=== PATIENT | female | born 1950 | race Caucasian/White ===

== ENCOUNTER 2023-07-28 09:45 | Outpatient (RCR) | payer OTHER, SELFPAY ==
[2023-07-07] VITALS (8 sets, daily range): BP systolic 126–161; BP diastolic 46–64
[2023-07-07] MEDS: TYLENOL 650 MG PO (10:23)
[2023-07-07] MEDS: RITUXAN 407 MG IV (10:24)
[2023-07-07] MEDS: BENADRYL 25 MG PO (10:24)
[2023-07-07] MEDS: LASIX 20 MG PO (13:36)
[2023-07-14] VITALS (8 sets, daily range): BP systolic 97–160; BP diastolic 45–82
[2023-07-14] MEDS: TYLENOL 650 MG PO (10:40)
[2023-07-14] MEDS: BENADRYL 25 MG PO (10:40)
[2023-07-14] MEDS: RITUXAN 407 MG IV (10:42)
[2023-07-14] MEDS: LASIX 20 MG PO (13:51)
[2023-07-21] VITALS (8 sets, daily range): BP systolic 101–173; BP diastolic 51–88
[2023-07-21] MEDS: BENADRYL 25 MG PO (10:33)
[2023-07-21] MEDS: TYLENOL 650 MG PO (10:33)
[2023-07-21] MEDS: RITUXAN 407 MG IV (10:49)
[2023-07-21] MEDS: LASIX 20 MG PO (13:58)
[2023-07-28] VITALS (8 sets, daily range): BP systolic 104–165; BP diastolic 49–79
[2023-07-28] MEDS: TYLENOL 650 MG PO (10:26)
[2023-07-28] MEDS: BENADRYL 25 MG PO (10:27)
[2023-07-28] MEDS: RITUXAN 407 MG IV (10:39)
[2023-07-28] MEDS: LASIX 20 MG PO (13:51)
== END 2023-08-01 23:59 | disposition home or self-care (01) ==
LOC: OID 09:45
PROVIDERS: ATTENDING PHYSICIAN Internal Medicine Rheumatology; FAMILY PHYSICIAN Family Medicine
DX: I77.6 Arteritis, unspecified (principal); M35.9 Systemic involvement of connective tissue, unspecified (principal); J84.89 Other specified interstitial pulmonary diseases; J84.10 Pulmonary fibrosis, unspecified
CPT/HCPCS: 96413; 96415; J9312

== ENCOUNTER → 2023-08-20 12:47 | Outpatient (REF) | payer OTHER, SELFPAY | LOC: HWRAD 12:47 | PROVIDERS: ATTENDING PHYSICIAN Internal Medicine Rheumatology; FAMILY PHYSICIAN Nurse Practitioner; REFERRING PHYSICIAN Internal Medicine Critical Care Medicine | DX: I77.6 Arteritis, unspecified (principal); J84.89 Other specified interstitial pulmonary diseases; M35.9 Systemic involvement of connective tissue, unspecified | CPT/HCPCS: 71250 ==

== ENCOUNTER 2023-08-23 14:53 | Emergency (ER) | payer OTHER, SELFPAY ==
[2023-08-23 14:55] VITALS: BP 93/68
[2023-08-23 15:12] LABS: % Basophils 0.9 % (0-2); % Eosinophils 3.7 % (0-6); % Immature Granulocytes 1.1 % (0-0.5); % Lymphocytes 23.1 % (20.5-51.1); % Neutrophils 61.2 % (42.2-75.2); Absolute Basophils 0.1 10^3/uL (0-0.2); Absolute Eosinophils 0.3 10^3/uL (0-0.7); Absolute Immature Granulocytes 0.1 10^3/uL (0-0.05); Absolute Lymphocytes 2.1 10^3/uL (1.2-3.4); Absolute Monocytes 0.9 10^3/uL (0.1-0.6); Absolute Neutrophils 5.6 10^3/uL (1.4-6.5); Hematocrit 34.3 % (37.0-47.0); Hemoglobin 11.5 g/dL (12.0-16.0); Mean Corp Hgb Conc. 33.5 g/dL (33.0-37.0); Mean Corpuscular Hgb 29.7 pg (27.0-31.0); Mean Corpuscular Volume 88.6 fL (81.0-99.0); Mean Platelet Volume 10.9 fL (7.4-10.4); Nucleated Red Blood Cells % 0 %; Platelet Count 270 10^3/uL (130-400); Red Blood Cell Count 3.87 10^6/uL (4.20-5.40); Red Cell Dist. Width 13.8 % (11.5-14.5); White Blood Cell Count 9.1 10^3/uL (4.8-10.8)
[2023-08-23 15:37] LABS: NT-proBNP 174 pg/ml; Troponin I < 0.012 ng/ml
[2023-08-23 15:38] LABS: ALT (SGPT) 18 U/L (0-35); AST (SGOT) 25 U/L (14-36); Albumin 4.1 g/dl (3.5-5.0); Alkaline Phosphatase 103 U/L (38-126); Blood Urea Nitrogen 16 mg/dl (7-17); Calcium 9.5 mg/dl (8.4-10.2); Carbon Dioxide 26 mmol/L (22-30); Chloride 103 mmol/L (98-107); Glucose 116 mg/dl (70-99); Potassium 4.2 mmol/L (3.5-5.1); Sodium 135 mmol/L (135-145); Total Bilirubin 0.3 mg/dl (0.2-1.3); Total Protein 6.4 g/dl (6.3-8.2); eGFR > 60.00
[2023-08-23 17:57] VITALS: BP 108/93
--- NOTE | 2023-08-23 17:59 | ED.GENMED ---
History of Present Illness
General
Chief Complaint: Breathing Problem
Time Seen by Provider: 08/23/23 17:59
Travel History
Have you had any contact with someone who has COVID-19?: No
Do you have any symptoms of coronavirus? Fever > 100 degrees, chills, cough, shortness of breath, sore throat, loss of taste or smell, muscle aches, or headache?: No
History of Present Illness
History of Present Illness:
HPI: The patient presents with increasing sensation of need for more oxygen at home. She has a history of interstitial lung disease. She has been taking Rituxan. She did have more of a cough recently which improved after she was taking a shower.
She states she had a CAT scan that was just recently performed which showed no significant change compared to prior.
EXAM:
GENERAL: The patient appears somewhat chronically ill
HEENT: Moist oral mucosa
CARDIOVASCULAR: No murmurs, normal heart rate, regular rhythm, No chest wall tenderness
PULMONARY: No significant respiratory distress however she is on 6 L/min nasal cannula she is at rest, crackles are heard diffusely consistent with interstitial lung disease
ABDOMEN: Soft with no peritoneal signs, no tenderness
NEUROLOGIC: Very good strength all extremities, no coordination deficits
PSYCHIATRIC: Appropriate mental status, normal insight and judgement
EXTREMITIES: Nontender, no edema, moves all extremities equally
SKIN: No rash, no lesions
TIME OF INITIAL ENCOUNTER: 6:10 PM
NUMBER AND COMPLEXITY OF PROBLEMS ADDRESSED AT THE ENCOUNTER
� Chronic conditions affecting care: CHF on oxygen at home by nasal cannula, diverticular disease, breast cancer,
� Acute Exacerbation and/or Progression of Chronic Illness: This is an acute exacerbation of chronic problem
� Differential Diagnosis includes: Exacerbation of interstitial lung disease, heart failure, ACS, pneumonia
AMOUNT AND/OR COMPLEXITY OF DATA TO BE REVIEWED AND ANALYZED
� I performed an independent evaluation of and my interpretation is:
EKG: Sinus 74, axis deviation, nonspecific ST abnormality, borderline LVH
CT:
X-rays:
Laboratory Studies: Hemoglobin 11.5, white count normal, BNP 174, troponin unremarkable
Other:
� Review of other/old records: I reviewed old records�hemoglobin today is similar to prior, troponin is unremarkable and BNP is 174. Echo from 2021 showed an EF of 55 to 60% with normal diastolic function and mild aortic
stenosis. CAT scan of the chest showed chronic interstitial fibrosis with a similar appearance compared to 12/24/2022
� Clinical information was obtained by an independent historian:
� Prescriptions/Medications Considered but not given:
� Further testing considered but not performed:
RISK OF COMPLICATIONS AND/OR MORBIDITY OR MORTALITY OF PATIENT MANAGEMENT
� Social determinants of health affecting care:
� Discussion with other providers: I discussed with Dr. Painting start short course of steroid.
� Escalation of care including admission/observation vs risk of discharge considered: I suspect most likely diagnosis is related to progression of interstitial lung disease however CT imaging from 08/20/2023 is relatively
unchanged compared to last year. Will try 1 DuoNeb as well at sister's request. No significant improvement with DuoNeb. The patient states that her baseline oxygen requirement is around 5 to 7 L/min of oxygen. She is currently on 6 L/min of
oxygen satting at 98% in no distress. I suspect a likely exacerbation/worsening of interstitial lung disease. She otherwise feels 'fine' and does not feel like she has pneumonia.
Past History
Past History
ED Past Medical History: Cancer, HTN, Hypercholesterolemia, Hypothyroidism and Other (Interstitial lung disease)
ED Past Surgical History: Cholecystectomy and Other (The patient has a history of a lumpectomy on the left breast, and a cardiac catheterization which was normal, Hernia)
Social History
Tobacco: Former smoker
Alcohol: None
Drug: None
Personal: Single
Living: with family
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
Family History
Family History: Hypertension and CAD
Phy Exam
Physical Exam
Physical Exam:
See HPI
Scores
Heart Failure Risk
Heart Failure Risk Score: Not Applicable
Course
Orders/Labs/Results
Orders:
Orders
08/23/23 15:01
Electrocardiogram (*1) Urgent
Reason for Study: Shortness of Breath
EKG- Treatment ONCE
08/23/23 15:05
BNP [NT-proBNP] Urgent
Complete Blood Count/With Diff Urgent
Comprehensive Metabolic Panel Urgent
Iron Urgent
Troponin I Urgent
08/23/23 18:41
Ipratropium/Albuterol Sulfate [Duoneb] 3 ml .ROUTE .STK-MED ONE
08/23/23 18:42
Ipratropium/Albuterol Sulfate [Duoneb] 3 ml INH R NOW ONE
08/23/23 18:58
Add On- LAB Urgent
Tests Added?: iron panel, ferritin
08/23/23 19:18
Ferritin Urgent
Comment: ADDON
08/23/23 20:19
Prednisone [Deltasone] 50 mg PO NOW STA
Abnormal Lab Results
08/23/23 08/23/23
15:05 19:18
RBC 3.87 L 10^6/uL
(4.20-5.40)
Hgb 11.5 L g/dL
(12.0-16.0)
Hct 34.3 L %
(37.0-47.0)
MPV 10.9 H fL
(7.4-10.4)
Abs Immat Gran (auto) 0.1 H 10^3/uL
(0-0.05)
Absolute Monos (auto) 0.9 H 10^3/uL
(0.1-0.6)
Immature Gran % 1.1 H %
(0-0.5)
Monocytes % 10.0 H %
(1.7-9.3)
Glucose 116 H mg/dl
(70-99)
Ferritin 288.0 H ng/ml
(11.1-264.0)
08/23/23 15:05
08/23/23 15:05
Vital Signs
Initial and Last Documented VS:
Initial Vital Signs
Temp Pulse Resp BP Pulse Ox
98.2 F 78 18 93/68 94
08/23/23 14:55 08/23/23 14:55 08/23/23 14:55 08/23/23 14:55 08/23/23 14:55
Last Documented Vital Signs
Temp Pulse Resp BP Pulse Ox
98.2 F 74 20 116/53 96
08/23/23 14:55 08/23/23 20:06 08/23/23 20:06 08/23/23 20:07 08/23/23 20:06
*Critical Care Note
Total Time (30-74mins, 75-104mins- exclusive of procedures): Not Applicable
ED Attending Note
-
Portions of this chart may have been created with voice recognition software.� Occasional wrong word or��sound alike� substitutions may have occurred due to the inherent limitations of voice recognition software.
Discharge Plan
Departure
Patient Disposition: Home (Routine Discharge)
Date of Disposition: 08/23/23
Time of Disposition: 20:19
Patient with high blood pressure during this ER visit?: Yes
Discharge Problem:
Interstitial lung disease
Prescriptions:
New
prednisone 50 mg tablet
50 mg PO DAILY Qty: 4 0RF
No Action
atorvastatin 40 MG tablet
40 mg PO QPM Qty: 30 0RF
buspirone 10 MG tablet
10 mg PO BID
pantoprazole 40 MG tablet,delayed release (DR/EC)
40 mg PO DAILY Qty: 30 0RF
lisinopril 10 MG tablet
10 mg PO DAILY Qty: 30 0RF
sertraline 100 MG tablet
150 mg PO DAILY
azathioprine [Imuran] 50 MG tablet
100 mg PO BID
acetaminophen [Tylenol Extra Strength] 500 MG tablet
500 mg PO Q4HPRN PRN (Reason: pain)
fexofenadine-pseudoephedrine [Fay-D 24 Hour] 1 EACH tablet extended release 24 hr
1 tab PO HS
levothyroxine 175 MCG tablet
150 mcg PO DAILY
amlodipine 2.5 MG tablet
2.5 mg PO DAILY
aspirin 81 MG tablet,delayed release (DR/EC)
81 mg PO MOWEFR
cyanocobalamin (vitamin B-12) 1,000 MCG/ML solution
1,000 mcg IJ MONTHLY
docusate sodium 100 MG capsule
100 mg PO BIDPRN PRN (Reason: CONSTIPATION)
calcium carbonate-vitamin D3 [Oyster Shell Calcium-Vit D3] 500 MG tablet
1 tab PO DAILY
cholecalciferol (vitamin D3) 1,000 UNITS tablet
1,000 units PO HS
furosemide 20 MG tablet
20 mg PO DAILY
sulfamethoxazole-trimethoprim 1 TABLET tablet
1 tab PO MOWEFR 30 Days Qty: 30 0RF
melatonin 5 MG tablet
5 mg PO HS PRN (Reason: insomnia)
PreserVision AREDS 4,296 mcg-226 mg-90 mg Capsule
1 cap PO BID
Referrals:
Sarmad Rausch MD [Active] - Follow up in 2-3 days
Leanna Menjivar CRNP [Family Provider] -
Activity Restrictions/Additional Instructions:
Follow-up with your forge operator. I sent a prescription for prednisone to your pharmacy. Return here if worse.
Interventions
Interventions:
*Risk Screen - Suicide Last Done: 08/23/23 14:55
*General Assessment Last Done: 08/23/23 14:55
*Neglect/Abuse Screening Last Done: 08/23/23 14:55
*ED COVID-19 Vaccine History Last Done: 08/23/23 14:55
ED- Cardiac Assessment Last Done: 08/23/23 18:22
ED- Pulmonary Assessment Last Done: 08/23/23 18:22
Discharge Date and Time
Discharge Date/Time: 08/23/23 20:24
Print Language: [place] CITIZEN
[2023-08-23 18:00] VITALS: BP 128/45
[2023-08-23] MEDS: DUONEB 3 ML INH (18:43)
[2023-08-23 19:00] VITALS: BP 122/63
[2023-08-23 19:46] LABS: Iron 91 ug/dl (37-170)
[2023-08-23 20:07] VITALS: BP 116/53
[2023-08-23] MEDS: DELTASONE 50 MG PO (20:55)
== END 2023-08-23 20:24 | disposition home or self-care (01) ==
LOC: EMR 14:53
PROVIDERS: Student in an Organized Health Care Education/Training Program; EMERGENCY PHYSICIAN Emergency Medicine; FAMILY PHYSICIAN Nurse Practitioner
DX: J84.9 Interstitial pulmonary disease, unspecified (principal); I11.0 Hypertensive heart disease with heart failure; I50.9 Heart failure, unspecified; I35.0 Nonrheumatic aortic (valve) stenosis; E78.00 Pure hypercholesterolemia, unspecified; E03.9 Hypothyroidism, unspecified; Z99.81 Dependence on supplemental oxygen; Z79.82 Long term (current) use of aspirin; Z87.891 Personal history of nicotine dependence; Z90.49 Acquired absence of other specified parts of digestive tract; Z88.8 Allergy status to other drugs, medicaments and biological substances
CPT/HCPCS: 99283; 94640; 80053; 82728; 83540; 83880; 84484; 85025; 93005

== ENCOUNTER 2023-12-01 09:46 | Outpatient (RCR) | payer OTHER, SELFPAY ==
[2023-11-24] VITALS (10 sets, daily range): BP systolic 113–167; BP diastolic 43–84
[2023-11-24] MEDS: BENADRYL 25 MG PO (10:31)
[2023-11-24] MEDS: TYLENOL 650 MG PO (10:31)
[2023-11-24] MEDS: RITUXAN 407 MG IV (10:33)
[2023-11-24] MEDS: LASIX 20 MG PO (13:46)
[2023-12-01] VITALS (8 sets, daily range): BP systolic 119–147; BP diastolic 38–85
[2023-12-01] MEDS: BENADRYL 25 MG PO (10:21)
[2023-12-01] MEDS: TYLENOL 650 MG PO (10:21)
[2023-12-01] MEDS: RITUXAN 407 MG IV (10:29)
[2023-12-01] MEDS: LASIX 20 MG PO (13:37)
== END 2023-12-01 23:59 | disposition home or self-care (01) ==
LOC: OID 09:46
PROVIDERS: ATTENDING PHYSICIAN Internal Medicine Rheumatology; FAMILY PHYSICIAN Family Medicine
DX: I77.6 Arteritis, unspecified (principal); M35.9 Systemic involvement of connective tissue, unspecified; J84.89 Other specified interstitial pulmonary diseases; J84.10 Pulmonary fibrosis, unspecified
CPT/HCPCS: 96366; 96413; 96415; J9312

== ENCOUNTER 2023-12-15 10:00 | Outpatient (RCR) | payer OTHER, SELFPAY ==
[2023-12-08] VITALS (8 sets, daily range): BP systolic 126–165; BP diastolic 44–67
[2023-12-08] MEDS: BENADRYL 25 MG PO (10:26)
[2023-12-08] MEDS: TYLENOL 650 MG PO (10:26)
[2023-12-08] MEDS: RITUXAN 407 MG IV (10:28)
[2023-12-08] MEDS: LASIX 20 MG PO (13:31)
[2023-12-15] VITALS (9 sets, daily range): BP systolic 129–165; BP diastolic 45–77
[2023-12-15] MEDS: TYLENOL 650 MG PO (10:49)
[2023-12-15] MEDS: BENADRYL 25 MG PO (10:49)
[2023-12-15] MEDS: RITUXAN 407 MG IV (10:50)
[2023-12-15] MEDS: LASIX 20 MG PO (14:20)
== END 2023-12-16 09:26 | disposition home or self-care (01) ==
LOC: OID 10:00
PROVIDERS: ATTENDING PHYSICIAN Internal Medicine Rheumatology; FAMILY PHYSICIAN Family Medicine
DX: I77.6 Arteritis, unspecified (principal); M35.9 Systemic involvement of connective tissue, unspecified; J84.89 Other specified interstitial pulmonary diseases; J84.10 Pulmonary fibrosis, unspecified
CPT/HCPCS: 96413; 96415; J9312

== ENCOUNTER 2023-12-31 13:37 | Emergency (ER) | payer OTHER, SELFPAY ==
[2023-12-31 13:56] LABS: % Eosinophils 3.7 % (0-6); % Immature Granulocytes 3.5 % (0-0.5); % Lymphocytes 19.1 % (20.5-51.1); % Monocytes 6.9 % (1.7-9.3); % Neutrophils 65.8 % (42.2-75.2); Absolute Basophils 0.1 10^3/uL (0-0.2); Absolute Eosinophils 0.3 10^3/uL (0-0.7); Absolute Immature Granulocytes 0.3 10^3/uL (0-0.05); Absolute Lymphocytes 1.8 10^3/uL (1.2-3.4); Absolute Monocytes 0.6 10^3/uL (0.1-0.6); Absolute Neutrophils 6.1 10^3/uL (1.4-6.5); Hematocrit 33.1 % (37.0-47.0); Mean Corp Hgb Conc. 33.2 g/dL (33.0-37.0); Mean Corpuscular Hgb 29.5 pg (27.0-31.0); Mean Corpuscular Volume 88.7 fL (81.0-99.0); Mean Platelet Volume 11.4 fL (7.4-10.4); Nucleated Red Blood Cells % 0 %; Platelet Count 227 10^3/uL (130-400); Red Blood Cell Count 3.73 10^6/uL (4.20-5.40); Red Cell Dist. Width 13.8 % (11.5-14.5); White Blood Cell Count 9.3 10^3/uL (4.8-10.8)
[2023-12-31 14:16] LABS: ALT (SGPT) 21 U/L (0-35); AST (SGOT) 31 U/L (14-36); Albumin 4.2 g/dl (3.5-5.0); Alkaline Phosphatase 141 U/L (38-126); Blood Urea Nitrogen 15 mg/dl (7-17); Calcium 9.2 mg/dl (8.4-10.2); Carbon Dioxide 29 mmol/L (22-30); Chloride 102 mmol/L (98-107); Glucose 81 mg/dl (70-99); Potassium 4.1 mmol/L (3.5-5.1); Sodium 141 mmol/L (135-145); Total Bilirubin 0.3 mg/dl (0.2-1.3); Total Protein 6.3 g/dl (6.3-8.2); eGFR > 60.00
[2023-12-31 15:22] VITALS: BP 153/75
--- NOTE | 2023-12-31 15:39 | EDRN ---
Pt addictions counselor assistant light soon after arrival to room. When this RN entered room, visitor had hooked pt up to oxygen on the wall mount in room at 8lpm. Pt was 100% on 8lpm.
--- NOTE | 2023-12-31 15:52 | EDRN ---
Dr. Hernandez in room w/ pt at this time.
--- NOTE | 2023-12-31 15:57 | ED.GENMED ---
History of Present Illness
General
Chief Complaint: Breathing Problem
Source: patient and family
Time Seen by Provider: 12/31/23 15:46
History of Present Illness
History of Present Illness:
This patient is a 73-year-old female presents emergency department with a recent diagnosis of COVID yesterday. [place], and her sister tested positive and then she started to not really feel that good describes feeling a
little 'flulike'. She tested herself and was noted to be COVID-positive. She called her doctor and was started on Paxlovid and has been tolerating this medication without difficulty. Patient states she feels 'fine'. However, today, while walking
in her home, she noticed that her pulse ox looked like it drops which made her very anxious. She called the doctor and was referred here to get 'checked out. Before coming, patient was able to take a shower, shave her legs, etc. without difficulty
or dyspnea. She does not feel any more dyspneic than usual. Patient usually wears between 4 to 8 L of oxygen [id number]. She has not increased her requirement. She describes a Tmax of 99.6 and denies vomiting, nausea, chest pain or
pressure, leg swelling, or other complaints.
Past History
Past History
ED Past Medical History: Cancer, HTN, Hypercholesterolemia, Hypothyroidism and Other (Interstitial lung disease)
ED Past Surgical History: Cholecystectomy and Other (The patient has a history of a lumpectomy on the left breast, and a cardiac catheterization which was normal, Hernia)
Social History
Tobacco: Former smoker
Alcohol: None
Drug: None
Personal: Single
Living: with family
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
Family History
Family History: Hypertension and CAD
Phy Exam
Physical Exam
Physical Exam:
GENERAL: Alert , in no apparent distress, extremely pleasant, overweight
EYE: pupils equal and reactive
NECK: Supple, no significant adenopathy.
ENT: o/p clr, mmm.
CARDIAC: Regular rate and rhythm .
LUNGS: Equal breath sounds bilaterally, no acute respiratory distress, no wheezes or rhonchi, no obvious cough, faint Rales noted throughout
ABDOMEN: Soft, without focal tenderness, no r/g, no cvat
NEUROLOGICAL: Alert and oriented, no focal neuro deficits
SKIN: Warm and dry, skin intact.
MUSCULOSKELETAL: No edema, well perfused.
PSYCH: Normal and appropriate interaction.
Scores
Heart Failure Risk
Heart Failure Risk Score: Not Applicable
Course
Orders/Labs/Results
Orders:
Orders
12/31/23 13:43
Chest [CR Chest - 2 Views ] Urgent
Comment:
Reason For Exam: sob
12/31/23 13:46
Complete Blood Count/With Diff Urgent
Comprehensive Metabolic Panel Urgent
Abnormal Lab Results
12/31/23
13:46
RBC 3.73 L 10^6/uL
(4.20-5.40)
Hgb 11.0 L g/dL
(12.0-16.0)
Hct 33.1 L %
(37.0-47.0)
MPV 11.4 H fL
(7.4-10.4)
Abs Immat Gran (auto) 0.3 H 10^3/uL
(0-0.05)
Immature Gran % 3.5 H %
(0-0.5)
Lymphocytes % 19.1 L %
(20.5-51.1)
Alkaline Phosphatase 141 H U/L
(38-126)
12/31/23 13:46
12/31/23 13:46
Vital Signs
Initial and Last Documented VS:
Initial Vital Signs
Temp Pulse Resp Pulse Ox
99.1 F 90 22 99
12/31/23 13:40 12/31/23 13:40 12/31/23 13:40 12/31/23 13:40
Last Documented Vital Signs
Temp Pulse Resp BP Pulse Ox
99.1 F 86 22 107/71 100
12/31/23 13:40 12/31/23 16:15 12/31/23 16:15 12/31/23 16:02 12/31/23 16:15
*Critical Care Note
Total Time (30-74mins, 75-104mins- exclusive of procedures): Not Applicable
Update Note
Update Note:
Patient presents to the Emergency Department with ____suspected hypoxia noted on pulse ox
Number and Complexity of Problems Addressed at the Encounter
� Chronic conditions affecting care:
� Acute Exacerbation and/or Progression of Chronic Illness:
� Differential Diagnosis includes: But not limited to hypoxia on exertion related to COVID, faulty measurement, etc.
Amount and/or Complexity of Data to be Reviewed and Analyzed
� I performed an independent evaluation of and my interpretation is:
EKG:
CT:
Xrays: Read by radiologyOverall stable appearance of the chest since 08/20/2023 when considering differences in modality. Findings consistent with interstitial lung disease without superimposed acute infectious/inflammatory
process.
Laboratory Studies: All unremarkable example baseline anemia
Other:
� Review of other/old records reveals:
� Clinical information was obtained by an independent historian: Sister who is bedside
� Prescriptions/Medications Considered but not given:
� Further testing considered but not performed:
Risk of Complications and/or Morbidity or Mortality of Patient Management
� Social determinants of health affecting care:
� Discussion with other providers (PCP, Hospitalists, Consultants, etc):
� Escalation of care including admission/observation vs risk of discharge considered: Patient is extremely well-appearing, on 4 L here with a 99% sat. We will asked patient to ambulate as she would at home to see if there is
actual desaturation that is happening. Patient does not have any respiratory distress, does not appear septic, etc.
Nurse walked patient on oxygen as she typically would at home, no desats, no dyspnea, no symptoms. Patient very eager to go home. Discussed with her and sister importance of follow-up and reasons return to the ER.
ED Attending Note
-
Portions of this chart may have been created with voice recognition software.� Occasional wrong word or��sound alike� substitutions may have occurred due to the inherent limitations of voice recognition software.
Discharge Plan
Departure
Patient Disposition: Home (Routine Discharge)
Date of Disposition: 12/31/23
Time of Disposition: 16:11
Patient with high blood pressure during this ER visit?: Yes
Condition: Good
Discharge Problem:
COVID
Instructions: COVID-19 ED, BLOOD PRESSURE
Prescriptions:
No Action
atorvastatin 40 MG tablet
40 mg PO QPM Qty: 30 0RF
buspirone 10 MG tablet
10 mg PO BID
pantoprazole 40 MG tablet,delayed release (DR/EC)
40 mg PO DAILY Qty: 30 0RF
lisinopril 10 MG tablet
10 mg PO DAILY Qty: 30 0RF
sertraline 100 MG tablet
150 mg PO DAILY
acetaminophen [Tylenol Extra Strength] 500 MG tablet
500 mg PO Q4HPRN PRN (Reason: pain)
fexofenadine-pseudoephedrine [Fay-D 24 Hour] 1 EACH tablet extended release 24 hr
1 tab PO HS
levothyroxine 175 MCG tablet
150 mcg PO DAILY
amlodipine 2.5 MG tablet
2.5 mg PO DAILY
aspirin 81 MG tablet,delayed release (DR/EC)
81 mg PO MOWEFR
cyanocobalamin (vitamin B-12) 1,000 MCG/ML solution
1,000 mcg IJ MONTHLY
docusate sodium 100 MG capsule
100 mg PO BIDPRN PRN (Reason: CONSTIPATION)
calcium carbonate-vitamin D3 [Oyster Shell Calcium-Vit D3] 500 MG tablet
1 tab PO DAILY
cholecalciferol (vitamin D3) 1,000 UNITS tablet
1,000 units PO HS
furosemide 20 MG tablet
20 mg PO DAILY
sulfamethoxazole-trimethoprim 1 TABLET tablet
1 tab PO MOWEFR 30 Days Qty: 30 0RF
melatonin 5 MG tablet
5 mg PO HS PRN (Reason: insomnia)
PreserVision AREDS 4,296 mcg-226 mg-90 mg Capsule
1 cap PO BID
mycophenolate mofetil [CellCept] 250 mg Capsule
1,000 mg PO HS
Rituxan 10 mg/mL Concentrate
814 mg IV .WEEKLY
Wegovy 0.25 mg/0.5 mL Pen Injector
0.25 mg SC QWEEK
Patient Comments:
*Fridays*
Activity Restrictions/Additional Instructions:
PLEASE CONTINUE YOUR MEDICATIONS DIRECTED. IF YOU DEVELOP INCREASING OXYGEN REQUIREMENT, INCREASING SHORTNESS OF BREATH, ANY CHEST PAIN, WEAKNESS, VOMITING, OR OTHER WORRISOME SIGNS, PLEASE RETURN TO THE ER IMMEDIATELY.
Interventions
Interventions:
*Risk Screen - Suicide Last Done: 12/31/23 13:40
*General Assessment Last Done: 12/31/23 13:40
*Neglect/Abuse Screening Last Done: 12/31/23 13:40
ED- Fall Risk Assessment Last Done: 12/31/23 15:51
*ED COVID-19 Vaccine History Last Done: 12/31/23 13:40
*Nursing Disposition Last Done: 12/31/23 16:34
ED- Cardiac Assessment Last Done: 12/31/23 16:00
ED- Pulmonary Assessment Last Done: 12/31/23 16:00
Discharge Date and Time
Discharge Date/Time: 12/31/23 16:34
Print Language: ARMENIAN
[2023-12-31 16:02] VITALS: BP 107/71
--- NOTE | 2023-12-31 16:10 | EDRN ---
Pt ambulated around bed and to BR entrance on 5 lpm of O2 w/ POX monitoring which was 97-99% during entire ambulatory time. Dr. Hernandez informed.
== END 2023-12-31 16:34 | disposition home or self-care (01) ==
LOC: EMR 13:37
PROVIDERS: Physician Assistant; EMERGENCY PHYSICIAN Emergency Medicine; FAMILY PHYSICIAN Nurse Practitioner
DX: U07.1 COVID-19 (principal); I10 Essential (primary) hypertension; Z87.891 Personal history of nicotine dependence; Z99.81 Dependence on supplemental oxygen
CPT/HCPCS: 99284; 71046; 80053; 85025

== ENCOUNTER 2024-01-28 14:29 | Emergency (ER) | payer OTHER, SELFPAY ==
[2024-01-28 14:35] VITALS: BP 127/61
--- NOTE | 2024-01-28 15:06 | ED.GENMED ---
History of Present Illness
<SAMRA De La Cruz - Last Filed: 01/28/24 16:54>
General
Chief Complaint: Breathing Problem
Source: patient
Exam Limitations: none
Time Seen by Provider: 01/28/24 14:48
Nursing documentation reviewed up to this point in time: agreed with
History of Present Illness
History of Present Illness:
Patient is a 73-year-old female with past medical history of interstitial lung disease rheumatological disorder polyangiitis, is on chronic oxygen between 6 and 8 L, presents personal to the ER for evaluation. Patient had COVID December 29 however
ever since has had issues with some shortness of breath. She completed 1 steroid taper with her by pulmonology. She is followed by pulmonary here as well as rheumatology. She is on irrigation tax assessor collector yesterday who ordered a second steroid taper
starting with 60 mg and took the first dose today. Last night was in the 80s. When she saw her irrigation tax assessor collector yesterday they ordered a ct chest without contrast and additional blood work.
Patient denies any associated fever or chills. She is short of breath more so than normal which is what prompted her to come to the ER today along with a low pulse ox in the 80s. She does report that normally on her 6-8 Liters, her pulse ox is
normally in the high 90s(around 98%). She denies any chest pain.
No prior history of DVT PE. Denies any lower extremity swelling.
Past History
<SAMRA De La Cruz - Last Filed: 01/28/24 16:54>
Past History
ED Past Medical History: Cancer, HTN, Hypercholesterolemia, Hypothyroidism and Other (Interstitial lung disease)
ED Past Surgical History: Cholecystectomy and Other (The patient has a history of a lumpectomy on the left breast, and a cardiac catheterization which was normal, Hernia)
Social History
Tobacco: Former smoker
Alcohol: None
Drug: None
Personal: Single
Living: with family
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
Family History
Family History: Hypertension and CAD
Review of Systems
<SAMRA De La Cruz - Last Filed: 01/28/24 16:54>
Review of Systems
Allergies reviewed?: Yes
All Other Systems: ROS reviewed and negative except as documented in HPI and ROS
Constitutional: Reports no symptoms; Denies fever, fatigue or chills
Respiratory: Reports trouble breathing
Cardiac: Reports no symptoms
ABD/GI: Reports no symptoms
: Reports no symptoms
Musculoskeletal: Reports no symptoms
Skin: Reports no symptoms
Neurological: Reports no symptoms
Psychiatric: Reports no symptoms
Phy Exam
<SAMRA De La Cruz - Last Filed: 01/28/24 16:54>
General Physical Exam
General Presentation: no apparent distress
General age: appears stated age
General Skin: warm and dry
General Habitus: other (elevated BMI)
General Mental: alert
General Hydration: appears well hydrated
Pulmonary Exam
Pulmonary Exam: no respiratory distress and other ( rhonchi exp wheezing )
Neurological Exam
Neurological Exam: alert and oriented x3
Musculoskeletal Exam
Musculoskeletal Exam: full ROM
Skin Exam
Skin Exam: normal color and warm/dry
Psychiatric Exam
Psychiatric Exam: normal mood/affect
Scores
<Diego Mckeon PA-C - Last Filed: 01/28/24 18:34>
Heart Failure Risk
Heart Failure Risk Score: Not Applicable
Course
<SAMRA De La Cruz - Last Filed: 01/28/24 16:54>
Orders/Labs/Results
Orders:
Orders
01/28/24 15:06
CBC/With Diff [Complete Blood Count/With Diff] Urgent
CMP [Comprehensive Metabolic Panel] Urgent
CRP [C-Reactive Protein] Urgent
Ferritin Urgent
Iron Urgent
Sed Rate [Erythrocyte Sed Rate] Urgent
01/28/24 15:17
Albuterol Nebs [Ventolin Nebules] 2.5 mg INH R NOW STA
01/28/24 16:13
CT Chest W/o Iv Contrast Urgent
Comment:
Reason For Exam: sob
01/28/24 16:39
Dexamethasone Sod Phosphate [Decadron] 10 mg IV NOW STA
01/28/24 16:41
Ipratropium/Albuterol Sulfate [Duoneb] 3 ml INH R NOW ONE
01/28/24 17:26
COVID-19 Antigen Urgent
Source: Nasal Swab
Abnormal Lab Results
01/28/24
15:06
WBC 17.9 H 10^3/uL
(4.8-10.8)
RBC 3.49 L 10^6/uL
(4.20-5.40)
Hgb 9.9 L g/dL
(12.0-16.0)
Hct 30.2 L %
(37.0-47.0)
MCHC 32.8 L g/dL
(33.0-37.0)
MPV 11.2 H fL
(7.4-10.4)
ESR 70 H mm/hour
(0-20)
Chloride 97 L mmol/L
(98-107)
BUN 20 H mg/dl
(7-17)
Glucose 141 H mg/dl
(70-99)
Iron 36 L ug/dl
(37-170)
Ferritin 363.0 H ng/ml
(11.1-264.0)
ALT 36 H U/L
(0-35)
C-Reactive Protein 163.00 H mg/L
(0.0-10.00)
Total Protein 6.2 L g/dl
(6.3-8.2)
01/28/24 15:06
01/28/24 15:06
Vital Signs
Initial and Last Documented VS:
Initial Vital Signs
Temp Pulse Resp BP Pulse Ox
99.3 F 94 18 127/61 88
01/28/24 14:35 01/28/24 14:35 01/28/24 14:35 01/28/24 14:35 01/28/24 14:35
Last Documented Vital Signs
Temp Pulse Resp BP Pulse Ox
99.3 F 82 24 146/53 93
01/28/24 14:35 01/28/24 18:00 01/28/24 18:00 01/28/24 18:00 01/28/24 18:00
<Diego Mckeon PA-C - Last Filed: 01/28/24 18:34>
Orders/Labs/Results
Orders:
Orders
01/28/24 15:06
CBC/With Diff [Complete Blood Count/With Diff] Urgent
CMP [Comprehensive Metabolic Panel] Urgent
CRP [C-Reactive Protein] Urgent
Ferritin Urgent
Iron Urgent
Sed Rate [Erythrocyte Sed Rate] Urgent
01/28/24 15:17
Albuterol Nebs [Ventolin Nebules] 2.5 mg INH R NOW STA
01/28/24 16:13
CT Chest W/o Iv Contrast Urgent
Comment:
Reason For Exam: sob
01/28/24 16:39
Dexamethasone Sod Phosphate [Decadron] 10 mg IV NOW STA
01/28/24 16:41
Ipratropium/Albuterol Sulfate [Duoneb] 3 ml INH R NOW ONE
01/28/24 17:26
COVID-19 Antigen Urgent
Source: Nasal Swab
Abnormal Lab Results
01/28/24
15:06
WBC 17.9 H 10^3/uL
(4.8-10.8)
RBC 3.49 L 10^6/uL
(4.20-5.40)
Hgb 9.9 L g/dL
(12.0-16.0)
Hct 30.2 L %
(37.0-47.0)
MCHC 32.8 L g/dL
(33.0-37.0)
MPV 11.2 H fL
(7.4-10.4)
ESR 70 H mm/hour
(0-20)
Chloride 97 L mmol/L
(98-107)
BUN 20 H mg/dl
(7-17)
Glucose 141 H mg/dl
(70-99)
Iron 36 L ug/dl
(37-170)
Ferritin 363.0 H ng/ml
(11.1-264.0)
ALT 36 H U/L
(0-35)
C-Reactive Protein 163.00 H mg/L
(0.0-10.00)
Total Protein 6.2 L g/dl
(6.3-8.2)
01/28/24 15:06
01/28/24 15:06
Vital Signs
Initial and Last Documented VS:
Initial Vital Signs
Temp Pulse Resp BP Pulse Ox
99.3 F 94 18 127/61 88
01/28/24 14:35 01/28/24 14:35 01/28/24 14:35 01/28/24 14:35 01/28/24 14:35
Last Documented Vital Signs
Temp Pulse Resp BP Pulse Ox
99.3 F 82 24 146/53 93
01/28/24 14:35 01/28/24 18:00 01/28/24 18:00 01/28/24 18:00 01/28/24 18:00
<SAMRA De La Cruz - Last Filed: 01/28/24 16:54>
MDM/Problems Addressed
MDM/Problems Addressed:
Patient is a 73-year-old female with known interstitial lung disease on chronic 6-8 L of home O2 also with rheumatology issues presents to the ER with shortness of breath and low pulse ox. Ever since patient had COVID at the end of December she has
had some issues with low pulse ox and shortness of breath. She is followed by pulmonary here at [facility] and steroid taper however recently seen by irrigation tax assessor collector yesterday and started on a higher dose steroid taper. She did take 60 mg of
prednisone today looks within the 80s at home on her 6-8 L. She reports she was recommended to come to the ER today for evaluation and additional IV steroid.
Her irrigation tax assessor collector ordered CAT scan chest without contrast along with other labs she has never had any PE DVT . She is nontachycardic. Scattered rhonchi wheezing on exam. She was given a neb here in the ER when she first arrived feeling better.
Case reviewed with ED physician will give 1 dose of Decadron here despite the fact that she had 1 dose of oral steroids at home. will Order CT without contrast.
1653: probably just back to their office butCare of pt at this time transferred to [facility] .
Pt currently in CT scan . sister at bedside will give additional neb
<Diego Mckeon PA-C - Last Filed: 01/28/24 18:34>
*Radiology
Radiology exam reviewed: radiology read reviewed
*Critical Care Note
Total Time (30-74mins, 75-104mins- exclusive of procedures): Not Applicable
<Diego Mckeon PA-C - Last Filed: 01/28/24 18:34>
Patient Management
Social determinants of health affecting care: Living situation and Strong social support
Escalation/DeEscalation of care consider admission/obs:
The patient received in signout pending CT chest results and reevaluation. Patient CT of the chest consistent with possible infectious etiology such as COVID-19. Patient had recent COVID infection and I suspect the CT scan finding is likely
related to patient's recent known COVID-19 infection. Patient did note that she had significant improvement with nebulizer while here. She is requesting nebulizer to go home with which is reasonable given patient's chronic lung history. She was
provided with printout of labs and CT scan report. She will follow-up with her fishing vessel operator and irrigation tax assessor collector as scheduled. Aware of return precautions to the ER. We did ambulate the patient in the ER while on her baseline 8 L via nasal cannula
and oxygen remained at 92%.
ED Attending Note
<SMARA De La Cruz - Last Filed: 01/28/24 16:54>
-
Portions of this chart may have been created with voice recognition software.� Occasional wrong word or��sound alike� substitutions may have occurred due to the inherent limitations of voice recognition software.
Discharge Plan
Departure
Patient Disposition: Home (Routine Discharge)
Date of Disposition: 01/28/24
Time of Disposition: 18:00
Patient with high blood pressure during this ER visit?: No
Discharge Problem:
Shortness of breath, Interstitial lung disease
Instructions: Shortness of Breath (Dyspnea) (DC)
Prescriptions:
New
ipratropium-albuterol 0.5 mg-3 mg(2.5 mg base)/3 mL solution for nebulization
3 ml inhalation Q6H PRN (Reason: shortness of breath or wheezing) Qty: 180 0RF
No Action
atorvastatin 40 MG tablet
40 mg PO QPM Qty: 30 0RF
buspirone 10 MG tablet
10 mg PO BID
pantoprazole 40 MG tablet,delayed release (DR/EC)
40 mg PO DAILY Qty: 30 0RF
lisinopril 10 MG tablet
10 mg PO DAILY Qty: 30 0RF
sertraline 100 MG tablet
150 mg PO DAILY
acetaminophen [Tylenol Extra Strength] 500 MG tablet
500 mg PO Q4HPRN PRN (Reason: pain)
fexofenadine-pseudoephedrine [Fay-D 24 Hour] 1 EACH tablet extended release 24 hr
1 tab PO HS
levothyroxine 175 MCG tablet
150 mcg PO DAILY
amlodipine 2.5 MG tablet
2.5 mg PO DAILY
aspirin 81 MG tablet,delayed release (DR/EC)
81 mg PO MOWEFR
cyanocobalamin (vitamin B-12) 1,000 MCG/ML solution
1,000 mcg IJ MONTHLY
docusate sodium 100 MG capsule
100 mg PO BIDPRN PRN (Reason: CONSTIPATION)
calcium carbonate-vitamin D3 [Oyster Shell Calcium-Vit D3] 500 MG tablet
1 tab PO DAILY
cholecalciferol (vitamin D3) 1,000 UNITS tablet
1,000 units PO HS
furosemide 20 MG tablet
20 mg PO DAILY
sulfamethoxazole-trimethoprim 1 TABLET tablet
1 tab PO MOWEFR 30 Days Qty: 30 0RF
melatonin 5 MG tablet
5 mg PO HS PRN (Reason: insomnia)
PreserVision AREDS 4,296 mcg-226 mg-90 mg Capsule
1 cap PO BID
mycophenolate mofetil [CellCept] 250 mg Capsule
1,000 mg PO HS
Rituxan 10 mg/mL Concentrate
814 mg IV .WEEKLY
Wegovy 0.25 mg/0.5 mL Pen Injector
0.25 mg SC QWEEK
Patient Comments:
*Fridays*
Referrals:
PRIVATE,PHYSICIAN [Active] -
Interventions
Interventions:
*Risk Screen - Suicide Last Done: 01/28/24 14:35
*General Assessment Last Done: 01/28/24 14:35
*Neglect/Abuse Screening Last Done: 01/28/24 14:35
Discharge Date and Time
Print Language: MOHAWK
[2024-01-28 15:07] VITALS: BP 135/77
[2024-01-28] MEDS: VENTOLIN NEBULES 2.5 MG INH (15:23)
[2024-01-28 15:31] LABS: ALT (SGPT) 36 U/L (0-35); AST (SGOT) 36 U/L (14-36); Alkaline Phosphatase 93 U/L (38-126); Blood Urea Nitrogen 20 mg/dl (7-17); Calcium 9.3 mg/dl (8.4-10.2); Carbon Dioxide 25 mmol/L (22-30); Chloride 97 mmol/L (98-107); Glucose 141 mg/dl (70-99); Iron 36 ug/dl (37-170); Potassium 4.3 mmol/L (3.5-5.1); Sodium 135 mmol/L (135-145); Total Bilirubin 0.6 mg/dl (0.2-1.3); Total Protein 6.2 g/dl (6.3-8.2); eGFR > 60.00
[2024-01-28 16:11] LABS: Erythrocyte Sed Rate 70 mm/hour (0-20)
[2024-01-28] MEDS: DUONEB 3 ML INH (17:01)
[2024-01-28] MEDS: DECADRON 10 MG IV (17:01)
[2024-01-28 17:08] VITALS: BP 126/71
[2024-01-28 17:44] LABS: Hematocrit 30.2 % (37.0-47.0); Hemoglobin 9.9 g/dL (12.0-16.0); Mean Corp Hgb Conc. 32.8 g/dL (33.0-37.0); Mean Corpuscular Hgb 28.4 pg (27.0-31.0); Mean Corpuscular Volume 86.5 fL (81.0-99.0); Mean Platelet Volume 11.2 fL (7.4-10.4); Platelet Count 289 10^3/uL (130-400); Red Blood Cell Count 3.49 10^6/uL (4.20-5.40); Red Cell Dist. Width 14.1 % (11.5-14.5); White Blood Cell Count 17.9 10^3/uL (4.8-10.8)
[2024-01-28 18:00] VITALS: BP 146/53
[2024-01-28 19:29] LABS: % Basophils 0.4 % (0-2); % Eosinophils 1.7 % (0-6); % Immature Granulocytes 5.2 % (0-0.5); % Lymphocytes 6.8 % (20.5-51.1); % Monocytes 6.6 % (1.7-9.3); % Neutrophils 79.3 % (42.2-75.2); Absolute Basophils 0.1 10^3/uL (0-0.2); Absolute Eosinophils 0.3 10^3/uL (0-0.7); Absolute Immature Granulocytes 0.9 10^3/uL (0-0.05); Absolute Lymphocytes 1.2 10^3/uL (1.2-3.4); Absolute Monocytes 1.2 10^3/uL (0.1-0.6); Absolute Neutrophils 14.2 10^3/uL (1.4-6.5); Nucleated Red Blood Cells % 0 %
== END 2024-01-28 18:38 | disposition home or self-care (01) ==
LOC: EMR 14:29
PROVIDERS: Nurse Practitioner; EMERGENCY PHYSICIAN Emergency Medicine; FAMILY PHYSICIAN Nurse Practitioner
DX: J84.9 Interstitial pulmonary disease, unspecified (principal); R06.02 Shortness of breath; E03.9 Hypothyroidism, unspecified; E78.00 Pure hypercholesterolemia, unspecified; I11.0 Hypertensive heart disease with heart failure; I50.9 Heart failure, unspecified; K57.90 Diverticulosis of intestine, part unspecified, without perforation or abscess without bleeding; H40.9 Unspecified glaucoma; D50.9 Iron deficiency anemia, unspecified; M30.0 Polyarteritis nodosa; Z79.82 Long term (current) use of aspirin; Z99.81 Dependence on supplemental oxygen; Z85.3 Personal history of malignant neoplasm of breast; Z92.3 Personal history of irradiation; Z86.16 Personal history of COVID-19; Z87.891 Personal history of nicotine dependence; Z90.49 Acquired absence of other specified parts of digestive tract; Z88.8 Allergy status to other drugs, medicaments and biological substances
CPT/HCPCS: 99285; 96374; 94640 ×2; 71250; 80053; 82728; 83540; 85025; 85652; 86140

== ENCOUNTER 2024-01-30 14:51 | Inpatient (IN) | payer OTHER, SELFPAY ==
[2024-01-30] VITALS (17 sets, daily range): BP systolic 100–136; BP diastolic 32–66; PULSE 2; BMI 50.8
[2024-01-30] MEDS: DUONEB 3 ML INH (13:03)
--- NOTE | 2024-01-30 13:04 | ED.GENMED ---
History of Present Illness
General
Chief Complaint: Breathing Problem
Source: patient
Exam Limitations: none
Time Seen by Provider: 01/30/24 12:40
History of Present Illness
History of Present Illness:
Patient returns with increased shortness of breath. No cough. Increased oxygen demands at home. Hypoxic on 8 L at home.
Past History
Past History
ED Past Medical History: Cancer, HTN, Hypercholesterolemia, Hypothyroidism and Other (Interstitial lung disease)
ED Past Surgical History: Cholecystectomy and Other (The patient has a history of a lumpectomy on the left breast, and a cardiac catheterization which was normal, Hernia)
Social History
Tobacco: Former smoker
Alcohol: None
Drug: None
Personal: Single
Living: with family
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
Family History
Family History: Hypertension and CAD
Review of Systems
Review of Systems
All Other Systems: Not applicable
Constitutional: Denies fever
Respiratory: Denies cough
Cardiac: Denies chest pain
Phy Exam
Physical Exam
Physical Exam:
GENERAL: Alert and oriented. [address]. Mild tachypnea
EYE: Orbits normal.
NECK: Supple, no significant adenopathy.
ENT: Pharynx without erythema
CARDIAC: Regular rate and rhythm without any obvious murmurs.
LUNGS: Mild tachypnea with expiratory wheezing
ABDOMEN: Soft, without focal tenderness or distention. Significantly elevated BMI
NEUROLOGICAL: Alert and oriented , grossly non-focal
SKIN: Warm and dry, no rash or lesion, no discoloration, skin intact.
MUSCULOSKELETAL: No edema,no deformity.Good color
PSYCH: Normal and appropriate interaction.
Scores
Heart Failure Risk
Heart Failure Risk Score: Not Applicable
Sepsis
Sepsis Screening
Sepsis Assessment: Sepsis
Sepsis Screening: Lactate >2mmol/L and Worsening O2 Saturation
Sepsis Screen
Sepsis Screen: Sepsis
Date: 01/30/24
Time: 13:48
Course
Orders/Labs/Results
Orders:
Orders
01/30/24 12:35
EKG [Electrocardiogram (*1)] Urgent
Reason for Study: Shortness of Breath
EKG- Treatment ONCE
01/30/24 12:46
Electrocardiogram (*1) Stat
Reason for Study: Other
Other Reason for Exam: pneumonia
Cardiac Monitoring- Treatment ONCE
EKG- Treatment ONCE
IV Insert/Care/Rem.- Treatment PRN
Dexamethasone Sod Phosphate [Decadron] 8 mg IV NOW STA
Ipratropium/Albuterol Sulfate [Duoneb] 3 ml INH R NOW STA
CR Chest Portable - 1 View Urgent
Comment:
Reason For Exam: fever sob
Reason Study Needs to be Portable: Other
O2 Therapy [RESP] Stat
Titrate/Wean O2 to maintain O2 sat greater than (%): 95
Pulse Ox/cont/shift [RESP] Stat
Quantity: 1
01/30/24 12:55
COVID-19 Antigen Urgent
Source: Nasal Swab
Complete Blood Count/With Diff Urgent
Comprehensive Metabolic Panel Urgent
Lactic Acid Urgent
Influenza A+B Rapid Molecular Urgent
TOREY Source: Nasal Swab
Specimen Description:
01/30/24 13:08
Blood Culture Urgent
TOREY Source: Blood/Venous
Specimen Description:
01/30/24 13:16
Blood Culture Routine
TOREY Source: Blood/Venous
Specimen Description:
01/30/24 13:45
Cefepime HCl [Maxipime] 2,000 mg IV NOW STA
Abnormal Lab Results
01/30/24
12:55
WBC 20.4 H 10^3/uL
(4.8-10.8)
RBC 3.54 L 10^6/uL
(4.20-5.40)
Hgb 10.1 L g/dL
(12.0-16.0)
Hct 30.8 L %
(37.0-47.0)
MCHC 32.8 L g/dL
(33.0-37.0)
MPV 10.9 H fL
(7.4-10.4)
Abs Immat Gran (auto) 1.0 H 10^3/uL
(0-0.05)
Absolute Neuts (auto) 16.5 H 10^3/uL
(1.4-6.5)
Absolute Lymphs (auto) 1.1 L 10^3/uL
(1.2-3.4)
Absolute Monos (auto) 1.4 H 10^3/uL
(0.1-0.6)
Immature Gran % 5.0 H %
(0-0.5)
Neutrophils % 81.0 H %
(42.2-75.2)
Lymphocytes % 5.6 L %
(20.5-51.1)
BUN 23 H mg/dl
(7-17)
Glucose 116 H mg/dl
(70-99)
Lactic Acid 2.3 H mmol/L
(0.7-2.0)
AST 39 H U/L
(14-36)
ALT 38 H U/L
(0-35)
01/30/24 12:55
01/30/24 12:55
Vital Signs
Initial and Last Documented VS:
Initial Vital Signs
Temp Pulse Resp BP Pulse Ox
102.0 F H 103 28 136/51 95
01/30/24 12:37 01/30/24 12:37 01/30/24 12:37 01/30/24 12:37 01/30/24 12:37
Last Documented Vital Signs
Temp Pulse Resp BP Pulse Ox
100.0 F 110 18 132/47 93
01/30/24 13:42 01/30/24 13:45 01/30/24 13:45 01/30/24 13:41 01/30/24 13:45
MDM/Problems Addressed
Differential Diagnosis Includes:
Patient presents with ongoing and progressive symptoms. Increased hypoxia. Pneumonitis by CT the other day. Now has 102 fever. Workup in progress. Will require medical admission
*Pulse Oximetry
Patient hypoxic: yes
*Critical Care Note
Total Time (30-74mins, 75-104mins- exclusive of procedures): Not Applicable
Data Reviewed
Review of Other/Old Records Reveals: Labs, Records, Radiology Studies and Testing
Update Note
Update Note:
Patient with progressive oxygen demands fever progressive pneumonitis by x-ray. Will cover with antibiotics. Admit to hospitalist. Last echocardiogram reasonable. Add fluids.
ED Attending Note
-
Portions of this chart may have been created with voice recognition software.� Occasional wrong word or��sound alike� substitutions may have occurred due to the inherent limitations of voice recognition software.
Discharge Plan
Departure
Patient Disposition: Admit
Date of Disposition: 01/30/24
Time of Disposition: 13:45
Presentation/result/management discussed w/ accepting MD/DO: Hospitalist
Discharge Problem:
Progressive pneumonitis, History of interstitial lung disease, Fever/hypoxia
Prescriptions:
No Action
atorvastatin 40 MG tablet
40 mg PO QPM Qty: 30 0RF
buspirone 10 MG tablet
10 mg PO BID
pantoprazole 40 MG tablet,delayed release (DR/EC)
40 mg PO DAILY Qty: 30 0RF
lisinopril 10 MG tablet
10 mg PO DAILY Qty: 30 0RF
sertraline 100 MG tablet
150 mg PO DAILY
acetaminophen [Tylenol Extra Strength] 500 MG tablet
500 mg PO Q4HPRN PRN (Reason: pain)
fexofenadine-pseudoephedrine [Fay-D 24 Hour] 1 EACH tablet extended release 24 hr
1 tab PO HS
levothyroxine 175 MCG tablet
150 mcg PO DAILY
amlodipine 2.5 MG tablet
2.5 mg PO DAILY
aspirin 81 MG tablet,delayed release (DR/EC)
81 mg PO MOWEFR
cyanocobalamin (vitamin B-12) 1,000 MCG/ML solution
1,000 mcg IJ MONTHLY
docusate sodium 100 MG capsule
100 mg PO BIDPRN PRN (Reason: CONSTIPATION)
calcium carbonate-vitamin D3 [Oyster Shell Calcium-Vit D3] 500 MG tablet
1 tab PO DAILY
cholecalciferol (vitamin D3) 1,000 UNITS tablet
1,000 units PO HS
furosemide 20 MG tablet
20 mg PO DAILY
sulfamethoxazole-trimethoprim 1 TABLET tablet
1 tab PO MOWEFR 30 Days Qty: 30 0RF
melatonin 5 MG tablet
5 mg PO HS PRN (Reason: insomnia)
PreserVision AREDS 4,296 mcg-226 mg-90 mg Capsule
1 cap PO BID
mycophenolate mofetil [CellCept] 250 mg Capsule
1,000 mg PO HS
Rituxan 10 mg/mL Concentrate
814 mg IV .WEEKLY
Wegovy 0.25 mg/0.5 mL Pen Injector
0.25 mg SC QWEEK
Patient Comments:
*Fridays*
ipratropium-albuterol 0.5 mg-3 mg(2.5 mg base)/3 mL solution for nebulization
3 ml inhalation Q6H PRN (Reason: shortness of breath or wheezing) Qty: 180 0RF
Referrals:
Leanna Menjivar CRNP [Family Provider] -
Interventions
Interventions:
*Risk Screen - Suicide Last Done: 01/30/24 12:51
*General Assessment Last Done: 01/30/24 12:51
*Neglect/Abuse Screening Last Done: 01/30/24 12:51
*ED COVID-19 Vaccine History Last Done: 01/30/24 12:51
Discharge Date and Time
Print Language: [id number]
[2024-01-30 13:10] LABS: % Basophils 0.4 % (0-2); % Lymphocytes 5.6 % (20.5-51.1); Absolute Basophils 0.1 10^3/uL (0-0.2); Absolute Eosinophils 0.2 10^3/uL (0-0.7); Absolute Lymphocytes 1.1 10^3/uL (1.2-3.4); Absolute Monocytes 1.4 10^3/uL (0.1-0.6); Absolute Neutrophils 16.5 10^3/uL (1.4-6.5); Hematocrit 30.8 % (37.0-47.0); Hemoglobin 10.1 g/dL (12.0-16.0); Mean Corp Hgb Conc. 32.8 g/dL (33.0-37.0); Mean Corpuscular Hgb 28.5 pg (27.0-31.0); Mean Platelet Volume 10.9 fL (7.4-10.4); Nucleated Red Blood Cells % 0 %; Platelet Count 302 10^3/uL (130-400); Red Blood Cell Count 3.54 10^6/uL (4.20-5.40); White Blood Cell Count 20.4 10^3/uL (4.8-10.8)
[2024-01-30 13:25] LABS: Lactic Acid 2.3 mmol/L (0.7-2.0)
[2024-01-30 13:27] LABS: ALT (SGPT) 38 U/L (0-35); AST (SGOT) 39 U/L (14-36); Albumin 4.1 g/dl (3.5-5.0); Alkaline Phosphatase 91 U/L (38-126); Blood Urea Nitrogen 23 mg/dl (7-17); Calcium 9.2 mg/dl (8.4-10.2); Carbon Dioxide 24 mmol/L (22-30); Chloride 99 mmol/L (98-107); Estimated Creatinine Clearance 86 ml/min; Glucose 116 mg/dl (70-99); Potassium 4.4 mmol/L (3.5-5.1); Sodium 136 mmol/L (135-145); Total Bilirubin 0.5 mg/dl (0.2-1.3); Total Protein 6.3 g/dl (6.3-8.2); eGFR > 60.00
[2024-01-30 13:28] LABS: COVID-19 Antigen Negative (Negative)
[2024-01-30] MEDS: DECADRON 8 MG IV (13:43)
--- NOTE | 2024-01-30 13:45 | HPS.HSE ---
Addendum entered and electronically signed by Max Gomez DO 01/30/24 14:53:
Patient seen and examined independently. Agree with findings and plan as set forth by SAMRA Keating.
Patient is a 73y F with PMH significant for pulm fibrosis / ILD on chronic Rituxan and Imuran and on home O2 at 6-8 lpm who presents to ED complaining of increased SOB x 1 week. Patient was seen in the ED here on 01/27 with similar complaints.
She improved with nebulizer therapy and was discharged to home. Since that time, patient notes that dyspnea has progressed and she has developed fevers / chills. Patient has been taking PO steroids at home without significant improvement in her
symptoms.
CT scan done 01/17 and CXR done today show significant increase in interstitial markings bilaterally - R > L.
Ass:
Acute on Chronic Hypoxemic Respiratory Failure
Atypical / Interstitial Pneumonia
Sepsis secondary to the above
Interstitial Lung Disease / Pulmonary Fibrosis
ANCA Positive Vasculitis
Benign Hypertension
Chronic HFpEF
Hypothyroidism
Anemia of Chronic Disease
Morbid Obesity
Plan:
Admit for further evaluation and treatment.
IV abx for possible atypical / infectious pneumonia.
Change to IV steroids for possible flare of ILD / pulm fibrosis.
Continue supportive care including O2 support, etc.
Pulmonary evaluation for additional recommendations.
Continue other usual outpatient medications.
Original Note:
Family Physician
-
Family Physician: SAMRA Joy
Chief Complaint
-
sob
History of Present Illness
73-year-old female with past medical history of interstitial lung disease, GERD, HTN, CAD, pulmonary HTN, depression, anxiety, breast cancer, hypothyroidism, pulmonary fibrosis, EMERSON, CHF, HLD presented to us sob for more than a week. denied cough.
runny nose, congestion. denied fever at home. stated chills today. patient uses 8l at home.her she was noted hypoxic on 80's on 8l. denied ARRIAGA, dizzy or syncopal episode. denied chest pain, sob. denied abdominal pain,n,v,d. denied dysuria or
hematuria. patient was evaluated by pulmonology and rheumatology.patient was started on steroids with no much relief in her symptoms.
patient received steroids, abx and fluids in ER. admitting for further managment.
Medical History
Past Medical History
Past Medical History: Reports Other
Additional Past Medical History:
ILD
GERD
HTN
CAD
depression
anxiety
breat cancer
hypothyroidism
pulmonary fibrosis
hyperthyroidism
Emerson
diastolic CHF
HLD
Past Surgical History: Reports Other
Additional Past Surgical History:
cholecystectomy
hernia repair
left breast lumpection
Social History
Tobacco: Non-smoker
Alcohol: None
Drug: None
Family History
Family History: Not pertinent
Allergies / Home Medications
Allergies reflects when Allergies were last updated in [employer].
Home Medications with original date entered in [employer]
Allergy/Medication List:
Allergies
Allergy/AdvReac Type Severity Reaction Status Date / Time
diltiazem [From [employer] XT] Allergy Swelling Verified 01/30/24 12:37
Home Medications
buspirone 10 mg tablet 10 mg PO BID mental health 03/10/17
pantoprazole 40 mg tablet,delayed release 40 mg PO DAILY #30 tabs 06/20/17
sertraline 100 mg tablet 100 mg PO DAILY Depression 10/25/18
acetaminophen 500 mg tablet (Tylenol Extra Strength) 500 mg PO Q4HPRN PRN mild pain 05/12/19
fexofenadine-pseudoephedrine ER 180 mg-240 mg tablet,ext.release 24 hr (Fay-D 24 Hour) 1 tab PO HS Congestion 01/07/20
amlodipine 2.5 mg tablet 2.5 mg PO DAILY Blood pressure 10/11/20
aspirin 81 mg tablet,delayed release 81 mg PO MOWEFR Blood clot prevention/tx 10/11/20
calcium 500 mg (as carbonate)-vitamin D3 5 mcg (200 unit) tablet (Oyster Shell Calcium-Vitamin D3) 1 tab PO DAILY Supplement 10/11/20
cholecalciferol (vitamin D3) 25 mcg (1,000 unit) tablet 1,000 units PO HS Supplement 10/11/20
cyanocobalamin (vitamin B-12) 1,000 mcg/mL injection solution 1,000 mcg IM QMONTH Supplement 10/11/20
docusate sodium 100 mg capsule 100 mg PO BIDPRN PRN CONSTIPATION 10/11/20
furosemide 20 mg tablet 20 mg PO DAILY Fluid retention/Swelling 10/11/20
melatonin 5 mg tablet 5 mg PO HSPRN PRN insomnia 10/28/20
vitamins A,C,V-ldgc-kkxiva 4,296 mcg-226 mg-90 mg capsule (PreserVision AREDS) 1 cap PO BID 07/14/23
rituximab 10 mg/mL concentrate,intravenous (Rituxan) mg IV R0ARTOH 12/15/23
atorvastatin 40 mg tablet 40 mg PO HS 01/30/24
azathioprine 50 mg tablet 100 mg PO BID 01/30/24
benzonatate 100 mg capsule 100 mg PO TIDPRN PRN cough 01/30/24
ipratropium 0.5 mg-albuterol 3 mg (2.5 mg base)/3 mL nebulization soln 3 ml inhalation R BID 01/30/24
levothyroxine 150 mcg tablet 150 mcg PO DAILY 01/30/24
lisinopril 20 mg tablet 10 mg PO DAILY 01/30/24
prednisone 10 mg tablet 60 mg PO .TAPER 01/30/24
semaglutide (weight loss) 0.5 mg/0.5 mL subcutaneous pen injector (Wegovy) 0.5 mg SC WE 01/30/24
sertraline 50 mg tablet 50 mg PO DAILY 01/30/24
sulfamethoxazole 800 mg-trimethoprim 160 mg tablet (Bactrim DS) 1 tab PO MOWEFR 01/30/24
Review of Systems
-
Constitutional: Reports Chills
EENT: Reports No Symptoms
Respiratory: Reports Trouble Breathing
Cardiac: Reports No Symptoms
Abdomen/GI: Reports No Symptoms
: Reports No Symptoms
Musculoskeletal: Reports No Symptoms
Skin: Reports No Symptoms
Neurological: Reports No Symptoms
Endocrine: Reports No Symptoms
Hematologic/Lymphatic: Reports No Symptoms
Psych: Reports No Symptoms
Physical Exam
Vital Signs
Vital Signs
Temp Pulse Resp BP Pulse Ox
100.0 F 103 28 136/51 95
01/30/24 13:42 01/30/24 12:37 01/30/24 12:37 01/30/24 12:37 01/30/24 12:37
Physical Exam
General: Well Developed, Well Nourished and No Apparent Distress
HEENT: NormoCephalic, Moist mucous membranes and Atraumatic
Respiratory: Wheezes
Cardiac: S1/S2 and Regular Rhythm; No Murmur or Rub
GI: Soft, Non Tender, Non Distended and Normal Bowel Sounds; No Organomegaly
Rectal: Deferred by Provider
Musculoskeletal: No Clubbing, No Cyanosis and No Edema
Skin: No Rash
Neuro: AO x 3 and Nonfocal/grossly intact
Psych: Calm
Laboratory Results
-
01/30/24 12:55
01/30/24 12:55
Laboratory Results
Lactic Acid 2.3 mmol/L (0.7-2.0) H 01/30/24 12:55
Total Bilirubin 0.5 mg/dl (0.2-1.3) 01/30/24 12:55
AST 39 U/L (14-36) H 01/30/24 12:55
ALT 38 U/L (0-35) H 01/30/24 12:55
Alkaline Phosphatase 91 U/L (38-126) 01/30/24 12:55
Data Reviewed
-
CT Scan: Report Reviewed by me
Lab Data: Labs Reviewed by me
Impression/Plan
-
#acute on chornic hypoxic respiratory failure likely from pneumonia
#severe sepsis as evident by wbc 20.4, lactic 2.3, tachy, fever
-baseline uses 86, at present requiring 10L
-COVID negative
-blood culture sent from ER
-CT chest (01/27) with New moderate bilateral patchy groundglass opacities, greatest in right upper lobe, concerning for pneumonia. This pattern can be seen with Covid 19 type pneumonia.Moderate pulmonary fibrosis. Stable
-chest x ray pending
-iv cefepime and doxy
-Decadron 6mg iv q6 hours
-nebs prn for sob/wheezing
-Tylenol prn for fever
-continue supplemental oxygen to keep sat >92, wean as tolerated
-ctm
#anemia fo chronic disease
-hgb stable at 10.1
-no active bleeding
-ctm
#transaminitis likely from acute infection
-ast 39,alt 38
-no complain of abdominal pain
-ctm
#Sleep apnea-continue CPAP at at bedtime
#vasculitis/RA--We will continue with Imuran
#Essential hypertension
-Continue with Norvasc, lisinopril, with hold parameter
#History of congestive heart failure-chronic diastolic
-recent with EF of 55-60%
-hold Lasix
#Hyperlipidemia
-Continue with Lipitor
#Hypothyroidism
-Continue with Synthroid
#History of left breast cancer with lumpectomy and radiation in 2001
#Anxiety and depression
-Continue with Zoloft and BuSpar
#Obesity per BMI criteria-encourage weight loss
#GERD
-PPI continued
#Lovenox for DVT PPX
#Full code
[2024-01-30] MEDS: NSS 1000 IV (13:53)
[2024-01-30] MEDS: MAXIPIME 2000 MG IV (14:14)
[2024-01-30] MEDS: VIBRAMYCIN 100 MG PO ×2 (14:53→21:02)
--- NOTE | 2024-01-30 17:42 | CON.PUL ---
Consultation
Consultation Request
Date/Time Consultation Requested: 01/30/2024
Date/Time Consultation Performed: 01/30/2024 - 164
Requesting Provider: SAMRA Keating
Performing Provider: Christopher Blake MD
Reason for Consultation: Acute hypoxia/ILD
Medical History
-
Chief Complaint: Worsening SOB
History of Present Illness:
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 Patient wears 8 L/min nasal cannula at
baseline. She says she has COVID about 1 month ago and ever since then has been having worsening shortness of breath and it progressed over the last several weeks until today's ER visit. She is actually in the early part of a steroid taper started
by her production assistant, Dr. Daley. She was in the ER on 01/28/2024 due to shortness of breath. CT chest obtained at that time showed new moderate bilateral patchy groundglass opacities greatest in the right upper lobe. Her pulmonary fibrosis was
of moderate severity and was stable when compared to prior CT chest in August 2023. In the ER she was febrile to 102 �F, tachycardic to 103, breathing at 28 breaths/min, BP 136/51 and saturating 95% on nonrebreather @ 10L/min. Labs showed
leukocytosis 20.4, anemia to 10.1, serum bicarbonate 24, lactate 2.3, AST 39, ALT 38 and COVID antigen negative. Flu A/B also negative, and blood cultures x 2 were collected. CXR showed increasing opacification in both lungs. In the ER she was
given cefepime, Decadron 8 mg, DuoNebs and NS 0.9% X1 liter. She was admitted to the IMU for further care and pulmonary now consulted for additional management/recommendations.
When I saw the patient she was in bed with patient's sister, Marina, at bedside. Patient has no cough although she has a fever and chills. No recent sick contacts and no recent travel. She is currently on NRB at 10 L/min, saturating 95%, with heart
rate 83 and BP 115/54. She currently denies chest pain, ARRIAGA, abdominal pain, nausea, or diarrhea.
Of note, patient follows with us in the [facility] office with last visit on 01/17/2024 with SAMRA [place]. She usually follows with Dr. Rausch. She had come down with COVID-19 on 12/30/2023 and was treated with Paxlovid. She developed rebound
symptoms after finishing which was treated with Zithromax. She continues to have SOB with exertion since she was diagnosed with COVID-19. She uses between 4-8 L/min with ambulation. 6 MWT performed at that office visit showed that she needs 6
L/min with activity. She was treated with a 12-day prednisone taper. Also told to use Flonase. She normally follows with rheumatology at [facility] and used to be on CellCept but stopped due to skin irritation. She is continued on auto-CPAP therapy at
home for EMERSON. Her last full PFT was performed in June 2021 showing a moderate restrictive lung defect with T%, and moderate diffusion capacity defect with DLco 43%, although DLco/VA was 69%.
PMHx: Interstitial lung disease, ANCA-positive vasculitis/microscopic polyangiitis, chronic hypoxic respiratory failure on home O2 at 8 L/min, EMERSON on CPAP, degenerative disc disease, incisional hernia s/p repair with mesh, hypercholesterolemia,
thyroid disease, history of breast cancer s/p lumpectomy + XRT (2001), steroid-induced diabetes, hypertension, history of diverticulosis, hearing loss, restrictive lung disease, iron deficiency anemia, history of COVID-19 (December 30, 2023) s/p
Paxlovid, GERD, history of mild pulmonary hypertension, steroid-induced osteoporosis
PSHx: Cholecystectomy, hernia repair, left breast lumpectomy with radiation
Past Medical History
Past Medical History: Other (Above as per HPI)
Past Surgical History: Other (Above as per HPI)
Social History
Tobacco: Former Smoker (Quit in January 2003 with history of 2 PPD x 30 years)
Alcohol: None
Drug: None
Family History
Family History: CAD (Father, mother + brother) and Other (Brother: History of interstitial lung disease (suspected BOOP))
Allergies / Home Medications
Allergies
Allergy/AdvReac Type Severity Reaction Status Date / Time
diltiazem [From [employer] XT] Allergy Swelling Verified 01/30/24 12:37
Home Medications
�Medication �Instructions �Recorded �Confirmed �Last Taken �Type
buspirone 10 mg tablet 10 mg PO BID mental health 03/10/17 01/30/24 12/15/23 History
pantoprazole 40 mg tablet,delayed 40 mg PO DAILY #30 tabs 06/20/17 01/30/24 12/15/23 Rx
release
sertraline 100 mg tablet 100 mg PO DAILY Depression 10/25/18 01/30/24 12/15/23 History
acetaminophen 500 mg tablet 500 mg PO Q4HPRN PRN mild pain 05/12/19 01/30/24 12/15/23 History
(Tylenol Extra Strength)
fexofenadine-pseudoephedrine ER 1 tab PO HS Congestion 01/07/20 01/30/24 12/15/23 History
180 mg-240 mg tablet,ext.release
24 hr (Fay-D 24 Hour)
amlodipine 2.5 mg tablet 2.5 mg PO DAILY Blood pressure 10/11/20 01/30/24 12/15/23 History
aspirin 81 mg tablet,delayed 81 mg PO MOWEFR Blood clot 10/11/20 01/30/24 12/15/23 History
release prevention/tx
calcium 500 mg (as 1 tab PO DAILY Supplement 10/11/20 01/30/24 12/15/23 History
carbonate)-vitamin D3 5 mcg (200
unit) tablet (Oyster Shell
Calcium-Vitamin D3)
cholecalciferol (vitamin D3) 25 1,000 units PO HS Supplement 10/11/20 01/30/24 12/14/23 History
mcg (1,000 unit) tablet
cyanocobalamin (vitamin B-12) 1,000 mcg IM QMONTH Supplement 10/11/20 01/30/24 12/06/23 History
1,000 mcg/mL injection solution
docusate sodium 100 mg capsule 100 mg PO BIDPRN PRN CONSTIPATION 10/11/20 01/30/24 12/15/23 History
furosemide 20 mg tablet 20 mg PO DAILY Fluid 10/11/20 01/30/24 12/14/23 History
retention/Swelling
melatonin 5 mg tablet 5 mg PO HSPRN PRN insomnia 10/28/20 01/30/24 10/07/21 History
vitamins A,C,V-txzc-fdgqsb 4,296 1 cap PO BID 07/14/23 01/30/24 12/15/23 History
mcg-226 mg-90 mg capsule
(PreserVision AREDS)
rituximab 10 mg/mL mg IV [id number] 12/15/23 12/15/23 12/15/23 History
concentrate,intravenous (Rituxan)
atorvastatin 40 mg tablet 40 mg PO HS 01/30/24 01/30/24 Unknown History
azathioprine 50 mg tablet 100 mg PO BID 01/30/24 01/30/24 Unknown History
benzonatate 100 mg capsule 100 mg PO TIDPRN PRN cough 01/30/24 01/30/24 Unknown History
ipratropium 0.5 mg-albuterol 3 mg 3 ml inhalation R BID 01/30/24 01/30/24 Unknown History
(2.5 mg base)/3 mL nebulization
soln
levothyroxine 150 mcg tablet 150 mcg PO DAILY 01/30/24 01/30/24 Unknown History
lisinopril 20 mg tablet 10 mg PO DAILY 01/30/24 01/30/24 Unknown History
prednisone 10 mg tablet 60 mg PO .TAPER 01/30/24 01/30/24 Unknown History
semaglutide (weight loss) 0.5 0.5 mg SC WE 01/30/24 01/30/24 Unknown History
mg/0.5 mL subcutaneous pen
injector (Wegovy)
sertraline 50 mg tablet 50 mg PO DAILY 01/30/24 01/30/24 Unknown History
sulfamethoxazole 800 1 tab PO MOWEFR 01/30/24 01/30/24 Unknown History
mg-trimethoprim 160 mg tablet
(Bactrim DS)
Review of Systems
-
History Source: Patient
All other systems: Negative unless noted
Vitals / Labs / Diagnostic Testing
Vital Signs
Temp Pulse Resp BP Pulse Ox
99.0 F 81 28 135/53 96
01/30/24 19:48 01/30/24 20:00 01/30/24 20:00 01/30/24 20:00 01/30/24 20:00
Lab Data
01/30/24 12:55
01/30/24 12:55
Microbiology
01/30/24 12:55 Nasal Swab Influenza Types A & B (MÓNICA) - Final
Negative for Influenza A & B, NAAT
Negative results must be combined with clinical observations
and patient history.
Nucleic Acid Amplification test (NAAT)performed on the
[employer] platform.
Diagnostic Testing:
Physical Exam
-
HEENT: Normocephalic and Anicteric
Cardiovascular: S1/S2 and Peripheral Edema (negative)
Respiratory: Wheeze (negative), Rales (Bilateral), Rhonchi (negative) and Accessory Resp Muscle Use (with exertion)
GI: Soft, Distended (Abdominal obesity), Non Tender and Normal Bowel Sounds
Neurology: AO x 3 and Tremors (negative)
Skin: Warm and Dry
General: Respiratory Distress (negative at rest), Fever (negative), Chills (negative) and Other (Morbidly obese female/pleasant mood)
Assessment
-
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 Patient wears 8 L/min nasal
cannula at baseline. She says she has COVID about 1 month ago and ever since then has been having worsening shortness of breath and it progressed over the last several weeks until today's ER visit. She is actually in the early part of a steroid
taper started by her production assistant, Dr. Daley. In the ER she was febrile to 102 �F, tachycardic to 103, breathing at 28 breaths/min, BP 136/51 and saturating 95% on nonrebreather @ 10L/min. Labs showed leukocytosis 20.4, anemia to 10.1, serum
bicarbonate 24, lactate 2.3, AST 39, ALT 38 and COVID antigen negative. Flu A/B also negative, and blood cultures x 2 were collected. CXR showed increasing opacification in both lungs. In the ER she was given cefepime, Decadron 8 mg, DuoNebs and
NS 0.9% X1 liter. She was admitted to the IMU for further care and pulmonary now consulted for additional management/recommendations.
Chronic conditions [employer]ING [employer]PER[employer]: Interstitial lung disease, ANCA-positive vasculitis/microscopic polyangiitis, chronic hypoxic respiratory failure on home O2 at 8 L/min, EMERSON on CPAP, degenerative disc disease, incisional hernia s/p repair with mesh,
hypercholesterolemia, thyroid disease, history of breast cancer s/p lumpectomy + XRT (2001), steroid-induced diabetes, hypertension, history of diverticulosis, hearing loss, restrictive lung disease, iron deficiency anemia, history of COVID-19
(December 30, 2023) s/p Paxlovid, GERD, history of mild pulmonary hypertension, steroid-induced osteoporosis
Impression:
#Acute on chronic respiratory failure with hypoxia likely due to ILD exacerbation +/- pneumonia - suspect that she is still having an acute inflammatory pneumonitis from recent COVID-19 on 12/30/2023
#Febrile illness
#Leukocytosis
#Anemia
#Lactic acidosis
#Transaminitis (mild)
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
#Moderate restrictive lung disease (T%, VC: 85% with moderate gas exchange capacity defect via PFT from June 2021)
#EMERSON on autoCPAP 5-20 cmH2O (average pressure: 7.8cmH2O with residual AHI: 1.6 for 30-day period of 12/13 - 01/12/2024)
#Morbid obesity
#Recent history of COVID-19 (12/30/2023)
#Former tobacco use (quit in 01/2003 with 60-PY Hx)
Plan:
- Continue with systemic steroids and taper as tolerated
- Currently ordered for Decadron but I will change to Solu-Medrol 60 mg IV q6hr
- Maintain euglycemia with goal BG >100 and <180 while on high dose steroids
- Given her fever, continue with empiric antibiotics (cefepime/Doxy) but if blood cultures remain negative by 48 hours then consider narrowing ABx vs stopping altogether
- Check procal and if <0.5 then stop ABx
- Change nonrebreather to high flow nasal cannula starting at 50% FiO2, 40 L/min and wean as tolerated
- Maintain SpO2 >90-94%
- She currently does not have a cough so no need for mucolytics at this time
- Antitussants prn
- DuoNebs TID + pulmicort BID
- No current signs of volume overload so hold off on diuresis; if patient's O2 requirements do not improve despite high-dose steroids then consider CTA chest + echo
- She uses auto-CPAP at home however given her respiratory distress I will start nocturnal BiPAP 15/12, and titrate O2 flow rate to keep sats >90%
- Trend LFTs
- Incentive spirometer encouraged 10x per hour for at least 4 hrs a day, as tolerated
- Replete electrolytes with K>4, Mg>2
- prn nebulized bronchodilators
- PT/OT once O2 requirements improve
- DVT ppx: LMWH
Pulmonary service will continue to follow along. She will continue to follow along with us in the office. She has a appointment tomorrow with SAMRA [place] which will need to be rescheduled. Continue follow-up with Dr. Rausch.
Data:
CXRX 01/30/2024:
Correlating with prior exams, background of interstitial fibrosis.
Increasing parenchymal opacity within the lower two thirds of the right lung and within the left lower lung, and these findings likely represent pneumonia superimposed on background changes of interstitial fibrosis.
Total time spent today was 75 minutes for this encounter. Time includes reviewing laboratory test/imaging results, reviewing pertinent medical records, obtaining and reviewing medical history, performing an appropriate exam, ordering medications,
tests and procedures. Time also includes documentation of this encounter, coordinating patient care and communicating with other healthcare professionals. Total time does not include separately billed tests performed on this date of service.
[2024-01-30 18:51] LABS: Lactic Acid 1.8 mmol/L (0.7-2.0)
--- NOTE | 2024-01-30 21:00 | PTCARENOTE ---
Pt from ED on high flow. Pt AAOX3. Pt appearing anxious. Per Pt she is 'scared' because she was told with her lungs if she 'gets an infection she will most likely not live'. Emotional support given along with education, Pt appearing more at ease. Pt
tolerating High flow. Bipap at HS and tolerating well. Spo2 94% or above. Assessment care and vitals as charted.
[2024-01-30] MEDS: LOVENOX 40 MG SC (21:01)
[2024-01-30] MEDS: BUSPAR 10 MG PO (21:02)
[2024-01-30] MEDS: LIPITOR 40 MG PO (21:02)
[2024-01-30] MEDS: IMURAN 100 MG PO (21:03)
[2024-01-31] VITALS (16 sets, daily range): BP systolic 111–165; BP diastolic 47–108; PULSE 2–69; O2SAT 95; BMI 50.9
[2024-01-31] MEDS: SOLU-MEDROL PF 60 MG IV ×4 (00:25→17:57)
[2024-01-31] MEDS: PULMICORT INH (02:42)
[2024-01-31] MEDS: SYNTHROID 150 MCG PO (05:36)
[2024-01-31 05:47] LABS: Hematocrit 27.1 % (37.0-47.0); Hemoglobin 8.7 g/dL (12.0-16.0); Mean Corp Hgb Conc. 32.1 g/dL (33.0-37.0); Mean Corpuscular Hgb 28.2 pg (27.0-31.0); Mean Corpuscular Volume 87.7 fL (81.0-99.0); Mean Platelet Volume 10.7 fL (7.4-10.4); Platelet Count 290 10^3/uL (130-400); Red Blood Cell Count 3.09 10^6/uL (4.20-5.40); Red Cell Dist. Width 14.1 % (11.5-14.5); White Blood Cell Count 16.3 10^3/uL (4.8-10.8)
[2024-01-31 06:12] LABS: ALT (SGPT) 36 U/L (0-35); AST (SGOT) 33 U/L (14-36); Albumin 3.6 g/dl (3.5-5.0); Alkaline Phosphatase 73 U/L (38-126); Blood Urea Nitrogen 22 mg/dl (7-17); Calcium 8.9 mg/dl (8.4-10.2); Carbon Dioxide 23 mmol/L (22-30); Chloride 102 mmol/L (98-107); Estimated Creatinine Clearance 112 ml/min; Glucose 132 mg/dl (70-99); Magnesium 2.1 mg/dl (1.6-2.3); Phosphorus 4.2 mg/dl (2.5-4.5); Potassium 4.9 mmol/L (3.5-5.1); Sodium 138 mmol/L (135-145); Total Bilirubin 0.6 mg/dl (0.2-1.3); eGFR > 60.00
[2024-01-31 06:20] LABS: Procalcitonin < 0.05 ng/ml (0.0-0.25)
--- NOTE | 2024-01-31 07:27 | W.PN.HOSP.TC ---
Today's Communication/Plan
-
see A/P
Assessment / Plan
Assessment / Plan
HPI: 73 yo F with PMH significant for pulm fibrosis / ILD on chronic Rituxan and Imuran and on home O2 at 6-8 lpm, who presented to ED complaining of increased SOB x 1 week. Patient was seen in the ED here on 01/27 with similar complaints. She
improved with nebulizer therapy and was discharged home. Since that time, patient noted that dyspnea has progressed and she has developed fevers / chills. Patient has been taking PO steroids at home without significant improvement in her symptoms.
CT scan done 01/17 and CXR done on this admission show significant increase in interstitial markings bilaterally- R > L.
A/P:
# Acute on Chronic Hypoxemic Respiratory Failure
# Interstitial Lung Disease / Pulmonary Fibrosis
Changed to IV steroid, now on methylprednisone, for possible flare of ILD / pulm fibrosis.
Continue O2 support, currently at 60% high flow NC
Continue supportive care with Duonebs ATC and PRN
Pulmonary on board
# Possible Atypical / Interstitial Pneumonia
# sepsis POA
Pt was started with IV abx Cefepime/doxycycline for possible atypical / infectious pneumonia, although procalcitonin noted to be negative
COVID/Flu negative
Follow blood cultures
# Mild transaminitis likely reactive
monitor
# ANCA Positive Vasculitis
continue KEG WASHER Azathioprine
# Benign Hypertension
Continue Norvasc, lisinopril with hold parameter
# Chronic HFpEF
recent with EF of 55-60%
hold Lasix
# Hypothyroidism
Continue with Synthroid
# Anemia of Chronic Disease
# Hyperlipidemia
Continue with Lipitor
# Morbid Obesity
# Sleep apnea
BMI 50
continue CPAP at at bedtime
# History of left breast cancer with lumpectomy and radiation in 2001
# Anxiety and depression
Continue with Zoloft and BuSpar
# GERD
PPI continued
DVT ppx: Lovenox SQ
FC
Anticipated Discharge: > 48 hours
Subjective/Interval History
-
Date of Service: January 31, 2024
Objective Data
-
Labs:
Laboratory Results
01/31/24
05:39
WBC 16.3 H
Hgb 8.7 L
Hct 27.1 L
Plt Count 290
Sodium 138
Potassium 4.9
Chloride 102
Carbon Dioxide 23
BUN 22 H
Creatinine 0.6
Glucose 132 H
Calcium 8.9
Total Bilirubin 0.6
AST 33
ALT 36 H
Alkaline Phosphatase 73
Vital Signs:
Vital Signs
Temp Pulse Resp BP Pulse Ox
36.7 C 69 16 135/56 97
01/31/24 03:35 01/31/24 06:00 01/31/24 06:00 01/31/24 06:00 01/31/24 06:00
I&O
01/30/24 01/31/24 02/01/24
06:59 06:59 06:59
Intake Total 480 / 480
Output Total 500 / 500
Balance -20 / -20
Review of Systems
-
Respiratory: Reports Trouble Breathing
Physical Exam
-
General: Well Developed, Well Nourished, Comfortable, Respiratory Distress, Conversant and Morbidly Obese
HEENT: Normocephalic, Atraumatic, Nose Appears Normal, Ears Appear Normal and Oxygen (high flow NC)
Respiratory: Clear to Auscultation and Non Labored Respirations; Negative Accessory Resp Muscle Use
Cardiac: Regular Rhythm and S1/S2
GI: Soft, Nontender, Nondistended and Normal Bowel Sounds
Skin: Warm and Dry
Neuro: Awake, Alert, Oriented and AO x 3
Psych: Calm and Intact Judgement/Insight
Data Reviewed
-
CT Scan: Report Reviewed by me
Labs: Labs Reviewed by me
[2024-01-31] MEDS: PULMICORT 0.5 MG INH ×2 (07:29→20:20)
[2024-01-31] MEDS: DUONEB 3 ML INH ×3 (07:29→20:20)
[2024-01-31] MEDS: OCUVITE SOFTGEL 1 CAP PO ×2 (09:01→22:16)
[2024-01-31] MEDS: IMURAN 100 MG PO ×2 (09:01→22:16)
[2024-01-31] MEDS: PROTONIX 40 MG PO (09:01)
[2024-01-31] MEDS: ZOLOFT 100 MG PO (09:01)
[2024-01-31] MEDS: NORVASC 2.5 MG PO (09:02)
[2024-01-31] MEDS: VIBRAMYCIN 100 MG PO ×2 (09:02→22:16)
[2024-01-31] MEDS: ZESTRIL 10 MG PO (09:02)
[2024-01-31] MEDS: BUSPAR 10 MG PO ×2 (09:03→22:16)
[2024-01-31] MEDS: ZOLOFT 50 MG PO (09:03)
[2024-01-31] MEDS: ASPIR LOW (ENTERIC COATED) 81 MG PO (09:06)
--- NOTE | 2024-01-31 09:54 | W.PN.PUL3 ---
Today's Communication / Plan
-
Continue antibiotics for today
Monitor fever curve
Continue IV corticosteroid At the current dose without change.
Continue oxygen supplementation-high flow oxygen. Her baseline is 8 L nasal cannula.
Continue Imuran
Obtain lower extremity Doppler
Will obtain D-dimer, if negative then would be helpful.
Monitor blood sugars
Assessment
-
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 Patient wears 8 L/min nasal
cannula at baseline. She says she has COVID about 1 month ago and ever since then has been having worsening shortness of breath and it progressed over the last several weeks until today's ER visit. She is actually in the early part of a steroid
taper started by her manager portable, Dr. Daley. In the ER she was febrile to 102 �F, tachycardic to 103, breathing at 28 breaths/min, BP 136/51 and saturating 95% on nonrebreather @ 10L/min. Labs showed leukocytosis 20.4, anemia to 10.1, serum
bicarbonate 24, lactate 2.3, AST 39, ALT 38 and COVID antigen negative. Flu A/B also negative, and blood cultures x 2 were collected. CXR showed increasing opacification in both lungs. In the ER she was given cefepime, Decadron 8 mg, DuoNebs and
NS 0.9% X1 liter. She was admitted to the IMU for further care and pulmonary now consulted for additional management/recommendations.
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
hypercholesterolemia, thyroid disease, history of breast cancer s/p lumpectomy + XRT (2001), steroid-induced diabetes, hypertension, history of diverticulosis, hearing loss, restrictive lung disease, iron deficiency anemia, history of COVID-19
(December 30, 2023) s/p Paxlovid, GERD, history of mild pulmonary hypertension, steroid-induced osteoporosis
Impression:
#Acute on chronic respiratory failure with hypoxia likely due to ILD exacerbation +/- pneumonia - suspect that she is still having an acute inflammatory pneumonitis from recent COVID-19 on 12/30/2023
#Febrile illness
#Leukocytosis
#Anemia
#Lactic acidosis
#Transaminitis (mild)
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
#Moderate restrictive lung disease (T%, VC: 85% with moderate gas exchange capacity defect via PFT from June 2021)
#EMERSON on autoCPAP 5-20 cmH2O (average pressure: 7.8cmH2O with residual AHI: 1.6 for 30-day period of 12/13 - 01/12/2024)
#Morbid obesity
#Recent history of COVID-19 (12/30/2023)
#Former tobacco use (quit in 01/2003 with 60-PY Hx)
Plan:
- Continue with systemic steroids and taper as tolerated-significant groundglass opacities bilaterally on CAT scan likely explain worsening hypoxemia.
-Continue Solu-Medrol 60 mg IV q6hr without change for today.
-Continue Imuran/patient has been taking Bactrim for PCP prophylaxis in the outpatient setting
- Maintain euglycemia with goal BG >100 and <180 while on high dose steroids
-Persistent leukocytosis but fever trending lower,, continue with empiric antibiotics (cefepime/Doxy)
- negative procalcitonin, remains afebrile if in the next 24 hours-cultures negative and remains afebrile discontinue antibiotics on 02/01/2024
-Suspicion for thromboembolic event less likely with significant groundglass opacities. Patient feels better today.
Will obtain lower extremity Dopplers and D-dimer. Continue DVT prophylaxis
-Continue high flow nasal cannula starting at 50% FiO2, 40 L/min and wean as tolerated
-Baseline oxygen requirements is up to 8 L via nasal cannula.
- Maintain SpO2 >90-94%
- She currently does not have a cough so no need for mucolytics at this time
- Antitussants prn
- DuoNebs TID + pulmicort BID
-Does not appear volume overloaded; if patient's O2 requirements do not improve despite high-dose steroids then consider CTA chest + echo
- She uses auto-CPAP at home however given her respiratory distress I will start nocturnal BiPAP 15/12, and titrate O2 flow rate to keep sats >90%
-Chronic anemia noted. Hemoglobin trending lower. No evidence for bleeding. Likely contributing to symptoms. Will continue to follow
Transfuse as necessary For hemoglobin<7
- Incentive spirometer encouraged 10x per hour for at least 4 hrs a day, as tolerated
- Replete electrolytes with K>4, Mg>2
- prn nebulized bronchodilators
- PT/OT once O2 requirements improve
- DVT ppx: LMWH
Pulmonary service will continue to follow along. She will continue to follow along with us in the office. She has a appointment tomorrow with [facility] [place] which will need to be rescheduled. Continue follow-up with Dr. Rausch.

Data:
CXRX 01/30/2024:
Correlating with prior exams, background of interstitial fibrosis.
Increasing parenchymal opacity within the lower two thirds of the right lung and within the left lower lung, and these findings likely represent pneumonia superimposed on background changes of interstitial fibrosis.
Echocardiogram 01/26/2023: Showed normal LVEF. Normal diastolic dysfunction. Moderate MR. Mild aortic stenosis. Pulmonary artery pressure 35 mmHg.
Total time spent today was 75 minutes for this encounter. Time includes reviewing laboratory test/imaging results, reviewing pertinent medical records, obtaining and reviewing medical history, performing an appropriate exam, ordering medications,
tests and procedures. Time also includes documentation of this encounter, coordinating patient care and communicating with other healthcare professionals. Total time does not include separately billed tests performed on this date of service.
Subjective Data
-
Date of Service:
Date of Service: January 31, 2024
Chief Complaint: Pulmonary Follow Up (Acute on chronic hypoxemic respiratory failure)
Subjective:
Patient states that she feels better.
Continues to require high flow oxygen
Denies any cough or phlegm production
Denies hemoptysis
Tolerated CPAP last night
Denies lower extremity edema
Review of Systems
Cardiopulmonary: Dyspnea, Dyspnea on Exertion and Cough
GI: Abdominal Pain (n) and Nausea (n)
Neuro: Headache (n)
Objective Data
Data Reviewed
Vital Signs / I&O / Oxygen:
Vital Signs
Temp Pulse Resp BP Pulse Ox
98.3 F 75 20 150/78 96
01/31/24 07:10 01/31/24 09:02 01/31/24 07:31 01/31/24 09:02 01/31/24 07:38
Intake and Output
01/30/24 01/31/24 02/01/24
06:59 06:59 06:59
Intake Total 480 / 480
Output Total 500 / 500 500 / 500
Balance -20 / -20 -500 / -500
SaO2 96
Nasal Cannula flow liters per 40
minute
Physical Exam
General: Respiratory Distress (with activity)
HEENT: Normocephalic
Cardiovascular: S1-S2
Respiratory: Crackles and Accessory Resp Muscle Use (with activity)
GI: Soft and Distended (obese)
Neurology: Awake, AO x 3 and No Motor Deficits
Skin: Warm
Labs/Micro/Reports
Lab Data
01/31/24 05:39
01/31/24 05:39
Microbiology
01/30/24 12:55 Nasal Swab Influenza Types A & B (MÓNICA) - Final
Negative for Influenza A & B, NAAT
Negative results must be combined with clinical observations
and patient history.
Nucleic Acid Amplification test (NAAT)performed on the
[employer] platform.
[2024-01-31] MEDS: MAXIPIME 2000 MG IV ×2 (10:36→17:56)
[2024-01-31] MEDS: STERILE WATER FOR INJECTION 10 ML IV ×2 (10:36→17:57)
[2024-01-31] MEDS: FLUSH (NSS) 2 FLUSH IV (13:01)
[2024-01-31 16:47] LABS: D-Dimer 0.47 ug/mlFEU (0.00-0.50)
--- NOTE | 2024-01-31 16:48 | PTCARENOTE ---
Assumed care of pt this am after morning rounds, she is pleasant and cooperative. Anxious about numbers and alarms on screen. Reviewed and reassured pt that we are monitoring in room and at nurses station and we will respond if the alarm is for her.
Pt motivated to get OOB and was assisted with PT oob to chair and pt very enthusiastic to be oob. One run of sinus tach to 140s, pt asymptomatic, Dr. diaz notified and no new orders. Lungs coarse throughout and occasional cough noted. Pt reports
nasal congestion and pressure in ears, orderobtained for Afrin nasal spray, pt reports that she was taking nasal spray and tessolan perles at home for this. Received pt on high flow at 60% 40L and weaned to 55% and 40L. Pt did desaturate with OOB
activity to 81% and it took 40 secs to recover to 90%. Pt tells me she wears 8L nc at home. No complaints of pain, appetite good, pt has been on Wegovy for appetite suppression.Pt is enthusiastic and hyper verbalizations, facial flushing, no fevers
but will monitor for side effects of Solumedrol
--- NOTE | 2024-01-31 17:35 | CM ---
Addendum entered by Le Welch RN 01/31/24 17:44:
clarification: resides in a 2 story house with 3 MADELEINE
Original Note:
Patient with Hx recent Covid infection with Dx Acute on Chronic Hypoxemic Respiratory Failure, ILD/pulmonary fibrosis, possible PNA. High flow O2, BiPAP. Receiving IV Abx, IV steroids. PT recommends HH.
Spoke with patient's sister Caryl;
the patient resides in a 2 story house with MADELEINE with her 2 sisters Marina & Caryl & their dog, and has first floor bedroom/bath.
The patient has been assisted with ADLs such as bathing and ambulates independently.
DME - home O2 concentrator/portables (baseline 8L O2) through [employer], CPAP
Prior [facility]
No prior SNF.
PCP - Leanna Menjivar
Pharmacy - [facility] [place]
CM continuing to follow.
Plan offer VN when less medically acute.
Plan home possibly with VN.
[2024-01-31] MEDS: LOVENOX 40 MG SC (17:55)
[2024-01-31] MEDS: STERILE WATER FOR INJECTION IV (18:35)
[2024-01-31] MEDS: LIPITOR 40 MG PO (22:16)
[2024-01-31] MEDS: AFRIN NASAL SPRAY 4 SPRAYS NASAL (22:17)
[2024-02-01] VITALS (14 sets, daily range): BP systolic 96–153; BP diastolic 46–116; PULSE 2–75; BMI 48.7
[2024-02-01] MEDS: MELATONIN 5 MG PO ×2 (00:16→22:43)
[2024-02-01] MEDS: SOLU-MEDROL PF 60 MG IV ×4 (00:17→20:42)
--- NOTE | 2024-02-01 00:37 | PTCARENOTE ---
Pt received from previous RN. Pt AAOx3. Anxious at times, pleasant. NSR on monitor. Pt on hiflow 55% with 40L. Placed on Bipap by RT for HS. Pt has dyspnea on exertion. Placed on PW overnight due to desattting with activity. Pt requests prn
melatonin to assist with sleeping. med given. Pt denies further needs at this time. Call light in reach.
[2024-02-01 01:28] LABS: Hepatitis C Antibody Negative (Negative)
[2024-02-01] MEDS: MAXIPIME 2000 MG IV ×2 (02:28→09:48)
[2024-02-01] MEDS: STERILE WATER FOR INJECTION 10 ML IV ×2 (02:28→09:48)
[2024-02-01 06:35] LABS: Hematocrit 28.2 % (37.0-47.0); Hemoglobin 9.2 g/dL (12.0-16.0); Mean Corp Hgb Conc. 32.6 g/dL (33.0-37.0); Mean Corpuscular Hgb 29.1 pg (27.0-31.0); Mean Corpuscular Volume 89.2 fL (81.0-99.0); Platelet Count 305 10^3/uL (130-400); Red Blood Cell Count 3.16 10^6/uL (4.20-5.40); Red Cell Dist. Width 13.8 % (11.5-14.5); White Blood Cell Count 23.4 10^3/uL (4.8-10.8)
[2024-02-01] MEDS: SYNTHROID 150 MCG PO (06:35)
[2024-02-01 07:22] LABS: % Basophils 0.3 % (0-2); % Immature Granulocytes 5.3 % (0-0.5); % Lymphocytes 4.6 % (20.5-51.1); % Monocytes 4.6 % (1.7-9.3); % Neutrophils 85.2 % (42.2-75.2); Absolute Basophils 0.1 10^3/uL (0-0.2); Absolute Immature Granulocytes 1.2 10^3/uL (0-0.05); Absolute Lymphocytes 1.1 10^3/uL (1.2-3.4); Absolute Monocytes 1.1 10^3/uL (0.1-0.6); Absolute Neutrophils 19.9 10^3/uL (1.4-6.5); Nucleated Red Blood Cells % 0.1 %
[2024-02-01] MEDS: PULMICORT 0.5 MG INH ×2 (07:30→20:10)
[2024-02-01] MEDS: DUONEB 3 ML INH ×3 (07:30→20:10)
--- NOTE | 2024-02-01 07:31 | W.PN.HOSP.TC ---
Today's Communication/Plan
-
see A/P
Assessment / Plan
Assessment / Plan
HPI: 73 yo F with PMH significant for pulm fibrosis / ILD on chronic Rituxan and Imuran and on home O2 at 6-8 lpm, who presented to ED complaining of increased SOB x 1 week. Patient was seen in the ED here on 01/27 with similar complaints. She
improved with nebulizer therapy and was discharged home. Since that time, patient noted that dyspnea has progressed and she has developed fevers / chills. Patient has been taking PO steroids at home without significant improvement in her symptoms.
CT scan done 01/17 and CXR done on this admission show significant increase in interstitial markings bilaterally- R > L.
A/P:
# Acute on Chronic Hypoxemic Respiratory Failure
# Interstitial Lung Disease / Pulmonary Fibrosis
Continue IV methylprednisone 60 mg Q6H for ILD flare/pulm fibrosis.
Continue O2 support, currently at 50% high flow NC
Continue supportive care with Duonebs ATC and PRN
D dimer WNL which rules out VTE, BL LE US also negative for DVT
Pulmonary on board
# Possible Atypical / Interstitial Pneumonia
# sepsis POA
Pt was started with IV abx Cefepime/doxycycline for possible atypical / infectious pneumonia, although procalcitonin noted to be negative
COVID/Flu negative, blood cultures negative
# Mild transaminitis likely reactive
monitor
# ANCA Positive Vasculitis
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
# Benign Hypertension
Continue Norvasc, lisinopril with hold parameter
# Chronic HFpEF
recent with EF of 55-60%
hold Lasix
# Hypothyroidism
Continue with Synthroid
# Anemia of Chronic Disease
# Hyperlipidemia
Continue with Lipitor
# Morbid Obesity
# Sleep apnea
BMI 50
continue CPAP at at bedtime
# History of left breast cancer with lumpectomy and radiation in 2001
# Anxiety and depression
Continue with Zoloft and BuSpar
# GERD
PPI continued
DVT ppx: Lovenox SQ
FC
updated sister on the phone
total time spent 51 min
Anticipated Discharge: > 48 hours
Subjective/Interval History
-
Date of Service: February 01, 2024
Objective Data
-
Labs:
Laboratory Results
02/01/24 02/01/24
05:45 06:58
WBC 23.4 H
Hgb 9.2 L
Hct 28.2 L
Plt Count 305
Sodium Cancelled Pending
Potassium Cancelled Pending
Chloride Cancelled Pending
Carbon Dioxide Cancelled Pending
BUN Cancelled Pending
Creatinine Cancelled Pending
Glucose Cancelled Pending
Calcium Cancelled Pending
Total Bilirubin Cancelled Pending
AST Cancelled Pending
ALT Cancelled Pending
Alkaline Phosphatase Cancelled Pending
Vital Signs:
Vital Signs
Temp Pulse Resp BP Pulse Ox
36.4 C 65 17 143/58 94
02/01/24 03:40 02/01/24 04:00 02/01/24 04:00 02/01/24 04:00 02/01/24 04:00
I&O
01/31/24 02/01/24 02/02/24
06:59 06:59 06:59
Intake Total 480 / 480 240 / 240
Output Total 500 / 500 1999 / 1999
Balance -20 / -20 -1760 / -1760
Review of Systems
-
Respiratory: Reports Trouble Breathing (improving )
Physical Exam
-
General: Well Developed, Well Nourished, Comfortable, Respiratory Distress, Conversant and Morbidly Obese
HEENT: Normocephalic, Atraumatic, Nose Appears Normal, Ears Appear Normal and Oxygen (high flow NC)
Respiratory: Clear to Auscultation and Non Labored Respirations; Negative Accessory Resp Muscle Use
Cardiac: Regular Rhythm and S1/S2
GI: Soft, Nontender, Nondistended and Normal Bowel Sounds
Skin: Warm and Dry
Neuro: Awake, Alert, Oriented and AO x 3
Psych: Calm and Intact Judgement/Insight
Data Reviewed
-
CT Scan: Report Reviewed by me
Labs: Labs Reviewed by me
[2024-02-01] MEDS: OCUVITE SOFTGEL 1 CAP PO ×2 (08:11→20:42)
[2024-02-01] MEDS: ZOLOFT 50 MG PO (08:11)
[2024-02-01] MEDS: ZOLOFT 100 MG PO (08:12)
[2024-02-01] MEDS: PROTONIX 40 MG PO (08:12)
[2024-02-01] MEDS: NORVASC 2.5 MG PO (08:12)
[2024-02-01] MEDS: VIBRAMYCIN 100 MG PO (08:12)
[2024-02-01] MEDS: ZESTRIL 10 MG PO (08:12)
[2024-02-01] MEDS: BUSPAR 10 MG PO ×2 (08:12→20:42)
[2024-02-01] MEDS: IMURAN 100 MG PO ×2 (08:12→20:42)
[2024-02-01 09:53] LABS: ALT (SGPT) 31 U/L (0-35); AST (SGOT) 27 U/L (14-36); Albumin 3.7 g/dl (3.5-5.0); Alkaline Phosphatase 80 U/L (38-126); Blood Urea Nitrogen 29 mg/dl (7-17); Calcium 9.8 mg/dl (8.4-10.2); Carbon Dioxide 23 mmol/L (22-30); Chloride 100 mmol/L (98-107); Direct Bilirubin 0.3 mg/dl (0.0-0.4); Estimated Creatinine Clearance 93 ml/min; Glucose 167 mg/dl (70-99); Magnesium 2.2 mg/dl (1.6-2.3); Sodium 136 mmol/L (135-145); Total Bilirubin 0.5 mg/dl (0.2-1.3); Total Protein 6.1 g/dl (6.3-8.2); eGFR > 60.00
--- NOTE | 2024-02-01 11:16 | W.PN.PUL3 ---
Today's Communication / Plan
-
Discontinue antibiotics and observe
Decrease IV corticosteroids
Wean down oxygen as able
Monitor blood sugar
Assessment
-
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 Patient wears 8 L/min nasal
cannula at baseline. She says she has COVID about 1 month ago and ever since then has been having worsening shortness of breath and it progressed over the last several weeks until today's ER visit. She is actually in the early part of a steroid
taper started by her brake liner, Dr. Daley. In the ER she was febrile to 102 �F, tachycardic to 103, breathing at 28 breaths/min, BP 136/51 and saturating 95% on nonrebreather @ 10L/min. Labs showed leukocytosis 20.4, anemia to 10.1, serum
bicarbonate 24, lactate 2.3, AST 39, ALT 38 and COVID antigen negative. Flu A/B also negative, and blood cultures x 2 were collected. CXR showed increasing opacification in both lungs. In the ER she was given cefepime, Decadron 8 mg, DuoNebs and
NS 0.9% X1 liter. She was admitted to the IMU for further care and pulmonary now consulted for additional management/recommendations.
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
hypercholesterolemia, thyroid disease, history of breast cancer s/p lumpectomy + XRT (2001), steroid-induced diabetes, hypertension, history of diverticulosis, hearing loss, restrictive lung disease, iron deficiency anemia, history of COVID-19
(December 30, 2023) s/p Paxlovid, GERD, history of mild pulmonary hypertension, steroid-induced osteoporosis
Impression:
#Acute on chronic respiratory failure with hypoxia likely due to ILD exacerbation +/- pneumonia - suspect that she is still having an acute inflammatory pneumonitis from recent COVID-19 on 12/30/2023
#Febrile illness
#Leukocytosis
#Anemia
#Lactic acidosis
#Transaminitis (mild)
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
#Moderate restrictive lung disease (T%, VC: 85% with moderate gas exchange capacity defect via PFT from June 2021)
#EMERSON on autoCPAP 5-20 cmH2O (average pressure: 7.8cmH2O with residual AHI: 1.6 for 30-day period of 12/13 - 01/12/2024)
#Morbid obesity
#Recent history of COVID-19 (12/30/2023)
#Former tobacco use (quit in 01/2003 with 60-PY Hx)
Plan:
- Continue with systemic steroids and taper as tolerated-significant groundglass opacities bilaterally on CAT scan likely explain worsening hypoxemia.
-Decrease Solu-Medrol to 60 mg IV every 8 hours today 02/01/2024. Seems to be improving per
-Continue Imuran/patient has been taking Bactrim for PCP prophylaxis in the outpatient setting
- Maintain euglycemia with goal BG >100 and <180 while on high dose steroids
-Persistent leukocytosis but fever trending lower,, continue with empiric antibiotics (cefepime/Doxy)
- negative procalcitonin, culture negative, remains afebrile for longer than 24 hours, discontinue antibiotics 02/01/2024 and observe.
-Suspicion for thromboembolic event less likely with significant groundglass opacities. Patient feels better today.
Lower extremity Dopplers negative, D-dimer not elevated: Less likely thromboembolic event.
-Continue high flow nasal cannula starting at 45% FiO2, 40 L/min and wean as tolerated-improved.
-Baseline oxygen requirements is up to 8 L via nasal cannula.
- Maintain SpO2 >90-94%
- She currently does not have a cough so no need for mucolytics at this time
- Antitussants prn
- DuoNebs TID + pulmicort BID
-Does not appear volume overloaded; if patient's O2 requirements do not improve despite high-dose steroids then consider CTA chest + echo
- She uses auto-CPAP at home however given her respiratory distress I will start nocturnal BiPAP 15/, and titrate O2 flow rate to keep sats >90%
-Chronic anemia noted. Hemoglobin trending lower. No evidence for bleeding. Likely contributing to symptoms. Will continue to follow
Transfuse as necessary For hemoglobin<7
- Incentive spirometer encouraged 10x per hour for at least 4 hrs a day, as tolerated
- PT/OT once O2 requirements improve
- DVT ppx: LMWH
Pulmonary service will continue to follow along. She will continue to follow along with us in the office. She has a appointment tomorrow with [facility] [place] which will need to be rescheduled. Continue follow-up with Dr. Rausch.

Data:
CXRX 01/30/2024:
Correlating with prior exams, background of interstitial fibrosis.
Increasing parenchymal opacity within the lower two thirds of the right lung and within the left lower lung, and these findings likely represent pneumonia superimposed on background changes of interstitial fibrosis.
Echocardiogram 01/26/2023: Showed normal LVEF. Normal diastolic dysfunction. Moderate MR. Mild aortic stenosis. Pulmonary artery pressure 35 mmHg.
Total time spent today was 75 minutes for this encounter. Time includes reviewing laboratory test/imaging results, reviewing pertinent medical records, obtaining and reviewing medical history, performing an appropriate exam, ordering medications,
tests and procedures. Time also includes documentation of this encounter, coordinating patient care and communicating with other healthcare professionals. Total time does not include separately billed tests performed on this date of service.
Subjective Data
-
Date of Service:
Date of Service: February 01, 2024
Chief Complaint: Pulmonary Follow Up (Acute on chronic hypoxemic respiratory failure)
Subjective:
Overall patient feels better
Remains on supplemental oxygen
Denies hemoptysis or significant phlegm production.
Review of Systems
General: Fever (n)
Cardiopulmonary: Dyspnea and Dyspnea on Exertion (improved)
GI: Abdominal Pain (n) and Nausea (n)
Objective Data
Data Reviewed
Vital Signs / I&O / Oxygen:
Vital Signs
Temp Pulse Resp BP Pulse Ox
98.3 F 71 19 137/109 92
02/01/24 07:33 02/01/24 08:01 02/01/24 08:01 02/01/24 08:01 02/01/24 11:09
Intake and Output
01/31/24 02/01/24 02/02/24
06:59 06:59 06:59
Intake Total 480 / 480 720 / 720
Output Total 500 / 500 2200 / 2200
Balance -20 / -20 -1480 / -1480
SaO2 92
Nasal Cannula flow liters per 45
minute
Physical Exam
General: Respiratory Distress (with activity)
HEENT: Normocephalic
Cardiovascular: S1-S2
Respiratory: Crackles and Accessory Resp Muscle Use (with activity)
GI: Soft and Distended (obese)
Neurology: Awake, AO x 3 and No Motor Deficits
Skin: Warm
Labs/Micro/Reports
Lab Data
02/01/24 05:45
02/01/24 09:22
Microbiology
01/30/24 14:01 Blood/Venous Blood Culture - Preliminary
No Growth in 24 hours- Final report to follow
01/30/24 13:08 Blood/Venous Blood Culture - Preliminary
No Growth in 24 hours- Final report to follow
01/30/24 12:55 Nasal Swab Influenza Types A & B (MÓNICA) - Final
Negative for Influenza A & B, NAAT
Negative results must be combined with clinical observations
and patient history.
Nucleic Acid Amplification test (NAAT)performed on the
[employer] platform.
[2024-02-01] MEDS: LOVENOX 40 MG SC (18:17)
[2024-02-01] MEDS: ZYRTEC 10 MG PO (18:17)
[2024-02-01] MEDS: STERILE WATER FOR INJECTION IV (18:18)
[2024-02-01] MEDS: OCEAN, SALINE MIST 2 SPRAYS NASAL (20:41)
[2024-02-01] MEDS: LIPITOR 40 MG PO (20:42)
[2024-02-02] VITALS (16 sets, daily range): BP systolic 125–148; BP diastolic 49–111; PULSE 2–97; O2SAT 91–95; BMI 48.9
[2024-02-02] MEDS: STERILE WATER FOR INJECTION IV ×2 (02:01→07:59)
[2024-02-02] MEDS: SOLU-MEDROL PF 60 MG IV ×3 (03:59→19:41)
--- NOTE | 2024-02-02 04:23 | PTCARENOTE ---
Patient assisted from chair into bed for the night, Sp02 decreased to 77% with this exertion. Pt encouraged not to talk and breath via nose; HFNC 40%/40L in place. Sp02 increased to 92% after a few minutes. Pt able to sleep overnight. Bipap placed
HS by RT, tolerated well. Sp02 94-97% while on Bipap. Encouraged to turn self while in bed. Purewick in place, good UO. No BM. Perley nasal spray provided with good relief. RFA IV removed d/t leaking. R hand IV saline locked. Tele showing NSR.
Melatonin provided for sleep. Denies any pain. Call slater and tray table within reach. Pt calls appropriately.
[2024-02-02 04:35] LABS: Hemoglobin 9.1 g/dL (12.0-16.0); Mean Corp Hgb Conc. 32.5 g/dL (33.0-37.0); Mean Corpuscular Hgb 28.1 pg (27.0-31.0); Mean Corpuscular Volume 86.4 fL (81.0-99.0); Platelet Count 339 10^3/uL (130-400); Red Blood Cell Count 3.24 10^6/uL (4.20-5.40); White Blood Cell Count 27.7 10^3/uL (4.8-10.8)
[2024-02-02 04:51] LABS: ALT (SGPT) 32 U/L (0-35); AST (SGOT) 27 U/L (14-36); Albumin 3.8 g/dl (3.5-5.0); Alkaline Phosphatase 77 U/L (38-126); Blood Urea Nitrogen 37 mg/dl (7-17); Calcium 9.5 mg/dl (8.4-10.2); Carbon Dioxide 23 mmol/L (22-30); Chloride 98 mmol/L (98-107); Direct Bilirubin 0.2 mg/dl (0.0-0.4); Estimated Creatinine Clearance 82 ml/min; Glucose 165 mg/dl (70-99); Magnesium 2.3 mg/dl (1.6-2.3); Potassium 5.4 mmol/L (3.5-5.1); Sodium 134 mmol/L (135-145); Total Bilirubin 0.6 mg/dl (0.2-1.3); Total Protein 6.1 g/dl (6.3-8.2); eGFR > 60.00
[2024-02-02 05:55] LABS: % Basophils 0.3 % (0-2); % Immature Granulocytes 4.3 % (0-0.5); % Lymphocytes 3.4 % (20.5-51.1); % Monocytes 4.8 % (1.7-9.3); % Neutrophils 87.2 % (42.2-75.2); Absolute Basophils 0.1 10^3/uL (0-0.2); Absolute Immature Granulocytes 1.2 10^3/uL (0-0.05); Absolute Monocytes 1.3 10^3/uL (0.1-0.6); Absolute Neutrophils 24.2 10^3/uL (1.4-6.5); Nucleated Red Blood Cells % 0 %
[2024-02-02] MEDS: SYNTHROID 150 MCG PO (06:00)
[2024-02-02] MEDS: ZYRTEC 10 MG PO (07:24)
[2024-02-02] MEDS: NORVASC 2.5 MG PO (07:24)
[2024-02-02] MEDS: ASPIR LOW (ENTERIC COATED) 81 MG PO (07:24)
[2024-02-02] MEDS: PROTONIX 40 MG PO (07:24)
[2024-02-02] MEDS: IMURAN 100 MG PO ×2 (07:24→19:41)
[2024-02-02] MEDS: OCUVITE SOFTGEL 1 CAP PO ×2 (07:24→19:41)
[2024-02-02] MEDS: ZOLOFT 100 MG PO (07:25)
[2024-02-02] MEDS: BUSPAR 10 MG PO ×2 (07:25→19:41)
[2024-02-02] MEDS: ZESTRIL 10 MG PO (07:25)
[2024-02-02] MEDS: ZOLOFT 50 MG PO (07:25)
[2024-02-02] MEDS: PULMICORT 0.5 MG INH ×2 (07:37→20:21)
[2024-02-02] MEDS: DUONEB 3 ML INH ×3 (07:37→20:21)
--- NOTE | 2024-02-02 07:52 | W.PN.HOSP.TC ---
Today's Communication/Plan
-
see A/P
Assessment / Plan
Assessment / Plan
HPI: 73 yo F with PMH significant for pulm fibrosis / ILD on chronic Rituxan and Imuran and on home O2 at 6-8 lpm, who presented to ED complaining of increased SOB x 1 week. Patient was seen in the ED here on 01/27 with similar complaints. She
improved with nebulizer therapy and was discharged home. Since that time, patient noted that dyspnea has progressed and she has developed fevers / chills. Patient has been taking PO steroids at home without significant improvement in her symptoms.
CT scan done 01/17 and CXR done on this admission show significant increase in interstitial markings bilaterally- R > L.
A/P:
# Acute on Chronic Hypoxemic Respiratory Failure
# Interstitial Lung Disease / Pulmonary Fibrosis
Continue IV methylprednisone now 60 mg Q8H for ILD flare/pulm fibrosis.
Continue O2 support, weaned from high flow NC to 13L midflow, cont to wean O2 to 6-8L NC (baseline)
Continue supportive care with Duonebs ATC and PRN
D dimer WNL which rules out VTE, BL LE US also negative for DVT
Pulmonary on board
# Possible Atypical / Interstitial Pneumonia
# Possible sepsis POA
Pt was started with IV abx Cefepime/doxycycline, s/p 3 days, for possible atypical / infectious pneumonia, although procalcitonin noted to be negative
COVID/Flu negative, blood cultures negative
# Mild transaminitis likely reactive , resolved
# ANCA Positive Vasculitis
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
# Benign Hypertension
Continue Norvasc, lisinopril with hold parameter
# Chronic HFpEF
recent with EF of 55-60%
hold Lasix
# Hypothyroidism
Continue with Synthroid
# Anemia of Chronic Disease
# Hyperlipidemia
Continue with Lipitor
# Morbid Obesity
# Sleep apnea
BMI 50
continue CPAP at at bedtime
# History of left breast cancer with lumpectomy and radiation in 2001
# Anxiety and depression
Continue with Zoloft and BuSpar
# GERD
PPI continued
DVT ppx: Lovenox SQ
FC
Anticipated Discharge: > 48 hours
Subjective/Interval History
-
Date of Service: February 02, 2024
Objective Data
-
Labs:
Laboratory Results
02/02/24
04:08
WBC 27.7 H
Hgb 9.1 L
Hct 28.0 L
Plt Count 339
Sodium 134 L
Potassium 5.4 H
Chloride 98
Carbon Dioxide 23
BUN 37 H
Creatinine 0.8
Glucose 165 H
Calcium 9.5
Total Bilirubin 0.6
AST 27
ALT 32
Alkaline Phosphatase 77
Vital Signs:
Vital Signs
Temp Pulse Resp BP Pulse Ox
36.8 C 71 17 125/70 98
02/02/24 07:29 02/02/24 07:40 02/02/24 07:40 02/02/24 06:00 02/02/24 07:40
I&O
02/01/24 02/02/24 02/03/24
06:59 06:59 06:59
Intake Total 720 / 720 720 / 720
Output Total 2200 / 2200 1350 / 1350
Balance -1480 / -1480 -630 / -630
Review of Systems
-
Respiratory: Reports Trouble Breathing (improving )
Physical Exam
-
General: Well Developed, Well Nourished, Comfortable, Respiratory Distress (chronic), Conversant and Morbidly Obese
HEENT: Normocephalic, Atraumatic, Nose Appears Normal, Ears Appear Normal and Oxygen (13L midflow)
Respiratory: Clear to Auscultation and Non Labored Respirations; Negative Accessory Resp Muscle Use
Cardiac: Regular Rhythm and S1/S2
GI: Soft, Nontender, Nondistended and Normal Bowel Sounds
Skin: Warm and Dry
Neuro: Awake, Alert, Oriented and AO x 3
Psych: Calm and Intact Judgement/Insight
Data Reviewed
-
CT Scan: Report Reviewed by me
Labs: Labs Reviewed by me
--- NOTE | 2024-02-02 08:31 | PTCARENOTE ---
Assumed care of patient at beginning of this shift from previous RN with 15L midflow in use and POx 98%. Resp therapist weaned to 13L midflow; POx currently 93% with patient laying in bed eating breakfast. +LANDEROS, minimal exertion. NSR on
monitor.Patient to work with PT. See worklist for full assessment and vital signs; see MAR for med administration.
--- NOTE | 2024-02-02 09:52 | PTCARENOTE ---
Patient worked with PT using 15L midflow as tank was needed to ambulate with length of midflow tubing. She did desat, but recovered after 1.5mins per PT; refer to their note. Patient sitting in chair on 13L midflow with POx 95%.
--- NOTE | 2024-02-02 10:30 | W.PN.PUL3 ---
Today's Communication / Plan
-
Continue to decrease oxygen supplementation
Continue to observe off antibiotic
Continue IV corticosteroids at the current dose, continue to taper tomorrow if she continues to improve
Out of bed as able
Nocturnal CPAP
Follow blood sugars
Not ready for discharge
Assessment
-
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 Patient wears 8 L/min nasal
cannula at baseline. She says she has COVID about 1 month ago and ever since then has been having worsening shortness of breath and it progressed over the last several weeks until today's ER visit. She is actually in the early part of a steroid
taper started by her chart computer, Dr. Daley. In the ER she was febrile to 102 �F, tachycardic to 103, breathing at 28 breaths/min, BP 136/51 and saturating 95% on nonrebreather @ 10L/min. Labs showed leukocytosis 20.4, anemia to 10.1, serum
bicarbonate 24, lactate 2.3, AST 39, ALT 38 and COVID antigen negative. Flu A/B also negative, and blood cultures x 2 were collected. CXR showed increasing opacification in both lungs. In the ER she was given cefepime, Decadron 8 mg, DuoNebs and
NS 0.9% X1 liter. She was admitted to the IMU for further care and pulmonary now consulted for additional management/recommendations.
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
hypercholesterolemia, thyroid disease, history of breast cancer s/p lumpectomy + XRT (2001), steroid-induced diabetes, hypertension, history of diverticulosis, hearing loss, restrictive lung disease, iron deficiency anemia, history of COVID-19
(December 30, 2023) s/p Paxlovid, GERD, history of mild pulmonary hypertension, steroid-induced osteoporosis
Impression:
#Acute on chronic respiratory failure with hypoxia likely due to ILD exacerbation +/- pneumonia - suspect that she is still having an acute inflammatory pneumonitis from recent COVID-19 on 12/30/2023
#Febrile illness
#Leukocytosis
#Anemia
#Lactic acidosis
#Transaminitis (mild)
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
#Moderate restrictive lung disease (T%, VC: 85% with moderate gas exchange capacity defect via PFT from June 2021)
#EMERSON on autoCPAP 5-20 cmH2O (average pressure: 7.8cmH2O with residual AHI: 1.6 for 30-day period of 12/13 - 01/12/2024)
#Morbid obesity
#Recent history of COVID-19 (12/30/2023)
#Former tobacco use (quit in 01/2003 with 60-PY Hx)
Plan:
Clinically improved, down to 11 L via mid flow. High flow oxygen has been discontinued.
- Continue with systemic steroids and taper as tolerated-significant groundglass opacities bilaterally on CAT scan likely explain worsening hypoxemia.
-Decrease Solu-Medrol to 60 mg IV every 8 hours today 02/01/2024. Clinically improving. If able to get close to her baseline oxygen then we will transition to oral steroids in the next 24 to 48 hours. 50 mg of prednisone for 1 week and then 40 mg
with a slow taper thereafter.
-Continue Imuran/patient has been taking Bactrim for PCP prophylaxis in the outpatient setting
- Maintain euglycemia with goal BG >100 and <180 while on high dose steroids
- negative procalcitonin, culture negative, remains afebrile for longer than 24 hours, discontinued antibiotics 02/01/2024- cont. to observe.
-Suspicion for thromboembolic event less likely with significant groundglass opacities. Patient feels better today.
Lower extremity Dopplers negative, D-dimer not elevated: Less likely thromboembolic event.
-High flow oxygen has been discontinued. Currently 11 L via mid flow, pulse ox is 95% at rest, pulse ox decreased to 79% with activity.
-Baseline oxygen requirements is up to 8 L via nasal cannula.
- Maintain SpO2 >90-94%
- She currently does not have a cough so no need for mucolytics at this time
- Antitussants prn
- DuoNebs TID + pulmicort BID
-Does not appear volume overloaded;
As she is improving no further imaging of the chest is necessary.
- She uses auto-CPAP at home however given her respiratory distress I will start nocturnal BiPAP 15/12, and titrate O2 flow rate to keep sats >90%
-Chronic anemia noted. Hemoglobin trending lower. No evidence for bleeding. Likely contributing to symptoms. Will continue to follow
Transfuse as necessary For hemoglobin<7
- Incentive spirometer encouraged 10x per hour for at least 4 hrs a day, as tolerated
- PT/OT once O2 requirements improve
- DVT ppx: LMWH
Pulmonary service will continue to follow along. She will continue to follow along with us in the office. She has a appointment tomorrow with [facility] [place] which will need to be rescheduled. Continue follow-up with Dr. Rausch.

Data:
CXRX 01/30/2024:
Correlating with prior exams, background of interstitial fibrosis.
Increasing parenchymal opacity within the lower two thirds of the right lung and within the left lower lung, and these findings likely represent pneumonia superimposed on background changes of interstitial fibrosis.
Echocardiogram 01/26/2023: Showed normal LVEF. Normal diastolic dysfunction. Moderate MR. Mild aortic stenosis. Pulmonary artery pressure 35 mmHg.
Total time spent today was 75 minutes for this encounter. Time includes reviewing laboratory test/imaging results, reviewing pertinent medical records, obtaining and reviewing medical history, performing an appropriate exam, ordering medications,
tests and procedures. Time also includes documentation of this encounter, coordinating patient care and communicating with other healthcare professionals. Total time does not include separately billed tests performed on this date of service.
Subjective Data
-
Date of Service:
Date of Service: February 02, 2024
Chief Complaint: Pulmonary Follow Up (Acute on chronic hypoxemic respiratory failure)
Subjective:
Feeling better
Less short of breath with activity
Pulse ox down to 79% with activity in the room
Denies significant phlegm production hemoptysis
Denies any chest pain
Currently out of bed
Review of Systems
General: Fever (n)
Cardiopulmonary: Dyspnea (none at rest)
GI: Abdominal Pain (n) and Nausea (n)
Objective Data
Data Reviewed
Vital Signs / I&O / Oxygen:
Vital Signs
Temp Pulse Resp BP Pulse Ox
98.2 F 77 22 137/53 95
02/02/24 07:29 02/02/24 09:12 02/02/24 09:12 02/02/24 09:12 02/02/24 10:29
Intake and Output
02/01/24 02/02/24 02/03/24
06:59 06:59 06:59
Intake Total 720 / 720 720 / 720
Output Total 2200 / 2200 1350 / 1350
Balance -1480 / -1480 -630 / -630
SaO2 95
Nasal Cannula flow liters per 15
minute
Physical Exam
General: Respiratory Distress (with activity)
HEENT: Normocephalic
Cardiovascular: S1-S2
Respiratory: Crackles and Accessory Resp Muscle Use (with activity)
GI: Soft and Distended (obese)
Neurology: Awake, AO x 3 and No Motor Deficits
Skin: Warm
Labs/Micro/Reports
Lab Data
02/02/24 04:08
02/02/24 04:08
Microbiology
01/30/24 14:01 Blood/Venous Blood Culture - Preliminary
No Growth in 48 hours- Final report to follow
01/30/24 13:08 Blood/Venous Blood Culture - Preliminary
No Growth in 48 hours- Final report to follow
01/30/24 12:55 Nasal Swab Influenza Types A & B (MÓNICA) - Final
Negative for Influenza A & B, NAAT
Negative results must be combined with clinical observations
and patient history.
Nucleic Acid Amplification test (NAAT)performed on the
[employer] platform.
[2024-02-02] MEDS: LOVENOX 40 MG SC (17:26)
--- NOTE | 2024-02-02 17:44 | CM ---
Patient with Hx recent Covid infection with Dx Acute Hypoxemic Respiratory Failure, ILD/pulmonary fibrosis, possible PNA. O2 13L, BiPAP. Receiving IV Abx, IV steroids. PT/OT recommends HH.
Plan offer VN when less medically acute.
Plan home possibly with VN.
[2024-02-02] MEDS: OCEAN, SALINE MIST 2 SPRAYS NASAL (19:39)
[2024-02-02] MEDS: LIPITOR 40 MG PO (19:41)
[2024-02-02] MEDS: MELATONIN 5 MG PO (22:27)
[2024-02-03] VITALS (10 sets, daily range): BP systolic 133–154; BP diastolic 52–75; PULSE 2–75; BMI 49.9
[2024-02-03] MEDS: SOLU-MEDROL PF 60 MG IV ×2 (04:58→13:06)
[2024-02-03] MEDS: SYNTHROID 150 MCG PO (05:09)
[2024-02-03 06:00] LABS: Blood Urea Nitrogen 37 mg/dl (7-17); Calcium 9.5 mg/dl (8.4-10.2); Carbon Dioxide 21 mmol/L (22-30); Chloride 100 mmol/L (98-107); Estimated Creatinine Clearance 95 ml/min; Glucose 167 mg/dl (70-99); Potassium 4.9 mmol/L (3.5-5.1); Sodium 135 mmol/L (135-145); eGFR > 60.00
[2024-02-03 06:09] LABS: Hematocrit 28.3 % (37.0-47.0); Hemoglobin 9.2 g/dL (12.0-16.0); Mean Corp Hgb Conc. 32.5 g/dL (33.0-37.0); Mean Corpuscular Volume 89.3 fL (81.0-99.0); Mean Platelet Volume 10.7 fL (7.4-10.4); Platelet Count 309 10^3/uL (130-400); Red Blood Cell Count 3.17 10^6/uL (4.20-5.40); White Blood Cell Count 22.2 10^3/uL (4.8-10.8)
--- NOTE | 2024-02-03 06:12 | PTCARENOTE ---
Patient stated 'I slept like a log'. Tolerated Bipap HS. Placed on midflow 13L this morning. Labs drawn and sent. Purewick in place, adequate UO. Denies any pain. Repositions self while in bed. Tele showing NSR. Melatonin provided per pt request.
Call slater within reach. Pt calls appropriately.
[2024-02-03 06:53] LABS: % Basophils 0.4 % (0-2); % Immature Granulocytes 5.7 % (0-0.5); % Lymphocytes 4.3 % (20.5-51.1); % Monocytes 6.3 % (1.7-9.3); % Neutrophils 83.3 % (42.2-75.2); Absolute Basophils 0.1 10^3/uL (0-0.2); Absolute Immature Granulocytes 1.3 10^3/uL (0-0.05); Absolute Monocytes 1.4 10^3/uL (0.1-0.6); Absolute Neutrophils 18.5 10^3/uL (1.4-6.5); Nucleated Red Blood Cells % 0.1 %
[2024-02-03] MEDS: DUONEB 3 ML INH ×3 (07:27→19:42)
[2024-02-03] MEDS: PULMICORT 0.5 MG INH ×2 (07:27→19:42)
--- NOTE | 2024-02-03 07:37 | W.PN.HOSP.TC ---
Today's Communication/Plan
-
see A/P
Assessment / Plan
Assessment / Plan
HPI: 73 yo F with PMH significant for pulm fibrosis / ILD on chronic Rituxan and Imuran and on home O2 at 6-8 lpm, who presented to ED complaining of increased SOB x 1 week. Patient was seen in the ED here on 01/27 with similar complaints. She
improved with nebulizer therapy and was discharged home. Since that time, patient noted that dyspnea has progressed and she has developed fevers / chills. Patient has been taking PO steroids at home without significant improvement in her symptoms.
CT scan done 01/17 and CXR done on this admission show significant increase in interstitial markings bilaterally- R > L.
A/P:
# Acute on Chronic Hypoxemic Respiratory Failure
# Interstitial Lung Disease / Pulmonary Fibrosis
Continue IV methylprednisone now 60 mg Q8H for ILD flare/pulm fibrosis.
Continue O2 support, weaned from high flow NC to 13L midflow, cont to wean O2 to 6-8L NC (baseline)
Continue supportive care with Duonebs ATC and PRN
D dimer WNL which rules out VTE, BL LE US also negative for DVT
Pulmonary on board
# Possible Atypical / Interstitial Pneumonia
# Possible sepsis POA
Pt was started with IV abx Cefepime/doxycycline for possible atypical / infectious pneumonia, s/p 3 days, although procalcitonin noted to be negative
COVID/Flu negative, blood cultures negative
# Mild transaminitis likely reactive , resolved
# ANCA Positive Vasculitis
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
# Benign Hypertension
Continue Norvasc, lisinopril with hold parameter
# Chronic HFpEF
recent with EF of 55-60%
hold Lasix
# Hypothyroidism
Continue with Synthroid
# Anemia of Chronic Disease
# Hyperlipidemia
Continue with Lipitor
# Morbid Obesity
# Sleep apnea
BMI 50
continue CPAP at at bedtime
# History of left breast cancer with lumpectomy and radiation in 2001
# Anxiety and depression
Continue with Zoloft and BuSpar
# GERD
PPI continued
DVT ppx: Lovenox SQ
FC
Anticipated Discharge: > 48 hours
Subjective/Interval History
-
Date of Service: February 03, 2024
Objective Data
-
Labs:
Laboratory Results
02/03/24
05:25
WBC 22.2 H
Hgb 9.2 L
Hct 28.3 L
Plt Count 309
Sodium 135
Potassium 4.9
Chloride 100
Carbon Dioxide 21 L
BUN 37 H
Creatinine 0.7
Glucose 167 H
Calcium 9.5
Vital Signs:
Vital Signs
Temp Pulse Resp BP Pulse Ox
37.1 C 72 16 137/75 95
02/03/24 07:31 02/03/24 07:30 02/03/24 07:30 02/03/24 06:00 02/03/24 07:30
I&O
02/02/24 02/03/24 02/04/24
06:59 06:59 06:59
Intake Total 720 / 720 480 / 480
Output Total 1350 / 1350 1300 / 1300
Balance -630 / -630 -820 / -820
Review of Systems
-
Respiratory: Reports Trouble Breathing (improving )
Physical Exam
-
General: Well Developed, Well Nourished, Comfortable, Respiratory Distress (chronic), Conversant and Morbidly Obese
HEENT: Normocephalic, Atraumatic, Nose Appears Normal, Ears Appear Normal and Oxygen (13L midflow)
Respiratory: Clear to Auscultation, Wheezes (mild) and Non Labored Respirations; Negative Accessory Resp Muscle Use
Cardiac: Regular Rhythm and S1/S2
GI: Soft, Nontender, Nondistended and Normal Bowel Sounds
Skin: Warm and Dry
Neuro: Awake, Alert, Oriented and AO x 3
Psych: Calm and Intact Judgement/Insight
Data Reviewed
-
CT Scan: Report Reviewed by me
Labs: Labs Reviewed by me
[2024-02-03] MEDS: IMURAN 100 MG PO ×2 (08:49→20:51)
[2024-02-03] MEDS: NORVASC 2.5 MG PO (08:53)
[2024-02-03] MEDS: SENOKOT-S 1 TABLET PO (08:55)
[2024-02-03] MEDS: PROTONIX 40 MG PO (08:55)
[2024-02-03] MEDS: OCUVITE SOFTGEL 1 CAP PO ×2 (08:55→20:51)
[2024-02-03] MEDS: ZOLOFT 50 MG PO (08:55)
[2024-02-03] MEDS: ZESTRIL 10 MG PO (08:55)
[2024-02-03] MEDS: ZYRTEC 10 MG PO (08:55)
[2024-02-03] MEDS: BUSPAR 10 MG PO ×2 (08:55→20:51)
[2024-02-03] MEDS: ZOLOFT 100 MG PO (08:55)
[2024-02-03] MEDS: MIRALAX 17 GRAMS PO (08:56)
--- NOTE | 2024-02-03 09:00 | PTCARENOTE ---
Patient received from hourly shift manager. Patient resting comfortably in bed. AAO, VSS. No events noted overnight. No complaints of pain at this time. Currently on 13L O2 via Midflow N/C, will attempt to wean as tolerated as patient is normally on 8L
N/C baseline. OOB and attempt shower today. No tests scheduled for today. Call slater in reach.
--- NOTE | 2024-02-03 09:57 | CM ---
Patient seen at bedside. Patient currently on 13 liters O2. Patient has home O2 from [facility] for 10 liter flow and Bipap here in the hospital. Patient stated that she would benefit from increased liter flow availability and a barriatric comode
chair. Patient has had [facility] in the past and would like them again with PT/OT. Patient sisters are very involved and supportive. Patient talked about back up plan of [facility] if absolutely necessary. CM confirmed with [facility] no other increased
O2 concentrators available. Patient does not have Bipap or CPAP at home. CM will continue to follow for discharge planning needs.
Plan; home with [facility] home O2 watch for additional DME needs vs SNF vs LTACH. Pt may need [facility] for PT/OT
--- NOTE | 2024-02-03 16:47 | W.PN.PUL3 ---
Today's Communication / Plan
-
Decrease IV Solu-Medrol
Continue to wean down oxygen as able
Continue to observe off antibiotic
Incentive spirometry
Aspiration precautions
Not ready for discharge
Assessment
-
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 Patient wears 8 L/min nasal
cannula at baseline. She says she has COVID about 1 month ago and ever since then has been having worsening shortness of breath and it progressed over the last several weeks until today's ER visit. She is actually in the early part of a steroid
taper started by her multimedia programmer, Dr. Daley. In the ER she was febrile to 102 �F, tachycardic to 103, breathing at 28 breaths/min, BP 136/51 and saturating 95% on nonrebreather @ 10L/min. Labs showed leukocytosis 20.4, anemia to 10.1, serum
bicarbonate 24, lactate 2.3, AST 39, ALT 38 and COVID antigen negative. Flu A/B also negative, and blood cultures x 2 were collected. CXR showed increasing opacification in both lungs. In the ER she was given cefepime, Decadron 8 mg, DuoNebs and
NS 0.9% X1 liter. She was admitted to the IMU for further care and pulmonary now consulted for additional management/recommendations.
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
hypercholesterolemia, thyroid disease, history of breast cancer s/p lumpectomy + XRT (2001), steroid-induced diabetes, hypertension, history of diverticulosis, hearing loss, restrictive lung disease, iron deficiency anemia, history of COVID-19
(December 30, 2023) s/p Paxlovid, GERD, history of mild pulmonary hypertension, steroid-induced osteoporosis
Impression:
#Acute on chronic respiratory failure with hypoxia likely due to ILD exacerbation +/- pneumonia - suspect that she is still having an acute inflammatory pneumonitis from recent COVID-19 on 12/30/2023
#Febrile illness
#Leukocytosis
#Anemia
#Lactic acidosis
#Transaminitis (mild)
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
#Moderate restrictive lung disease (T%, VC: 85% with moderate gas exchange capacity defect via PFT from June 2021)
#EMERSON on autoCPAP 5-20 cmH2O (average pressure: 7.8cmH2O with residual AHI: 1.6 for 30-day period of 12/13 - 01/12/2024)
#Morbid obesity
#Recent history of COVID-19 (12/30/2023)
#Former tobacco use (quit in 01/2003 with 60-PY Hx)
Plan:
Clinically improved, down to 11-13 L via mid flow.
High flow oxygen has been discontinued.
- Continue with systemic steroids and taper as tolerated-significant groundglass opacities bilaterally on CAT scan likely explain worsening hypoxemia.
-Decrease Solu-Medrol to 60 mg IV every 8 hours today 02/01/2024. Decrease Solu-Medrol to 40 mg IV every 8 on 02/03/2024.
If able to get close to her baseline oxygen then we will transition to oral steroids in the next 24 to 48 hours. 50 mg of prednisone for 1 week and then 40 mg with a slow taper thereafter.
-Continue Imuran/patient has been taking Bactrim for PCP prophylaxis in the outpatient setting
- Maintain euglycemia with goal BG >100 and <180 while on high dose steroids
-
- negative procalcitonin, culture negative, remains afebrile for longer than 24 hours, discontinued antibiotics 02/01/2024- cont. to observe.
Leukocytosis trending lower.
-Suspicion for thromboembolic event less likely with significant groundglass opacities. Patient feels better today.
Lower extremity Dopplers negative, D-dimer not elevated: Less likely thromboembolic event.
Continue oxygen: currently 11-13 L via mid flow, pulse ox is 95% at rest, pulse ox decreased to 79% with activity.
-Baseline oxygen requirements is up to 8 L via nasal cannula.
- Maintain SpO2 >90-94%
- She currently does not have a cough so no need for mucolytics at this time
- Antitussants prn
- DuoNebs TID + pulmicort BID
-Does not appear volume overloaded;
As she is improving no further imaging of the chest is necessary.
- She uses auto-CPAP at home however given her respiratory distress I will start nocturnal BiPAP 15/12, and titrate O2 flow rate to keep sats >90%
-Chronic anemia noted. Hemoglobin trending lower. No evidence for bleeding. Likely contributing to symptoms. Will continue to follow
Transfuse as necessary For hemoglobin<7
- Incentive spirometer encouraged 10x per hour for at least 4 hrs a day, as tolerated
- PT/OT once O2 requirements improve
- DVT ppx: LMWH
Pulmonary service will continue to follow along. She will continue to follow along with us in the office. She has a appointment tomorrow with [facility] [place] which will need to be rescheduled. Continue follow-up with Dr. Rausch.

Data:
CXRX 01/30/2024:
Correlating with prior exams, background of interstitial fibrosis.
Increasing parenchymal opacity within the lower two thirds of the right lung and within the left lower lung, and these findings likely represent pneumonia superimposed on background changes of interstitial fibrosis.
Echocardiogram 01/26/2023: Showed normal LVEF. Normal diastolic dysfunction. Moderate MR. Mild aortic stenosis. Pulmonary artery pressure 35 mmHg.
Total time spent today was 75 minutes for this encounter. Time includes reviewing laboratory test/imaging results, reviewing pertinent medical records, obtaining and reviewing medical history, performing an appropriate exam, ordering medications,
tests and procedures. Time also includes documentation of this encounter, coordinating patient care and communicating with other healthcare professionals. Total time does not include separately billed tests performed on this date of service.
Subjective Data
-
Date of Service:
Date of Service: February 03, 2024
Chief Complaint: Pulmonary Follow Up (Acute on chronic hypoxemic respiratory failure)
Subjective:
No new complaints
Patient feels better overall
Denies significant phlegm production
Remains afebrile
Denies hemoptysis
Remains on mid flow oxygen
Review of Systems
Cardiopulmonary: Dyspnea, Dyspnea on Exertion and Cough
Neuro: Headache
Objective Data
Data Reviewed
Vital Signs / I&O / Oxygen:
Vital Signs
Temp Pulse Resp BP Pulse Ox
98.7 F 87 16 139/57 97
02/03/24 15:51 02/03/24 13:33 02/03/24 13:33 02/03/24 08:53 02/03/24 13:33
Intake and Output
02/02/24 02/03/24 02/04/24
06:59 06:59 06:59
Intake Total 720 / 720 480 / 480 1000 / 1000
Output Total 1350 / 1350 1300 / 1300 860 / 860
Balance -630 / -630 -820 / -820 140 / 140
SaO2 97
Nasal Cannula flow liters per 13
minute
Physical Exam
General: Respiratory Distress (with activity)
HEENT: Normocephalic
Cardiovascular: S1-S2
Respiratory: Crackles and Accessory Resp Muscle Use (with activity)
GI: Soft and Distended (obese)
Neurology: Awake, AO x 3 and No Motor Deficits
Skin: Warm
Labs/Micro/Reports
Lab Data
02/03/24 05:25
02/03/24 05:25
Microbiology
01/30/24 14:01 Blood/Venous Blood Culture - Preliminary
No Growth in 4 days- Final report to follow
01/30/24 13:08 Blood/Venous Blood Culture - Preliminary
No Growth in 4 days- Final report to follow
[2024-02-03] MEDS: LOVENOX 40 MG SC (17:26)
[2024-02-03] MEDS: SOLU-MEDROL PF 40 MG IV (20:51)
[2024-02-03] MEDS: LIPITOR 40 MG PO (20:51)
[2024-02-03] MEDS: OCEAN, SALINE MIST 2 SPRAYS NASAL (20:53)
[2024-02-03] MEDS: MELATONIN 5 MG PO (22:44)
[2024-02-04] VITALS (13 sets, daily range): BP systolic 118–174; BP diastolic 51–81; PULSE 2–79; BMI 49.1
--- NOTE | 2024-02-04 01:14 | PTCARENOTE ---
Patient received from [facility] report given from CORRINA. Merritt. Pt normal sinus on tele. Pt is currently on BiPAP. O2 of 96%. Pt requesting her PRN melatonin to aid in her sleep. Pt has no complaints of pain. Pt appears to be sleeping comfortably,
respirations even and unlabored. Voiding via purewick. Call slater is within reach.
[2024-02-04] MEDS: SOLU-MEDROL PF 40 MG IV ×3 (05:00→19:40)
[2024-02-04] MEDS: SYNTHROID 150 MCG PO (05:01)
[2024-02-04 06:08] LABS: Hematocrit 29.1 % (37.0-47.0); Hemoglobin 9.3 g/dL (12.0-16.0); Mean Corpuscular Hgb 27.9 pg (27.0-31.0); Mean Corpuscular Volume 87.4 fL (81.0-99.0); Mean Platelet Volume 10.7 fL (7.4-10.4); Platelet Count 326 10^3/uL (130-400); Red Blood Cell Count 3.33 10^6/uL (4.20-5.40); Red Cell Dist. Width 14.2 % (11.5-14.5); White Blood Cell Count 20.8 10^3/uL (4.8-10.8)
[2024-02-04 06:25] LABS: Blood Urea Nitrogen 35 mg/dl (7-17); Calcium 9.4 mg/dl (8.4-10.2); Carbon Dioxide 27 mmol/L (22-30); Chloride 96 mmol/L (98-107); Estimated Creatinine Clearance 82 ml/min; Glucose 139 mg/dl (70-99); Potassium 5.2 mmol/L (3.5-5.1); Sodium 135 mmol/L (135-145); eGFR > 60.00
[2024-02-04 06:46] LABS: % Basophils 0.3 % (0-2); % Eosinophils 0.1 % (0-6); % Monocytes 6.5 % (1.7-9.3); % Neutrophils 82.1 % (42.2-75.2); Absolute Basophils 0.1 10^3/uL (0-0.2); Absolute Immature Granulocytes 1.3 10^3/uL (0-0.05); Absolute Monocytes 1.4 10^3/uL (0.1-0.6); Absolute Neutrophils 17.1 10^3/uL (1.4-6.5); Nucleated Red Blood Cells % 0.1 %
[2024-02-04] MEDS: DUONEB 3 ML INH ×3 (07:21→19:31)
--- NOTE | 2024-02-04 07:57 | W.PN.HOSP.TC ---
Addendum entered and electronically signed by Alexandra Ling MD 02/04/24 10:51:
# Request for Bariatric commode
Pt has access to bathroom however distance too far for patient, and body weight/size requires bariatric commode
Original Note:
Today's Communication/Plan
-
see A/P
Assessment / Plan
Assessment / Plan
HPI: 73 yo F with PMH significant for pulm fibrosis / ILD on chronic Rituxan and Imuran and on home O2 at 6-8 lpm, who presented to ED complaining of increased SOB x 1 week. Patient was seen in the ED here on 01/27 with similar complaints. She
improved with nebulizer therapy and was discharged home. Since that time, patient noted that dyspnea has progressed and she has developed fevers / chills. Patient has been taking PO steroids at home without significant improvement in her symptoms.
CT scan done 01/17 and CXR done on this admission show significant increase in interstitial markings bilaterally- R > L.
A/P:
# Acute on Chronic Hypoxemic Respiratory Failure
# Interstitial Lung Disease / Pulmonary Fibrosis
Continue IV methylprednisone for ILD flare/pulm fibrosis, now at 40 mg Q8H
Continue O2 support, weaned from high flow NC to 10L midflow, cont to wean O2 to 8-10L NC (baseline)
Continue supportive care with Duonebs ATC and PRN
D dimer WNL which rules out VTE, BL LE US also negative for DVT
Pulmonary on board
# Possible Atypical / Interstitial Pneumonia
# Possible sepsis POA
Pt was started with IV abx Cefepime/doxycycline for possible atypical / infectious pneumonia, s/p 3 days, although procalcitonin noted to be negative
COVID/Flu negative, blood cultures negative
# Mild transaminitis likely reactive , resolved
# ANCA Positive Vasculitis
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
# Benign Hypertension
Continue Norvasc, lisinopril with hold parameter
# Chronic HFpEF
recent with EF of 55-60%
resume FLATLOCK SEWING MACHINE OPERATOR Lasix
# Hypothyroidism
Continue with Synthroid
# Anemia of Chronic Disease
# Hyperlipidemia
Continue with Lipitor
# Morbid Obesity
# Sleep apnea
BMI 50
continue CPAP at at bedtime
# History of left breast cancer with lumpectomy and radiation in 2001
# Anxiety and depression
Continue with Zoloft and BuSpar
# GERD
PPI continued
DVT ppx: Lovenox SQ
FC
Dispo: PT recc HH
Anticipated Discharge: 24 - 48 hours
Subjective/Interval History
-
Date of Service: February 04, 2024
Objective Data
-
Labs:
Laboratory Results
02/04/24
05:30
WBC 20.8 H
Hgb 9.3 L
Hct 29.1 L
Plt Count 326
Sodium 135
Potassium 5.2 H
Chloride 96 L
Carbon Dioxide 27
BUN 35 H
Creatinine 0.8
Glucose 139 H
Calcium 9.4
Vital Signs:
Vital Signs
Temp Pulse Resp BP Pulse Ox
37.1 C 68 14 155/59 95
02/04/24 07:00 02/04/24 07:25 02/04/24 07:25 02/04/24 06:01 02/04/24 07:25
I&O
02/03/24 02/04/24 02/05/24
06:59 06:59 06:59
Intake Total 480 / 480 1000 / 1000
Output Total 1300 / 1300 1560 / 1560
Balance -820 / -820 -560 / -560
Review of Systems
-
Respiratory: Reports Trouble Breathing (improving )
Physical Exam
-
General: Well Developed, Well Nourished, Comfortable, Respiratory Distress (chronic), Conversant and Morbidly Obese
HEENT: Normocephalic, Atraumatic, Nose Appears Normal, Ears Appear Normal and Oxygen (10L midflow)
Respiratory: Clear to Auscultation and Non Labored Respirations; Negative Accessory Resp Muscle Use
Cardiac: Regular Rhythm and S1/S2
GI: Soft, Nontender, Nondistended and Normal Bowel Sounds
Skin: Warm and Dry
Neuro: Awake, Alert, Oriented and AO x 3
Psych: Calm and Intact Judgement/Insight
Data Reviewed
-
CT Scan: Report Reviewed by me
Labs: Labs Reviewed by me
[2024-02-04] MEDS: PROTONIX 40 MG PO (08:34)
[2024-02-04] MEDS: ASPIR LOW (ENTERIC COATED) 81 MG PO (08:34)
[2024-02-04] MEDS: BUSPAR 10 MG PO ×2 (08:34→19:40)
[2024-02-04] MEDS: ZOLOFT 100 MG PO (08:34)
[2024-02-04] MEDS: ZYRTEC 10 MG PO (08:34)
[2024-02-04] MEDS: NORVASC 2.5 MG PO (08:34)
[2024-02-04] MEDS: ZESTRIL 10 MG PO (08:34)
[2024-02-04] MEDS: OCUVITE SOFTGEL 1 CAP PO ×2 (08:34→19:40)
[2024-02-04] MEDS: ZOLOFT 50 MG PO (08:34)
[2024-02-04] MEDS: LASIX 20 MG PO (08:34)
[2024-02-04] MEDS: IMURAN 100 MG PO ×2 (08:34→19:40)
--- NOTE | 2024-02-04 09:09 | PTCARENOTE ---
Patient received from material handler 1st shift. Patient resting comfortably in bed. AAO, VSS. No events noted overnight. No complaints of pain at this time. Currently on 10L O2 via Midflow N/C from 13L yesterday, will attempt to continue to wean as
tolerated as patient is normally on 8L N/C baseline. OOB to chair. No tests scheduled for today. Call slater in reach.
--- NOTE | 2024-02-04 10:21 | W.PN.PUL3 ---
Today's Communication / Plan
-
High flow oxygen discontinued, down to 10 L nasal cannula. Baseline 3 L at rest and up to 8 L with ambulation at home.
Continue IV corticosteroids without change, hopefully transition to prednisone in the next 24 to 48 hours if continues to improve
Observe off antibiotics
Secretion clearance interventions
Incentive spirometry
Increase activity as able
Improving but not ready for discharge
Assessment
-
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 Patient wears 8 L/min nasal
cannula at baseline. She says she has COVID about 1 month ago and ever since then has been having worsening shortness of breath and it progressed over the last several weeks until today's ER visit. She is actually in the early part of a steroid
taper started by her research phlebotomist, Dr. Daley. In the ER she was febrile to 102 �F, tachycardic to 103, breathing at 28 breaths/min, BP 136/51 and saturating 95% on nonrebreather @ 10L/min. Labs showed leukocytosis 20.4, anemia to 10.1, serum
bicarbonate 24, lactate 2.3, AST 39, ALT 38 and COVID antigen negative. Flu A/B also negative, and blood cultures x 2 were collected. CXR showed increasing opacification in both lungs. In the ER she was given cefepime, Decadron 8 mg, DuoNebs and
NS 0.9% X1 liter. She was admitted to the IMU for further care and pulmonary now consulted for additional management/recommendations.
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
hypercholesterolemia, thyroid disease, history of breast cancer s/p lumpectomy + XRT (2001), steroid-induced diabetes, hypertension, history of diverticulosis, hearing loss, restrictive lung disease, iron deficiency anemia, history of COVID-19
(December 30, 2023) s/p Paxlovid, GERD, history of mild pulmonary hypertension, steroid-induced osteoporosis
Impression:
#Acute on chronic respiratory failure with hypoxia likely due to ILD exacerbation +/- pneumonia - suspect that she is still having an acute inflammatory pneumonitis from recent COVID-19 on 12/30/2023
#Febrile illness
#Leukocytosis
#Anemia
#Lactic acidosis
#Transaminitis (mild)
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
#Moderate restrictive lung disease (T%, VC: 85% with moderate gas exchange capacity defect via PFT from June 2021)
#EMERSON on autoCPAP 5-20 cmH2O (average pressure: 7.8cmH2O with residual AHI: 1.6 for 30-day period of 12/13 - 01/12/2024)
#Morbid obesity
#Recent history of COVID-19 (12/30/2023)
#Former tobacco use (quit in 01/2003 with 60-PY Hx)
Plan:
Clinically improved, down to 10 L via mid flow. As of 02/04/2024. Pulse ox was 97% I decreased further to 8.5 L nasal cannula.
High flow oxygen has been discontinued on 02/01/2024.
Continues to slowly improve.
- Continue with systemic steroids and taper as tolerated-significant groundglass opacities bilaterally on CAT scan likely explain worsening hypoxemia.
-Decrease Solu-Medrol to 60 mg IV every 8 hours today 02/01/2024. Decrease Solu-Medrol to 40 mg IV every 8 on 02/03/2024. Hopefully can transition to prednisone in the next 24 to 48 hours.
If able to get close to her baseline oxygen then we will transition to oral steroids in the next 24 to 48 hours. 50 mg of prednisone for 1 week and then 40 mg with a slow taper thereafter.
-Continue Imuran/patient has been taking Bactrim for PCP prophylaxis in the outpatient setting-follows up with Dr. Daley from rheumatology. Case has been discussed.
- Maintain euglycemia with goal BG >100 and <180 while on high dose steroids
-
- negative procalcitonin, culture negative, remains afebrile discontinued antibiotics 02/01/2024- cont. to observe.
Leukocytosis trending lower.
-Suspicion for thromboembolic event less likely with significant groundglass opacities. Patient feels better today.
Lower extremity Dopplers negative, D-dimer not elevated: Less likely thromboembolic event.
Continue oxygen: currently 10 L via mid flow, pulse ox is 95% at rest, clinically she feels better.
-Baseline 3 L at rest, up to 8 L with ambulation. Has a concentrator that goes up to 10 L at home
- Maintain SpO2 >90-94%
- Antitussants prn
- DuoNebs TID + pulmicort BID-for secretion clearance
-Does not appear volume overloaded;
As she is improving no further imaging of the chest is necessary. Will need radiographic follow-up in the outpatient setting.
- She uses auto-CPAP at home however given her respiratory distress I will start nocturnal BiPAP 15/12, and titrate O2 flow rate to keep sats >90%
-Chronic anemia noted. Hemoglobin trending lower. No evidence for bleeding. Likely contributing to symptoms. Will continue to follow
Transfuse as necessary For hemoglobin<7
- Incentive spirometer encouraged 10x per hour for at least 4 hrs a day, as tolerated
- PT/OT as able
- DVT ppx: LMWH
Pulmonary service will continue to follow along. She will continue to follow along with us in the office. She has a appointment tomorrow with [facility] [place] which will need to be rescheduled. Continue follow-up with Dr. Rausch.

Data:
CXRX 01/30/2024:
Correlating with prior exams, background of interstitial fibrosis.
Increasing parenchymal opacity within the lower two thirds of the right lung and within the left lower lung, and these findings likely represent pneumonia superimposed on background changes of interstitial fibrosis.
Echocardiogram 01/26/2023: Showed normal LVEF. Normal diastolic dysfunction. Moderate MR. Mild aortic stenosis. Pulmonary artery pressure 35 mmHg.
Subjective Data
-
Date of Service:
Date of Service: February 04, 2024
Chief Complaint: Pulmonary Follow Up (Acute on chronic hypoxemic respiratory failure)
Subjective:
Patient states that she continues to make progress
Less short of breath with activity
No significant phlegm production or hemoptysis
Denies any chest pain
Mid flow oxygen down to 10 L.
Review of Systems
Cardiopulmonary: Dyspnea (Improved), Dyspnea on Exertion ( improved) and Cough (Improved)
GI: Nausea (n) and Vomiting (n)
Neuro: Headache (n)
Objective Data
Data Reviewed
Vital Signs / I&O / Oxygen:
Vital Signs
Temp Pulse Resp BP Pulse Ox
98.8 F 86 14 174/51 95
02/04/24 07:00 02/04/24 08:34 02/04/24 07:25 02/04/24 08:34 02/04/24 09:19
Intake and Output
02/03/24 02/04/24 02/05/24
06:59 06:59 06:59
Intake Total 480 / 480 1000 / 1000
Output Total 1300 / 1300 1560 / 1560 1000 / 1000
Balance -820 / -820 -560 / -560 -1000 / -1000
SaO2 95
Nasal Cannula flow liters per 10
minute
Physical Exam
General: Respiratory Distress (with activity)
HEENT: Normocephalic
Cardiovascular: S1-S2
Respiratory: Crackles and Accessory Resp Muscle Use (with activity)
GI: Soft and Distended (obese)
Neurology: Awake, AO x 3 and No Motor Deficits
Skin: Warm
Labs/Micro/Reports
Lab Data
02/04/24 05:30
02/04/24 05:30
Microbiology
01/30/24 14:01 Blood/Venous Blood Culture - Preliminary
No Growth in 4 days- Final report to follow
01/30/24 13:08 Blood/Venous Blood Culture - Preliminary
No Growth in 4 days- Final report to follow
--- NOTE | 2024-02-04 16:37 | CM ---
Patient with Hx recent Covid infection with Dx Acute Hypoxemic Respiratory Failure, ILD/pulmonary fibrosis, possible PNA. O2 10L midflow. Receiving IV steroids. PT/OT recommend HH.
Referral placed to [facility] based on prior CM notes.
Spoke with patient and informed her that a referral was made to [facility]. The patient states she would like a bariatric commode at home as she cannot ambulate the distance needed to the bathroom, especially at night.- Informed her would request
through [facility] who also supplies her O2.
Spoke with [facility]; they do have bariatric commodes available and can deliver to patient's home by tomorrow. Referral with script faxed/received.
Message from Dr Ling; patient already has CPAP at home and can continue with that. No need for BiPAP or NIV.
Plan continue to follow patient's home O2 needs.
Plan home with [facility], with bariatric commode, with her sisters.
[2024-02-04] MEDS: LOVENOX 40 MG SC (17:53)
[2024-02-04] MEDS: LIPITOR 40 MG PO (19:40)
[2024-02-04] MEDS: MELATONIN 5 MG PO (22:24)
[2024-02-05] VITALS (9 sets, daily range): BP systolic 113–162; BP diastolic 52–106; PULSE 2–75; BMI 49.3
[2024-02-05] MEDS: SOLU-MEDROL PF 40 MG IV (04:12)
[2024-02-05] MEDS: FLUSH (NSS) 1 FLUSH IV (04:13)
[2024-02-05] MEDS: SYNTHROID 150 MCG PO (04:14)
[2024-02-05 05:12] LABS: Hematocrit 29.7 % (37.0-47.0); Hemoglobin 9.7 g/dL (12.0-16.0); Mean Corp Hgb Conc. 32.7 g/dL (33.0-37.0); Mean Corpuscular Hgb 29.1 pg (27.0-31.0); Mean Corpuscular Volume 89.2 fL (81.0-99.0); Mean Platelet Volume 10.9 fL (7.4-10.4); Platelet Count 307 10^3/uL (130-400); Red Blood Cell Count 3.33 10^6/uL (4.20-5.40); Red Cell Dist. Width 14.2 % (11.5-14.5); White Blood Cell Count 19.7 10^3/uL (4.8-10.8)
[2024-02-05 05:19] LABS: Blood Urea Nitrogen 39 mg/dl (7-17); Calcium 9.5 mg/dl (8.4-10.2); Carbon Dioxide 25 mmol/L (22-30); Chloride 96 mmol/L (98-107); Estimated Creatinine Clearance 82 ml/min; Glucose 167 mg/dl (70-99); Magnesium 2.3 mg/dl (1.6-2.3); Potassium 5.2 mmol/L (3.5-5.1); Sodium 135 mmol/L (135-145); eGFR > 60.00
[2024-02-05 06:21] LABS: % Basophils 0.4 % (0-2); % Eosinophils 0.2 % (0-6); % Immature Granulocytes 6.6 % (0-0.5); % Lymphocytes 5.2 % (20.5-51.1); % Monocytes 5.6 % (1.7-9.3); Absolute Basophils 0.1 10^3/uL (0-0.2); Absolute Immature Granulocytes 1.3 10^3/uL (0-0.05); Absolute Monocytes 1.1 10^3/uL (0.1-0.6); Absolute Neutrophils 16.2 10^3/uL (1.4-6.5); Nucleated Red Blood Cells % 0 %
[2024-02-05] MEDS: DUONEB 3 ML INH (07:30)
--- NOTE | 2024-02-05 07:32 | W.PN.HOSP.TC ---
Addendum entered and electronically signed by Alexandra Ling MD 02/05/24 13:46:
total DC time 36 min
Original Note:
Today's Communication/Plan
-
see A/P
Assessment / Plan
Assessment / Plan
HPI: 73 yo F with PMH significant for pulm fibrosis / ILD on chronic Rituxan and Imuran and on home O2 at 6-8 lpm, who presented to ED complaining of increased SOB x 1 week. Patient was seen in the ED here on 01/27 with similar complaints. She
improved with nebulizer therapy and was discharged home. Since that time, patient noted that dyspnea has progressed and she has developed fevers / chills. Patient has been taking PO steroids at home without significant improvement in her symptoms.
CT scan done 01/17 and CXR done on this admission show significant increase in interstitial markings bilaterally- R > L.
A/P:
# Acute on Chronic Hypoxemic Respiratory Failure
# Interstitial Lung Disease / Pulmonary Fibrosis
Continue IV methylprednisone for ILD flare/pulm fibrosis, now at 40 mg Q8H
Continue O2 support, weaned from high flow NC to 8L midflow, cont O2 (pt pt, her baseline O2 is at 8 with exertion)
Continue supportive care with Duonebs ATC and PRN
D dimer WNL which rules out VTE, BL LE US also negative for DVT
Pulmonary on board
# Possible Atypical / Interstitial Pneumonia
# Possible sepsis POA
Pt was started with IV abx Cefepime/doxycycline for possible atypical / infectious pneumonia, s/p 3 days, although procalcitonin noted to be negative
COVID/Flu negative, blood cultures negative
# Mild transaminitis likely reactive , resolved
# ANCA Positive Vasculitis
continue RECORDS MANAGEMENT ANALYST Azathioprine
# Benign Hypertension
Continue Norvasc, lisinopril with hold parameter
# Chronic HFpEF
recent with EF of 55-60%
resume RECORDS MANAGEMENT ANALYST Lasix
# Hypothyroidism
Continue with Synthroid
# Anemia of Chronic Disease
# Hyperlipidemia
Continue with Lipitor
# Morbid Obesity
# Sleep apnea
BMI 50
continue CPAP at at bedtime
# History of left breast cancer with lumpectomy and radiation in 2001
# Anxiety and depression
Continue with Zoloft and BuSpar
# GERD
PPI continued
DVT ppx: Lovenox SQ
FC
Dispo: PT recc HH
Anticipated Discharge: Within 24 hours
Subjective/Interval History
-
Date of Service: February 05, 2024
Objective Data
-
Labs:
Laboratory Results
02/05/24
04:23
WBC 19.7 H
Hgb 9.7 L
Hct 29.7 L
Plt Count 307
Sodium 135
Potassium 5.2 H
Chloride 96 L
Carbon Dioxide 25
BUN 39 H
Creatinine 0.8
Glucose 167 H
Calcium 9.5
Vital Signs:
Vital Signs
Temp Pulse Resp BP Pulse Ox
37.2 C 71 19 162/67 96
02/05/24 07:00 02/05/24 06:00 02/05/24 06:00 02/05/24 06:00 02/05/24 06:00
I&O
02/04/24 02/05/24 02/06/24
06:59 06:59 06:59
Intake Total 1000 / 1000 120 / 120
Output Total 1560 / 1560 2100 / 2100 200 / 200
Balance -560 / -560 -1980 / -1979 -200 / -200
Review of Systems
-
Respiratory: Reports Trouble Breathing (improving )
Physical Exam
-
General: Well Developed, Well Nourished, Comfortable, Respiratory Distress (chronic), Conversant and Morbidly Obese
HEENT: Normocephalic, Atraumatic, Nose Appears Normal, Ears Appear Normal and Oxygen (8L midflow)
Respiratory: Clear to Auscultation, Crackles (fine crackles at bases) and Non Labored Respirations; Negative Accessory Resp Muscle Use
Cardiac: Regular Rhythm and S1/S2
GI: Soft, Nontender, Nondistended and Normal Bowel Sounds
Skin: Warm and Dry
Neuro: Awake, Alert, Oriented and AO x 3
Psych: Calm and Intact Judgement/Insight
Data Reviewed
-
CT Scan: Report Reviewed by me
Labs: Labs Reviewed by me
[2024-02-05] MEDS: ZOLOFT 50 MG PO (08:07)
[2024-02-05] MEDS: IMURAN 100 MG PO (08:08)
[2024-02-05] MEDS: OCUVITE SOFTGEL 1 CAP PO (08:08)
[2024-02-05] MEDS: ZESTRIL 10 MG PO (08:08)
[2024-02-05] MEDS: COLACE 100 MG PO (08:08)
[2024-02-05] MEDS: ZOLOFT 100 MG PO (08:09)
[2024-02-05] MEDS: ZYRTEC 10 MG PO (08:09)
[2024-02-05] MEDS: NORVASC 2.5 MG PO (08:09)
[2024-02-05] MEDS: PROTONIX 40 MG PO (08:09)
[2024-02-05] MEDS: LASIX 20 MG PO (08:09)
[2024-02-05] MEDS: BUSPAR 10 MG PO (08:09)
--- NOTE | 2024-02-05 10:07 | W.PN.PUL3 ---
Today's Communication / Plan
-
She is back to her baseline O2 use of 8-10L at home
Will transition IV steroids to PO, continue taper at discharge
We discussed ambulating today to see if her SOB is baseline--reviewed with RN
OK from my perspective for discharge planning
Outpatient FU recommended
Assessment
-
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 Patient wears 8 L/min nasal cannula at
baseline. She says she has COVID about 1 month ago and ever since then has been having worsening shortness of breath and it progressed over the last several weeks until today's ER visit. She is actually in the early part of a steroid taper started
by her heavy lift rigger, Dr. Daley. In the ER she was febrile to 102 �F, tachycardic to 103, breathing at 28 breaths/min, BP 136/51 and saturating 95% on nonrebreather @ 10L/min. Labs showed leukocytosis 20.4, anemia to 10.1, serum bicarbonate 24,
lactate 2.3, AST 39, ALT 38 and COVID antigen negative. Flu A/B also negative, and blood cultures x 2 were collected. CXR showed increasing opacification in both lungs. In the ER she was given cefepime, Decadron 8 mg, DuoNebs and NS 0.9% X1
liter. She was admitted to the IMU for further care and pulmonary now consulted for additional management/recommendations.
Acute on chronic respiratory failure with hypoxia likely due to ILD exacerbation +/- pneumonia - suspect that she is still having an acute inflammatory pneumonitis from recent COVID-19 on 12/30/2023
Febrile illness
Leukocytosis
Anemia
Lactic acidosis
Transaminitis (mild)
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
Moderate restrictive lung disease (T%, VC: 85% with moderate gas exchange capacity defect via PFT from June 2021)
EMERSON on autoCPAP 5-20 cmH2O (average pressure: 7.8cmH2O with residual AHI: 1.6 for 30-day period of 12/13 - 01/12/2024)
Morbid obesity
Recent history of COVID-19 (12/30/2023)
Former tobacco use (quit in 01/2003 with 60-PY Hx)
Chronic hypoxic respiratory failure on home O2 at 8 L/min
Degenerative disc disease
Incisional hernia s/p repair with mesh
Hypercholesterolemia
Thyroid disease
History of breast cancer s/p lumpectomy + XRT (2001)
Steroid-induced diabetes/osteoporosis
Hypertension
History of diverticulosis
Hearing loss
Iron deficiency anemia
GERD
Mild pulmonary hypertension
Plan:
Clinically improved, down to 8 L via mid flow. As of 02/04/2024.
Her baseline o2 use at home is 8/10L
Continue with systemic steroids and taper as tolerated-significant groundglass opacities bilaterally on CAT scan likely explain worsening hypoxemia.
Decrease Solu-Medrol to 60 mg IV every 8 hours today 02/01/2024--transition to prednisone today
Taper at discharge
Continue Imuran/patient has been taking Bactrim for PCP prophylaxis in the outpatient setting-follows up with Dr. Daley from rheumatology. Case has been discussed.
Maintain euglycemia with goal BG >100 and <180 while on high dose steroids
Negative procalcitonin, culture negative, remains afebrile discontinued antibiotics 02/01/2024- cont to observe.
Leukocytosis trending lower.
Suspicion for thromboembolic event less likely with significant groundglass opacities. Patient feels better today.
Lower extremity Dopplers negative, D-dimer not elevated: Less likely thromboembolic event.
DuoNebs TID + pulmicort BID-for secretion clearance
Does not appear volume overloaded
As she is improving no further imaging of the chest is necessary.
Will need radiographic follow-up in the outpatient setting.
She uses auto-CPAP at home
Resume while inpatient
Chronic anemia noted. Hemoglobin trending lower. No evidence for bleeding.
Likely contributing to symptoms. Will continue to follow
Transfuse as necessary for hemoglobin<7
Incentive spirometer encouraged 10x per hour for at least 4 hrs a day, as tolerated
PT/OT as able
DVT ppx: LMWH
She will continue to follow along with us in the office. She has a appointment tomorrow with [facility] which will need to be rescheduled.
Continue follow-up with Dr. Rausch.
Discharge planning per team

Data:
CXR 01/30/2024: Correlating with prior exams, background of interstitial fibrosis. Increasing parenchymal opacity within the lower two thirds of the right lung and within the left lower lung, and these findings likely represent pneumonia superimposed
on background changes of interstitial fibrosis.
Echocardiogram 01/26/2023: Showed normal LVEF. Normal diastolic dysfunction. Moderate MR. Mild aortic stenosis. Pulmonary artery pressure 35 mmHg.
Subjective Data
-
Date of Service:
Date of Service: February 05, 2024
Chief Complaint: Pulmonary Follow Up (Acute on chronic hypoxemic respiratory failure)
Subjective:
feels back to her usual SOB
remains on 8L NC, which is her baseline
Objective Data
Data Reviewed
Vital Signs / I&O / Oxygen:
Vital Signs
Temp Pulse Resp BP Pulse Ox
98.9 F 89 20 162/67 91
02/05/24 07:00 02/05/24 07:31 02/05/24 07:31 02/05/24 06:00 02/05/24 08:39
Intake and Output
02/04/24 02/05/24 02/06/24
06:59 06:59 06:59
Intake Total 1000 / 1000 120 / 120
Output Total 1560 / 1560 2099 / 2099 200 / 200
Balance -560 / -560 -1980 / -1979 -200 / -200
SaO2 91
Nasal Cannula flow liters per 10
minute
Physical Exam
General: Respiratory Distress (with activity), Comfortable and Other (NAD)
HEENT: Normocephalic, Anicteric and Moist Mucous Membranes
Cardiovascular: S1-S2 and Regular Rhythm
Respiratory: Clear (overall decreased) and Accessory Resp Muscle Use (with activity)
GI: Soft, Distended (obese) and Non Tender
Neurology: Awake, Alert, AO x 3 and No Motor Deficits
Skin: Warm and Dry
Labs/Micro/Reports
Lab Data
02/05/24 04:23
02/05/24 04:23
Microbiology
01/30/24 14:01 Blood/Venous Blood Culture - Final
No Growth - Final Report
01/30/24 13:08 Blood/Venous Blood Culture - Final
No Growth - Final Report
--- NOTE | 2024-02-05 13:14 | W.DCSUMMARY ---
Discharge Summary
Discharge Data
Date of Admission: 01/30/24
Date of Discharge: 02/05/24
-
Pending Results: No
Hospital Course
Principal Diagnosis:
Acute on chronic hypoxemic respiratory failure, due to interstitial lung disease / pulmonary fibrosis flare
Chronic Diagnoses:�
Pulmonary fibrosis/interstitial lung disease, on chronic Rituxan and Imuran
Chronic hypoxic respiratory failure, at baseline on O2 at 6-8 L
ANCA Positive Vasculitis, on Azathioprine
Benign Hypertension
Chronic heart failure with preserved ejection fraction
Hypothyroidism on Synthroid
Anemia of Chronic Disease
Hyperlipidemia on Lipitor
Morbid Obesity BMI 50
Sleep apnea
History of left breast cancer with lumpectomy and radiation in 2001
Anxiety and depression on Zoloft and BuSpar
Gastroesophageal reflux disease
Consultations:�
Pulmonary
Procedures:�
None
Clinical course:�
This is a 73-year-old female, with past medical history as stated above, who presented with shortness of breath ongoing for about 1 week.
Problem 1:
Acute on chronic hypoxemic respiratory failure, due to interstitial lung disease / pulmonary fibrosis flare.
She was treated with IV steroid methylprednisolone during her hospital stay, and this was changed to oral prednisone to continue taper outpatient (continue 50 mg daily, decrease 10 mg every 3 days then off).
Of note, the patient required high flow nasal cannula on admission, and this was slowly weaned back to 8 liter nasal cannula, which is at her baseline.
Her d-dimer was within normal limits which ruled out venous thromboembolism; her bilateral lower extremity ultrasound was also negative for DVT.
She did receive empiric IV antibiotics cefepime/doxycycline for 3 days during her hospital stay, but since her procalcitonin was negative, no further antibiotic was continued.
As for the rest of her medical problems, they were stable during her hospital stay.
Discharge Plan
-
Patient Disposition: Home with Home Care
Discharge Diagnosis/Procedures: Acute on Chronic Hypoxemic Respiratory Failure due to interstitial Lung Disease / Pulmonary Fibrosis flare
Condition: Fair
Diet: As tolerated, Low Fat and Low Cholesterol
Referrals:
Leanna Menjivar CRNP [Family Provider] - in less than 1 week
Additional Discharge Medication Instructions: Continue prednisone taper as prescribed
Prescriptions:
New
prednisone 10 mg Tablet
See Rx Instructions .ROUTE .COMPLEX Qty: 45 0RF
Rx Instructions:
Take By Mouth:
50 mg daily x3 days, 40 mg daily x3 days,
30 mg daily x3 days, 20 mg daily x3 days,
10 mg daily x3 days
Continued
buspirone 10 MG tablet
10 mg PO BID
pantoprazole 40 MG tablet,delayed release (DR/EC)
40 mg PO DAILY Qty: 30 0RF
sertraline 100 MG tablet
100 mg PO DAILY
Rx Instructions:
take with 50mg for total of 150mg
acetaminophen [Tylenol Extra Strength] 500 MG tablet
500 mg PO Q4HPRN PRN (Reason: mild pain)
fexofenadine-pseudoephedrine [Fay-D 24 Hour] 1 EACH tablet extended release 24 hr
1 tab PO HS
amlodipine 2.5 MG tablet
2.5 mg PO DAILY
aspirin 81 MG tablet,delayed release (DR/EC)
81 mg PO MOWEFR
cyanocobalamin (vitamin B-12) 1,000 MCG/ML solution
1,000 mcg IM QMONTH
docusate sodium 100 MG capsule
100 mg PO BIDPRN PRN (Reason: CONSTIPATION)
cholecalciferol (vitamin D3) 1,000 UNITS tablet
1,000 units PO HS
furosemide 20 MG tablet
20 mg PO DAILY
melatonin 5 MG tablet
5 mg PO HSPRN PRN (Reason: insomnia)
PreserVision AREDS 4,296 mcg-226 mg-90 mg Capsule
1 cap PO BID
Rituxan 10 mg/mL Concentrate
IV [id number]
lisinopril 20 mg Tablet
10 mg PO DAILY
azathioprine 50 mg Tablet
100 mg PO BID
sulfamethoxazole-trimethoprim [Bactrim DS] 800-160 mg Tablet
1 tab PO MOWEFR
benzonatate 100 mg Capsule
100 mg PO TIDPRN PRN (Reason: cough)
levothyroxine 150 mcg Tablet
150 mcg PO DAILY
sertraline 50 mg Tablet
50 mg PO DAILY
Rx Instructions:
take with 100mg for total of 150mg
Wegovy 0.5 mg/0.5 mL Pen Injector
0.5 mg SC WE
atorvastatin 40 MG tablet
40 mg PO HS
ipratropium-albuterol 0.5 mg-3 mg(2.5 mg base)/3 mL solution for nebulization
3 ml inhalation R BID
Patient Comments:
01/30/24: Per family, starting 01/28/24 to take twice a day for 30 days
Discontinued
calcium carbonate-vitamin D3 [Oyster Shell Calcium-Vit D3] 500 MG tablet
1 tab PO DAILY
prednisone 10 mg Tablet
60 mg PO .TAPER
Discharge Orders:
Discharge Patient (As Directed); Ordered 02/05/24
Ordered By: Alexandra iLng
Discharge Date and Time
Print Language: PORTUGUESE
--- NOTE | 2024-02-05 13:21 | CM ---
CM following re: discharge planning.
Reviewed pt's chart, met with pt.
Discharge order noted. pt is aware, IMM reviewed, placed on chart, pt has a copy.
Pt reports she has all necessary DME at home: home Oxygen with O2 concentrator up to 10L, C-pap machine. Per CM note and bariatric commode will be delivered to pt's home today. Pt is aware she will have [facility] home care upon the discharge.
A referral to [facility] home care noted.
Please fax discharge instructions to [facility] home care at [phone]
D/C plan: home with [facility] home care Vn and sisters support. Sister to transport.
--- NOTE | 2024-02-05 13:31 | PTCARENOTE ---
Assisted pt with ambulation in room on her home O2 baseline of 10L. Sats dropping to 86% with exertion; pt reports she does not feel any SOB. Sats recovered when resting. Dr. Herring and Dr. Ling notified, D/C order received. Pt with order for Prevnar
20. Pt called her pharmacy and confirmed she had received this vaccine October 2022- not given, see MAR. Agreeable to flu vaccine.
[2024-02-05] MEDS: FLUAD (65 yr+) 2024-2025 FORMULA 0.5 ML IM (14:04)
[2024-02-05] MEDS: DUONEB INH (15:22)
--- NOTE | 2024-02-05 15:42 | PTCARENOTE ---
Pt for d/c home. Instructions and med list reviewed at length with pt. Belongings collected from room. D/c off unit via wheelchair with sister.
--- NOTE | 2024-02-07 13:10 | VNURNOTE ---
late entry- Received info that patient changed her mind and wants [facility]. Prior to DC, she was set up with [facility]. Called patient. She reports she has not been contacted by Howie [facility] yet. Advised her [facility] can see her. Will notify [facility]. [facility]
Intake aware of referral. Patient will be receiving a commode today. She has home 02, wc, walker. Her sisters help her. Homebound status reviewed. Patient understands a nurse will contact her within a day or two to schedule first visit.
Referral placed in [facility].
== END 2024-02-05 15:34 | disposition home health service (06) | DRG 871 ==
LOC: IMU 14:51
PROVIDERS: Internal Medicine Critical Care Medicine; Registered Nurse; ADMITTING PHYSICIAN Hospitalist; ATTENDING PHYSICIAN Internal Medicine; CONSULT PHYSICIAN Internal Medicine Critical Care Medicine; EMERGENCY PHYSICIAN Emergency Medicine; FAMILY PHYSICIAN Nurse Practitioner
DX: A41.89 Other specified sepsis (principal); J18.9 Pneumonia, unspecified organism; J96.21 Acute and chronic respiratory failure with hypoxia; I50.32 Chronic diastolic (congestive) heart failure; Z68.43 Body mass index [BMI] 50.0-59.9, adult; E87.20 Acidosis, unspecified; M31.7 Microscopic polyangiitis; J84.10 Pulmonary fibrosis, unspecified; I77.82 Antineutrophilic cytoplasmic antibody [ANCA] vasculitis; I11.0 Hypertensive heart disease with heart failure; D63.8 Anemia in other chronic diseases classified elsewhere; E66.01 Morbid (severe) obesity due to excess calories; F32.A Depression, unspecified; F41.9 Anxiety disorder, unspecified; K21.9 Gastro-esophageal reflux disease without esophagitis; R65.20 Severe sepsis without septic shock; G47.33 Obstructive sleep apnea (adult) (pediatric); U09.9 Post COVID-19 condition, unspecified; Z79.620 Long term (current) use of immunosuppressive biologic; Z79.890 Hormone replacement therapy; Z85.3 Personal history of malignant neoplasm of breast; Z92.3 Personal history of irradiation; Z79.899 Other long term (current) drug therapy; Z87.891 Personal history of nicotine dependence
CPT/HCPCS: 71045; 80048; 80053; 82248; 83605; 83735; 84100; 84145; 85025; 85027; 85379; 86803; 87040; 87502; 87811; 90662; 93005; 93970; 94640; 94660; 96361; 96374; 96375; 97116; 97163; 97167; 97530; 97535; 99285; G0008; J7500

== ENCOUNTER 2024-02-15 12:09 | Inpatient (IN) | payer OTHER, SELFPAY ==
[2024-02-15] VITALS (23 sets, daily range): BP systolic 120–188; BP diastolic 46–79; PULSE 2–125; BMI 47.9; BMI 47.5
[2024-02-15] MEDS: LASIX 40 MG IV (07:40)
[2024-02-15] MEDS: ZOFRAN 4 MG IV (07:48)
[2024-02-15] MEDS: ATIVAN 0.5 MG IV ×2 (07:48→22:27)
[2024-02-15] MEDS: DUONEB 3 ML INH ×2 (07:49→19:29)
[2024-02-15 08:08] LABS: B.E. -1.2 mmol/L; HCO3 23.6 mmol/L (21-28); O2 Saturation % 89.8 % (94-98); PCO2 39 mmHg (32-35); pH 7.39 (7.35-7.45)
--- NOTE | 2024-02-15 08:12 | ED.GENMED ---
History of Present Illness
General
Chief Complaint: Breathing Problem
Source: patient and ambulance crew
Exam Limitations: none
Time Seen by Provider: 02/15/24 07:26
Nursing documentation reviewed up to this point in time: agreed with
History of Present Illness
History of Present Illness:
Patient with history of oxygen dependent interstitial disease secondary to pulmonary fibrosis and congestive heart failure on Lasix, discharged from the hospital 10 days ago on prednisone, after being treated for pulmonary fibrosis exacerbation,
returns to ED secondary to recurrent shortness of breath starting yesterday, which has worsened overnight. When paramedics arrived at home, patient was found to be in severe respiratory distress with initial pulse ox in the 50s. Patient was given
nebulizer treatment, Solu-Medrol 125 mg IV, and placed on CPAP, with improvement in route to the hospital. Upon arrival, patient denies chest pain. Denies nausea. Denies fever. Denies vomiting or diarrhea. Denies rash. Denies headache. Denies
sore throat. During initial evaluation, however, patient noted to be febrile.
Past History
Past History
ED Past Medical History: Cancer, HTN, Hypercholesterolemia, Hypothyroidism and Other (Interstitial lung disease)
ED Past Surgical History: Cholecystectomy and Other (The patient has a history of a lumpectomy on the left breast, and a cardiac catheterization which was normal, Hernia)
Social History
Tobacco: Former smoker
Alcohol: None
Drug: None
Personal: Single
Living: with family
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
Family History
Family History: Hypertension and CAD
Review of Systems
Review of Systems
Allergies reviewed?: Yes
All Other Systems: ROS reviewed and negative except as documented in HPI and ROS
Constitutional: Reports no symptoms
EENT: Reports no symptoms
Respiratory: Reports cough and trouble breathing
Cardiac: Reports no symptoms; Denies chest pain
ABD/GI: Reports no symptoms
: Reports no symptoms
Musculoskeletal: Reports no symptoms
Skin: Reports no symptoms; Denies rash
Neurological: Reports no symptoms; Denies dizzy or headache
Phy Exam
Physical Exam
Physical Exam:
Physical Exam
General: moderate respiratory distress, acutely ill. febrile.
Head: nc/at. eomi
Neck: supple. no meningeal signs. normal posterior pharynx
Heart: s1/s2 regular rate and rhythm, no murmur. equal radial pulses.
Lungs: moderate respiratory distress. clear bilaterally
Abdomen: normal bowel sounds. not tender
Neuro: alert and oriented. no focal neurological deficits
Skin: no rash
Psychiatric: well kept. interactive and cooperative
Extremities: nonpitting LE edema. no calf tenderness.
Scores
Heart Failure Risk
Heart Failure Risk Score: Not Applicable
Sepsis
Sepsis Screening
Sepsis Assessment: Sepsis Ruled Out
Sepsis Screen
Sepsis Screen: Sepsis Ruled Out
Date: 02/15/24
Time: 13:45
Course
Orders/Labs/Results
Orders:
Orders
02/15/24 07:32
Portable Chest Xray [CR Chest Portable - 1 View] Urgent
Comment:
Reason For Exam: shortness of breath
Reason Study Needs to be Portable: Patient Unstable
02/15/24 07:33
Electrocardiogram (*1) Urgent
Reason for Study: Other
Other Reason for Exam: Respiratory Distress
Cardiac Monitoring- Treatment ONCE
EKG- Treatment ONCE
IV Insert/Care/Rem.- Treatment PRN
O2 Therapy [RESP] Urgent
Titrate/Wean O2 to maintain O2 sat greater than (%): 93
Special Instructions: TO MAINTAIN CONTINUOUS O2 SATS >/= 93%
Pulse Ox/cont/shift [RESP] Urgent
Quantity: 1
Special Instructions: continuous pulse ox
02/15/24 07:39
Furosemide [Lasix] 40 mg .ROUTE .STK-MED ONE
02/15/24 07:40
Furosemide [Lasix] 40 mg IV NOW STA
02/15/24 07:45
Add On- LAB Urgent
Tests Added?: magnesium, ProBNP
02/15/24 07:46
Ipratropium/Albuterol Sulfate [Duoneb] 3 ml INH R NOW STA
Lorazepam [Ativan] 0.5 mg IV NOW STA
Ondansetron Injectable [Zofran] 4 mg .ROUTE .STK-MED ONE
Ondansetron Injectable [Zofran] 4 mg IV NOW STA
02/15/24 07:47
Bipap [RESP] Urgent
Patient to use own unit?: No
Inspiratory Pressure (cm H2O): 15
Expiratory Pressure (cm H2O): 6
02/15/24 07:49
COVID-19 Antigen Urgent
Source: Nasal Swab
Complete Blood Count/With Diff Urgent
Comprehensive Metabolic Panel Urgent
Lactic Acid Q4H
Comment: CANCEL 2nd LACTIC ACID IF 1st LACTIC ACID IS LESS THAN 2
Magnesium Urgent
Comment: ADD ON
NT-proBNP Urgent
Comment: ADD ON
Troponin I Urgent
Blood Culture Urgent
TOREY Source: Blood/Venous
Specimen Description:
Influenza A+B Rapid Molecular Urgent
TOREY Source: Nasal Swab
Specimen Description:
02/15/24 07:57
Arterial Blood Gas Urgent
%Oxygen/Room Air: 60
02/15/24 08:12
Urinalysis Reflex To Culture Urgent
Date Specimen was Collected: 02/15/24
Time Specimen was Collected: 07:56
Blood Culture Routine
TOREY Source: Blood/Venous
Specimen Description:
02/15/24 08:21
Acetaminophen 1000MG/100Ml [Ofirmev] 1,000 mg in 100 ml IV ONCE
Acetaminophen IV Indication:: ED Narcotic Naive Pt-ONCE
02/15/24 08:22
Acetaminophen 1000MG/100Ml [Ofirmev] 1,000 mg in 100 ml .ROUTE .STK-MED
02/15/24 08:55
CT Chest Pe Study Urgent
Comment:
Reason For Exam: sob/hypoxia
02/15/24 09:16
Procalcitonin Urgent
PCT Algorithmm Indication: Respiratory
02/15/24 11:02
PULMONARY CONSULT Routine
Consulting Provider: Christopher Blake
Was physician already notified: Yes
02/15/24 11:49
Admit/Transfer Patient As Directed
Co-Sign Provider:
Level of Care: Inpatient admission
Assign to:: IMU- Intermediate Care
Physician / Group: Anuradha/hospitalist
Diagnosis: SOB/resp distress
Reason for Hospitalization: SOB/resp distress
Expected length of stay greater than two midnights?: Yes
ELOS- Estimated Length of Stay in days: 5
I certify the patient meets the requirements for IP care: Yes
PRN Pain Medication Management As Directed
May give lesser potent ordered pain med per pt: Yes
preference::
Protocol:: Medication orders for pain may be administered in a
manner that supports deferring to patient preference
when the pt is:
- Requesting an ordered lesser potent pain medication.
Least to most potent pain medications are defined
as: acetaminophen < NSAID < tramadol < opioids
(morphine, oxycodone, hydromorphone).
- Requesting a lesser dose of the same medication IF
ORDERED.
- Requesting a less intrusive route of administration
if both routes are prescribed by the provider (PO <
IV).
02/15/24 11:51
Code Status As Directed
Resuscitation Status: Full Code
02/15/24 12:00
Cefepime HCl [Maxipime] 1,000 mg IV Q12H
Doxycycline Hyclate [Vibramycin] 100 mg 0.9% Sodium Chloride 250 ml [Nss] 250 ml IV Q12H
MethylPREDNISolone PF [Solu-Medrol Pf] 40 mg IV Q8H
02/15/24 13:19
Lactic Acid Q4H
Comment: CANCEL 2nd LACTIC ACID IF 1st LACTIC ACID IS LESS THAN 2
Abnormal Lab Results
02/15/24 02/15/24
07:49 07:57
WBC 24.5 H 10^3/uL
(4.8-10.8)
RBC 3.32 L 10^6/uL
(4.20-5.40)
Hgb 9.5 L g/dL
(12.0-16.0)
Hct 28.8 L %
(37.0-47.0)
RDW 15.1 H %
(11.5-14.5)
Abs Immat Gran (auto) 0.9 H 10^3/uL
(0-0.05)
Absolute Neuts (auto) 16.5 H 10^3/uL
(1.4-6.5)
Absolute Lymphs (auto) 5.7 H 10^3/uL
(1.2-3.4)
Absolute Monos (auto) 0.9 H 10^3/uL
(0.1-0.6)
Immature Gran % 3.8 H %
(0-0.5)
pCO2 39 H mmHg
(32-35)
pO2 58 L* mmHg
(83-108)
ABG O2 Sat (Measured) 89.8 L %
(94-98)
BUN 26 H mg/dl
(7-17)
Glucose 114 H mg/dl
(70-99)
Lactic Acid 3.4 H mmol/L
(0.7-2.0)
ALT 37 H U/L
(0-35)
Total Protein 6.2 L g/dl
(6.3-8.2)
02/15/24 07:49
02/15/24 07:49
Vital Signs
Initial and Last Documented VS:
Initial Vital Signs
Pulse Resp BP Pulse Ox
125 20 177/71 68
02/15/24 07:31 02/15/24 07:31 02/15/24 07:31 02/15/24 07:31
Last Documented Vital Signs
Temp Pulse Resp BP Pulse Ox
100.8 F H 94 24 138/64 94
02/15/24 11:00 02/15/24 11:00 02/15/24 11:00 02/15/24 11:00 02/15/24 11:00
MDM/Problems Addressed
MDM/Problems Addressed:
Patient evaluated immediately upon arrival, due to significant respiratory distress. Patient however, does report that since being placed on CPAP en route to the hospital, she does feel improved.
Portable to x-ray reveals likely recurrent interstitial lung disease findings, with potential fluid overload. As such, patient placed on BiPAP and given DuoNeb as well as Lasix IV.
CTA: No PE, but what appears to be chronic pneumonitis findings. Procalcitonin pending. Will hold off antibiotics at this time, as there is no clear source of fever.
Patient will be admitted for further evaluation and treatment.
Critical care statement: A total of 40 minutes of critical care time was provided for this patient. This includes management of unstable vital signs, evaluation of the patient at bedside, reviewing the patient's pertinent medical records, review of
old EKGs and review of pertinent medical records. This time with separate from time utilized to perform the aforementioned documented procedures
*EKG
Interpreted by ED Provider?: Yes
EKG Intrepretation Date: 02/15/24
Heart Rate: 110
Rate: tachycardiac
Rhythm: sinus and PAC's
[place]: normal axis
Interval: normal interval
*Critical Care Note
Total Time (30-74mins, 75-104mins- exclusive of procedures): 40 min
ED Attending Note
-
Portions of this chart may have been created with voice recognition software.� Occasional wrong word or��sound alike� substitutions may have occurred due to the inherent limitations of voice recognition software.
Discharge Plan
Departure
Patient Disposition: Admit
Date of Disposition: 02/15/24
Time of Disposition: 10:17
Admit to: IMU
Presentation/result/management discussed w/ accepting MD/DO: Hospitalist
Discharge Problem:
Acute respiratory distress, Hypoxia
Interventions
Interventions:
*Risk Screen - Suicide Last Done: 02/15/24 07:33
*General Assessment Last Done: 02/15/24 07:33
*Neglect/Abuse Screening Last Done: 02/15/24 07:33
ED- Fall Risk Assessment Last Done: 02/15/24 07:54
*ED COVID-19 Vaccine History Last Done: 02/15/24 07:33
ED- Cardiac Assessment Last Done: 02/15/24 07:40
ED- Pulmonary Assessment Last Done: 02/15/24 07:40
[2024-02-15 08:14] LABS: PO2 58 mmHg (83-108)
[2024-02-15 08:16] LABS: Hematocrit 28.8 % (37.0-47.0); Hemoglobin 9.5 g/dL (12.0-16.0); Mean Corpuscular Hgb 28.6 pg (27.0-31.0); Mean Corpuscular Volume 86.7 fL (81.0-99.0); Mean Platelet Volume 10.2 fL (7.4-10.4); Platelet Count 348 10^3/uL (130-400); Red Blood Cell Count 3.32 10^6/uL (4.20-5.40); Red Cell Dist. Width 15.1 % (11.5-14.5); White Blood Cell Count 24.5 10^3/uL (4.8-10.8)
[2024-02-15 08:19] LABS: ALT (SGPT) 37 U/L (0-35); AST (SGOT) 31 U/L (14-36); Albumin 3.9 g/dl (3.5-5.0); Alkaline Phosphatase 126 U/L (38-126); Blood Urea Nitrogen 26 mg/dl (7-17); Calcium 9.5 mg/dl (8.4-10.2); Carbon Dioxide 26 mmol/L (22-30); Chloride 100 mmol/L (98-107); Estimated Creatinine Clearance 76 ml/min; Glucose 114 mg/dl (70-99); Lactic Acid 3.4 mmol/L (0.7-2.0); Magnesium 1.8 mg/dl (1.6-2.3); Potassium 4.2 mmol/L (3.5-5.1); Sodium 139 mmol/L (135-145); Total Bilirubin 0.4 mg/dl (0.2-1.3); Total Protein 6.2 g/dl (6.3-8.2); eGFR > 60.00
[2024-02-15 08:24] LABS: COVID-19 Antigen Negative (Negative)
[2024-02-15] MEDS: OFIRMEV 100 IV (08:24)
[2024-02-15 08:31] LABS: Troponin I 0.029 ng/ml
[2024-02-15 08:32] LABS: Urine Albumin Negative (Neg - Trace); Urine Bilirubin Negative (Negative); Urine Character Clear (Clear); Urine Color Yellow; Urine Glucose Negative (Negative); Urine Ketone Negative (Negative); Urine Leukocyte Negative (Negative); Urine Nitrite Negative (Negative); Urine Occult Blood Negative (Negative); Urine Urobilinogen Negative (Neg - 1+)
[2024-02-15 08:36] LABS: NT-proBNP 371 pg/ml
[2024-02-15 08:55] LABS: % Basophils 0.4 % (0-2); % Eosinophils 1.8 % (0-6); % Immature Granulocytes 3.8 % (0-0.5); % Lymphocytes 23.3 % (20.5-51.1); % Monocytes 3.5 % (1.7-9.3); % Neutrophils 67.2 % (42.2-75.2); Absolute Basophils 0.1 10^3/uL (0-0.2); Absolute Eosinophils 0.4 10^3/uL (0-0.7); Absolute Immature Granulocytes 0.9 10^3/uL (0-0.05); Absolute Lymphocytes 5.7 10^3/uL (1.2-3.4); Absolute Monocytes 0.9 10^3/uL (0.1-0.6); Absolute Neutrophils 16.5 10^3/uL (1.4-6.5); Nucleated Red Blood Cells % 0 %
[2024-02-15 10:10] LABS: Procalcitonin < 0.05 ng/ml (0.0-0.25)
--- NOTE | 2024-02-15 10:54 | HPS.HSE ---
Family Physician
-
Family Physician: INTERVIEWE UNKNOWN - PT NOT
Chief Complaint
-
worsening SOB
History of Present Illness
HPI: 73 yo F with PMH significant for pulm fibrosis / ILD on chronic Rituxan and on home O2 at 8 LPM, chronic CHF, morbid obesity, was discharged 10 days ago and returned for worsening SOB likely due to pulmonary fibrosis exacerbation. Of note, she
was seen by migration agent and was started with Olumiant for presumed chronic COVID lung disease (took for 5 days).
Medical History
Past Medical History
Past Medical History: Reports Other
Additional Past Medical History:
ILD
GERD
HTN
CAD
depression
anxiety
breat cancer
hypothyroidism
pulmonary fibrosis
hyperthyroidism
Adwoa
diastolic CHF
HLD
Past Surgical History: Reports Other
Additional Past Surgical History:
cholecystectomy
hernia repair
left breast lumpection
Social History
Tobacco: Non-smoker
Alcohol: None
Drug: None
Family History
Family History: Not pertinent
Allergies / Home Medications
Allergies reflects when Allergies were last updated in [employer].
Home Medications with original date entered in [employer]
Allergy/Medication List:
Allergies
Allergy/AdvReac Type Severity Reaction Status Date / Time
diltiazem [From Cartia XT] Allergy Swelling Verified 01/30/24 12:37
Home Medications
buspirone 10 mg tablet 10 mg PO BID mental health 03/10/17
pantoprazole 40 mg tablet,delayed release 40 mg PO DAILY #30 tabs 06/20/17
sertraline 100 mg tablet 175 mg PO DAILY Depression 10/25/18
acetaminophen 500 mg tablet (Tylenol Extra Strength) 500 mg PO Q4HPRN PRN mild pain 05/12/19
fexofenadine-pseudoephedrine ER 180 mg-240 mg tablet,ext.release 24 hr (Fay-D 24 Hour) 1 tab PO HS Congestion 01/07/20
amlodipine 2.5 mg tablet 2.5 mg PO DAILY Blood pressure 10/11/20
cholecalciferol (vitamin D3) 25 mcg (1,000 unit) tablet 1,000 units PO QPM Supplement 10/11/20
cyanocobalamin (vitamin B-12) 1,000 mcg/mL injection solution 1,000 mcg IM QMONTH Supplement 10/11/20
docusate sodium 100 mg capsule 100 mg PO DAILY 10/11/20
furosemide 20 mg tablet 20 mg PO DAILY Fluid retention/Swelling 10/11/20
melatonin 5 mg tablet 5 mg PO HS 10/28/20
vitamins A,C,F-ihrs-aiwsgs 4,296 mcg-226 mg-90 mg capsule (PreserVision AREDS) 1 cap PO BID Supplement 07/14/23
rituximab 10 mg/mL concentrate,intravenous (Rituxan) 0 mg IV [id number] 12/15/23
atorvastatin 40 mg tablet 40 mg PO HS High Cholesterol 01/30/24
benzonatate 100 mg capsule 100 mg PO TIDPRN PRN cough 01/30/24
ipratropium 0.5 mg-albuterol 3 mg (2.5 mg base)/3 mL nebulization soln 3 ml inhalation R BID Lung/Breathing Issues 01/30/24
levothyroxine 150 mcg tablet 150 mcg PO DAILY Thyroid 01/30/24
lisinopril 20 mg tablet 10 mg PO DAILY Blood Pressure 01/30/24
semaglutide (weight loss) 0.5 mg/0.5 mL subcutaneous pen injector (Wegovy) 0.5 mg SC WE WEIGHT LOSS 01/30/24
sulfamethoxazole 800 mg-trimethoprim 160 mg tablet (Bactrim DS) 1 tab PO MOWEFR Infection 01/30/24
aspirin 81 mg chewable tablet 81 mg PO DAILY 02/15/24
baricitinib 4 mg tablet (Olumiant) 4 mg PO DAILY 02/15/24
prednisone 10 mg tablet 60 mg PO DAILY 02/15/24
Review of Systems
-
Respiratory: Reports See HPI and Trouble Breathing
Physical Exam
Vital Signs
Vital Signs
Temp Pulse Resp BP Pulse Ox
38.7 C H 99 26 139/48 93
02/15/24 09:47 02/15/24 10:00 02/15/24 10:00 02/15/24 10:00 02/15/24 10:00
Physical Exam
General: Well Developed, Well Nourished and Respiratory Distress
HEENT: NormoCephalic, Moist mucous membranes, Atraumatic and Oxygen (15L midflow )
Respiratory: Crackles and Non Labored Respirations; No Accessory Resp Muscle Use
Cardiac: S1/S2 and Regular Rhythm; No Murmur or Rub
GI: Soft, Non Tender, Non Distended and Normal Bowel Sounds; No Organomegaly
Rectal: Deferred by Provider
Musculoskeletal: No Clubbing, No Cyanosis and No Edema
Skin: No Rash
Neuro: Awake
Psych: Calm and Intact Judgment/Insight
Laboratory Results
-
02/15/24 07:49
02/15/24 07:49
Laboratory Results
pH 7.39 (7.35-7.45) 02/15/24 07:57
pCO2 39 mmHg (32-35) H 02/15/24 07:57
pO2 58 mmHg (83-108) L* 02/15/24 07:57
HCO3 23.6 mmol/L (21-28) 02/15/24 07:57
Lactic Acid 3.4 mmol/L (0.7-2.0) H 02/15/24 07:49
Total Bilirubin 0.4 mg/dl (0.2-1.3) 02/15/24 07:49
AST 31 U/L (14-36) 02/15/24 07:49
ALT 37 U/L (0-35) H 02/15/24 07:49
Alkaline Phosphatase 126 U/L (38-126) 02/15/24 07:49
Troponin I 0.029 ng/ml 02/15/24 07:49
Data Reviewed
-
Lab Data: Labs Reviewed by me
Impression/Plan
-
HPI: 73 yo F with PMH significant for pulm fibrosis / ILD on chronic Rituxan and on home O2 at 8 LPM, chronic CHF, morbid obesity, was discharged 10 days ago and returned for worsening SOB likely due to pulmonary fibrosis exacerbation. Of note, she
was seen by migration agent and was started with Olumiant for presumed chronic COVID lung disease (took for 5 days).
Patient was found to be in severe respiratory distress with initial pulse ox in the 50s by EMS. Patient was given nebulizer treatment, Solu-Medrol 125 mg IV, and placed on CPAP, with improvement en route to the hospital.
In the ED, she was noted to be febrile at 38.7 deg C
A/P:
# Acute on Chronic Hypoxic Respiratory Failure
# Interstitial Lung Disease / Pulmonary Fibrosis exacerbation
Hold further HEEL PAINTER Olumiant
Start IV methylprednisone for ILD flare/pulm fibrosis, 40 Q8H
Continue O2 support, currently at 15L mid flow, wean to baseline as tolerated at 8 LPM
Continue supportive care with Duonebs ATC
Pulm CS
# Fever DOA
cover with short course empiric Abx with cefepime and doxycycline
noted procal negative, COVID/flu negative
Follow blood culture
# Mild transaminitis likely reactive
Follow LFT
# ANCA Positive Vasculitis
# Benign Hypertension
Continue Norvasc, lisinopril with hold parameter
# Chronic HFpEF
recent with EF of 55-60%
cont HEEL PAINTER Lasix
# Hypothyroidism
Continue with Synthroid
# Anemia of Chronic Disease
# Hyperlipidemia
Continue with Lipitor
# Morbid Obesity
# Sleep apnea
BMI 37
HEEL PAINTER CPAP at bedtime
# History of left breast cancer with lumpectomy and radiation in 2001
# Anxiety and depression
Continue with Zoloft and BuSpar
# GERD
PPI continued
DVT ppx: Lovenox SQ
FC
DW sister at bedside
--- NOTE | 2024-02-15 11:19 | CON.PUL ---
Addendum entered and electronically signed by Christopher Blake MD 02/15/24 23:15:
Addendum: Will taper steroids with solumedrol given that she is on chronic prednisone to avoid relative adrenal insufficiency. Continue solumedrol 40mg IV q8hr
Original Note:
Consultation
Consultation Request
Date/Time Consultation Requested: 02/15/2024 - 1101
Date/Time Consultation Performed: 02/15/2024 - 1149
Requesting Provider: Dr. Ling
Performing Provider: Dr. Blake
Reason for Consultation: Acute hypoxia/Worsening GGO on CTA Chest
Medical History
-
Chief Complaint: SOB
History of Present Illness:
73-year-old female with a past medical history of ANCA positive vasculitis/microscopic polyangiitis, ILD, chronic hypoxic respiratory failure on home O2, EMERSON on auto CPAP, history of breast cancer s/p lumpectomy/XRT (2001), steroid-induced diabetes,
morbid obesity and restrictive lung disease who presents with worsening shortness of breath. She was recently hospitalized here (01/29 - 02/05/2024) and was discharged home on 02/05/2024 with 50 mg prednisone. She had apparently been on 60 mg
prednisone daily since that hospital discharge and was told to wean down the dose as she improves but she never wean down the dose as she never felt like she was improving. She was saturating 67% while on CPAP via EMS. In the ER she was febrile to
102.7 �F, tachycardic to 125, breathing at 20 breaths minute, BP 177/71 and saturating 68% on CPAP. She was changed to BiPAP with sats improving to 77%, and eventually able to be transition to mid flow nasal cannula at 15 L/min with saturations at
98%. Labs showed leukocytosis of 24.5, anemia to 9.5, lactate 3.4, troponin WNL at 0.029, proBNP 371, and COVID-19 antigen negative. Blood cultures were collected, and flu A/B swab was negative. CXR showed acute pneumonitis on chronic parenchymal
disease, and CTA chest showed no evidence of acute PE with worsening bilateral parenchymal opacities with increasing groundglass opacities bilaterally. In the ER she was given 40 mg IV Lasix, DuoNebs, Ativan, Ofirmev and Zofran. She was admitted
to the IMU and now pulmonary consulted for additional management/recommendations.
When I saw the patient she was resting in bed on 15 L/min via mid flow nasal cannula saturating 94%. Heart rate 93 and BP 126/47. She says she feels okay currently. Patient's family numbers at bedside and all questions were answered. Patient
denies any chest pain, ARRIAGA, abdominal pain, diarrhea, fevers or chills. According to the family, the patient has been around some sick contacts recently; no recent travel or recent plane rides. Patient has been on prednisone 60 mg daily since she
was discharged on 02/05/2024.
Of note, patient follows with us in the [facility] office with last visit on 01/17/2024 with [facility] [place]. She usually follows with Dr. Rausch. She had come down with COVID-19 on 12/30/2023 and was treated with Paxlovid. She developed rebound
symptoms after finishing which was treated with Zithromax. She continued to have SOB with exertion since she was diagnosed with COVID-19. She uses between 4-8 L/min with ambulation. 6MWT performed at that office visit showed that she needs 6
L/min with activity. She was treated with a 12-day prednisone taper. Also told to use Flonase. She normally follows with rheumatology at [place] and used to be on CellCept but stopped due to skin irritation. Follows with Dr. Daley for rheum who
has plans to resume rituxin with high dose steroids. She is continued on auto-CPAP therapy at home for EMERSON. Her last full PFT was performed in June 2021 showing a moderate restrictive lung defect with T%, and moderate diffusion capacity
defect with DLco 43%, although DLco/VA was 69%.
PMHx: Interstitial lung disease, ANCA-positive vasculitis/microscopic polyangiitis, chronic hypoxic respiratory failure on home O2 at 8 L/min, EMERSON on CPAP, degenerative disc disease, incisional hernia s/p repair with mesh, hypercholesterolemia,
thyroid disease, history of breast cancer s/p lumpectomy + XRT (2001), steroid-induced diabetes, hypertension, history of diverticulosis, hearing loss, restrictive lung disease, iron deficiency anemia, history of COVID-19 (December 30, 2023) s/p
Paxlovid, GERD, history of mild pulmonary hypertension, steroid-induced osteoporosis
PSHx: Cholecystectomy, hernia repair, left breast lumpectomy with radiation
Past Medical History
Past Medical History: Other (Above as per HPI)
Past Surgical History: Other (Above as per HPI)
Social History
Tobacco: Former Smoker (Quit January 2003 with history of [id number] history (2PPD x 30 years))
Alcohol: None
Drug: None
Family History
Family History: CAD (Father, mother + brother) and Other (Brother: History of ILD, suspected BOOP)
Allergies / Home Medications
Allergies
Allergy/AdvReac Type Severity Reaction Status Date / Time
diltiazem [From Cartia XT] Allergy Swelling Verified 01/30/24 12:37
Home Medications
�Medication �Instructions �Recorded �Confirmed �Last Taken �Type
buspirone 10 mg tablet 10 mg PO BID mental health 03/10/17 02/15/24 02/14/24 History
pantoprazole 40 mg tablet,delayed 40 mg PO DAILY #30 tabs 06/20/17 02/15/24 02/14/24 Rx
release
sertraline 100 mg tablet 175 mg PO DAILY Depression 10/25/18 02/15/24 02/14/24 History
acetaminophen 500 mg tablet 500 mg PO Q4HPRN PRN mild pain 05/12/19 02/15/24 02/14/24 History
(Tylenol Extra Strength)
fexofenadine-pseudoephedrine ER 1 tab PO HS Congestion 01/07/20 02/15/24 02/14/24 History
180 mg-240 mg tablet,ext.release
24 hr (Fay-D 24 Hour)
amlodipine 2.5 mg tablet 2.5 mg PO DAILY Blood pressure 10/11/20 02/15/24 02/14/24 History
cholecalciferol (vitamin D3) 25 1,000 units PO QPM Supplement 10/11/20 02/15/24 02/14/24 History
mcg (1,000 unit) tablet
cyanocobalamin (vitamin B-12) 1,000 mcg IM QMONTH Supplement 10/11/20 02/15/24 12/06/23 History
1,000 mcg/mL injection solution
docusate sodium 100 mg capsule 100 mg PO DAILY 10/11/20 02/15/24 02/14/24 History
furosemide 20 mg tablet 20 mg PO DAILY Fluid 10/11/20 02/15/24 02/14/24 History
retention/Swelling
melatonin 5 mg tablet 5 mg PO HS 10/28/20 02/15/24 02/14/24 History
vitamins A,C,H-tqvo-gifyqy 4,296 1 cap PO BID Supplement 07/14/23 02/15/24 02/14/24 History
mcg-226 mg-90 mg capsule
(PreserVision AREDS)
rituximab 10 mg/mL 0 mg IV [id number] 12/15/23 02/15/24 12/15/23 History
concentrate,intravenous (Rituxan)
atorvastatin 40 mg tablet 40 mg PO HS High Cholesterol 01/30/24 02/15/24 02/14/24 History
benzonatate 100 mg capsule 100 mg PO TIDPRN PRN cough 01/30/24 02/15/24 Unknown History
ipratropium 0.5 mg-albuterol 3 mg 3 ml inhalation R BID 01/30/24 02/15/24 02/14/24 History
(2.5 mg base)/3 mL nebulization Lung/Breathing Issues
soln
levothyroxine 150 mcg tablet 150 mcg PO DAILY Thyroid 01/30/24 02/15/24 02/14/24 History
lisinopril 20 mg tablet 10 mg PO DAILY Blood Pressure 01/30/24 02/15/24 02/14/24 History
semaglutide (weight loss) 0.5 0.5 mg SC WE WEIGHT LOSS 01/30/24 02/15/24 Unknown History
mg/0.5 mL subcutaneous pen
injector (Wegovy)
sulfamethoxazole 800 1 tab PO MOWEFR Infection 01/30/24 02/15/24 02/14/24 History
mg-trimethoprim 160 mg tablet
(Bactrim DS)
aspirin 81 mg chewable tablet 81 mg PO DAILY 02/15/24 02/15/24 02/14/24 History
baricitinib 4 mg tablet (Olumiant) 4 mg PO DAILY 02/15/24 02/15/24 02/14/24 History
prednisone 10 mg tablet 60 mg PO DAILY 02/15/24 02/15/24 02/14/24 History
Review of Systems
-
History Source: Patient
All other systems: Negative unless noted
Vitals / Labs / Diagnostic Testing
Vital Signs
Temp Pulse Resp BP Pulse Ox
101.7 F H 99 26 139/48 93
02/15/24 09:47 02/15/24 10:00 02/15/24 10:00 02/15/24 10:00 02/15/24 10:00
Lab Data
02/15/24 07:49
02/15/24 07:49
Laboratory Results
02/15/24
07:57
pH 7.39
pCO2 39 H
pO2 58 L*
HCO3 23.6
O2 Delivery Level
Microbiology
02/15/24 07:49 Nasal Swab Influenza Types A & B (MÓNICA) - Final
Negative for Influenza A & B, NAAT
Negative results must be combined with clinical observations
and patient history.
Nucleic Acid Amplification test (NAAT)performed on the
[employer] platform.
Diagnostic Testing:
Physical Exam
-
HEENT: Normocephalic and Anicteric
Cardiovascular: S1/S2 and Peripheral Edema (negative)
Respiratory: Wheeze (negative), Rales (Bilateral (worst in the right base)), Rhonchi (negative) and Non-Labored Respirations
GI: Soft, Distended (Abdominal obesity), Non Tender and Normal Bowel Sounds
Neurology: AO x 3 and Tremors (negative)
Skin: Warm and Dry
General: Respiratory Distress (negative), Comfortable, Chills (negative) and Sweats (negative)
Assessment
-
Assessment: 73-year-old female with a past medical history of ANCA positive vasculitis/microscopic polyangiitis, ILD, chronic hypoxic respiratory failure on home O2, EMERSON on auto CPAP, history of breast cancer s/p lumpectomy/XRT (2001),
steroid-induced diabetes, morbid obesity and restrictive lung disease who presents with worsening shortness of breath. She was recently hospitalized here and was discharged home on 02/05/2024 with 50 mg prednisone. She had apparently been on 60 mg
prednisone daily since that hospital discharge and was told to wean down the dose as she improves but she never wean down the dose as she never felt like she was improving. She was saturating 67% while on CPAP via EMS. In the ER she was febrile to
102.7 �F, tachycardic to 125, breathing at 20 breaths minute, BP 177/71 and saturating 68% on CPAP. She was changed to BiPAP with sats improving to 77%, and eventually able to be transition to mid flow nasal cannula at 15 L/min with saturations at
98%. Labs showed leukocytosis of 24.5, anemia to 9.5, lactate 3.4, troponin WNL at 0.029, proBNP 371, and COVID-19 antigen negative. Blood cultures were collected, and flu A/B swab was negative. CXR showed acute pneumonitis on chronic parenchymal
disease, and CTA chest showed no evidence of acute PE with worsening bilateral parenchymal opacities with increasing groundglass opacities bilaterally. In the ER she was given 40 mg IV Lasix, DuoNebs, Ativan, Ofirmev and Zofran. She was admitted
to the IMU and now pulmonary consulted for additional management/recommendations.
Chronic medical conditions PRODUCTION COST ESTIMATOR: Interstitial lung disease, ANCA-positive vasculitis/microscopic polyangiitis, chronic hypoxic respiratory failure on home O2 at 8 L/min, EMERSON on CPAP, degenerative disc disease, incisional hernia s/p repair with mesh,
hypercholesterolemia, thyroid disease, history of breast cancer s/p lumpectomy + XRT (2001), steroid-induced diabetes, hypertension, history of diverticulosis, hearing loss, restrictive lung disease, iron deficiency anemia, history of COVID-19
(December 30, 2023) s/p Paxlovid, GERD, history of mild pulmonary hypertension, steroid-induced osteoporosis
Impression:
#Acute on chronic respiratory failure with hypoxia due to suspected ILD exacerbation; DDx also includes progressive ILD
#Leukocytosis, likely steroid-induced
#Anemia (baseline Hb 9.5�11g/dL)
#Lactic acidosis � resolved
#Febrile illness � patient is nontoxic-appearing with negative procalcitonin (<0.05)
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
#Moderate restrictive lung disease (T%, VC: 85% with moderate gas exchange capacity defect via PFT from June 2021)
#EMERSON on auto-CPAP 5-20 cmH2O (average pressure: 7.8cmH2O with residual AHI: 1.6 for 30-day period of 12/13 - 01/12/2024)
#Morbid obesity
#Recent history of COVID-19 (12/30/2023) recently on baricitinib, now off
#Former tobacco use (quit in 01/2003 with 60-PY Hx)
Plan:
- Given her high BMI, would want to use steroid sparing agent, and given that she tolerated imuran in the past, I will resume this now at 100mg BID I had touched base with Dr. Latha Mendez and she agrees with this strategy.
- Stop steroids
- Continue bactrim 1 DS tab TIW
- Maintain euglycemia with goal BG >100 and <180
- Given her fever, continue with empiric antibiotics (cefepime/Doxy) but if blood cultures remain negative by 48 hours then consider narrowing ABx vs stopping altogether
- Check sputum Cx, and legionella/Strep PNA urine antigens
- UA negative for UTI
- Given that her procal is <0.5 and she is non-toxic appearing, I have low suspicion for infection
- Change midflow NC to high flow nasal cannula starting at 50% FiO2, 40 L/min and wean as tolerated
- Maintain SpO2 >90-94%
- She currently does not have a cough so no need for mucolytics at this time
- Antitussants prn
- DuoNebs TID + pulmicort BID with prn nebulized bronchodilators
- No current signs of volume overload so hold off on diuresis; if patient's O2 requirements do not improve despite imuran then start diuresis
- Check echo
- She uses auto-CPAP at home however given her SOB I will start nocturnal BiPAP 15/12, and titrate O2 flow rate to keep sats >90%
- Trend LFTs
- Incentive spirometer encouraged 10x per hour for at least 4 hrs a day, as tolerated
- Replete electrolytes with K>4, Mg>2
- PT/OT once O2 requirements improve
- DVT ppx: LMWH
Pulmonary service will continue to follow along. She will continue to follow along with us in the office. Continue follow-up with Dr. Rausch as well as ILD-pulmonary at [facility]
Data:
CTA Chest 02/15/2024:
Respiratory motion limits evaluation of the segmental and subsegmental pulmonary arteries, basically nondiagnostic for these arteries. There is no evidence for central pulmonary embolism.
Comparing to CT examination of April 28, 2024, interval increase in bilateral parenchymal opacities, with increase in groundglass opacities predominantly. Findings would suggest acute pneumonitis superimposed on chronic parenchymal changes.
Table honeycombing in both lung bases.
There is mild to moderate elevation right hemidiaphragm.
CXR 02/15/2024: Radiographic findings are suggestive of acute pneumonitis superimposed on chronic parenchymal disease.
Total time spent today was 76 minutes for this encounter. Time includes reviewing laboratory test/imaging results, reviewing pertinent medical records, obtaining and reviewing medical history, performing an appropriate exam, ordering medications,
tests and procedures. Time also includes documentation of this encounter, coordinating patient care and communicating with other healthcare professionals. Total time does not include separately billed tests performed on this date of service.
[2024-02-15 13:41] LABS: Lactic Acid 1.6 mmol/L (0.7-2.0)
[2024-02-15] MEDS: SOLU-MEDROL PF 40 MG IV (14:32)
[2024-02-15] MEDS: VIBRAMYCIN 260 MG IV (15:16)
[2024-02-15] MEDS: MAXIPIME 1000 MG IV (16:39)
[2024-02-15] MEDS: STERILE WATER FOR INJECTION 10 ML IV (16:39)
--- NOTE | 2024-02-15 17:10 | PTCARENOTE ---
Addendum entered by Aniceto Ledesma RN 02/15/24 18:39:
Patient with increasing anxiety. Pt also c/o 2 mouth sores on lower lip. Patient asking for mupirocin for scabbed abrasion on right face. MD notified of all of these complaints.
Original Note:
Received patient by stretcher from ED on 15L midflow. Sats 92% on arrival. VSS. Patient reports feeling much better, calm. Sisters at bedside. Oriented to room. Will closely monitor.
[2024-02-15] MEDS: LOVENOX 40 MG SC (18:34)
[2024-02-15] MEDS: PULMICORT 0.5 MG INH (19:29)
--- NOTE | 2024-02-15 20:00 | PTCARENOTE ---
Received pt at shift change; Pt AAOx3, pleasantly conversing with family at the bedside. Pt on 15L O2 via midlfow with SpO2 dropping to the mid/high 80's; RT at the bedside transitioned pt to high flow 40L/70%, pt's SpO2 922-94%. NSR on the monitor,
lung sounds diminished, mildly dyspneic at rest but able to speak full sentences and recovers easily. Hernandez catheter in place, hygiene performed. Pt denies pain, offers no complaints at this time. Updated pt and family at the bedside on POC for the
evening.
[2024-02-15] MEDS: OCUVITE SOFTGEL 1 CAP PO (21:09)
[2024-02-15] MEDS: BUSPAR 10 MG PO (21:10)
[2024-02-15] MEDS: MELATONIN PO (21:11)
[2024-02-15] MEDS: LIPITOR 40 MG PO (21:11)
[2024-02-15] MEDS: IMURAN 100 MG PO (21:12)
[2024-02-15] MEDS: ORAJEL 10% GEL 1 APPLIC TOPICAL (21:21)
[2024-02-15] MEDS: FIRST-MOUTHWASH BLM SUSPENSION 5 ML PO (22:27)
[2024-02-15] MEDS: BACTROBAN 2% OINTMENT 1 APPLIC TOPICAL (22:27)
[2024-02-15] MEDS: NSS (PRESERVATIVE FREE) 0.25 ML IV (22:30)
[2024-02-16] VITALS (16 sets, daily range): BP systolic 92–156; BP diastolic 42–89; PULSE 2–100; O2SAT 93; BMI 47.8
[2024-02-16] MEDS: SOLU-MEDROL PF 40 MG IV ×4 (00:25→23:28)
[2024-02-16] MEDS: VIBRAMYCIN 260 MG IV (02:15)
--- NOTE | 2024-02-16 04:35 | DOWNTIME ---
There was a SCHEDit Client [employer] Downtime on 02/16/2024 from 0100 to 02/16/2024 at 0355. Downtime documentation of patient's care, including medication administrations, has been reconciled in the electronic record per guidelines. Refer to the
patient's paper chart under the miscellaneous tab to see printed paper medication records and downtime forms.
[2024-02-16] MEDS: STERILE WATER FOR INJECTION 10 ML IV ×3 (04:56→20:54)
[2024-02-16] MEDS: MAXIPIME 1000 MG IV (04:56)
--- NOTE | 2024-02-16 05:30 | PTCARENOTE ---
Cared for patient [id number]. aaox3, pleasant. denies pain. Remains on bipap overnight, HFNC during day. NSR. NO assessment changes. IVABX. Will monitor.
[2024-02-16 05:40] LABS: ALT (SGPT) 33 U/L (0-35); AST (SGOT) 33 U/L (14-36); Albumin 3.4 g/dl (3.5-5.0); Alkaline Phosphatase 95 U/L (38-126); Blood Urea Nitrogen 29 mg/dl (7-17); Calcium 8.9 mg/dl (8.4-10.2); Carbon Dioxide 26 mmol/L (22-30); Chloride 99 mmol/L (98-107); Direct Bilirubin 0.2 mg/dl (0.0-0.4); Estimated Creatinine Clearance 84 ml/min; Glucose 149 mg/dl (70-99); Phosphorus 3.5 mg/dl (2.5-4.5); Sodium 137 mmol/L (135-145); Total Bilirubin 0.4 mg/dl (0.2-1.3); Total Protein 5.7 g/dl (6.3-8.2); eGFR > 60.00
[2024-02-16 05:57] LABS: % Basophils 0.2 % (0-2); % Eosinophils 0.7 % (0-6); % Immature Granulocytes 2.5 % (0-0.5); % Lymphocytes 3.1 % (20.5-51.1); % Monocytes 2.2 % (1.7-9.3); % Neutrophils 91.3 % (42.2-75.2); Absolute Eosinophils 0.1 10^3/uL (0-0.7); Absolute Immature Granulocytes 0.3 10^3/uL (0-0.05); Absolute Lymphocytes 0.4 10^3/uL (1.2-3.4); Absolute Monocytes 0.3 10^3/uL (0.1-0.6); Absolute Neutrophils 12.4 10^3/uL (1.4-6.5); Hematocrit 23.9 % (37.0-47.0); Mean Corp Hgb Conc. 33.5 g/dL (33.0-37.0); Mean Corpuscular Hgb 28.9 pg (27.0-31.0); Mean Corpuscular Volume 86.3 fL (81.0-99.0); Mean Platelet Volume 10.5 fL (7.4-10.4); Nucleated Red Blood Cells % 0 %; Platelet Count 243 10^3/uL (130-400); Red Blood Cell Count 2.77 10^6/uL (4.20-5.40); White Blood Cell Count 13.5 10^3/uL (4.8-10.8)
[2024-02-16] MEDS: PULMICORT 0.5 MG INH ×2 (07:30→19:44)
[2024-02-16] MEDS: DUONEB 3 ML INH ×3 (07:30→19:44)
--- NOTE | 2024-02-16 08:01 | W.PN.PUL3 ---
Today's Communication / Plan
-
Continue steroid sparing agent with Imuran and systemic steroids with methylprednisolone
Check/trend inflammatory markers with ESR/CRP and adjust steroids depending on results
Nocturnal BiPAP
High flow nasal cannula during the day
Titrate O2 flow rate/FiO2 to keep SpO2 >90%
Check sputum culture if she can produce a decent sample
Monitor fever curve
PT/OT once O2 requirements improve
Pulmonary service will continue to follow along
Assessment
-
Assessment: 73-year-old female with a past medical history of ANCA positive vasculitis/microscopic polyangiitis, ILD, chronic hypoxic respiratory failure on home O2, EMERSON on auto CPAP, history of breast cancer s/p lumpectomy/XRT (2001),
steroid-induced diabetes, morbid obesity and restrictive lung disease who presents with worsening shortness of breath. She was recently hospitalized here and was discharged home on 02/05/2024 with 50 mg prednisone. She had apparently been on 60 mg
prednisone daily since that hospital discharge and was told to wean down the dose as she improves but she never wean down the dose as she never felt like she was improving. She was saturating 67% while on CPAP via EMS. In the ER she was febrile to
102.7 �F, tachycardic to 125, breathing at 20 breaths minute, BP 177/71 and saturating 68% on CPAP. She was changed to BiPAP with sats improving to 77%, and eventually able to be transition to mid flow nasal cannula at 15 L/min with saturations at
98%. Labs showed leukocytosis of 24.5, anemia to 9.5, lactate 3.4, troponin WNL at 0.029, proBNP 371, and COVID-19 antigen negative. Blood cultures were collected, and flu A/B swab was negative. CXR showed acute pneumonitis on chronic parenchymal
disease, and CTA chest showed no evidence of acute PE with worsening bilateral parenchymal opacities with increasing groundglass opacities bilaterally. In the ER she was given 40 mg IV Lasix, DuoNebs, Ativan, Ofirmev and Zofran. She was admitted
to the IMU and now pulmonary consulted for additional management/recommendations.
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
hypercholesterolemia, thyroid disease, history of breast cancer s/p lumpectomy + XRT (2001), steroid-induced diabetes, hypertension, history of diverticulosis, hearing loss, restrictive lung disease, iron deficiency anemia, history of COVID-19
(December 30, 2023) s/p Paxlovid, GERD, history of mild pulmonary hypertension, steroid-induced osteoporosis
Impression:
#Acute on chronic respiratory failure with hypoxia due to suspected ILD exacerbation; DDx also includes progressive ILD
#Leukocytosis, likely steroid-induced
#Anemia (baseline Hb 9.5�11g/dL)
#Lactic acidosis � resolved
#Febrile illness � patient is nontoxic-appearing with negative procalcitonin (<0.05)
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
#Moderate restrictive lung disease (T%, VC: 85% with moderate gas exchange capacity defect via PFT from June 2021)
#EMERSON on auto-CPAP 5-20 cmH2O (average pressure: 7.8cmH2O with residual AHI: 1.6 for 30-day period of 12/13 - 01/12/2024)
#Morbid obesity
#Recent history of COVID-19 (12/30/2023) recently on baricitinib, now off
#Former tobacco use (quit in 01/2003 with 60-PY Hx)
Plan:
- Given her high BMI, would want to use steroid sparing agent --> resumed imuran 100mg BID I had touched base with her ILD vibrator equipment tester through [facility], Dr. Latha Mendez and she agrees with this strategy.
- Given that the pt was on chronic prednisone 60mg daily, continue systemic steroids with plans to wean; unable to stop immediately as this could place her at risk for adrenal insufficiency
- Check/trend CRP and ESR and based on those findings will continue to adjust steroids
- Continue bactrim 1 DS tab TIW
- Maintain euglycemia with goal BG >100 and <180
- Given her fever, continue with empiric antibiotics (cefepime/Doxy) but if blood cultures remain negative by 48 hours then consider narrowing ABx vs stopping altogether
- Check sputum Cx; both legionella/Strep PNA urine antigens are negative
- UA negative for UTI
- Given that her procal is <0.5 and she is non-toxic appearing, I have low suspicion for infection
- Continue high flow nasal cannula and wean FiO2 and flow rate as tolerated
- Maintain SpO2 >90-94%
- She currently does not have a cough so no need for mucolytics at this time
- Antitussants prn
- DuoNebs TID + pulmicort BID with prn nebulized bronchodilators
- No current signs of volume overload so hold off on diuresis; if patient's O2 requirements do not improve despite imuran then start diuresis
- Echo performed today (02/16/2024) showing preserved LVEF at 55 to 60% with mild MR, mild aortic stenosis and mild�moderate TR with moderate pulmonary hypertension with PASP 47 mmHg
- She uses auto-CPAP at home however given her SOB I started nocturnal BiPAP 15/12, and titrate O2 flow rate to keep sats >90%
- Incentive spirometer encouraged 10x per hour for at least 4 hrs a day, as tolerated
- Replete electrolytes with K>4, Mg>2
- PT/OT once O2 requirements improve
- DVT ppx: LMWH
Pulmonary service will continue to follow along. She will continue to follow along with us in the office. Continue follow-up with Dr. Rausch as well as ILD-pulmonary at [facility], Dr. Latha Mendez
Data:
CTA Chest 02/15/2024:
Respiratory motion limits evaluation of the segmental and subsegmental pulmonary arteries, basically nondiagnostic for these arteries. There is no evidence for central pulmonary embolism.
Comparing to CT examination of April 28, 2024, interval increase in bilateral parenchymal opacities, with increase in groundglass opacities predominantly. Findings would suggest acute pneumonitis superimposed on chronic parenchymal changes.
Table honeycombing in both lung bases.
There is mild to moderate elevation right hemidiaphragm.
CXR 02/15/2024: Radiographic findings are suggestive of acute pneumonitis superimposed on chronic parenchymal disease.
Total time spent today was 51 minutes for this encounter. Time includes reviewing laboratory test/imaging results, reviewing pertinent medical records, obtaining and reviewing medical history, performing an appropriate exam, ordering medications,
tests and procedures. Time also includes documentation of this encounter, coordinating patient care and communicating with other healthcare professionals. Total time does not include separately billed tests performed on this date of service.
Subjective Data
-
Date of Service:
Date of Service: February 16, 2024
Chief Complaint: Pulmonary Follow Up
Subjective:
Patient seen and evaluated today at bedside. Currently on high flow nasal cannula at 40 L/min, 80% FiO2, saturating 92%. Heart rate 106 and BP 120/60. Patient says she feels much better overall, denying SOB at rest or cough. Also denies chest
pain, ARRIAGA, abdominal pain, fevers or chills.
Review of Systems
General: Other (Negative unless mentioned above)
Objective Data
Data Reviewed
Vital Signs / I&O / Oxygen:
Vital Signs
Temp Pulse Resp BP Pulse Ox
97.7 F 77 24 138/56 91
02/16/24 03:05 02/16/24 07:35 02/16/24 07:35 02/16/24 06:00 02/16/24 07:36
Intake and Output
02/15/24 02/16/24 02/17/24
06:59 06:59 06:59
Intake Total 260 / 260
Output Total 1970 / 1970
Balance -1710 / -1710
SaO2 91
Nasal Cannula flow liters per 40
minute
Physical Exam
General: Respiratory Distress (negative), Comfortable, Chills (negative) and Sweats (negative)
HEENT: Normocephalic and Anicteric
Cardiovascular: S1-S2 and Peripheral Edema (negative)
Respiratory: Wheeze (negative), Crackles (Bilateral (worst at left posterior base)), Rhonchi (negative) and Non-Labored Respirations
GI: Soft, Distended (Abdominal obesity), Non Tender and Normal Bowel Sounds
Neurology: AO x 3 and Tremors (negative)
Skin: Warm, Dry, Cyanosis (negative) and Jaundice (negative)
Labs/Micro/Reports
Lab Data
02/16/24 05:03
02/16/24 05:03
Laboratory Results
02/15/24
07:57
pH 7.39
pCO2 39 H
pO2 58 L*
HCO3 23.6
O2 Delivery Level
Microbiology
02/15/24 20:19 Urine Legionella Urinary Antigen - Final
Negative for Legionella pneumophila Serogroup 1 antigen.
A negative result does not rule out the possiblity of
Legionella infection due to other serogroups or species of
Legionella. Clinical correlation is recommended.
02/15/24 20:19 Urine Streptococcus pneumoniae Antigen (M - Final
Negative for Streptococcus pneumoniae antigen.
A negative result does not exclude infection with
Streptococcus pneumoniae. Clinical correlation is
recommended.
02/15/24 07:49 Blood/Venous Blood Culture - Preliminary
No Growth in 24 hours- Final report to follow
02/15/24 07:49 Nasal Swab Influenza Types A & B (MÓNICA) - Final
Negative for Influenza A & B, NAAT
Negative results must be combined with clinical observations
and patient history.
Nucleic Acid Amplification test (NAAT)performed on the
[employer] platform.
--- NOTE | 2024-02-16 08:02 | VNURNOTE ---
Chart reviewed. Patient is current with [facility] nursing, OT. Has home 02. Will continue to follow hospital course and DC plans.
--- NOTE | 2024-02-16 08:30 | W.PN.HOSP.TC ---
Today's Communication/Plan
-
see A/P
Assessment / Plan
Assessment / Plan
HPI: 73 yo F with PMH significant for pulm fibrosis / ILD on chronic Rituxan and on home O2 at 8 LPM, chronic CHF, morbid obesity, was discharged 10 days ago and returned for worsening SOB likely due to pulmonary fibrosis exacerbation. Of note, she
was seen by plastics plater and was started with Olumiant for presumed chronic COVID lung disease (took for 5 days).
Patient was found to be in severe respiratory distress with initial pulse ox in the 50s by EMS. Patient was given nebulizer treatment, Solu-Medrol 125 mg IV, and placed on CPAP, with improvement en route to the hospital.
In the ED, she was noted to be febrile at 38.[address] Chest on admission:
Respiratory motion limits evaluation of the segmental and subsegmental pulmonary arteries, basically nondiagnostic for these arteries. There is no evidence for central pulmonary embolism.
Comparing to CT examination of April 28, 2024, interval increase in bilateral parenchymal opacities, with increase in groundglass opacities predominantly. Findings would suggest acute pneumonitis superimposed on chronic parenchymal changes.
Table honeycombing in both lung bases.
A/P:
# Acute on Chronic Hypoxic Respiratory Failure
# Interstitial Lung Disease / Pulmonary Fibrosis exacerbation
Hold further OPTICAL COATING TECHNICIAN Olumiant
Cont IV methylprednisone for ILD flare/pulm fibrosis, 40mg Q8H
Cont OPTICAL COATING TECHNICIAN Imuran
Continue O2 support, now on high flow NC 100%, baseline O2 at 8 LPM
Continue supportive care with Duonebs ATC
Pulm on board
# Fever DOA
blood culture negative, procal negative, COVID/flu negative, urine Legionella/Strep Ag negative
cover with short course empiric Abx with cefepime and doxycycline (immune compromised state)
# Mild transaminitis likely reactive, resolved
# ANCA Positive Vasculitis
# Benign Hypertension
Continue Norvasc, lisinopril with hold parameter
# Chronic HFpEF
recent with EF of 55-60%
cont OPTICAL COATING TECHNICIAN Lasix
# Hypothyroidism
Continue with Synthroid
# Anemia of Chronic Disease
# Hyperlipidemia
Continue with Lipitor
# Morbid Obesity
# Sleep apnea
BMI 37
OPTICAL COATING TECHNICIAN CPAP at bedtime
# History of left breast cancer with lumpectomy and radiation in 2001
# Anxiety and depression
Continue with Zoloft and BuSpar
# GERD
PPI continued
DVT ppx: Lovenox SQ
FC
DW niece at bedside
DW RN
DW Pulm yesterday
CC for hypoxic respiratory failure now on high flow
CC time 40 min
Anticipated Discharge: > 48 hours
Subjective/Interval History
-
Date of Service: February 16, 2024
Objective Data
-
Labs:
Laboratory Results
02/16/24
05:03
WBC 13.5 H
Hgb 8.0 L
Hct 23.9 L
Plt Count 243 D
Sodium 137
Potassium 5.0
Chloride 99
Carbon Dioxide 26
BUN 29 H
Creatinine 0.8
Glucose 149 H
Calcium 8.9
Total Bilirubin 0.4
AST 33
ALT 33
Alkaline Phosphatase 95
Vital Signs:
Vital Signs
Temp Pulse Resp BP Pulse Ox
36.7 C 77 24 138/56 91
02/16/24 08:15 02/16/24 07:35 02/16/24 07:35 02/16/24 06:00 02/16/24 07:36
I&O
02/15/24 02/16/24 02/17/24
06:59 06:59 06:59
Intake Total 260 / 260
Output Total 1970 / 1969
Balance -1710 / -1710
Review of Systems
-
Respiratory: Reports Trouble Breathing
Physical Exam
-
General: Well Developed, Well Nourished, Comfortable, Respiratory Distress (chronic), Conversant and Morbidly Obese
HEENT: Normocephalic, Atraumatic, Nose Appears Normal, Ears Appear Normal and Oxygen (high flow NC )
Respiratory: Clear to Auscultation, Crackles (fine crackles at bases) and Non Labored Respirations; Negative Accessory Resp Muscle Use
Cardiac: Regular Rhythm and S1/S2
GI: Soft, Nontender, Nondistended and Normal Bowel Sounds
Skin: Warm and Dry
Neuro: Awake, Alert, Oriented and AO x 3
Psych: Calm and Intact Judgement/Insight
Data Reviewed
-
CT Scan: Report Reviewed by me
Labs: Labs Reviewed by me
[2024-02-16] MEDS: PROTONIX 40 MG PO (08:37)
[2024-02-16] MEDS: SYNTHROID 150 MCG PO (08:37)
[2024-02-16] MEDS: IMURAN 100 MG PO ×2 (08:37→20:56)
[2024-02-16] MEDS: OCUVITE SOFTGEL 1 CAP PO ×2 (08:37→20:56)
[2024-02-16] MEDS: NORVASC 2.5 MG PO (08:37)
[2024-02-16] MEDS: LASIX 20 MG PO (08:38)
[2024-02-16] MEDS: BUSPAR 10 MG PO ×2 (08:38→20:56)
[2024-02-16] MEDS: COLACE 100 MG PO (08:38)
[2024-02-16] MEDS: LOW STRENGTH ASPIRIN 81 MG PO (08:38)
[2024-02-16] MEDS: ZOLOFT 100 MG PO (08:38)
[2024-02-16] MEDS: ZOLOFT 75 MG PO (08:38)
[2024-02-16] MEDS: ZESTRIL 10 MG PO (08:38)
[2024-02-16] MEDS: ORAJEL 10% GEL 1 APPLIC TOPICAL ×3 (08:39→20:56)
--- NOTE | 2024-02-16 09:00 | PTCARENOTE ---
Sao2 84% on 40L / 70% - called RT increased to 40L / 100% sao2 96% - weaned down to 40L / 85%
[2024-02-16] MEDS: BACTRIM DS 800 MG/160 MG 1 TABLET PO (11:40)
[2024-02-16] MEDS: MAXIPIME 2000 MG IV ×2 (11:40→20:53)
[2024-02-16] MEDS: MIRALAX 17 GRAMS PO (11:44)
--- NOTE | 2024-02-16 11:48 | CM ---
CM met with pt and niece/Flora bedside
Pt resides with her sisters/ Marina and Caryl in a 2SH with 3 [address]
Pt has a 1st floor set up
Pt notes independence at baseline without any ADs
She notes lately, family have been helping with personal care but she is normally independent
Pt is current with [facility] and during last admission, she was provided a juventino commode
Notes commode is too wide and requesting standard be provided instead
Pt has home O2 through [employer] 8L baseline and cpap HS (cpap is at home)
PCP- Leanna Mancia
Rx- [facility] [place]
Pt requesting PT/OT orders as she is concerned of deconditioning
TT/Dt joe to make aware
SNF referral process reviewed as well as role of [employer] per pt and niece request
Discharge Disposition- home with [facility] and new standard commode vs higher level
[2024-02-16] MEDS: VIBRAMYCIN 100 MG PO ×2 (12:21→23:21)
[2024-02-16] MEDS: BACTROBAN 2% OINTMENT 1 APPLIC TOPICAL ×2 (16:08→21:04)
[2024-02-16] MEDS: LOVENOX 40 MG SC (17:52)
--- NOTE | 2024-02-16 18:03 | PTCARENOTE ---
pt noticed leakage between her legs- dubose was leaking and she felt like she needed to urinate- dubose removed- pt on bsc- will monitor output.
--- NOTE | 2024-02-16 18:13 | PTCARENOTE ---
getting off bsc sao2 74% took 5 minutes to recover 92% rest PLB, discussed energy conservation
[2024-02-16] MEDS: LIPITOR 40 MG PO (20:55)
[2024-02-16] MEDS: MELATONIN PO (23:20)
[2024-02-16] MEDS: NSS (PRESERVATIVE FREE) 0.25 ML IV (23:20)
[2024-02-16] MEDS: ATIVAN 0.5 MG IV (23:20)
[2024-02-17] VITALS (15 sets, daily range): BP systolic 127–155; BP diastolic 53–110; PULSE 2–86; O2SAT 91; BMI 47.8
[2024-02-17] MEDS: STERILE WATER FOR INJECTION 10 ML IV ×3 (05:29→20:46)
[2024-02-17] MEDS: SYNTHROID 150 MCG PO (05:29)
[2024-02-17] MEDS: MAXIPIME 2000 MG IV ×3 (05:29→20:47)
[2024-02-17 05:38] LABS: % Basophils 0.1 % (0-2); % Eosinophils 1.1 % (0-6); % Immature Granulocytes 2.2 % (0-0.5); % Monocytes 2.4 % (1.7-9.3); % Neutrophils 91.2 % (42.2-75.2); Absolute Eosinophils 0.2 10^3/uL (0-0.7); Absolute Immature Granulocytes 0.4 10^3/uL (0-0.05); Absolute Lymphocytes 0.5 10^3/uL (1.2-3.4); Absolute Monocytes 0.4 10^3/uL (0.1-0.6); Absolute Neutrophils 14.7 10^3/uL (1.4-6.5); Hematocrit 23.3 % (37.0-47.0); Hemoglobin 7.8 g/dL (12.0-16.0); Mean Corp Hgb Conc. 33.5 g/dL (33.0-37.0); Mean Corpuscular Hgb 27.9 pg (27.0-31.0); Mean Corpuscular Volume 83.2 fL (81.0-99.0); Mean Platelet Volume 10.7 fL (7.4-10.4); Nucleated Red Blood Cells % 0 %; Platelet Count 255 10^3/uL (130-400); White Blood Cell Count 16.1 10^3/uL (4.8-10.8)
[2024-02-17 05:50] LABS: Blood Urea Nitrogen 41 mg/dl (7-17); Calcium 9.4 mg/dl (8.4-10.2); Carbon Dioxide 22 mmol/L (22-30); Chloride 97 mmol/L (98-107); Estimated Creatinine Clearance 74 ml/min; Glucose 155 mg/dl (70-99); Phosphorus 4.2 mg/dl (2.5-4.5); Potassium 5.2 mmol/L (3.5-5.1); Sodium 134 mmol/L (135-145); eGFR > 60.00
--- NOTE | 2024-02-17 05:53 | PTCARENOTE ---
Patient assisted from the chair into bed, one person assist. Tolerated Bipap HS; Sp02 mid 80s, RT changed face mask and sp02 has been >90%. Encouraged to reposition self while in bed. Requested prn ativan for sleep. Voiding via purewick. Denies any
pain. Tele showing NSR/ST. Pt can be anxious at times, concerned about her sp02 and staring at the monitor. Encouragement and support provided. Pt appreciative of care. Call slater and tray table within reach with fan. Calls appropriately for
assistance.
[2024-02-17 06:17] LABS: Erythrocyte Sed Rate 85 mm/hour (0-20)
[2024-02-17] MEDS: PULMICORT 0.5 MG INH ×2 (07:49→19:36)
[2024-02-17] MEDS: DUONEB 3 ML INH ×3 (07:49→19:36)
--- NOTE | 2024-02-17 08:57 | W.PN.HOSP.TC ---
Addendum entered and electronically signed by Alexandra Ling MD 02/17/24 11:25:
# SIRS on admission
Original Note:
Today's Communication/Plan
-
see A/P
Assessment / Plan
Assessment / Plan
HPI: 73 yo F with PMH significant for pulm fibrosis / ILD on chronic Rituxan and on home O2 at 8 LPM, chronic CHF, morbid obesity, was discharged 10 days ago and returned for worsening SOB likely due to pulmonary fibrosis exacerbation. Of note, she
was seen by ebd teacher and was started with Olumiant for presumed chronic COVID lung disease (took for 5 days).
Patient was found to be in severe respiratory distress with initial pulse ox in the 50s by EMS. Patient was given nebulizer treatment, Solu-Medrol 125 mg IV, and placed on CPAP, with improvement en route to the hospital.
In the ED, she was noted to be febrile at 38.[address] Chest on admission:
Respiratory motion limits evaluation of the segmental and subsegmental pulmonary arteries, basically nondiagnostic for these arteries. There is no evidence for central pulmonary embolism.
Comparing to CT examination of April 28, 2024, interval increase in bilateral parenchymal opacities, with increase in groundglass opacities predominantly. Findings would suggest acute pneumonitis superimposed on chronic parenchymal changes.
Table honeycombing in both lung bases.
A/P:
# Acute on Chronic Hypoxic Respiratory Failure
# Interstitial Lung Disease / Pulmonary Fibrosis exacerbation
Hold further OPHTHALMIC AIDE Olumiant
Cont IV methylprednisone for ILD flare/pulm fibrosis, 40mg Q8H
Cont OPHTHALMIC AIDE Imuran
Continue O2 support, was on 100 % high flow NC, now at 80%, baseline O2 at 8 LPM
Continue supportive care with Duonebs ATC
Pulm on board
# Fever DOA
blood culture negative, procal negative, COVID/flu negative, urine Legionella/Strep Ag negative
cover with short course empiric Abx with cefepime and doxycycline (immune compromised state)
# Mild transaminitis likely reactive, resolved
# ANCA Positive Vasculitis
# Benign Hypertension
Continue Norvasc, lisinopril with hold parameter
# Chronic HFpEF
recent with EF of 55-60%
cont OPHTHALMIC AIDE Lasix
# Hypothyroidism
Continue with Synthroid
# Anemia of Chronic Disease
# Hyperlipidemia
Continue with Lipitor
# Morbid Obesity
# Sleep apnea
BMI 37
OPHTHALMIC AIDE CPAP at bedtime
# History of left breast cancer with lumpectomy and radiation in 2001
# Anxiety and depression
Continue with Zoloft and BuSpar
# GERD
PPI continued
# oral ulcer
can try oral gel for oral ulcers
DVT ppx: Lovenox SQ
FC
DW RN
CC for hypoxic respiratory failure now on high flow
CC time 40 min
Anticipated Discharge: > 48 hours
Subjective/Interval History
-
Date of Service: February 17, 2024
Objective Data
-
Labs:
Laboratory Results
02/17/24
05:20
WBC 16.1 H
Hgb 7.8 L
Hct 23.3 L
Plt Count 255
Sodium 134 L
Potassium 5.2 H
Chloride 97 L
Carbon Dioxide 22
BUN 41 H
Creatinine 0.9
Glucose 155 H
Calcium 9.4
Vital Signs:
Vital Signs
Temp Pulse Resp BP Pulse Ox
36.8 C 88 15 152/63 93
02/17/24 07:15 02/17/24 07:57 02/17/24 07:57 02/17/24 06:00 02/17/24 07:57
I&O
02/16/24 02/17/24 02/18/24
06:59 06:59 06:59
Intake Total 260 / 260 600 / 600
Output Total 1969 / 1819
Balance -1710 / -1710 -1220 / -1220
Review of Systems
-
Respiratory: Reports Trouble Breathing
Physical Exam
-
General: Well Developed, Well Nourished, Comfortable, Respiratory Distress (chronic), Conversant and Morbidly Obese
HEENT: Normocephalic, Atraumatic, Nose Appears Normal, Ears Appear Normal and Oxygen (high flow NC )
Respiratory: Clear to Auscultation, Crackles (fine crackles at bases) and Non Labored Respirations; Negative Accessory Resp Muscle Use
Cardiac: Regular Rhythm and S1/S2
GI: Soft, Nontender, Nondistended and Normal Bowel Sounds
Skin: Warm and Dry
Neuro: Awake, Alert, Oriented and AO x 3
Psych: Calm and Intact Judgement/Insight
Data Reviewed
-
CT Scan: Report Reviewed by me
Labs: Labs Reviewed by me
--- NOTE | 2024-02-17 09:36 | PN.CDI ---
CDI
- -
CDI:
Physician Documentation Request
Admit Date: 02/15/24 12:09
Dear Doctor Anuradha,
Please review the following and provide your response in the progress notes.
Clinical Indicators:
Pt admitted with Acute on Chronic Hypoxic Respiratory failure/ Interstitial Lung Disease / Pulmonary Fibrosis exacerbation
Pulmonology consult, ' In the ER she was febrile to 102.7 �F, tachycardic to 125....Labs showed leukocytosis of 24.5...'
Progress notes 02/15 &02/16, ' Fever DOA blood culture negative, procal negative, COVID/flu negative, urine Legionella/Strep Ag negative cover with short course empiric Abx with cefepime and doxycycline (immune compromised state)...'
Please clarify which most accurately describes the patient:
SIRS due to a non-infectious source with Acute Organ Dysfunction /Acute Hypoxic respiratory Failure
Interstitial Lung Disease / Pulmonary Fibrosis exacerbation -Only
Other ( please specify)
Use of terms such as suspected, likely, concern for, or probable (associated with a specific diagnosis that is being evaluated, monitored, or treated as if it exists) are acceptable and can be coded in the inpatient setting, when documented at the
time of discharge.
Thank you,
Elin Sherman RN
CDI Specialist
[place] [facility]
Please use your independent medical judgment in providing your response.
[2024-02-17] MEDS: IMURAN 100 MG PO ×2 (09:58→20:46)
[2024-02-17] MEDS: ZOLOFT 75 MG PO (09:59)
[2024-02-17] MEDS: NORVASC 2.5 MG PO (09:59)
[2024-02-17] MEDS: OCUVITE SOFTGEL 1 CAP PO ×2 (09:59→20:46)
[2024-02-17] MEDS: LOW STRENGTH ASPIRIN 81 MG PO (09:59)
[2024-02-17] MEDS: PROTONIX 40 MG PO (10:01)
[2024-02-17] MEDS: LASIX 20 MG PO (10:01)
[2024-02-17] MEDS: ZOLOFT 100 MG PO (10:01)
[2024-02-17] MEDS: ZESTRIL 10 MG PO (10:02)
[2024-02-17] MEDS: FIRST-MOUTHWASH BLM SUSPENSION 5 ML PO (10:02)
[2024-02-17] MEDS: SOLU-MEDROL PF 40 MG IV ×3 (10:06→23:00)
[2024-02-17] MEDS: ORAJEL 10% GEL 1 APPLIC TOPICAL ×3 (10:07→20:47)
[2024-02-17] MEDS: COLACE 100 MG PO (10:17)
[2024-02-17] MEDS: BUSPAR 10 MG PO ×2 (10:17→20:46)
--- NOTE | 2024-02-17 10:48 | W.PN.PUL3 ---
Today's Communication / Plan
-
Continue current prednisone dose
Continue Imuran
Continue high flow oxygen, wean down as able
Continue antibiotics for additional 24 hours and discontinue if all cultures remain negative and patient remains afebrile.
Will continue to follow
Assessment
-
Assessment: 73-year-old female with a past medical history of ANCA positive vasculitis/microscopic polyangiitis, ILD, chronic hypoxic respiratory failure on home O2, EMERSON on auto CPAP, history of breast cancer s/p lumpectomy/XRT (2001),
steroid-induced diabetes, morbid obesity and restrictive lung disease who presents with worsening shortness of breath. She was recently hospitalized here and was discharged home on 02/05/2024 with 50 mg prednisone. She had apparently been on 60 mg
prednisone daily since that hospital discharge and was told to wean down the dose as she improves but she never wean down the dose as she never felt like she was improving. She was saturating 67% while on CPAP via EMS. In the ER she was febrile to
102.7 �F, tachycardic to 125, breathing at 20 breaths minute, BP 177/71 and saturating 68% on CPAP. She was changed to BiPAP with sats improving to 77%, and eventually able to be transition to mid flow nasal cannula at 15 L/min with saturations at
98%. Labs showed leukocytosis of 24.5, anemia to 9.5, lactate 3.4, troponin WNL at 0.029, proBNP 371, and COVID-19 antigen negative. Blood cultures were collected, and flu A/B swab was negative. CXR showed acute pneumonitis on chronic parenchymal
disease, and CTA chest showed no evidence of acute PE with worsening bilateral parenchymal opacities with increasing groundglass opacities bilaterally. In the ER she was given 40 mg IV Lasix, DuoNebs, Ativan, Ofirmev and Zofran. She was admitted
to the IMU and now pulmonary consulted for additional management/recommendations.
Chronic medical conditions PULL UP HAND: Interstitial lung disease, ANCA-positive vasculitis/microscopic polyangiitis, chronic hypoxic respiratory failure on home O2 at 8 L/min, EMERSON on CPAP, degenerative disc disease, incisional hernia s/p repair with mesh,
hypercholesterolemia, thyroid disease, history of breast cancer s/p lumpectomy + XRT (2001), steroid-induced diabetes, hypertension, history of diverticulosis, hearing loss, restrictive lung disease, iron deficiency anemia, history of COVID-19
(December 30, 2023) s/p Paxlovid, GERD, history of mild pulmonary hypertension, steroid-induced osteoporosis
Impression:
#Acute on chronic respiratory failure with hypoxia due to suspected ILD exacerbation; DDx also includes progressive ILD
#Leukocytosis, likely steroid-induced
#Anemia (baseline Hb 9.5�11g/dL)
#Lactic acidosis � resolved
#Febrile illness � patient is nontoxic-appearing with negative procalcitonin (<0.05)
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
#Moderate restrictive lung disease (T%, VC: 85% with moderate gas exchange capacity defect via PFT from June 2021)
#EMERSON on auto-CPAP 5-20 cmH2O (average pressure: 7.8cmH2O with residual AHI: 1.6 for 30-day period of 12/13 - 01/12/2024)
#Morbid obesity
#Recent history of COVID-19 (12/30/2023) recently on baricitinib, now off
#Former tobacco use (quit in 01/2003 with 60-PY Hx)
Plan:
- Given her high BMI, would want to use steroid sparing agent --> resumed imuran 100mg BID-Case was discussed with ILD restaurant service manager through Dr. Latha Denise and she agreed with this strategy.
- Given that the pt was on chronic prednisone 60mg daily, continue systemic steroids with plans to wean; unable to stop immediately as this could place her at risk for adrenal insufficiency. Continue with a slow taper,CRP elevated but lower than
prior, sedimentation rate 85 elevated as well.
- Continue bactrim 1 DS tab TIW
- Maintain euglycemia with goal BG >100 and <180
Fever curve improved/persistent leukocytosis may be driven by steroids. Fever may be driven by autoimmune process. All cultures negative, Legionella, strep pneumo antibodies negative.- UA negative for UTI
-Continue empiric antibiotics (cefepime/Doxy) -will consider discontinuation of antibiotics in the next 24 hours if all cultures remain negative and she remains afebrile.
- Given that her procal is <0.5 and she is non-toxic appearing, I have low suspicion for infection.
- Continue high flow nasal cannula and wean FiO2 and flow rate as tolerated 80% -50LPM
- Maintain SpO2 >90-94%
- She currently does not have a cough so no need for mucolytics at this time
- Antitussants prn
- DuoNebs TID + pulmicort BID with prn nebulized bronchodilators
- No current signs of volume overload so hold off on diuresis; if patient's O2 requirements do not improve despite imuran then diuresis could be attempted.
- Echo performed today (02/16/2024) showing preserved LVEF at 55 to 60% with mild MR, mild aortic stenosis and mild�moderate TR with moderate pulmonary hypertension with PASP 47 mmHg
- She uses auto-CPAP at home however given her SOB I started nocturnal BiPAP 15/12, and titrate O2 flow rate to keep sats >90%
-
Anemia, hemoglobin 7.8. Contributing to symptoms.
Continue to follow
Transfuse as necessary if hemoglobin getting closer to 7 g/dL.
- Incentive spirometer encouraged 10x per hour for at least 4 hrs a day, as tolerated
- PT/OT once O2 requirements improve
- DVT ppx: LMWH
Pulmonary service will continue to follow along. She will continue to follow along with us in the office. Continue follow-up with Dr. Rausch as well as ILD-pulmonary at [facility], Dr. Latha Mendez
Data:
CTA Chest 02/15/2024:
Respiratory motion limits evaluation of the segmental and subsegmental pulmonary arteries, basically nondiagnostic for these arteries. There is no evidence for central pulmonary embolism.
Comparing to CT examination of April 28, 2024, interval increase in bilateral parenchymal opacities, with increase in groundglass opacities predominantly. Findings would suggest acute pneumonitis superimposed on chronic parenchymal changes.
Table honeycombing in both lung bases.
There is mild to moderate elevation right hemidiaphragm.
CXR 02/15/2024: Radiographic findings are suggestive of acute pneumonitis superimposed on chronic parenchymal disease.
Subjective Data
-
Date of Service:
Date of Service: February 17, 2024
Chief Complaint: Pulmonary Follow Up (Acute hypoxemic respiratory failure/acute ILD exacerbation)
Subjective:
Remains on high flow oxygen
Continues to report exertional dyspnea
Denies hemoptysis
Denied purulent sputum production
Review of Systems
General: Fever (n)
Cardiopulmonary: Dyspnea, Dyspnea on Exertion and Cough
GI: Abdominal Pain (n) and Nausea (n)
Neuro: Headache (n)
Objective Data
Data Reviewed
Vital Signs / I&O / Oxygen:
Vital Signs
Temp Pulse Resp BP Pulse Ox
98.3 F 88 15 152/63 93
02/17/24 07:15 02/17/24 07:57 02/17/24 07:57 02/17/24 06:00 02/17/24 07:57
Intake and Output
02/16/24 02/17/24 02/18/24
06:59 06:59 06:59
Intake Total 260 / 260 600 / 600
Output Total 1969 / 1970 1820 / 1820
Balance -1710 / -1710 -1220 / -1220
SaO2 93
Nasal Cannula flow liters per 40
minute
Physical Exam
General: Respiratory Distress (negative), Comfortable, Chills (negative) and Sweats (negative)
HEENT: Normocephalic and Anicteric
Cardiovascular: S1-S2 and Peripheral Edema (negative)
Respiratory: Wheeze (negative), Crackles (Bilateral (worst at left posterior base)), Rhonchi (negative) and Non-Labored Respirations
GI: Soft, Distended (Abdominal obesity), Non Tender and Normal Bowel Sounds
Neurology: AO x 3 and Tremors (negative)
Skin: Warm, Dry, Cyanosis (negative) and Jaundice (negative)
Labs/Micro/Reports
Lab Data
02/17/24 05:20
02/17/24 05:20
Microbiology
02/15/24 08:12 Blood/Venous Blood Culture - Preliminary
No Growth in 48 hours- Final report to follow
02/15/24 07:49 Blood/Venous Blood Culture - Preliminary
No Growth in 48 hours- Final report to follow
02/15/24 20:19 Urine Legionella Urinary Antigen - Final
Negative for Legionella pneumophila Serogroup 1 antigen.
A negative result does not rule out the possiblity of
Legionella infection due to other serogroups or species of
Legionella. Clinical correlation is recommended.
02/15/24 20:19 Urine Streptococcus pneumoniae Antigen (M - Final
Negative for Streptococcus pneumoniae antigen.
A negative result does not exclude infection with
Streptococcus pneumoniae. Clinical correlation is
recommended.
02/15/24 07:49 Nasal Swab Influenza Types A & B (MÓNICA) - Final
Negative for Influenza A & B, NAAT
Negative results must be combined with clinical observations
and patient history.
Nucleic Acid Amplification test (NAAT)performed on the
[employer] platform.
[2024-02-17] MEDS: VIBRAMYCIN 100 MG PO ×2 (13:02→23:02)
[2024-02-17] MEDS: LOVENOX 40 MG SC (17:31)
[2024-02-17] MEDS: LIPITOR 40 MG PO (20:46)
[2024-02-17] MEDS: MELATONIN PO (20:47)
[2024-02-17] MEDS: BACTROBAN 2% OINTMENT 1 APPLIC TOPICAL (20:48)
[2024-02-17] MEDS: ATIVAN 0.5 MG IV (23:01)
[2024-02-17] MEDS: NSS (PRESERVATIVE FREE) 0.25 ML IV (23:02)
[2024-02-18] VITALS (14 sets, daily range): BP systolic 110–164; BP diastolic 48–84; PULSE 2–91; O2SAT 92–95; BMI 47.5
[2024-02-18 00:43] LABS: Hepatitis C Antibody Negative (Negative)
[2024-02-18] MEDS: STERILE WATER FOR INJECTION 10 ML IV (04:32)
[2024-02-18] MEDS: SYNTHROID 150 MCG PO (04:32)
[2024-02-18] MEDS: MAXIPIME 2000 MG IV (04:32)
[2024-02-18 05:27] LABS: % Basophils 0.1 % (0-2); % Eosinophils 0.5 % (0-6); % Immature Granulocytes 1.9 % (0-0.5); % Lymphocytes 2.3 % (20.5-51.1); % Monocytes 2.3 % (1.7-9.3); % Neutrophils 92.9 % (42.2-75.2); Absolute Eosinophils 0.1 10^3/uL (0-0.7); Absolute Immature Granulocytes 0.3 10^3/uL (0-0.05); Absolute Lymphocytes 0.4 10^3/uL (1.2-3.4); Absolute Monocytes 0.4 10^3/uL (0.1-0.6); Absolute Neutrophils 14.4 10^3/uL (1.4-6.5); Hematocrit 25.3 % (37.0-47.0); Hemoglobin 8.2 g/dL (12.0-16.0); Mean Corp Hgb Conc. 32.4 g/dL (33.0-37.0); Mean Corpuscular Hgb 27.3 pg (27.0-31.0); Mean Corpuscular Volume 84.3 fL (81.0-99.0); Mean Platelet Volume 10.4 fL (7.4-10.4); Nucleated Red Blood Cells % 0 %; Platelet Count 274 10^3/uL (130-400); Red Cell Dist. Width 15.1 % (11.5-14.5); White Blood Cell Count 15.5 10^3/uL (4.8-10.8)
[2024-02-18 05:40] LABS: Blood Urea Nitrogen 52 mg/dl (7-17); Calcium 9.6 mg/dl (8.4-10.2); Carbon Dioxide 23 mmol/L (22-30); Chloride 96 mmol/L (98-107); Estimated Creatinine Clearance 67 ml/min; Glucose 166 mg/dl (70-99); Magnesium 2.1 mg/dl (1.6-2.3); Potassium 5.2 mmol/L (3.5-5.1); Sodium 134 mmol/L (135-145); eGFR 59.86
--- NOTE | 2024-02-18 05:55 | PTCARENOTE ---
Patient tolerated Bipap HS. switched out mask for better fit/keep sp02 >90%. Denies any pain. voids via purewick. Repositions self while in bed. Tele showing NSR. prn ativan pt request for sleep.call slater and tray table within reach.
[2024-02-18] MEDS: DUONEB 3 ML INH ×3 (07:44→19:13)
[2024-02-18] MEDS: PULMICORT 0.5 MG INH ×2 (07:44→19:13)
--- NOTE | 2024-02-18 08:03 | W.PN.HOSP.TC ---
Today's Communication/Plan
-
see A/P
Assessment / Plan
Assessment / Plan
HPI: 73 yo F with PMH significant for pulm fibrosis / ILD on chronic Rituxan and on home O2 at 8 LPM, chronic CHF, morbid obesity, was discharged 10 days ago and returned for worsening SOB likely due to pulmonary fibrosis exacerbation. Of note, she
was seen by in store marketer and was started with Olumiant for presumed chronic COVID lung disease (took for 5 days).
Patient was found to be in severe respiratory distress with initial pulse ox in the 50s by EMS. Patient was given nebulizer treatment, Solu-Medrol 125 mg IV, and placed on CPAP, with improvement en route to the hospital.
In the ED, she was noted to be febrile at 38.[address] Chest on admission:
Respiratory motion limits evaluation of the segmental and subsegmental pulmonary arteries, basically nondiagnostic for these arteries. There is no evidence for central pulmonary embolism.
Comparing to CT examination of April 28, 2024, interval increase in bilateral parenchymal opacities, with increase in groundglass opacities predominantly. Findings would suggest acute pneumonitis superimposed on chronic parenchymal changes.
Table honeycombing in both lung bases.
A/P:
# Acute on Chronic Hypoxic Respiratory Failure
# Interstitial Lung Disease / Pulmonary Fibrosis exacerbation
neg for PE
Hold further INDUSTRIAL ECOLOGY TECHNICIAN Olumiant
Cont IV methylprednisone for ILD flare/pulm fibrosis, 40mg Q8H
Cont INDUSTRIAL ECOLOGY TECHNICIAN Imuran
Continue O2 support, was on 100 % high flow NC, now at 80%, baseline O2 at 8 LPM
Continue supportive care with Duonebs ATC
Pulm on board
# Fever DOA/ SIRS
blood culture negative, procal negative, COVID/flu negative, urine Legionella/Strep Ag negative
cover with short course empiric Abx with cefepime and doxycycline (immune compromised state)
# Mild transaminitis likely reactive, resolved
# ANCA Positive Vasculitis
# immune compromised state
cont INDUSTRIAL ECOLOGY TECHNICIAN Bactrim
# Benign Hypertension
Continue Norvasc with hold parameter
Holding lisinopril for hyperkalemia
# Hyperkalemia
holding lisinopril
Cont INDUSTRIAL ECOLOGY TECHNICIAN Bactrim for now
Monitor K level
# Chronic HFpEF
recent with EF of 55-60%
cont INDUSTRIAL ECOLOGY TECHNICIAN Lasix
# Hypothyroidism
Continue with Synthroid
# Anemia of Chronic Disease
# Hyperlipidemia
Continue with Lipitor
# Morbid Obesity
# Sleep apnea
BMI 37
INDUSTRIAL ECOLOGY TECHNICIAN CPAP at bedtime
# History of left breast cancer with lumpectomy and radiation in 2001
# Anxiety and depression
Continue with Zoloft and BuSpar
# GERD
PPI continued
# oral ulcer
oral gel for oral ulcers
DVT ppx: Lovenox SQ
FC
CC for hypoxic respiratory failure now on high flow
CC time 40 min
Anticipated Discharge: > 48 hours
Subjective/Interval History
-
Date of Service: February 18, 2024
Objective Data
-
Labs:
Laboratory Results
02/18/24
04:24
WBC 15.5 H
Hgb 8.2 L
Hct 25.3 L
Plt Count 274
Sodium 134 L
Potassium 5.2 H
Chloride 96 L
Carbon Dioxide 23
BUN 52 H
Creatinine 1.0
Glucose 166 H
Calcium 9.6
Vital Signs:
Vital Signs
Temp Pulse Resp BP Pulse Ox
36.8 C 88 14 133/51 92
02/18/24 07:00 02/18/24 07:53 02/18/24 07:53 02/18/24 04:00 02/18/24 07:55
I&O
02/17/24 02/18/24 02/19/24
06:59 06:59 06:59
Intake Total 600 / 600
Output Total 1820 / 1820 1000 / 1000
Balance -1220 / -1220 -1000 / -1000
Review of Systems
-
Respiratory: Reports Trouble Breathing (improving)
Physical Exam
-
General: Well Developed, Well Nourished, Comfortable, Respiratory Distress (chronic), Conversant and Morbidly Obese
HEENT: Normocephalic, Atraumatic, Nose Appears Normal, Ears Appear Normal and Oxygen (high flow NC )
Respiratory: Clear to Auscultation, Crackles (fine crackles at bases) and Non Labored Respirations; Negative Accessory Resp Muscle Use
Cardiac: Regular Rhythm and S1/S2
GI: Soft, Nontender, Nondistended and Normal Bowel Sounds
Skin: Warm and Dry
Neuro: Awake, Alert, Oriented and AO x 3
Psych: Calm and Intact Judgement/Insight
Data Reviewed
-
CT Scan: Report Reviewed by me
Labs: Labs Reviewed by me
--- NOTE | 2024-02-18 09:07 | WOUNDNOTE ---
R UPPER LIP NEAR CHEEK
--- NOTE | 2024-02-18 09:07 | WOUNDNOTE ---
LIP (LOWER INSIDE)
--- NOTE | 2024-02-18 09:24 | WOUNDNOTE ---
[facility] RN note: Patient admitted with sob/respiratory distress. Patient lives at home.
See H&P for complete history.
PMH: Pulmonary fibrosis, on prednisone, ILD (Rituxan), home o2, breast ca with lumpectomy and radiation, EMERSON (CPAP), cholecystectomy, hernia repair, obesity.
Wound Location and type/assessment: Patient admitted with: R upper lip dermal crusted ulcer suspect is herpetic 'cold sore' vs impetigo. Patient on 2 antibiotics. She stated she has been on topical Bactroban x 7 days without change. She mentioned
she was scrubbing it clean at night. Sacral bruises. Bruises on lower abdomen.
Appetite: good.
Pressure redistribution devices in place: Centrella Max air bed. Patient can turn self in bed. She lifts her legs/heels off bed.
Plan: Cleansed upper lip wound with saline, instructed patient use of small silicone foam or gauze pad under bipap mask at bedtime.
Will confirm orders with Dr. Ling and update CORRINA Fulton.
Care plan to be updated and will follow as needed.
Note to case management requested for discharge: VN if goes home when discharged.
[2024-02-18] MEDS: ZOLOFT 75 MG PO (10:41)
[2024-02-18] MEDS: COLACE 100 MG PO (10:42)
[2024-02-18] MEDS: LASIX 20 MG PO (10:42)
[2024-02-18] MEDS: BUSPAR 10 MG PO ×2 (10:43→21:22)
[2024-02-18] MEDS: IMURAN 100 MG PO ×2 (10:43→21:19)
[2024-02-18] MEDS: NORVASC 2.5 MG PO ×2 (10:44→10:46)
[2024-02-18] MEDS: PROTONIX 40 MG PO (10:44)
[2024-02-18] MEDS: ZOLOFT 100 MG PO (10:45)
[2024-02-18] MEDS: OCUVITE SOFTGEL 1 CAP PO ×2 (10:46→21:19)
[2024-02-18] MEDS: LOW STRENGTH ASPIRIN 81 MG PO (10:47)
[2024-02-18] MEDS: SOLU-MEDROL PF 40 MG IV ×3 (10:47→23:55)
[2024-02-18] MEDS: ORAJEL 10% GEL 1 APPLIC TOPICAL ×3 (10:48→21:21)
--- NOTE | 2024-02-18 10:53 | W.PN.PUL3 ---
Today's Communication / Plan
-
Continue prednisone at the current dose
Continue Imuran
Oxygen for supplementation-currently on high flow oxygen 75% FiO2.
Hold antibiotics today and observe
Assessment
-
Assessment: 73-year-old female with a past medical history of ANCA positive vasculitis/microscopic polyangiitis, ILD, chronic hypoxic respiratory failure on home O2, EMERSON on auto CPAP, history of breast cancer s/p lumpectomy/XRT (2001),
steroid-induced diabetes, morbid obesity and restrictive lung disease who presents with worsening shortness of breath. She was recently hospitalized here and was discharged home on 02/05/2024 with 50 mg prednisone. She had apparently been on 60 mg
prednisone daily since that hospital discharge and was told to wean down the dose as she improves but she never wean down the dose as she never felt like she was improving. She was saturating 67% while on CPAP via EMS. In the ER she was febrile to
102.7 �F, tachycardic to 125, breathing at 20 breaths minute, BP 177/71 and saturating 68% on CPAP. She was changed to BiPAP with sats improving to 77%, and eventually able to be transition to mid flow nasal cannula at 15 L/min with saturations at
98%. Labs showed leukocytosis of 24.5, anemia to 9.5, lactate 3.4, troponin WNL at 0.029, proBNP 371, and COVID-19 antigen negative. Blood cultures were collected, and flu A/B swab was negative. CXR showed acute pneumonitis on chronic parenchymal
disease, and CTA chest showed no evidence of acute PE with worsening bilateral parenchymal opacities with increasing groundglass opacities bilaterally. In the ER she was given 40 mg IV Lasix, DuoNebs, Ativan, Ofirmev and Zofran. She was admitted
to the IMU and now pulmonary consulted for additional management/recommendations.
Chronic medical conditions MEDICAL COLLECTIONS: Interstitial lung disease, ANCA-positive vasculitis/microscopic polyangiitis, chronic hypoxic respiratory failure on home O2 at 8 L/min, EMERSON on CPAP, degenerative disc disease, incisional hernia s/p repair with mesh,
hypercholesterolemia, thyroid disease, history of breast cancer s/p lumpectomy + XRT (2001), steroid-induced diabetes, hypertension, history of diverticulosis, hearing loss, restrictive lung disease, iron deficiency anemia, history of COVID-19
(December 30, 2023) s/p Paxlovid, GERD, history of mild pulmonary hypertension, steroid-induced osteoporosis
Impression:
#Acute on chronic respiratory failure with hypoxia due to suspected ILD exacerbation; DDx also includes progressive ILD
#Leukocytosis, likely steroid-induced
#Anemia (baseline Hb 9.5�11g/dL)
#Lactic acidosis � resolved
#Febrile illness � patient is nontoxic-appearing with negative procalcitonin (<0.05)
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
#Moderate restrictive lung disease (T%, VC: 85% with moderate gas exchange capacity defect via PFT from June 2021)
#EMERSON on auto-CPAP 5-20 cmH2O (average pressure: 7.8cmH2O with residual AHI: 1.6 for 30-day period of 12/13 - 01/12/2024)
#Morbid obesity
#Recent history of COVID-19 (12/30/2023) recently on baricitinib, now off
#Former tobacco use (quit in 01/2003 with 60-PY Hx)
Plan:
-
Overall since yesterday slight improvement remains on high flow oxygen 75% 50 L/min.
Pulse ox during my evaluation and conversation 92 to 94%.
Patient not in distress.
Does not appear toxic.
-
Continue prednisone at the current dose 60 mg with a very slow taper.
Dr. Blake has discussed the case with Dr. Latha Mendez ILD clinic from [facility], Dr. Daley patient's medicine tech.
I also communicated with him as well.
-
Continue Imuran
Continue slow prednisone taper. Will try to avoid IV corticosteroids as she was recently discharged from the hospital with prolonged IV corticosteroid usage.
CRP elevated but lower than prior admission at 85.
- Continue bactrim 1 DS tab TIW
- Maintain euglycemia with goal BG >100 and <180
Fever curve improved/persistent leukocytosis may be driven by steroids. Fever may be driven by autoimmune process. All cultures negative, Legionella, strep pneumo antibodies negative.- UA negative for UTI.
Given that her procal is <0.5 and she is non-toxic appearing, I have low suspicion for infection.
Afebrile.
-Will discontinue antibiotics today and observe. 02/18/2024 (received cefepime/doxycycline)
- Continue high flow nasal cannula and wean FiO2 and flow rate as tolerated 70 % -50LPM
- Maintain SpO2 >90-94%
- She currently does not have a cough so no need for mucolytics at this time
- Antitussants prn
- DuoNebs TID + pulmicort BID with prn nebulized bronchodilators-to aid secretion clearance.
- No current signs of volume overload so hold off on diuresis; if patient's O2 requirements do not improve despite imuran then diuresis could be attempted.
- Echo (02/16/2024) showing preserved LVEF at 55 to 60% with mild MR, mild aortic stenosis and mild�moderate TR with moderate pulmonary hypertension with PASP 47 mmHg
- She uses auto-CPAP at home however given her SOB I started nocturnal BiPAP 15/12, and titrate O2 flow rate to keep sats >90%
-
Anemia, hemoglobin 8.2 Contributing to symptoms.
Continue to follow.
If transfuse patient is for TRALI.
Transfuse as necessary if hemoglobin getting closer to 7 g/dL.
- Incentive spirometer encouraged 10x per hour for at least 4 hrs a day, as tolerated
- PT/OT once O2 requirements improve
- DVT ppx: LMWH
Pulmonary service will continue to follow along. She will continue to follow along with us in the office. Continue follow-up with Dr. Rausch as well as ILD-pulmonary at [facility], Dr. Latha Mendez

Data:
CTA Chest 02/15/2024:
Respiratory motion limits evaluation of the segmental and subsegmental pulmonary arteries, basically nondiagnostic for these arteries. There is no evidence for central pulmonary embolism.
Comparing to CT examination of April 28, 2024, interval increase in bilateral parenchymal opacities, with increase in groundglass opacities predominantly. Findings would suggest acute pneumonitis superimposed on chronic parenchymal changes.
Table honeycombing in both lung bases.
There is mild to moderate elevation right hemidiaphragm.
CXR 02/15/2024: Radiographic findings are suggestive of acute pneumonitis superimposed on chronic parenchymal disease.
Subjective Data
-
Date of Service:
Date of Service: February 18, 2024
Chief Complaint: Pulmonary Follow Up (Acute hypoxemic respiratory failure/acute ILD exacerbation)
Subjective:
Feels slightly better
Currently sitting out of bed.
Remains on high flow oxygen
Denies hemoptysis or purulent sputum production.
Denies chest pain.
Review of Systems
Cardiopulmonary: Dyspnea, Dyspnea on Exertion and Sputum Production (n)
GI: Abdominal Pain (nn) and Nausea (n)
Objective Data
Data Reviewed
Vital Signs / I&O / Oxygen:
Vital Signs
Temp Pulse Resp BP Pulse Ox
98.2 F 88 14 133/51 92
02/18/24 07:00 02/18/24 07:53 02/18/24 07:53 02/18/24 04:00 02/18/24 07:55
Intake and Output
02/17/24 02/18/24 02/19/24
06:59 06:59 06:59
Intake Total 600 / 600
Output Total 1820 / 1820 1000 / 1000
Balance -1220 / -1220 -1000 / -1000
SaO2 92
Nasal Cannula flow liters per 40
minute
Physical Exam
General: Respiratory Distress (negative), Comfortable, Chills (negative) and Sweats (negative)
HEENT: Normocephalic and Anicteric
Cardiovascular: S1-S2 and Peripheral Edema (negative)
Respiratory: Wheeze (negative), Crackles (Bilateral (worst at left posterior base)), Rhonchi (negative) and Non-Labored Respirations
GI: Soft, Distended (Abdominal obesity), Non Tender and Normal Bowel Sounds
Neurology: AO x 3 and Tremors (negative)
Skin: Warm, Dry, Cyanosis (negative) and Jaundice (negative)
Labs/Micro/Reports
Lab Data
02/18/24 04:24
02/18/24 04:24
Microbiology
02/15/24 08:12 Blood/Venous Blood Culture - Preliminary
No Growth in 72 hours- Final report to follow
02/15/24 07:49 Blood/Venous Blood Culture - Preliminary
No Growth in 72 hours- Final report to follow
02/15/24 20:19 Urine Legionella Urinary Antigen - Final
Negative for Legionella pneumophila Serogroup 1 antigen.
A negative result does not rule out the possiblity of
Legionella infection due to other serogroups or species of
Legionella. Clinical correlation is recommended.
02/15/24 20:19 Urine Streptococcus pneumoniae Antigen (M - Final
Negative for Streptococcus pneumoniae antigen.
A negative result does not exclude infection with
Streptococcus pneumoniae. Clinical correlation is
recommended.
02/15/24 07:49 Nasal Swab Influenza Types A & B (MÓNICA) - Final
Negative for Influenza A & B, NAAT
Negative results must be combined with clinical observations
and patient history.
Nucleic Acid Amplification test (NAAT)performed on the
[employer] platform.
[2024-02-18] MEDS: BACTRIM DS 800 MG/160 MG 1 TABLET PO (13:16)
--- NOTE | 2024-02-18 14:45 | CM ---
Patient with Dx Acute Hypoxic Respiratory Failure, ILD, SIRS. High flow O2. BiPAP HS. Receiving IV Steroids. PT recommends HH. OT; HH vs skilled. Seen by wound care nurse.
CM continuing to follow.
Plan probable home with resumption [facility].
[2024-02-18] MEDS: LOVENOX 40 MG SC (17:23)
[2024-02-18] MEDS: ZOVIRAX OINTMENT 5% TOPICAL (17:24)
--- NOTE | 2024-02-18 18:09 | PTCARENOTE ---
pt oob in chair most of shift. high flow weaned to 40 wrgydl24% by resp therapy with sats 89 to 94. pt with some dyspnea on exertion but reports feeling better than yesterday. appetite is good. voiding and bm in bedside commode. fami;ly at bedside
most odf day. pt now back in bed. sinus rythym on monitor.
[2024-02-18] MEDS: LIPITOR 40 MG PO (21:19)
[2024-02-18] MEDS: MELATONIN PO (21:20)
[2024-02-18] MEDS: ZOVIRAX OINTMENT 5% 1 APPLIC TOPICAL (21:21)
[2024-02-18] MEDS: ATIVAN 0.5 MG IV (22:02)
[2024-02-18] MEDS: FLUSH (NSS) 2 FLUSH IV ×2 (22:03→23:55)
[2024-02-19] VITALS (13 sets, daily range): BP systolic 117–160; BP diastolic 56–101; PULSE 2–71; BMI 46.7
[2024-02-19 05:17] LABS: % Basophils 0.2 % (0-2); % Eosinophils 0.1 % (0-6); % Immature Granulocytes 2.5 % (0-0.5); % Monocytes 2.3 % (1.7-9.3); % Neutrophils 91.9 % (42.2-75.2); Absolute Immature Granulocytes 0.4 10^3/uL (0-0.05); Absolute Lymphocytes 0.5 10^3/uL (1.2-3.4); Absolute Monocytes 0.4 10^3/uL (0.1-0.6); Absolute Neutrophils 13.9 10^3/uL (1.4-6.5); Hematocrit 26.1 % (37.0-47.0); Hemoglobin 8.7 g/dL (12.0-16.0); Mean Corp Hgb Conc. 33.3 g/dL (33.0-37.0); Mean Corpuscular Hgb 28.8 pg (27.0-31.0); Mean Corpuscular Volume 86.4 fL (81.0-99.0); Mean Platelet Volume 10.9 fL (7.4-10.4); Nucleated Red Blood Cells % 0.1 %; Platelet Count 282 10^3/uL (130-400); Red Blood Cell Count 3.02 10^6/uL (4.20-5.40); Red Cell Dist. Width 14.9 % (11.5-14.5); White Blood Cell Count 15.2 10^3/uL (4.8-10.8)
--- NOTE | 2024-02-19 05:21 | PTCARENOTE ---
Pt tolerating BIPAP overnight. AM weight down 4 lbs to 272. Pericare provided and purewick changed. VS remain stable. No change from previous assessment. Call slater remains within reach. Will continue to monitor.
[2024-02-19 05:36] LABS: Blood Urea Nitrogen 48 mg/dl (7-17); Calcium 9.9 mg/dl (8.4-10.2); Carbon Dioxide 22 mmol/L (22-30); Chloride 98 mmol/L (98-107); Estimated Creatinine Clearance 73 ml/min; Glucose 175 mg/dl (70-99); Potassium 5.6 mmol/L (3.5-5.1); Sodium 133 mmol/L (135-145); eGFR > 60.00
--- NOTE | 2024-02-19 08:09 | W.PN.HOSP.TC ---
Today's Communication/Plan
-
see A/P
Assessment / Plan
Assessment / Plan
HPI: 73 yo F with PMH significant for pulm fibrosis / ILD on chronic Rituxan and on home O2 at 8 LPM, chronic CHF, morbid obesity, was discharged 10 days ago and returned for worsening SOB likely due to pulmonary fibrosis exacerbation. Of note, she
was seen by insurance underwriter and was started with Olumiant for presumed chronic COVID lung disease (took for 5 days).
Patient was found to be in severe respiratory distress with initial pulse ox in the 50s by EMS. Patient was given nebulizer treatment, Solu-Medrol 125 mg IV, and placed on CPAP, with improvement en route to the hospital.
In the ED, she was noted to be febrile at 38.[address] Chest on admission:
Respiratory motion limits evaluation of the segmental and subsegmental pulmonary arteries, basically nondiagnostic for these arteries. There is no evidence for central pulmonary embolism.
Comparing to CT examination of April 28, 2024, interval increase in bilateral parenchymal opacities, with increase in groundglass opacities predominantly. Findings would suggest acute pneumonitis superimposed on chronic parenchymal changes.
Table honeycombing in both lung bases.
A/P:
# Acute on Chronic Hypoxic Respiratory Failure
# Interstitial Lung Disease / Pulmonary Fibrosis exacerbation
CT neg for PE
Hold further PRIMARY SUBSTANCE ABUSE COUNSELOR Olumiant
Cont IV methylprednisone for ILD flare/pulm fibrosis, 40mg Q8H
Cont PRIMARY SUBSTANCE ABUSE COUNSELOR Imuran
Continue O2 support, was on 100% high flow NC, now on 70%, baseline O2 at 8 LPM
Continue supportive care with Duonebs ATC
Pulm on board
# Fever DOA/ SIRS
blood culture negative, procal negative, COVID/flu negative, urine Legionella/Strep Ag negative
empiric Abx cefepime and doxycycline held (pt received 3 days)
# Mild transaminitis likely reactive, resolved
# ANCA Positive Vasculitis
# immune compromised state
cont PRIMARY SUBSTANCE ABUSE COUNSELOR Bactrim
# Benign Hypertension
Continue Norvasc with hold parameter
Holding lisinopril for hyperkalemia
# Hyperkalemia
holding lisinopril
Cont PRIMARY SUBSTANCE ABUSE COUNSELOR Bactrim for now
Monitor K level
# Chronic HFpEF
recent with EF of 55-60%
cont PRIMARY SUBSTANCE ABUSE COUNSELOR Lasix
# Hypothyroidism
Continue with Synthroid
# Anemia of Chronic Disease
# Hyperlipidemia
Continue with Lipitor
# Morbid Obesity
# Sleep apnea
BMI 37
PRIMARY SUBSTANCE ABUSE COUNSELOR CPAP at bedtime
# History of left breast cancer with lumpectomy and radiation in 2001
# Anxiety and depression
Continue with Zoloft and BuSpar
# GERD
PPI continued
# oral ulcer
oral gel for oral ulcers
# Mild anxiety
Low dose IV Ativan added
DVT ppx: Lovenox SQ
FC
CC for hypoxic respiratory failure now on high flow
CC time 40 min
Anticipated Discharge: > 48 hours
Subjective/Interval History
-
Date of Service: February 19, 2024
Objective Data
-
Labs:
Laboratory Results
02/19/24
04:45
WBC 15.2 H
Hgb 8.7 L
Hct 26.1 L
Plt Count 282
Sodium 133 L
Potassium 5.6 H
Chloride 98
Carbon Dioxide 22
BUN 48 H
Creatinine 0.9
Glucose 175 H
Calcium 9.9
Vital Signs:
Vital Signs
Temp Pulse Resp BP Pulse Ox
36.8 C 77 23 146/63 96
02/19/24 07:00 02/19/24 04:00 02/19/24 04:00 02/19/24 04:00 02/19/24 04:00
I&O
02/18/24 02/19/24 02/20/24
06:59 06:59 06:59
Intake Total 100 / 100
Output Total 1000 / 1000 1450 / 1450
Balance -1000 / -1000 -1350 / -1350
Review of Systems
-
Respiratory: Reports Trouble Breathing (improving)
Physical Exam
-
General: Well Developed, Well Nourished, Comfortable, Respiratory Distress (chronic), Conversant and Morbidly Obese
HEENT: Normocephalic, Atraumatic, Nose Appears Normal, Ears Appear Normal and Oxygen (high flow NC )
Respiratory: Clear to Auscultation, Crackles (fine crackles at bases) and Non Labored Respirations; Negative Accessory Resp Muscle Use
Cardiac: Regular Rhythm and S1/S2
GI: Soft, Nontender, Nondistended and Normal Bowel Sounds
Skin: Warm and Dry
Neuro: Awake, Alert, Oriented and AO x 3
Psych: Calm and Intact Judgement/Insight
Data Reviewed
-
CT Scan: Report Reviewed by me
Labs: Labs Reviewed by me
[2024-02-19] MEDS: SYNTHROID 150 MCG PO (08:21)
[2024-02-19] MEDS: COLACE 100 MG PO (08:27)
[2024-02-19] MEDS: BUSPAR 10 MG PO ×2 (08:27→21:10)
[2024-02-19] MEDS: LOW STRENGTH ASPIRIN 81 MG PO (08:27)
[2024-02-19] MEDS: OCUVITE SOFTGEL 1 CAP PO ×2 (08:27→21:10)
[2024-02-19] MEDS: ZOLOFT 100 MG PO (08:27)
[2024-02-19] MEDS: LASIX 20 MG PO (08:28)
[2024-02-19] MEDS: ZOLOFT 75 MG PO (08:28)
[2024-02-19] MEDS: ZOVIRAX OINTMENT 5% 1 APPLIC TOPICAL ×2 (08:29→21:11)
[2024-02-19] MEDS: IMURAN 100 MG PO ×2 (08:29→21:11)
[2024-02-19] MEDS: SOLU-MEDROL PF 40 MG IV ×3 (08:29→23:12)
[2024-02-19] MEDS: PROTONIX 40 MG PO (08:29)
[2024-02-19] MEDS: ORAJEL 10% GEL 1 APPLIC TOPICAL ×3 (08:31→21:12)
[2024-02-19] MEDS: DUONEB 3 ML INH ×3 (08:40→20:19)
[2024-02-19] MEDS: PULMICORT 0.5 MG INH ×2 (08:40→20:19)
--- NOTE | 2024-02-19 12:00 | W.PN.PUL.V3 ---
Today's Communication / Plan
-
Attempt to wean FiO2
Slowly increase activity
Solu-Medrol 40 mg IV every 8 hours
Bactrim continues
Continue nebulizers
Continue Imuran
Assessment
-
Assessment: 73-year-old female with a past medical history of ANCA positive vasculitis/microscopic polyangiitis, ILD, chronic hypoxic respiratory failure on home O2, EMERSON on auto CPAP, history of breast cancer s/p lumpectomy/XRT (2001),
steroid-induced diabetes, morbid obesity and restrictive lung disease who presents with worsening shortness of breath. She was recently hospitalized here and was discharged home on 02/05/2024 with 50 mg prednisone. She had apparently been on 60 mg
prednisone daily since that hospital discharge and was told to wean down the dose as she improves but she never wean down the dose as she never felt like she was improving. She was saturating 67% while on CPAP via EMS. In the ER she was febrile to
102.7 �F, tachycardic to 125, breathing at 20 breaths minute, BP 177/71 and saturating 68% on CPAP. She was changed to BiPAP with sats improving to 77%, and eventually able to be transition to mid flow nasal cannula at 15 L/min with saturations at
98%. Labs showed leukocytosis of 24.5, anemia to 9.5, lactate 3.4, troponin WNL at 0.029, proBNP 371, and COVID-19 antigen negative. Blood cultures were collected, and flu A/B swab was negative. CXR showed acute pneumonitis on chronic parenchymal
disease, and CTA chest showed no evidence of acute PE with worsening bilateral parenchymal opacities with increasing groundglass opacities bilaterally. In the ER she was given 40 mg IV Lasix, DuoNebs, Ativan, Ofirmev and Zofran. She was admitted
to the IMU and now pulmonary consulted for additional management/recommendations.
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
hypercholesterolemia, thyroid disease, history of breast cancer s/p lumpectomy + XRT (2001), steroid-induced diabetes, hypertension, history of diverticulosis, hearing loss, restrictive lung disease, iron deficiency anemia, history of COVID-19
(December 30, 2023) s/p Paxlovid, GERD, history of mild pulmonary hypertension, steroid-induced osteoporosis
Impression:
#Acute on chronic respiratory failure with hypoxia due to suspected ILD exacerbation; DDx also includes progressive ILD
#Leukocytosis, likely steroid-induced
#Anemia (baseline Hb 9.5�11g/dL)
#Lactic acidosis � resolved
#Febrile illness � patient is nontoxic-appearing with negative procalcitonin (<0.05)
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
#Moderate restrictive lung disease (T%, VC: 85% with moderate gas exchange capacity defect via PFT from June 2021)
#EMERSON on auto-CPAP 5-20 cmH2O (average pressure: 7.8cmH2O with residual AHI: 1.6 for 30-day period of 12/13 - 01/12/2024)
#Morbid obesity
#Recent history of COVID-19 (12/30/2023) recently on baricitinib, now off
#Former tobacco use (quit in 01/2003 with 60-PY Hx)
Plan:
Respiratory status slowly improving
Continue supplemental oxygen-currently on high flow-attempt to wean
Incentive spirometry
Nebulizers if needed-not bronchospastic-currently on DuoNebs 3 times daily and Pulmicort twice daily
BiPAP 15/8 cm at night-tolerating well-has AutoPap at home
Antitussives as needed
Continue prednisone at the current dose 60 mg with a very slow taper.
Dr. Blake has discussed the case with Dr. Latha Mendez ILD clinic from [facility], as well as Dr. Daley patient's ict educator.
Continue Imuran
Continue Spdw-Wpytty-aoquodfuhc convert to prednisone 60 mg with very slow taper
CRP elevated but lower than prior admission at 85.
- Continue bactrim 1 DS tab TIW
Monitor blood sugar
Insulin supplementation as needed
Maintain euglycemia with goal BG >100 and <180
Fever curve improved/persistent leukocytosis may be driven by steroids. Fever may be driven by autoimmune process. All cultures negative, Legionella, strep pneumo antibodies negative.- UA negative for UTI.
Given that her procal is <0.5 and she is non-toxic appearing-low suspicion for infection.
Status post antibiotics-received cefepime and doxycycline
Observe off antibiotics
No current signs of volume overload so hold off on diuresis; if patient's O2 requirements do not improve despite imuran then diuresis could be attempted.
Echo (02/16/2024) showing preserved LVEF at 55 to 60% with mild MR, mild aortic stenosis and mild�moderate TR with moderate pulmonary hypertension with PASP 47 mmHg
Monitor hemoglobin
Transfuse as needed
DVT prophylaxis-low molecular weight heparin
Nutrition
Physical therapy/Occupational Therapy
Continue follow-up with Dr. Rausch as well as ILD-pulmonary at [facility], Dr. Latha Mendez

Data:
CTA Chest 02/15/2024:
Respiratory motion limits evaluation of the segmental and subsegmental pulmonary arteries, basically nondiagnostic for these arteries. There is no evidence for central pulmonary embolism.
Comparing to CT examination of April 28, 2024, interval increase in bilateral parenchymal opacities, with increase in groundglass opacities predominantly. Findings would suggest acute pneumonitis superimposed on chronic parenchymal changes.
Table honeycombing in both lung bases.
There is mild to moderate elevation right hemidiaphragm.
CXR 02/15/2024: Radiographic findings are suggestive of acute pneumonitis superimposed on chronic parenchymal disease.
Subjective Data
-
Date of Service:
Date of Service: February 19, 2024
Chief Complaint: Pulmonary Follow Up (Acute hypoxemic respiratory failure/acute ILD exacerbation) and Dyspnea Follow Up
Subjective:
Overall feels better, less short of breath, FiO2 requirements decreasing, tolerating CPAP, no chest pain, productive cough or abdominal pain
Review of Systems
General: Other (Per HPI)
Objective Data
Data Reviewed
Vital Signs / I&O:
Vital Signs
Temp Pulse Resp BP Pulse Ox
98.2 F 92 22 150/57 92
02/19/24 07:00 02/19/24 10:35 02/19/24 10:35 02/19/24 10:35 02/19/24 11:55
Intake and Output
02/18/24 02/19/24 02/20/24
06:59 06:59 06:59
Intake Total 100 / 100
Output Total 1000 / 1000 1450 / 1450
Balance -1000 / -1000 -1350 / -1350
SaO2: 92
Nasal Cannula flow liters per minute: 40
Physical Exam
General: Respiratory Distress (negative), Comfortable, Chills (negative) and Sweats (negative)
HEENT: Normocephalic and Anicteric
Cardiovascular: Regular Rhythm and Peripheral Edema (negative)
Respiratory: Wheeze (negative), Crackles (Bilateral (worst at left posterior base)), Rhonchi (negative), Non-Labored Respirations and Accessory Resp Muscle Use (Negative)
GI: Soft, Distended (Abdominal obesity), Non Tender and Normal Bowel Sounds
Neurology: Awake, Alert, AO x 3 and Tremors (negative)
Skin: Warm, Good Color, Cyanosis (negative) and Jaundice (negative)
Labs/Micro/Reports
Lab Data
02/19/24 04:45
02/19/24 04:45
Microbiology
02/15/24 08:12 Blood/Venous Blood Culture - Preliminary
No Growth in 4 days- Final report to follow
02/15/24 07:49 Blood/Venous Blood Culture - Preliminary
No Growth in 4 days- Final report to follow
--- NOTE | 2024-02-19 17:45 | PTCARENOTE ---
OOB to recliner chair most of the day- bsc a few times- escorted outside in recliner chair with RT and this RN for few minutes. Weaned HFO2 down to 40L 63% - NRB mask for transfers. 90-94% sao2. SR/ST on tele. Voids on bsc, +BM today as well.
Some family here to visit today. Emotionally feeling depressed- they had increased her Zoloft recently but not working. She may request to talk to psychologist this admit.
[2024-02-19] MEDS: LOVENOX 40 MG SC (17:51)
[2024-02-19] MEDS: LIPITOR 40 MG PO (21:10)
[2024-02-19] MEDS: MELATONIN PO (21:12)
[2024-02-19] MEDS: ATIVAN 0.5 MG IV (22:20)
[2024-02-19] MEDS: FLUSH (NSS) 2 FLUSH IV ×2 (22:21→23:12)
[2024-02-20] VITALS (13 sets, daily range): BP systolic 138–158; BP diastolic 41–86; PULSE 2–86; BMI 46.5
--- NOTE | 2024-02-20 03:53 | PTCARENOTE ---
Pt tolerating BIPAP overnight 15L POX 88-95%. VSS. Afebrile. SR/ST on CM. Purewick in place draining yellow urine. Offers no complaint of pain. No change from previous assessment. Call slater remains within reach. Will continue to monitor.
[2024-02-20] MEDS: SYNTHROID 150 MCG PO (05:43)
[2024-02-20 05:58] LABS: % Basophils 0.1 % (0-2); % Eosinophils 0.1 % (0-6); % Immature Granulocytes 3.9 % (0-0.5); % Lymphocytes 4.7 % (20.5-51.1); % Monocytes 3.1 % (1.7-9.3); % Neutrophils 88.1 % (42.2-75.2); Absolute Immature Granulocytes 0.6 10^3/uL (0-0.05); Absolute Lymphocytes 0.8 10^3/uL (1.2-3.4); Absolute Monocytes 0.5 10^3/uL (0.1-0.6); Absolute Neutrophils 14.2 10^3/uL (1.4-6.5); Hematocrit 25.7 % (37.0-47.0); Hemoglobin 8.2 g/dL (12.0-16.0); Mean Corp Hgb Conc. 31.9 g/dL (33.0-37.0); Mean Corpuscular Hgb 27.2 pg (27.0-31.0); Mean Corpuscular Volume 85.1 fL (81.0-99.0); Nucleated Red Blood Cells % 0 %; Platelet Count 314 10^3/uL (130-400); Red Blood Cell Count 3.02 10^6/uL (4.20-5.40); Red Cell Dist. Width 15.1 % (11.5-14.5); White Blood Cell Count 16.1 10^3/uL (4.8-10.8)
[2024-02-20 06:13] LABS: Blood Urea Nitrogen 43 mg/dl (7-17); Calcium 9.7 mg/dl (8.4-10.2); Carbon Dioxide 24 mmol/L (22-30); Chloride 98 mmol/L (98-107); Estimated Creatinine Clearance 82 ml/min; Glucose 172 mg/dl (70-99); Potassium 5.4 mmol/L (3.5-5.1); Sodium 134 mmol/L (135-145); eGFR > 60.00
[2024-02-20] MEDS: DUONEB 3 ML INH ×3 (07:24→19:27)
[2024-02-20] MEDS: PULMICORT 0.5 MG INH ×2 (07:24→19:27)
--- NOTE | 2024-02-20 08:02 | W.PN.HOSP.TC ---
Today's Communication/Plan
-
see A/P
Assessment / Plan
Assessment / Plan
HPI: 73 yo F with PMH significant for pulm fibrosis / ILD on chronic Rituxan and on home O2 at 8 LPM, chronic CHF, morbid obesity, was discharged 10 days ago and returned for worsening SOB likely due to pulmonary fibrosis exacerbation. Of note, she
was seen by sports writer and was started with Olumiant for presumed chronic COVID lung disease (took for 5 days).
Patient was found to be in severe respiratory distress with initial pulse ox in the 50s by EMS. Patient was given nebulizer treatment, Solu-Medrol 125 mg IV, and placed on CPAP, with improvement en route to the hospital.
In the ED, she was noted to be febrile at 38.[address] Chest on admission:
Respiratory motion limits evaluation of the segmental and subsegmental pulmonary arteries, basically nondiagnostic for these arteries. There is no evidence for central pulmonary embolism.
Comparing to CT examination of April 28, 2024, interval increase in bilateral parenchymal opacities, with increase in groundglass opacities predominantly. Findings would suggest acute pneumonitis superimposed on chronic parenchymal changes.
Table honeycombing in both lung bases.
A/P:
# Acute on Chronic Hypoxic Respiratory Failure
# Interstitial Lung Disease / Pulmonary Fibrosis exacerbation
CT neg for PE
Hold further CYBER WORKFORCE DEVELOPER AND MANAGER Olumiant
Cont IV methylprednisone for ILD flare/pulm fibrosis, 40mg Q8H
Cont CYBER WORKFORCE DEVELOPER AND MANAGER Imuran
Continue O2 support, was on 100% high flow NC, now on 70%, baseline at 8 LPM
Continue supportive care with Duonebs ATC
encourage prone position
Pulm on board
# Fever DOA/ SIRS
blood culture negative, procal negative, COVID/flu negative, urine Legionella/Strep Ag negative
s/p empiric Abx cefepime and doxycycline for 3 days
# Mild transaminitis likely reactive, resolved
# ANCA Positive Vasculitis
# immune compromised state
cont CYBER WORKFORCE DEVELOPER AND MANAGER Bactrim
# Benign Hypertension
Continue Norvasc with hold parameter
Holding lisinopril for mild hyperkalemia
# Hyperkalemia
holding lisinopril
Cont CYBER WORKFORCE DEVELOPER AND MANAGER Bactrim for now
Monitor K level
# Chronic HFpEF
recent with EF of 55-60%
cont CYBER WORKFORCE DEVELOPER AND MANAGER Lasix
# Hypothyroidism
Continue with Synthroid
# Anemia of Chronic Disease
# Hyperlipidemia
Continue with Lipitor
# Morbid Obesity
# Sleep apnea
BMI 37
CYBER WORKFORCE DEVELOPER AND MANAGER CPAP at bedtime
# History of left breast cancer with lumpectomy and radiation in 2001
# Anxiety and depression
Continue with Zoloft and BuSpar
# GERD
PPI continued
# oral ulcer
oral gel for oral ulcers
# Mild anxiety
Low dose IV Ativan added
DVT ppx: Lovenox SQ
FC
CC for hypoxic respiratory failure now on high flow
CC time 35 min
Anticipated Discharge: > 48 hours
Subjective/Interval History
-
Date of Service: February 20, 2024
Objective Data
-
Labs:
Laboratory Results
02/20/24
05:28
WBC 16.1 H
Hgb 8.2 L
Hct 25.7 L
Plt Count 314
Sodium 134 L
Potassium 5.4 H
Chloride 98
Carbon Dioxide 24
BUN 43 H
Creatinine 0.8
Glucose 172 H
Calcium 9.7
Vital Signs:
Vital Signs
Temp Pulse Resp BP Pulse Ox
36.9 C 86 24 144/57 89
02/20/24 03:29 02/20/24 07:31 02/20/24 07:31 02/20/24 06:00 02/20/24 07:31
I&O
02/19/24 02/20/24 02/21/24
06:59 06:59 06:59
Intake Total 100 / 100 1660 / 1660
Output Total 1450 / 1450 550 / 550
Balance -1350 / -1350 1110 / 1110
Review of Systems
-
Respiratory: Reports Trouble Breathing (improving)
Physical Exam
-
General: Well Developed, Well Nourished, Comfortable, Respiratory Distress (chronic), Conversant and Morbidly Obese
HEENT: Normocephalic, Atraumatic, Nose Appears Normal, Ears Appear Normal and Oxygen (high flow NC )
Respiratory: Clear to Auscultation, Crackles (fine crackles at bases) and Non Labored Respirations; Negative Accessory Resp Muscle Use
Cardiac: Regular Rhythm and S1/S2
GI: Soft, Nontender, Nondistended and Normal Bowel Sounds
Skin: Warm and Dry
Neuro: Awake, Alert, Oriented and AO x 3
Psych: Calm and Intact Judgement/Insight
Data Reviewed
-
CT Scan: Report Reviewed by me
Labs: Labs Reviewed by me
[2024-02-20] MEDS: LASIX 20 MG PO (08:06)
[2024-02-20] MEDS: NORVASC 2.5 MG PO (08:06)
[2024-02-20] MEDS: ZOLOFT 100 MG PO (08:07)
[2024-02-20] MEDS: COLACE 100 MG PO (08:07)
[2024-02-20] MEDS: OCUVITE SOFTGEL 1 CAP PO ×2 (08:07→20:19)
[2024-02-20] MEDS: PROTONIX 40 MG PO (08:07)
[2024-02-20] MEDS: LOW STRENGTH ASPIRIN 81 MG PO (08:12)
[2024-02-20] MEDS: BUSPAR 10 MG PO ×2 (08:12→20:19)
[2024-02-20] MEDS: BENADRYL 25 MG PO (08:12)
[2024-02-20] MEDS: ZOLOFT 75 MG PO (08:12)
[2024-02-20] MEDS: IMURAN 100 MG PO ×2 (08:12→20:19)
[2024-02-20] MEDS: SOLU-MEDROL PF 40 MG IV ×3 (08:13→23:15)
[2024-02-20] MEDS: ZOVIRAX OINTMENT 5% 1 APPLIC TOPICAL ×2 (08:13→20:18)
[2024-02-20] MEDS: ORAJEL 10% GEL 1 APPLIC TOPICAL ×3 (08:13→22:07)
--- NOTE | 2024-02-20 12:18 | W.PN.PUL.V3 ---
Today's Communication / Plan
-
slow steroid taper.
Wean oxygen.
Increase activity
Assessment
-
Assessment: 73-year-old female with a past medical history of ANCA positive vasculitis/microscopic polyangiitis, ILD, chronic hypoxic respiratory failure on home O2, EMERSON on auto CPAP, history of breast cancer s/p lumpectomy/XRT (2001),
steroid-induced diabetes, morbid obesity and restrictive lung disease who presents with worsening shortness of breath. She was recently hospitalized here and was discharged home on 02/05/2024 with 50 mg prednisone. She had apparently been on 60 mg
prednisone daily since that hospital discharge and was told to wean down the dose as she improves but she never wean down the dose as she never felt like she was improving. She was saturating 67% while on CPAP via EMS. In the ER she was febrile to
102.7 �F, tachycardic to 125, breathing at 20 breaths minute, BP 177/71 and saturating 68% on CPAP. She was changed to BiPAP with sats improving to 77%, and eventually able to be transition to mid flow nasal cannula at 15 L/min with saturations at
98%. Labs showed leukocytosis of 24.5, anemia to 9.5, lactate 3.4, troponin WNL at 0.029, proBNP 371, and COVID-19 antigen negative. Blood cultures were collected, and flu A/B swab was negative. CXR showed acute pneumonitis on chronic parenchymal
disease, and CTA chest showed no evidence of acute PE with worsening bilateral parenchymal opacities with increasing groundglass opacities bilaterally. In the ER she was given 40 mg IV Lasix, DuoNebs, Ativan, Ofirmev and Zofran. She was admitted
to the IMU and now pulmonary consulted for additional management/recommendations.
Chronic medical conditions COIL WINDER STRAP: Interstitial lung disease, ANCA-positive vasculitis/microscopic polyangiitis, chronic hypoxic respiratory failure on home O2 at 8 L/min, EMERSON on CPAP, degenerative disc disease, incisional hernia s/p repair with mesh,
hypercholesterolemia, thyroid disease, history of breast cancer s/p lumpectomy + XRT (2001), steroid-induced diabetes, hypertension, history of diverticulosis, hearing loss, restrictive lung disease, iron deficiency anemia, history of COVID-19
(December 30, 2023) s/p Paxlovid, GERD, history of mild pulmonary hypertension, steroid-induced osteoporosis
Impression:
#Acute on chronic respiratory failure with hypoxia due to suspected ILD exacerbation; DDx also includes progressive ILD
#Leukocytosis, likely steroid-induced
#Anemia (baseline Hb 9.5�11g/dL)
#Lactic acidosis � resolved
#Febrile illness � patient is nontoxic-appearing with negative procalcitonin (<0.05)
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
#Moderate restrictive lung disease (T%, VC: 85% with moderate gas exchange capacity defect via PFT from June 2021)
#EMERSON on auto-CPAP 5-20 cmH2O (average pressure: 7.8cmH2O with residual AHI: 1.6 for 30-day period of 12/13 - 01/12/2024)
#Morbid obesity
#Recent history of COVID-19 (12/30/2023) recently on baricitinib, now off
#Former tobacco use (quit in 01/2003 with 60-PY Hx)
Plan:
Respiratory status slowly improving
Continue supplemental oxygen-currently on high flow-attempt to wean
Incentive spirometry
Nebulizers if needed-not bronchospastic-currently on DuoNebs 3 times daily and Pulmicort twice daily
BiPAP 15/8 cm at night-tolerating well-has AutoPap at home
Antitussives as needed
Continue prednisone at the current dose 60 mg with a very slow taper.
Dr. Blake has discussed the case with Dr. Latha Mendez ILD clinic from [facility], as well as Dr. 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
Continue Imuran
Continue Uohf-Xxqzin-mqryfhkhte convert to prednisone 60 mg with very slow taper
CRP elevated but lower than prior admission at 85.
- Continue bactrim 1 DS tab TIW
Monitor blood sugar
Insulin supplementation as needed
Maintain euglycemia with goal BG >100 and <180
Fever curve improved/persistent leukocytosis may be driven by steroids. Fever may be driven by autoimmune process. All cultures negative, Legionella, strep pneumo antibodies negative.- UA negative for UTI.
Given that her procal is <0.5 and she is non-toxic appearing-low suspicion for infection.
Status post antibiotics-received cefepime and doxycycline
Observe off antibiotics
No current signs of volume overload so hold off on diuresis; if patient's O2 requirements do not improve despite imuran then diuresis could be attempted.
Echo (02/16/2024) showing preserved LVEF at 55 to 60% with mild MR, mild aortic stenosis and mild�moderate TR with moderate pulmonary hypertension with PASP 47 mmHg
Monitor hemoglobin
Transfuse as needed
DVT prophylaxis-low molecular weight heparin
Nutrition
Physical therapy/Occupational Therapy
Continue follow-up with Dr. Rausch as well as ILD-pulmonary at [facility], Dr. Latha Mendez

Data:
CTA Chest 02/15/2024:
Respiratory motion limits evaluation of the segmental and subsegmental pulmonary arteries, basically nondiagnostic for these arteries. There is no evidence for central pulmonary embolism.
Comparing to CT examination of April 28, 2024, interval increase in bilateral parenchymal opacities, with increase in groundglass opacities predominantly. Findings would suggest acute pneumonitis superimposed on chronic parenchymal changes.
Table honeycombing in both lung bases.
There is mild to moderate elevation right hemidiaphragm.
CXR 02/15/2024: Radiographic findings are suggestive of acute pneumonitis superimposed on chronic parenchymal disease.
Subjective Data
-
Date of Service:
Date of Service: February 20, 2024
Chief Complaint: Pulmonary Follow Up (Acute hypoxemic respiratory failure/acute ILD exacerbation) and Dyspnea Follow Up
Objective Data
Data Reviewed
Vital Signs / I&O:
Vital Signs
Temp Pulse Resp BP Pulse Ox
98.4 F 88 24 157/55 88
02/20/24 07:05 02/20/24 08:06 02/20/24 07:31 02/20/24 08:06 02/20/24 11:31
Intake and Output
02/19/24 02/20/24 02/21/24
06:59 06:59 06:59
Intake Total 100 / 100 1660 / 1660
Output Total 1450 / 1450 550 / 550
Balance -1350 / -1350 1110 / 1110
SaO2: 88
Nasal Cannula flow liters per minute: 15
Physical Exam
General: Respiratory Distress (negative), Comfortable, Chills (negative) and Sweats (negative)
HEENT: Normocephalic and Anicteric
Cardiovascular: Regular Rhythm and Peripheral Edema (negative)
Respiratory: Wheeze (negative), Crackles (Bilateral (worst at left posterior base)), Rhonchi (negative), Non-Labored Respirations and Accessory Resp Muscle Use (Negative)
GI: Soft, Distended (Abdominal obesity), Non Tender and Normal Bowel Sounds
Neurology: Awake, Alert, AO x 3 and Tremors (negative)
Skin: Warm, Good Color, Cyanosis (negative) and Jaundice (negative)
Labs/Micro/Reports
Lab Data
02/20/24 05:28
02/20/24 05:28
Microbiology
02/15/24 08:12 Blood/Venous Blood Culture - Final
No Growth - Final Report
02/15/24 07:49 Blood/Venous Blood Culture - Final
No Growth - Final Report
[2024-02-20] MEDS: ZYRTEC 10 MG PO (15:28)
[2024-02-20] MEDS: LOVENOX 40 MG SC (17:02)
--- NOTE | 2024-02-20 17:11 | PTCARENOTE ---
Rec'd pt this AM. OOB to chair on 15L MF with NRB for recovery. tolerating OOB. vital signs stable. family at bedside.
[2024-02-20] MEDS: MELATONIN PO (21:10)
[2024-02-20] MEDS: LIPITOR 40 MG PO (22:08)
[2024-02-20] MEDS: TESSALON PERLES 100 MG PO (22:08)
[2024-02-20] MEDS: NSS (PRESERVATIVE FREE) 0.25 ML IV (22:15)
[2024-02-20] MEDS: ATIVAN 0.5 MG IV (22:16)
[2024-02-21] VITALS (16 sets, daily range): BP systolic 121–183; BP diastolic 57–128; PULSE 2–100; O2SAT 88; BMI 46.2
[2024-02-21] MEDS: SYNTHROID 150 MCG PO (05:02)
[2024-02-21 05:43] LABS: % Basophils 0.3 % (0-2); % Eosinophils 0.1 % (0-6); % Immature Granulocytes 4.9 % (0-0.5); % Lymphocytes 5.2 % (20.5-51.1); % Monocytes 3.9 % (1.7-9.3); % Neutrophils 85.6 % (42.2-75.2); Absolute Basophils 0.1 10^3/uL (0-0.2); Absolute Immature Granulocytes 0.8 10^3/uL (0-0.05); Absolute Lymphocytes 0.8 10^3/uL (1.2-3.4); Absolute Monocytes 0.6 10^3/uL (0.1-0.6); Absolute Neutrophils 13.4 10^3/uL (1.4-6.5); Hematocrit 26.5 % (37.0-47.0); Hemoglobin 8.6 g/dL (12.0-16.0); Mean Corp Hgb Conc. 32.5 g/dL (33.0-37.0); Mean Corpuscular Hgb 28.1 pg (27.0-31.0); Mean Corpuscular Volume 86.6 fL (81.0-99.0); Mean Platelet Volume 11.1 fL (7.4-10.4); Nucleated Red Blood Cells % 0 %; Platelet Count 323 10^3/uL (130-400); Red Blood Cell Count 3.06 10^6/uL (4.20-5.40); Red Cell Dist. Width 14.8 % (11.5-14.5); White Blood Cell Count 15.6 10^3/uL (4.8-10.8)
[2024-02-21 06:09] LABS: Blood Urea Nitrogen 40 mg/dl (7-17); Calcium 9.8 mg/dl (8.4-10.2); Carbon Dioxide 25 mmol/L (22-30); Chloride 97 mmol/L (98-107); Estimated Creatinine Clearance 94 ml/min; Glucose 168 mg/dl (70-99); Potassium 5.3 mmol/L (3.5-5.1); Sodium 134 mmol/L (135-145); eGFR > 60.00
--- NOTE | 2024-02-21 06:21 | PTCARENOTE ---
Pt aaox3 and pleasant. NSR in the monitor. Pt tolerated being in 15L [place], SaO2 92-95%. Lung sounds are diminished and fine crackles at the bases. Abd round and obese. Call slater within reach.
[2024-02-21] MEDS: DUONEB 3 ML INH ×3 (07:10→19:18)
[2024-02-21] MEDS: PULMICORT 0.5 MG INH ×2 (07:11→19:19)
[2024-02-21] MEDS: COLACE 100 MG PO (09:05)
[2024-02-21] MEDS: BUSPAR 10 MG PO ×2 (09:05→20:30)
[2024-02-21] MEDS: ZOLOFT 100 MG PO (09:07)
[2024-02-21] MEDS: ZOLOFT 75 MG PO (09:08)
[2024-02-21] MEDS: PROTONIX 40 MG PO (09:09)
[2024-02-21] MEDS: LASIX 20 MG PO (09:10)
[2024-02-21] MEDS: OCUVITE SOFTGEL 1 CAP PO ×2 (09:10→20:30)
[2024-02-21] MEDS: LOW STRENGTH ASPIRIN 81 MG PO (09:10)
[2024-02-21] MEDS: IMURAN 100 MG PO ×2 (09:10→20:29)
[2024-02-21] MEDS: NORVASC 2.5 MG PO (09:11)
[2024-02-21] MEDS: ORAJEL 10% GEL 1 APPLIC TOPICAL ×3 (09:12→16:41)
--- NOTE | 2024-02-21 09:18 | CM ---
Patient with Dx Acute Hypoxic Respiratory Failure, ILD flare / Pulmonary Fibrosis exacerbation , SIRS. O2 15L midflow. OT recommends home vs skilled. Seen by wound care nurse.
CM continuing to follow.
Case discussed with [facility] Liaison; she will look into whether patient still wants commode ordered.
Plan probable home with resumption [facility].
[2024-02-21] MEDS: SOLU-MEDROL PF 40 MG IV ×3 (09:20→23:27)
[2024-02-21] MEDS: ZYRTEC 10 MG PO (09:25)
[2024-02-21] MEDS: BACTRIM DS 800 MG/160 MG 1 TABLET PO (10:02)
[2024-02-21] MEDS: ZOVIRAX OINTMENT 5% 1 APPLIC TOPICAL (11:17)
--- NOTE | 2024-02-21 14:23 | W.PN.HOSP.TC ---
Addendum entered and electronically signed by Que Ellis MD 02/22/24 08:43:
Patient requires standard bedside commode secondary to inability to ambulate to the bathroom.
#Ambulatory dysfunction
#Dyspnea with activity
Original Note:
Today's Communication/Plan
-
see bold
Assessment / Plan
Assessment / Plan
HPI: 73 yo F with PMH significant for pulm fibrosis / ILD on chronic Rituxan and on home O2 at 8 LPM, chronic CHF, morbid obesity, was discharged 10 days ago and returned for worsening SOB likely due to pulmonary fibrosis exacerbation. Of note, she
was seen by dna analyst and was started with Olumiant for presumed chronic COVID lung disease (took for 5 days).
Patient was found to be in severe respiratory distress with initial pulse ox in the 50s by EMS. Patient was given nebulizer treatment, Solu-Medrol 125 mg IV, and placed on CPAP, with improvement en route to the hospital.
In the ED, she was noted to be febrile at 38.[address] Chest on admission:
Respiratory motion limits evaluation of the segmental and subsegmental pulmonary arteries, basically nondiagnostic for these arteries. There is no evidence for central pulmonary embolism.
Comparing to CT examination of April 28, 2024, interval increase in bilateral parenchymal opacities, with increase in groundglass opacities predominantly. Findings would suggest acute pneumonitis superimposed on chronic parenchymal changes.
Table honeycombing in both lung bases.
A/P:
# Acute on Chronic Hypoxic Respiratory Failure
# Interstitial Lung Disease / Pulmonary Fibrosis exacerbation
CT neg for PE
Hold further STORE STOCK ASSOCIATE Olumiant
Cont IV methylprednisone for ILD flare/pulm fibrosis, 40mg Q8H
Cont STORE STOCK ASSOCIATE Imuran
Continue O2 support, was on 100% high flow NC, now 15 L, baseline at 8-10 LPM
Continue supportive care with Duonebs ATC
Encouraged prone position
Pulm on board
# Fever DOA/ SIRS
Blood culture negative, procal negative, COVID/flu negative, urine Legionella/Strep Ag negative
S/p empiric Abx cefepime and doxycycline for 3 days
# Mild transaminitis likely reactive, resolved
# ANCA Positive Vasculitis
# immune compromised state
Cont STORE STOCK ASSOCIATE Bactrim
# Benign Hypertension
Continue Norvasc with hold parameter
Holding lisinopril for mild hyperkalemia
# Hyperkalemia
Holding lisinopril
Cont STORE STOCK ASSOCIATE Bactrim for now
Start low potassium diet
Monitor K level
#Oral ulcer
oral gel for oral ulcers
# Facial wound
Suspect impetigo
No improvement on topical acyclovir
Start topical Bactroban 02/20
# Chronic HFpEF
recent with EF of 55-60%
cont STORE STOCK ASSOCIATE Lasix
# Hypothyroidism
Continue with Synthroid
# Anemia of Chronic Disease
# Hyperlipidemia
Continue with Lipitor
# Morbid Obesity
# Sleep apnea
BMI 37
STORE STOCK ASSOCIATE CPAP at bedtime
# History of left breast cancer with lumpectomy and radiation in 2001
# Anxiety and depression
Continue with Zoloft and BuSpar
# GERD
PPI continued
# Mild anxiety
Low dose IV Ativan added
DVT ppx: Lovenox SQ
FC
Total time spent to see the patient on the floor, examine the patient, review data and lab results, discuss treatment plan with patient, nursing staff around 52 minutes.
Physical Exam
General: Morbidly obese, no acute distress
HEENT: Normocephalic, Atraumatic, EOMI, MMM
Respiratory: Bibasilar crackles
Cardiac: Normal S1/S2, Regular Rate and Rhythm
GI: Soft, Nontender, Nondistended, Normal Bowel Sounds
Extremities: No Clubbing, Cyanosis, or Edema
Neuro: Nonfocal/Grossly Intact
Psych: Calm, Cooperative
Derm: Circular scabbed wound with honeycomb appearance above right lip
Anticipated Discharge: > 48 hours
Subjective/Interval History
-
Date of Service: February 21, 2024
Patient reports her breathing is improved. She complains of the sore/wound above her right upper lip. She also complains of pain from mouth sores. No fever, no vomiting.
Objective Data
-
Labs:
Laboratory Results
02/21/24
05:02
WBC 15.6 H
Hgb 8.6 L
Hct 26.5 L
Plt Count 323
Sodium 134 L
Potassium 5.3 H
Chloride 97 L
Carbon Dioxide 25
BUN 40 H
Creatinine 0.7
Glucose 168 H
Calcium 9.8
Vital Signs:
Vital Signs
Temp Pulse Resp BP Pulse Ox
97.7 F 96 18 139/64 92
02/21/24 07:00 02/21/24 07:12 02/21/24 07:12 02/21/24 04:00 02/21/24 07:12
I&O
02/20/24 02/21/24 02/22/24
06:59 06:59 06:59
Intake Total 1660 / 1660 480 / 480
Output Total 550 / 550 1200 / 1200
Balance 1110 / 1110 -720 / -720
--- NOTE | 2024-02-21 15:09 | W.PN.PUL3 ---
Today's Communication / Plan
-
No change in steroids
Request daily physical therapy and assess oxygen requirement (15L and 100% NRB)
patient has 3 concentrators at home. Case management to optimize through [employer]
Continue Imuran
Continue Bactrim prophylaxis
Check lower extremity Dopplers 02/21
Assessment
-
Assessment: 73-year-old female with a past medical history of ANCA positive vasculitis/microscopic polyangiitis, ILD, chronic hypoxic respiratory failure on home O2, EMERSON on auto CPAP, history of breast cancer s/p lumpectomy/XRT (2001),
steroid-induced diabetes, morbid obesity and restrictive lung disease who presents with worsening shortness of breath. She was recently hospitalized here and was discharged home on 02/05/2024 with 50 mg prednisone. She had apparently been on 60 mg
prednisone daily since that hospital discharge and was told to wean down the dose as she improves but she never wean down the dose as she never felt like she was improving. She was saturating 67% while on CPAP via EMS. In the ER she was febrile to
102.7 �F, tachycardic to 125, breathing at 20 breaths minute, BP 177/71 and saturating 68% on CPAP. She was changed to BiPAP with sats improving to 77%, and eventually able to be transition to mid flow nasal cannula at 15 L/min with saturations at
98%. Labs showed leukocytosis of 24.5, anemia to 9.5, lactate 3.4, troponin WNL at 0.029, proBNP 371, and COVID-19 antigen negative. Blood cultures were collected, and flu A/B swab was negative. CXR showed acute pneumonitis on chronic parenchymal
disease, and CTA chest showed no evidence of acute PE with worsening bilateral parenchymal opacities with increasing groundglass opacities bilaterally. In the ER she was given 40 mg IV Lasix, DuoNebs, Ativan, Ofirmev and Zofran. She was admitted
to the IMU and now pulmonary consulted for additional management/recommendations.
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
hypercholesterolemia, thyroid disease, history of breast cancer s/p lumpectomy + XRT (2001), steroid-induced diabetes, hypertension, history of diverticulosis, hearing loss, restrictive lung disease, iron deficiency anemia, history of COVID-19
(December 30, 2023) s/p Paxlovid, GERD, history of mild pulmonary hypertension, steroid-induced osteoporosis
Impression:
#Acute on chronic respiratory failure with hypoxia due to suspected ILD exacerbation; DDx also includes progressive ILD
#Leukocytosis, likely steroid-induced
#Anemia (baseline Hb 9.5�11g/dL)
#Lactic acidosis � resolved
#Febrile illness � patient is nontoxic-appearing with negative procalcitonin (<0.05)
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
#Moderate restrictive lung disease (T%, VC: 85% with moderate gas exchange capacity defect via PFT from June 2021)
#EMERSON on auto-CPAP 5-20 cmH2O (average pressure: 7.8cmH2O with residual AHI: 1.6 for 30-day period of 12/13 - 01/12/2024)
#Morbid obesity
#Recent history of COVID-19 (12/30/2023) recently on baricitinib, now off
#Former tobacco use (quit in 01/2003 with 60-PY Hx)
Plan recommendations/
At this time, patient appears to be stable
Respiratory status slowly improving
Continue supplemental oxygen-currently on high flow-attempt to wean, currently on 15 L
Incentive spirometry
Nebulizers if needed-not bronchospastic-currently on DuoNebs 3 times daily and Pulmicort twice daily
BiPAP 15/8 cm at night-tolerating well-has AutoPap at home
Antitussives as needed
Continue methylprednisolone 40 mg every 8 hours. Will eventually transition to prednisone [address] Blake has discussed the case with Dr. Latha Mendez ILD clinic from [facility], as well as Dr. Daley patient's night manager.
Continue Imuran, 100 mg twice a day
CRP elevated but lower than prior admission at 85.
- Continue bactrim 1 DS tab TIW
Monitor blood sugar
Insulin supplementation as needed
Maintain euglycemia with goal BG >100 and <180
Fever curve improved/persistent leukocytosis may be driven by steroids. Fever may be driven by autoimmune process. All cultures negative, Legionella, strep pneumo antibodies negative.- UA negative for UTI.
Given that her procal is <0.5 and she is non-toxic appearing-low suspicion for infection.
Status post antibiotics-received cefepime and doxycycline
Observe off antibiotics
No current signs of volume overload so hold off on diuresis; if patient's O2 requirements do not improve despite imuran then diuresis could be attempted.
Echo (02/16/2024) showing preserved LVEF at 55 to 60% with mild MR, mild aortic stenosis and mild�moderate TR with moderate pulmonary hypertension with PASP 47 mmHg
Monitor hemoglobin
Transfuse as needed
DVT prophylaxis-low molecular weight heparin
Will check intermittent lower extremity Dopplers given intermittent tachycardia although I suspect tachycardia is multifactorial
Nutrition
Physical therapy/Occupational Therapy
Patient does have 3 concentrators at home. Has the ability to increase to 15 to 20 L at home
We will have case management help coordinate with [facility], to confirm adequate oxygen at home prior to discharge
Continue follow-up with Dr. Rausch as well as ILD-pulmonary at [facility], Dr. Latha Mendez

Data:
CTA Chest 02/15/2024:
Respiratory motion limits evaluation of the segmental and subsegmental pulmonary arteries, basically nondiagnostic for these arteries. There is no evidence for central pulmonary embolism.
Comparing to CT examination of April 28, 2024, interval increase in bilateral parenchymal opacities, with increase in groundglass opacities predominantly. Findings would suggest acute pneumonitis superimposed on chronic parenchymal changes.
Table honeycombing in both lung bases.
There is mild to moderate elevation right hemidiaphragm.
CXR 02/15/2024: Radiographic findings are suggestive of acute pneumonitis superimposed on chronic parenchymal disease.
Subjective Data
-
Date of Service:
Date of Service: February 21, 2024
Chief Complaint: Pulmonary Follow Up (Acute hypoxemic respiratory failure/acute ILD exacerbation) and Dyspnea Follow Up
Subjective:
Patient well-known to be. She is feeling comfortable sitting in the chair. Maintained on 15 L, also using CPAP at night. Denies nausea, chest pain, significant cough
Objective Data
Data Reviewed
Vital Signs / I&O / Oxygen:
Vital Signs
Temp Pulse Resp BP Pulse Ox
97.7 F 87 18 169/70 91
02/21/24 07:00 02/21/24 14:27 02/21/24 14:27 02/21/24 10:02 02/21/24 14:27
Intake and Output
02/20/24 02/21/24 02/22/24
06:59 06:59 06:59
Intake Total 1660 / 1660 480 / 480
Output Total 550 / 550 1200 / 1200
Balance 1110 / 1110 -720 / -720
SaO2 91
Nasal Cannula flow liters per 15
minute
Physical Exam
General: Comfortable
HEENT: Normocephalic and Anicteric
Cardiovascular: Regular Rhythm, Murmur (n) and Peripheral Edema (negative)
Respiratory: Wheeze (negative), Crackles (Bilateral, few expiratory squeaks), Rhonchi (negative), Non-Labored Respirations and Stridor (n)
GI: Soft, Distended (Abdominal obesity), Non Tender and Normal Bowel Sounds
Neurology: Awake, Alert and No Motor Deficits
Skin: Warm, Good Color, Cyanosis (negative) and Jaundice (negative)
Labs/Micro/Reports
Lab Data
02/21/24 05:02
02/21/24 05:02
Microbiology
02/15/24 08:12 Blood/Venous Blood Culture - Final
No Growth - Final Report
02/15/24 07:49 Blood/Venous Blood Culture - Final
No Growth - Final Report
[2024-02-21] MEDS: BACTROBAN 2% OINTMENT 1 APPLIC TOPICAL (16:39)
[2024-02-21] MEDS: BACTROBAN 2% OINTMENT TOPICAL (16:40)
[2024-02-21] MEDS: LOVENOX 40 MG SC (18:27)
--- NOTE | 2024-02-21 19:29 | PTCARENOTE ---
Patient remains on 15L mid flow oxygen with PRN non-rebreather. Sp02 91%-94%. Patient out of bed to chair with assistance x 1. OOB to chair for most of the day. VS stable. Appetite good. Using call slater appropriately.
[2024-02-21] MEDS: MELATONIN 5 MG PO (23:26)
[2024-02-21] MEDS: LIPITOR 40 MG PO (23:26)
[2024-02-21] MEDS: ATIVAN 0.5 MG IV (23:26)
[2024-02-21] MEDS: NSS (PRESERVATIVE FREE) 0.25 ML IV (23:27)
[2024-02-22] VITALS (16 sets, daily range): BP systolic 126–170; BP diastolic 54–151; PULSE 2–101; O2SAT 90–92; BMI 46.2
--- NOTE | 2024-02-22 00:53 | PTCARENOTE ---
Pt received from previous RN. Pt AAO, anxious at times. Pt expressed anxiousness and inability to sleep HS. Ordered IV Ativan administered as ordered. Pt NSR on monitor. Pt in 10L midflow, RT placed Pt on bipap for HS. PW in use HS. Pt voiding
moderate amounts of yellow urine. Assessment as documented. Call light in reach.
[2024-02-22] MEDS: SYNTHROID 150 MCG PO (04:48)
[2024-02-22 05:33] LABS: Blood Urea Nitrogen 36 mg/dl (7-17); Calcium 9.5 mg/dl (8.4-10.2); Carbon Dioxide 27 mmol/L (22-30); Chloride 95 mmol/L (98-107); Estimated Creatinine Clearance 82 ml/min; Glucose 190 mg/dl (70-99); Potassium 5.2 mmol/L (3.5-5.1); Sodium 134 mmol/L (135-145); eGFR > 60.00
[2024-02-22] MEDS: BACTROBAN 2% OINTMENT TOPICAL (07:28)
[2024-02-22] MEDS: DUONEB 3 ML INH ×3 (07:51→19:18)
[2024-02-22] MEDS: PULMICORT 0.5 MG INH (07:51)
[2024-02-22] MEDS: BUSPAR 10 MG PO ×2 (09:04→19:38)
[2024-02-22] MEDS: ZOLOFT 75 MG PO (09:04)
[2024-02-22] MEDS: COLACE 100 MG PO (09:04)
--- NOTE | 2024-02-22 09:04 | VNURNOTE ---
Late entry[facility] spoke with patient and sister at bedside 02/20. Confirmed with patient that her commode at home is a juventino commode and too large. Noticed that patient has standard commode in hospital room which she said is adequate size
and is working out fine here in the hospital. Patient requesting standard commode for home. Checked with Margot at [facility]- she confirmed standard commode weight limit is 350#. Reviewed insurance info w/Margot, she stated most likely no copay.
DME info for standard commode faxed to Xochitl at [facility] on 02/21. Will continue to monitor hospital progress.
[2024-02-22] MEDS: NORVASC 2.5 MG PO (09:05)
[2024-02-22] MEDS: PROTONIX 40 MG PO (09:05)
[2024-02-22] MEDS: LASIX 20 MG PO (09:05)
[2024-02-22] MEDS: ZOLOFT 100 MG PO (09:06)
[2024-02-22] MEDS: ZYRTEC 10 MG PO (09:06)
[2024-02-22] MEDS: SOLU-MEDROL PF 40 MG IV ×2 (09:06→19:38)
[2024-02-22] MEDS: LOW STRENGTH ASPIRIN 81 MG PO (09:06)
[2024-02-22] MEDS: IMURAN 100 MG PO ×2 (09:06→19:38)
[2024-02-22] MEDS: OCUVITE SOFTGEL 1 CAP PO ×2 (09:06→19:38)
[2024-02-22] MEDS: ORAJEL 10% GEL 1 APPLIC TOPICAL (09:07)
[2024-02-22] MEDS: BACTROBAN 2% OINTMENT 1 APPLIC TOPICAL ×3 (09:07→22:21)
--- NOTE | 2024-02-22 09:16 | W.PN.HOSP.TC ---
Today's Communication/Plan
-
see bold
Assessment / Plan
Assessment / Plan
HPI: 73 yo F with PMH significant for pulm fibrosis / ILD on chronic Rituxan and on home O2 at 8 LPM, chronic CHF, morbid obesity, was discharged 10 days ago and returned for worsening SOB likely due to pulmonary fibrosis exacerbation. Of note, she
was seen by vp digital marketing and was started with Olumiant for presumed chronic COVID lung disease (took for 5 days).
Patient was found to be in severe respiratory distress with initial pulse ox in the 50s by EMS. Patient was given nebulizer treatment, Solu-Medrol 125 mg IV, and placed on CPAP, with improvement en route to the hospital.
In the ED, she was noted to be febrile at 38.[address] Chest on admission:
Respiratory motion limits evaluation of the segmental and subsegmental pulmonary arteries, basically nondiagnostic for these arteries. There is no evidence for central pulmonary embolism.
Comparing to CT examination of April 28, 2024, interval increase in bilateral parenchymal opacities, with increase in groundglass opacities predominantly. Findings would suggest acute pneumonitis superimposed on chronic parenchymal changes.
Table honeycombing in both lung bases.
A/P:
# Acute on Chronic Hypoxic Respiratory Failure
# Interstitial Lung Disease / Pulmonary Fibrosis exacerbation
# Dyspnea with activity
CT neg for PE
Hold further SOFTWARE MAINTENANCE ENGINEER Olumiant
Wean IV methylprednisone to 40 mg every 12 hours
Cont SOFTWARE MAINTENANCE ENGINEER Imuran
Continue O2 support, was on 100% high flow NC, now 15 L, baseline at 8-10 LPM
Continue supportive care with Duonebs ATC
Encouraged prone position
Pulm on board
# Fever DOA/ SIRS
Blood culture negative, procal negative, COVID/flu negative, urine Legionella/Strep Ag negative
S/p empiric Abx cefepime and doxycycline for 3 days
# Mild transaminitis likely reactive, resolved
# ANCA Positive Vasculitis
# immune compromised state
Cont SOFTWARE MAINTENANCE ENGINEER Bactrim
# Benign Hypertension
Continue Norvasc with hold parameter
Holding lisinopril for mild hyperkalemia
# Hyperkalemia
Holding lisinopril
Cont SOFTWARE MAINTENANCE ENGINEER Bactrim for now
Continue low potassium diet
Monitor K level
#Oral ulcer
Benzocaine oral gel for oral ulcers
# Facial wound
Suspect impetigo
No improvement on topical acyclovir
Started topical Bactroban TID 02/20
# Chronic HFpEF
recent with EF of 55-60%
cont SOFTWARE MAINTENANCE ENGINEER Lasix
# Hypothyroidism
Continue with Synthroid
# Anemia of Chronic Disease
# Hyperlipidemia
Continue with Lipitor
# Morbid Obesity
# Ambulatory dysfunction
# Sleep apnea
BMI 37
SOFTWARE MAINTENANCE ENGINEER CPAP at bedtime
# History of left breast cancer with lumpectomy and radiation in 2001
# Anxiety and depression
Continue with Zoloft and BuSpar
# GERD
PPI continued
# Mild anxiety
Low dose IV Ativan added
DVT ppx: Lovenox SQ
FC
Total time spent to see the patient on the floor, examine the patient, review data and lab results, discuss treatment plan with patient, nursing staff around 51 minutes.
Physical Exam
General: Morbidly obese, no acute distress
HEENT: Normocephalic, Atraumatic, EOMI, MMM
Respiratory: Bibasilar crackles
Cardiac: Normal S1/S2, Regular Rate and Rhythm
GI: Soft, Nontender, Nondistended, Normal Bowel Sounds
Extremities: No Clubbing, Cyanosis, or Edema
Neuro: Nonfocal/Grossly Intact
Psych: Calm, Cooperative
Derm: Circular scabbed wound with honeycomb appearance above right lip
Anticipated Discharge: > 48 hours
Subjective/Interval History
-
Date of Service: February 22, 2024
Patient reports improvement in her breathing. No nausea, no vomiting. No chest pain. No fever.
Objective Data
-
Labs:
Laboratory Results
02/22/24
04:54
Sodium 134 L
Potassium 5.2 H
Chloride 95 L
Carbon Dioxide 27
BUN 36 H
Creatinine 0.8
Glucose 190 H
Calcium 9.5
Vital Signs:
Vital Signs
Temp Pulse Resp BP Pulse Ox
97.5 F 92 18 126/54 90
02/22/24 03:30 02/22/24 07:57 02/22/24 07:57 02/22/24 06:00 02/22/24 07:57
I&O
02/21/24 02/22/24 02/23/24
06:59 06:59 06:59
Intake Total 480 / 480 1360 / 1360
Output Total 1200 / 1200 1400 / 1400
Balance -720 / -720 -40 / -40
--- NOTE | 2024-02-22 09:33 | W.PN.PUL3 ---
Today's Communication / Plan
-
Decrease steroids to every 12 hours
Continue with every other day physical therapy, input appreciated. Documentation appreciated
Patient has 3 concentrators at home. Case management consulted to optimize oxygen delivery as below
Await Dopplers today
Continue DVT prophylaxis
Assessment
-
Assessment: 73-year-old female with a past medical history of ANCA positive vasculitis/microscopic polyangiitis, ILD, chronic hypoxic respiratory failure on home O2, EMERSON on auto CPAP, history of breast cancer s/p lumpectomy/XRT (2001),
steroid-induced diabetes, morbid obesity and restrictive lung disease who presents with worsening shortness of breath. She was recently hospitalized here and was discharged home on 02/05/2024 with 50 mg prednisone. She had apparently been on 60 mg
prednisone daily since that hospital discharge and was told to wean down the dose as she improves but she never wean down the dose as she never felt like she was improving. She was saturating 67% while on CPAP via EMS. In the ER she was febrile to
102.7 �F, tachycardic to 125, breathing at 20 breaths minute, BP 177/71 and saturating 68% on CPAP. She was changed to BiPAP with sats improving to 77%, and eventually able to be transition to mid flow nasal cannula at 15 L/min with saturations at
98%. Labs showed leukocytosis of 24.5, anemia to 9.5, lactate 3.4, troponin WNL at 0.029, proBNP 371, and COVID-19 antigen negative. Blood cultures were collected, and flu A/B swab was negative. CXR showed acute pneumonitis on chronic parenchymal
disease, and CTA chest showed no evidence of acute PE with worsening bilateral parenchymal opacities with increasing groundglass opacities bilaterally. In the ER she was given 40 mg IV Lasix, DuoNebs, Ativan, Ofirmev and Zofran. She was admitted
to the IMU and now pulmonary consulted for additional management/recommendations.
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
hypercholesterolemia, thyroid disease, history of breast cancer s/p lumpectomy + XRT (2001), steroid-induced diabetes, hypertension, history of diverticulosis, hearing loss, restrictive lung disease, iron deficiency anemia, history of COVID-19
(December 30, 2023) s/p Paxlovid, GERD, history of mild pulmonary hypertension, steroid-induced osteoporosis
Impression:
#Acute on chronic respiratory failure with hypoxia due to suspected ILD exacerbation; DDx also includes progressive ILD
#Leukocytosis, likely steroid-induced
#Anemia (baseline Hb 9.5�11g/dL)
#Lactic acidosis � resolved
#Febrile illness � patient is nontoxic-appearing with negative procalcitonin (<0.05)
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
#Moderate restrictive lung disease (T%, VC: 85% with moderate gas exchange capacity defect via PFT from June 2021)
#EMERSON on auto-CPAP 5-20 cmH2O (average pressure: 7.8cmH2O with residual AHI: 1.6 for 30-day period of 12/13 - 01/12/2024)
#Morbid obesity
#Recent history of COVID-19 (12/30/2023) recently on baricitinib, now off
#Former tobacco use (quit in 01/2003 with 60-PY Hx)
Plan/recommendations
At this time, patient appears to be stable
Respiratory status slowly improving
Continue supplemental oxygen-currently on high flow-attempt to wean, currently on 15 L
Incentive spirometry
Nebulizers if needed-not bronchospastic-currently on DuoNebs 3 times daily and Pulmicort twice daily
BiPAP 15/8 cm at night-tolerating well-has AutoPap at home
Antitussives as needed
Continue methylprednisolone 40 mg every 8 hours. Will transition to every 12 hours
Eventual transition to oral prednisone 60 mg at time of discharge
Dr. Blake has discussed the case with Dr. 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
Continue Imuran, 100 mg twice a day
CRP elevated but lower than prior admission at 85.
- Continue bactrim 1 DS tab TIW
Monitor blood sugar
Insulin supplementation as needed
Maintain euglycemia with goal BG >100 and <180
Fever curve improved/persistent leukocytosis may be driven by steroids. Fever may be driven by autoimmune process. All cultures negative, Legionella, strep pneumo antibodies negative.- UA negative for UTI.
Given that her procal is <0.5 and she is non-toxic appearing-low suspicion for infection.
Status post antibiotics-received cefepime and doxycycline
Observe off antibiotics
No current signs of volume overload so hold off on diuresis; if patient's O2 requirements do not improve despite imuran then diuresis could be attempted.
Echo (02/16/2024) showing preserved LVEF at 55 to 60% with mild MR, mild aortic stenosis and mild�moderate TR with moderate pulmonary hypertension with PASP 47 mmHg
Monitor hemoglobin
Transfuse as needed
DVT prophylaxis-low molecular weight heparin
Dopplers pending today
Nutrition
Physical therapy/Occupational Therapy
Patient does have 3 concentrators at home. Has the ability to increase to 15 to 20 L at home
We will have case management help coordinate with [facility], to confirm adequate oxygen at home prior to discharge
Continue with every other day physical therapy and assess oxygen needs. On 02/20 required 15 L with 13 L nonrebreather, recovered within 1 minute with 15 L/nonrebreather after standing
Continue follow-up with Dr. Rausch as well as ILD-pulmonary at [facility], Dr. Latha Mendez

Data:
CTA Chest 02/15/2024:
Respiratory motion limits evaluation of the segmental and subsegmental pulmonary arteries, basically nondiagnostic for these arteries. There is no evidence for central pulmonary embolism.
Comparing to CT examination of April 28, 2024, interval increase in bilateral parenchymal opacities, with increase in groundglass opacities predominantly. Findings would suggest acute pneumonitis superimposed on chronic parenchymal changes.
Table honeycombing in both lung bases.
There is mild to moderate elevation right hemidiaphragm.
CXR 02/15/2024: Radiographic findings are suggestive of acute pneumonitis superimposed on chronic parenchymal disease.
Subjective Data
-
Date of Service:
Date of Service: February 22, 2024
Chief Complaint: Pulmonary Follow Up (Acute hypoxemic respiratory failure/acute ILD exacerbation) and Dyspnea Follow Up
Subjective:
Patient continues with minimal complaints. Noted PT evaluation. Desaturated to 83% on 15 L and nonrebreather, recovered within 1 minute, during PT/standing
Objective Data
Data Reviewed
Vital Signs / I&O / Oxygen:
Vital Signs
Temp Pulse Resp BP Pulse Ox
97.5 F 92 18 126/54 90
02/22/24 03:30 02/22/24 07:57 02/22/24 07:57 02/22/24 06:00 02/22/24 07:57
Intake and Output
02/21/24 02/22/24 02/23/24
06:59 06:59 06:59
Intake Total 480 / 480 1360 / 1360
Output Total 1200 / 1200 1400 / 1400
Balance -720 / -720 -40 / -40
SaO2 90
Nasal Cannula flow liters per 10
minute
Physical Exam
General: Comfortable
HEENT: Normocephalic and Anicteric
Cardiovascular: Regular Rhythm, Murmur (n) and Peripheral Edema (negative)
Respiratory: Wheeze (negative), Crackles (Bilateral, few expiratory squeaks), Rhonchi (negative), Non-Labored Respirations and Stridor (n)
GI: Soft, Distended (Abdominal obesity), Non Tender and Normal Bowel Sounds
Neurology: Awake, Alert and No Motor Deficits
Skin: Warm, Good Color, Cyanosis (negative) and Jaundice (negative)
Labs/Micro/Reports
Lab Data
02/21/24 05:02
02/22/24 04:54
Microbiology
02/15/24 08:12 Blood/Venous Blood Culture - Final
No Growth - Final Report
02/15/24 07:49 Blood/Venous Blood Culture - Final
No Growth - Final Report
--- NOTE | 2024-02-22 10:52 | CM ---
Patient seen at bedside with niece present. Patient confirmed that she cant get the commode into the home = it is a barriatric and is asking for a regular size commode. CM will update Liaison with [facility]. Patient with consult for access to 15 liters
at home. CM will call to [employer] and review. Patient anxious about home O2 needs. CM continue to follow for discharge planning needs.
Plan; home with [employer] and home O2 ; needs access up to 15 liters.
[2024-02-22] MEDS: ORAJEL 10% GEL TOPICAL ×2 (15:51→18:00)
--- NOTE | 2024-02-22 16:04 | VNURNOTE ---
Received message from Xochitl at [facility] - she confirmed standard commode is on schedule for delivery tomorrow. MARLENI garay.
--- NOTE | 2024-02-22 17:07 | PN.CDI ---
CDI
- -
CDI:
Physician Documentation Request
Admit Date: 02/15/24 12:09
Dear Doctor Do,
Please review the following and provide your response in the progress notes.
Clinical Indicators:
Pt admitted with Acute on Chronic Hypoxic Respiratory failure/ Interstitial Lung Disease / Pulmonary Fibrosis exacerbation
Sodium levels are trended as below
Laboratory Tests
02/17/24 02/18/24 02/19/24
05:20 04:24 04:45
Sodium 134 L 134 L 133 L
02/20/24 02/21/24 02/22/24
05:28 05:02 04:54
Sodium 134 L 134 L 134 L
Based on the above, could you clarify in the progress notes, the appropriate diagnosis, if significant, that supports the above abnormalities and additional evaluation, monitoring and/or treatment rendered:
Hyponatremia
Abnormal lab value
Other
Use of terms such as suspected, likely, concern for, or probable (associated with a specific diagnosis that is being evaluated, monitored, or treated as if it exists) are acceptable and can be coded in the inpatient setting, when documented at the
time of discharge.
Thank you,
Elin Sherman RN
CDI Specialist
[place] [facility]
Please use your independent medical judgment in providing your response.
[2024-02-22] MEDS: SOLU-MEDROL PF IV (17:15)
[2024-02-22] MEDS: LOVENOX 40 MG SC (18:01)
[2024-02-22] MEDS: ATIVAN 0.5 MG IV (22:18)
[2024-02-22] MEDS: MELATONIN 5 MG PO (22:18)
[2024-02-22] MEDS: LIPITOR 40 MG PO (22:18)
[2024-02-22] MEDS: NSS (PRESERVATIVE FREE) 0.25 ML IV (22:19)
[2024-02-23] VITALS (15 sets, daily range): BP systolic 127–163; BP diastolic 50–113; PULSE 2–87; BMI 46.2
--- NOTE | 2024-02-23 02:06 | PTCARENOTE ---
Pt received from previous RN. pt AAO. pt NSR on monitor. SAt 95% on 15L midflow. RT placed Pt on biapap HS. Assessment as documented. Call light in reach.
[2024-02-23] MEDS: SYNTHROID 150 MCG PO (05:52)
[2024-02-23] MEDS: DUONEB 3 ML INH ×3 (07:36→19:16)
--- NOTE | 2024-02-23 08:31 | W.PN.PUL3 ---
Today's Communication / Plan
-
Maintain methylprednisolone 40 mg every 12
Obtain chest x-ray
Await Dopplers
Agree with COVID/flu testing
Follow fever curve
Assessment
-
Assessment: 73-year-old female with a past medical history of ANCA positive vasculitis/microscopic polyangiitis, ILD, chronic hypoxic respiratory failure on home O2, EMERSON on auto CPAP, history of breast cancer s/p lumpectomy/XRT (2001),
steroid-induced diabetes, morbid obesity and restrictive lung disease who presents with worsening shortness of breath. She was recently hospitalized here and was discharged home on 02/05/2024 with 50 mg prednisone. She had apparently been on 60 mg
prednisone daily since that hospital discharge and was told to wean down the dose as she improves but she never wean down the dose as she never felt like she was improving. She was saturating 67% while on CPAP via EMS. In the ER she was febrile to
102.7 �F, tachycardic to 125, breathing at 20 breaths minute, BP 177/71 and saturating 68% on CPAP. She was changed to BiPAP with sats improving to 77%, and eventually able to be transition to mid flow nasal cannula at 15 L/min with saturations at
98%. Labs showed leukocytosis of 24.5, anemia to 9.5, lactate 3.4, troponin WNL at 0.029, proBNP 371, and COVID-19 antigen negative. Blood cultures were collected, and flu A/B swab was negative. CXR showed acute pneumonitis on chronic parenchymal
disease, and CTA chest showed no evidence of acute PE with worsening bilateral parenchymal opacities with increasing groundglass opacities bilaterally. In the ER she was given 40 mg IV Lasix, DuoNebs, Ativan, Ofirmev and Zofran. She was admitted
to the IMU and now pulmonary consulted for additional management/recommendations.
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
hypercholesterolemia, thyroid disease, history of breast cancer s/p lumpectomy + XRT (2001), steroid-induced diabetes, hypertension, history of diverticulosis, hearing loss, restrictive lung disease, iron deficiency anemia, history of COVID-19
(December 30, 2023) s/p Paxlovid, GERD, history of mild pulmonary hypertension, steroid-induced osteoporosis
Impression:
#Acute on chronic respiratory failure with hypoxia due to suspected ILD exacerbation; DDx also includes progressive ILD
#Leukocytosis, likely steroid-induced
#Anemia (baseline Hb 9.5�11g/dL)
#Lactic acidosis � resolved
#Febrile illness � patient is nontoxic-appearing with negative procalcitonin (<0.05)
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
#Moderate restrictive lung disease (T%, VC: 85% with moderate gas exchange capacity defect via PFT from June 2021)
#EMERSON on auto-CPAP 5-20 cmH2O (average pressure: 7.8cmH2O with residual AHI: 1.6 for 30-day period of 12/13 - 01/12/2024)
#Morbid obesity
#Recent history of COVID-19 (12/30/2023) recently on baricitinib, now off
#Former tobacco use (quit in 01/2003 with 60-PY Hx)
Plan/recommendations
At this time, patient respiratory status remains tenuous
Although did well yesterday, last 24 hours and tolerated out of bed to chair, developed low-grade fever this morning
Facial flushing noted. Patient states she gets facial flushing whenever she is sick
Continue supplemental oxygen-currently on high flow-attempt to wean, currently on 15 L, anywhere between 85 and 90% saturation
Incentive spirometry
Will discontinue nebulizer
BiPAP 15/8 cm at night-tolerating well-has AutoPap at home
Antitussives as needed
Continue methylprednisolone 40 mg every 12 hours. This is equivalent to 100 mg of prednisone
We will maintain current dosing
Eventual transition to oral prednisone 60 mg at time of discharge
Dr. Blake has discussed the case with Dr. 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
Continue Imuran, 100 mg twice a day
CRP elevated but lower than prior admission at 85.
- Continue bactrim 1 DS tab TIW
Monitor blood sugar
Insulin supplementation as needed
Maintain euglycemia with goal BG >100 and <180
Fever curve improved/persistent leukocytosis may be driven by steroids. Fever may be driven by autoimmune process. All cultures negative, Legionella, strep pneumo antibodies negative.- UA negative for UTI. Continue to follow given low-grade fever
Given that her procal is <0.5 and she is non-toxic appearing-low suspicion for infection.
Status post antibiotics-received cefepime and doxycycline
Observe off antibiotics
obtain chest x-ray
No current signs of volume overload so hold off on diuresis; if patient's O2 requirements do not improve despite imuran then diuresis could be attempted.
Echo (02/16/2024) showing preserved LVEF at 55 to 60% with mild MR, mild aortic stenosis and mild�moderate TR with moderate pulmonary hypertension with PASP 47 mmHg
Monitor hemoglobin
Transfuse as needed
DVT prophylaxis-low molecular weight heparin
Dopplers pending today
Nutrition
Physical therapy/Occupational Therapy
Patient does have 3 concentrators at home. Has the ability to increase to 15 to 20 L at home
We will have case management help coordinate with [facility], to confirm adequate oxygen at home prior to discharge
Continue with every other day physical therapy and assess oxygen needs. On 02/20 required 15 L with 13 L nonrebreather, recovered within 1 minute with 15 L/nonrebreather after standing
Continue follow-up with Dr. Rausch as well as ILD-pulmonary at [facility], Dr. Latha Mendez

Data:
CTA Chest 02/15/2024:
Respiratory motion limits evaluation of the segmental and subsegmental pulmonary arteries, basically nondiagnostic for these arteries. There is no evidence for central pulmonary embolism.
Comparing to CT examination of April 28, 2024, interval increase in bilateral parenchymal opacities, with increase in groundglass opacities predominantly. Findings would suggest acute pneumonitis superimposed on chronic parenchymal changes.
Table honeycombing in both lung bases.
There is mild to moderate elevation right hemidiaphragm.
CXR 02/15/2024: Radiographic findings are suggestive of acute pneumonitis superimposed on chronic parenchymal disease.
Subjective Data
-
Date of Service:
Date of Service: February 23, 2024
Chief Complaint: Pulmonary Follow Up (Acute hypoxemic respiratory failure/acute ILD exacerbation) and Dyspnea Follow Up
Subjective:
Patient had good, up out of bed. Slept throughout the night with BiPAP. 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 Saturation at that time decreased, requiring nonrebreather. She states her saturation went in the 70s. She did not feel
short of breath with this. Has mild cough but nonproductive, denies nausea, abdominal pain.
Objective Data
Data Reviewed
Vital Signs / I&O / Oxygen:
Vital Signs
Temp Pulse Resp BP Pulse Ox
98.4 F 93 20 151/67 90
02/23/24 05:02 02/23/24 07:38 02/23/24 07:38 02/23/24 06:41 02/23/24 07:38
Intake and Output
02/22/24 02/23/24 02/24/24
06:59 06:59 06:59
Intake Total 1360 / 1360
Output Total 1400 / 1400 525 / 525
Balance -40 / -40 -525 / -525
SaO2 90
Nasal Cannula flow liters per 15
minute
Physical Exam
General: Comfortable
HEENT: Normocephalic and Anicteric
Cardiovascular: Regular Rhythm, Murmur (n) and Peripheral Edema (negative)
Respiratory: Wheeze (negative), Crackles (Bilateral, basilar), Rhonchi (negative), Non-Labored Respirations and Stridor (n)
GI: Soft, Distended (Abdominal obesity), Non Tender and Normal Bowel Sounds
Neurology: Awake, Alert and No Motor Deficits
Skin: Warm, Good Color, Cyanosis (negative), Jaundice (negative) and Rash (Mild facial flushing)
Labs/Micro/Reports
Lab Data
02/21/24 05:02
02/22/24 04:54
Microbiology
02/15/24 08:12 Blood/Venous Blood Culture - Final
No Growth - Final Report
02/15/24 07:49 Blood/Venous Blood Culture - Final
No Growth - Final Report
--- NOTE | 2024-02-23 08:41 | W.PN.HOSP.TC ---
Today's Communication/Plan
-
see bold
Assessment / Plan
Assessment / Plan
HPI: 73 yo F with PMH significant for pulm fibrosis / ILD on chronic Rituxan and on home O2 at 8 LPM, chronic CHF, morbid obesity, was discharged 10 days ago and returned for worsening SOB likely due to pulmonary fibrosis exacerbation. Of note, she
was seen by managed care provider and was started with Olumiant for presumed chronic COVID lung disease (took for 5 days).
Patient was found to be in severe respiratory distress with initial pulse ox in the 50s by EMS. Patient was given nebulizer treatment, Solu-Medrol 125 mg IV, and placed on CPAP, with improvement en route to the hospital.
In the ED, she was noted to be febrile at 38.[address] Chest on admission:
Respiratory motion limits evaluation of the segmental and subsegmental pulmonary arteries, basically nondiagnostic for these arteries. There is no evidence for central pulmonary embolism.
Comparing to CT examination of April 28, 2024, interval increase in bilateral parenchymal opacities, with increase in groundglass opacities predominantly. Findings would suggest acute pneumonitis superimposed on chronic parenchymal changes.
Table honeycombing in both lung bases.
A/P:
# Acute on Chronic Hypoxic Respiratory Failure
# Interstitial Lung Disease / Pulmonary Fibrosis exacerbation
# Dyspnea with activity
CT neg for PE
Hold further EMERGENCY DEPARTMENT CLINICIAN Olumiant
Weaned IV methylprednisone to 40 mg every 12 hours on 02/21
Cont EMERGENCY DEPARTMENT CLINICIAN Imuran
Continue O2 support, was on 100% high flow NC, now 15 L, baseline at 8-10 LPM
Continue supportive care with Duonebs ATC
Encouraged prone position
Pulm on board
# Fever DOA/ SIRS
Blood culture negative, procal negative, COVID/flu negative, urine Legionella/Strep Ag negative
S/p empiric Abx cefepime and doxycycline for 3 days
02/22�patient reports subjective fever/chills, Tmax 100.2
COVID/flu negative, check blood cultures
# Benign Hypertension
Continue Norvasc with hold parameter
Holding lisinopril for mild hyperkalemia
#Steroid-induced hyperglycemia
Check hemoglobin A1c, start carb controlled diet, sliding scale insulin
# Hyperkalemia
Holding lisinopril
Cont EMERGENCY DEPARTMENT CLINICIAN Bactrim for now
Resolved, can stop low potassium diet
Monitor K level
#Oral ulcer
Benzocaine oral gel for oral ulcers
# Facial wound
Suspect impetigo
No improvement on topical acyclovir
Started topical Bactroban TID 02/20
# Mild transaminitis likely reactive, resolved
# ANCA Positive Vasculitis
# immune compromised state
Cont EMERGENCY DEPARTMENT CLINICIAN Bactrim
# Hyponatremia
Mild, monitor
# Chronic HFpEF
recent with EF of 55-60%
cont EMERGENCY DEPARTMENT CLINICIAN Lasix
# Hypothyroidism
Continue with Synthroid
# Anemia of Chronic Disease
# Hyperlipidemia
Continue with Lipitor
# Morbid Obesity
# Ambulatory dysfunction
# Sleep apnea
BMI 37
EMERGENCY DEPARTMENT CLINICIAN CPAP at bedtime
# History of left breast cancer with lumpectomy and radiation in 2001
# Anxiety and depression
Continue with Zoloft and BuSpar
# GERD
PPI continued
# Mild anxiety
Low dose IV Ativan added
DVT ppx: Lovenox SQ
FC
Total time spent to see the patient on the floor, examine the patient, review data and lab results, discuss treatment plan with patient, nursing staff around 50 minutes.
Physical Exam
General: Morbidly obese, no acute distress
HEENT: Normocephalic, Atraumatic, EOMI, MMM
Respiratory: Bibasilar crackles
Cardiac: Normal S1/S2, Regular Rate and Rhythm
GI: Soft, Nontender, Nondistended, Normal Bowel Sounds
Extremities: No Clubbing, Cyanosis, or Edema
Neuro: Nonfocal/Grossly Intact
Psych: Calm, Cooperative
Derm: Circular scabbed wound with honeycomb appearance above right lip
Anticipated Discharge: > 48 hours
Subjective/Interval History
-
Date of Service: February 23, 2024
Patient reports fever and chills. She denies coughing. She feels her shortness of breath overall is improved.
Objective Data
-
Vital Signs:
Vital Signs
Temp Pulse Resp BP Pulse Ox
98.4 F 93 20 151/67 90
02/23/24 05:02 02/23/24 07:38 02/23/24 07:38 02/23/24 06:41 02/23/24 07:38
I&O
02/22/24 02/23/24 02/24/24
06:59 06:59 06:59
Intake Total 1360 / 1360
Output Total 1400 / 1400 525 / 525
Balance -40 / -40 -525 / -525
[2024-02-23] MEDS: BACTROBAN 2% OINTMENT 1 APPLIC TOPICAL ×3 (08:59→22:13)
[2024-02-23] MEDS: ORAJEL 10% GEL TOPICAL ×3 (08:59→17:43)
[2024-02-23] MEDS: NORVASC 2.5 MG PO (09:00)
[2024-02-23] MEDS: OCUVITE SOFTGEL 1 CAP PO ×2 (09:00→20:02)
[2024-02-23] MEDS: IMURAN 100 MG PO ×2 (09:00→20:03)
--- NOTE | 2024-02-23 09:00 | WOUNDNOTE ---
[facility] RN note: Patient's proximal R upper lip skin lesion dry/crusted. Current local care is Bactroban ointment TID. It is covered with [id number] silicone border foam q hs while BPAP mask is on. Skin on heels intact. RN Kirstin stated she will check
patient's sacral skin. Current wound care appears appropriate. Will follow peripherally as needed.
--- NOTE | 2024-02-23 09:00 | WOUNDNOTE ---
LIP (PROXIMAL R UPPER)
[2024-02-23] MEDS: BUSPAR 10 MG PO ×2 (09:01→20:03)
[2024-02-23] MEDS: COLACE 100 MG PO (09:01)
[2024-02-23] MEDS: LOW STRENGTH ASPIRIN 81 MG PO (09:01)
[2024-02-23] MEDS: LASIX 20 MG PO (09:02)
[2024-02-23] MEDS: ZOLOFT 75 MG PO (09:02)
[2024-02-23] MEDS: ZOLOFT 100 MG PO (09:03)
[2024-02-23] MEDS: PROTONIX 40 MG PO (09:03)
[2024-02-23] MEDS: SOLU-MEDROL PF 40 MG IV ×2 (09:03→20:03)
[2024-02-23] MEDS: ZYRTEC 10 MG PO (09:03)
[2024-02-23 10:25] LABS: COVID-19 Antigen Negative (Negative)
--- NOTE | 2024-02-23 10:28 | CM ---
Patient with Dx Acute Hypoxic Respiratory Failure, ILD flare / Pulmonary Fibrosis exacerbation , SIRS. O2 15L midflow. Receiving IV Steroids. PT recommends HH. OT recommends home vs skilled. Seen by wound care nurse.
Continuation of CM Consult for request for home O2 15 Liters:
Spoke with [facility], who is currently supplying patient's O2 with a 10L high flow concentrator. [facility] stated that they are unable to provide service for 15 L. Medicare will not reimburse for the second O2 concentrator. She suggested trying
[facility] or [facility].
Spoke with Kirsty Bustillos; he checked and said they can only provide high flow for their current patients. High flow patients are a financial loss as reimbursement is no different. The high flow machine is a [employer]us Intensity AirSep machine and
2 machines are needed to deliver 15L.
Spoke with radiology receptionist [facility] (ph [phone]); she checked with respiratory dept and they will only supply O2 up to 10L.
Message to Joe Rausch [employer] Do; [place] tried 3 respiratory companies and none are able to do high flow O2 beyond 10L. They said it requires 2 special high flow concentrators and none will provide this type of service.
VN ordered standard commode for patient.
Plan TBD.
[2024-02-23 12:16] LABS: % Basophils 0.4 % (0-2); % Eosinophils 0.2 % (0-6); % Immature Granulocytes 8.6 % (0-0.5); % Lymphocytes 2.6 % (20.5-51.1); % Neutrophils 85.2 % (42.2-75.2); Absolute Basophils 0.1 10^3/uL (0-0.2); Absolute Immature Granulocytes 1.5 10^3/uL (0-0.05); Absolute Lymphocytes 0.5 10^3/uL (1.2-3.4); Absolute Monocytes 0.5 10^3/uL (0.1-0.6); Absolute Neutrophils 14.9 10^3/uL (1.4-6.5); Hematocrit 25.5 % (37.0-47.0); Hemoglobin 8.1 g/dL (12.0-16.0); Mean Corp Hgb Conc. 31.8 g/dL (33.0-37.0); Mean Corpuscular Volume 88.2 fL (81.0-99.0); Mean Platelet Volume 10.7 fL (7.4-10.4); Nucleated Red Blood Cells % 0 %; Platelet Count 339 10^3/uL (130-400); Red Blood Cell Count 2.89 10^6/uL (4.20-5.40); Red Cell Dist. Width 15.1 % (11.5-14.5); White Blood Cell Count 17.4 10^3/uL (4.8-10.8)
[2024-02-23] MEDS: BACTRIM DS 800 MG/160 MG 1 TABLET PO (12:22)
[2024-02-23 13:18] LABS: Blood Urea Nitrogen 36 mg/dl (7-17); Calcium 9.3 mg/dl (8.4-10.2); Carbon Dioxide 25 mmol/L (22-30); Chloride 94 mmol/L (98-107); Estimated Creatinine Clearance 94 ml/min; Glucose 331 mg/dl (70-99); Potassium 4.1 mmol/L (3.5-5.1); Sodium 133 mmol/L (135-145); eGFR > 60.00
[2024-02-23 14:24] LABS: Glycohemoglobin (HgbA1c) 7.4 % (4.0-5.6)
[2024-02-23 15:02] LABS: Urine Albumin Trace (Neg - Trace); Urine Bilirubin Negative (Negative); Urine Character Clear (Clear); Urine Color Yellow; Urine Glucose 3+ (Negative); Urine Ketone Negative (Negative); Urine Leukocyte Negative (Negative); Urine Nitrite Negative (Negative); Urine Occult Blood 1+ (Negative); Urine Urobilinogen Negative (Neg - 1+)
[2024-02-23 15:23] LABS: Urine Squamous Cell >30 /LPF (Few)
[2024-02-23 15:24] LABS: Urine Amorphous Seen; Urine Hyaline Cast 0-2 /LPF (0-2)
[2024-02-23 15:25] LABS: Urine Red Blood Cell 0-2 /HPF (0-2); Urine White Cell 0-2 /HPF (0-5)
[2024-02-23 17:35] LABS: Glucose - Point of Care 163 mg/dl (70-99)
[2024-02-23] MEDS: LOVENOX 40 MG SC (17:43)
[2024-02-23] MEDS: NOVOLOG FLEXPEN-MODERATE RESISTANCE 1 UNITS SC (17:44)
--- NOTE | 2024-02-23 19:51 | PTCARENOTE ---
day shift note. recieved pt this am c/o feeling like shes 'coming down with something' throat feels scratch, pt feels cold. pt desatting frequently on 15 liters and needing nonrebreather to increase above 90%. pt also reporting she had slight fever
in middle of night. reported to pulm and hospitalist. cxr, labs ordered and sent. covid and flu swabs negative. see nursing worklist. reported to recieving rn.
[2024-02-23] MEDS: TYLENOL 500 MG PO (20:03)
--- NOTE | 2024-02-23 20:18 | PTCARENOTE ---
Pt reports SOB, overall 'unwell' feeling, wearing 15L MF with NRB, SaO2 95%. 19:00 temp of 100.7. PRN tylenol given per JUL. Pt removed NRB to take tylenol with sip of water, SaO2 dropped to 80% on monitor with pt reporting SOB. NRB replaced with
improvement again to 95%. Pw in place to reduce strain of OOB on pt resp status. Pt reports agreeable to use CPAP HS, but feels it causes increased anxiety. Pt reports manageable anxiety now, denies intervention at this time. Call slater within reach.
[2024-02-23 22:04] LABS: Glucose - Point of Care 212 mg/dl (70-99)
[2024-02-23] MEDS: LIPITOR 40 MG PO (22:10)
[2024-02-23] MEDS: ATIVAN 0.5 MG IV (22:10)
[2024-02-23] MEDS: NSS (PRESERVATIVE FREE) 0.25 ML IV (22:10)
[2024-02-23] MEDS: MELATONIN 5 MG PO (22:10)
[2024-02-24] VITALS (14 sets, daily range): BP systolic 140–167; BP diastolic 54–82; PULSE 2–81; BMI 45.9
[2024-02-24 05:02] LABS: Blood Urea Nitrogen 32 mg/dl (7-17); Calcium 9.4 mg/dl (8.4-10.2); Carbon Dioxide 28 mmol/L (22-30); Chloride 96 mmol/L (98-107); Estimated Creatinine Clearance 94 ml/min; Glucose 156 mg/dl (70-99); Potassium 4.8 mmol/L (3.5-5.1); Sodium 135 mmol/L (135-145); eGFR > 60.00
[2024-02-24 05:14] LABS: Procalcitonin < 0.05 ng/ml (0.0-0.25)
[2024-02-24] MEDS: SYNTHROID 150 MCG PO (06:20)
[2024-02-24] MEDS: DUONEB 3 ML INH ×2 (07:45→19:28)
[2024-02-24 07:46] LABS: Glucose - Point of Care 118 mg/dl (70-99)
[2024-02-24] MEDS: NOVOLOG FLEXPEN-MODERATE RESISTANCE SC (07:55)
--- NOTE | 2024-02-24 08:13 | W.PN.HOSP.TC ---
Today's Communication/Plan
-
Start laxatives
Continue IV steroids
Assessment / Plan
Assessment / Plan
HPI: 73 yo F with PMH significant for pulm fibrosis / ILD on chronic Rituxan and on home O2 at 8 LPM, chronic CHF, morbid obesity, was discharged 10 days ago and returned for worsening SOB likely due to pulmonary fibrosis exacerbation. Of note, she
was seen by public works manager and was started with Olumiant for presumed chronic COVID lung disease (took for 5 days).
Patient was found to be in severe respiratory distress with initial pulse ox in the 50s by EMS. Patient was given nebulizer treatment, Solu-Medrol 125 mg IV, and placed on CPAP, with improvement en route to the hospital.
In the ED, she was noted to be febrile at 38.[address] Chest on admission:
Respiratory motion limits evaluation of the segmental and subsegmental pulmonary arteries, basically nondiagnostic for these arteries. There is no evidence for central pulmonary embolism.
Comparing to CT examination of April 28, 2024, interval increase in bilateral parenchymal opacities, with increase in groundglass opacities predominantly. Findings would suggest acute pneumonitis superimposed on chronic parenchymal changes.
Table honeycombing in both lung bases.
A/P:
# Acute on Chronic Hypoxic Respiratory Failure
# Interstitial Lung Disease / Pulmonary Fibrosis exacerbation
# Dyspnea with activity
CT neg for PE
Hold further SLIDE MAKER Olumiant
Weaned IV methylprednisone to 40 mg every 12 hours on 02/21
Cont SLIDE MAKER Imuran
Continue O2 support, was on 100% high flow NC, now 15 L, baseline at 8-10 LPM
Continue supportive care with Duonebs ATC
Pulmonology following, for chest CT today without IV contrast
# Fever DOA/ SIRS
Blood culture negative, procal negative, COVID/flu negative, urine Legionella/Strep Ag negative
S/p empiric Abx cefepime and doxycycline for 3 days
02/22�patient reports subjective fever/chills, Tmax 100.2
COVID/flu negative, blood culture pending
Procalcitonin negative, observe off antibiotics
# Benign Hypertension
Continue Norvasc with hold parameter
Holding lisinopril for mild hyperkalemia
#Steroid-induced hyperglycemia
#Steroid-induced diabetes
Hemoglobin A1c 7.4, changed to carb controlled diet, sliding scale insulin
# Hyperkalemia
Holding lisinopril
Cont SLIDE MAKER Bactrim for now
Resolved, can stop low potassium diet
Monitor K level
#Oral ulcer
Benzocaine oral gel for oral ulcers
# Facial wound
Suspect impetigo
No improvement on topical acyclovir
Started topical Bactroban TID 02/20
# Mild transaminitis likely reactive, resolved
# ANCA Positive Vasculitis
# immune compromised state
Cont SLIDE MAKER Bactrim
# Hyponatremia
Mild, monitor
# Chronic HFpEF
recent with EF of 55-60%
cont SLIDE MAKER Lasix
# Hypothyroidism
Continue with Synthroid
# Anemia of Chronic Disease
# Hyperlipidemia
Continue with Lipitor
# Morbid Obesity
# Ambulatory dysfunction
# Sleep apnea
BMI 37
SLIDE MAKER CPAP at bedtime
# History of left breast cancer with lumpectomy and radiation in 2001
# Anxiety and depression
Continue with Zoloft and BuSpar
# GERD
PPI continued
# Mild anxiety
Low dose IV Ativan added
DVT ppx: Lovenox SQ
FC
Total time spent to see the patient on the floor, examine the patient, review data and lab results, discuss treatment plan with patient, nursing staff around 45 minutes.
Physical Exam
General: Morbidly obese, no acute distress
HEENT: Normocephalic, Atraumatic, EOMI, MMM
Respiratory: Bibasilar crackles
Cardiac: Normal S1/S2, Regular Rate and Rhythm
GI: Soft, Nontender, Nondistended, Normal Bowel Sounds
Extremities: No Clubbing, Cyanosis, or Edema
Neuro: Nonfocal/Grossly Intact
Psych: Calm, Cooperative
Derm: Circular scabbed wound with honeycomb appearance above right lip
Anticipated Discharge: > 48 hours
Subjective/Interval History
-
Date of Service: February 24, 2024
Patient reports shortness of breath is the same. She complains about constipation. No fever, no vomiting.
Objective Data
-
Labs:
Laboratory Results
02/24/24
04:15
Sodium 135
Potassium 4.8
Chloride 96 L
Carbon Dioxide 28
BUN 32 H
Creatinine 0.7
Glucose 156 H
Calcium 9.4
Vital Signs:
Vital Signs
Temp Pulse Resp BP Pulse Ox
97.7 F 74 20 147/67 95
02/24/24 08:12 02/24/24 07:48 02/24/24 07:48 02/24/24 06:00 02/24/24 07:48
I&O
02/23/24 02/24/24 02/25/24
06:59 06:59 06:59
Intake Total 240 / 240
Output Total 525 / 525 1400 / 1400
Balance -525 / -525 -1160 / -1160
[2024-02-24] MEDS: SOLU-MEDROL PF 40 MG IV ×3 (09:01→23:00)
[2024-02-24] MEDS: LASIX 20 MG PO (09:02)
[2024-02-24] MEDS: IMURAN 100 MG PO (09:02)
[2024-02-24] MEDS: ZOLOFT 100 MG PO (09:02)
[2024-02-24] MEDS: ZOLOFT 75 MG PO (09:02)
[2024-02-24] MEDS: PROTONIX 40 MG PO (09:02)
[2024-02-24] MEDS: BUSPAR 10 MG PO ×2 (09:02→19:24)
[2024-02-24] MEDS: ZYRTEC 10 MG PO (09:03)
[2024-02-24] MEDS: COLACE 100 MG PO (09:03)
[2024-02-24] MEDS: NORVASC 2.5 MG PO ×2 (09:03→17:22)
[2024-02-24] MEDS: OCUVITE SOFTGEL 1 CAP PO ×2 (09:03→19:24)
[2024-02-24] MEDS: LOW STRENGTH ASPIRIN 81 MG PO (09:03)
[2024-02-24] MEDS: ORAJEL 10% GEL TOPICAL ×3 (09:04→17:17)
[2024-02-24] MEDS: BACTROBAN 2% OINTMENT 1 APPLIC TOPICAL ×3 (09:04→22:02)
--- NOTE | 2024-02-24 09:21 | PTCARENOTE ---
Received patient this AM. Pt AAOX3. Pt on 15L MF/ NRB Pox: 93-95%. NSR on monitor. Pt denies pain. Plan of care ongoing.
[2024-02-24] MEDS: MIRALAX 17 GRAMS PO (10:45)
--- NOTE | 2024-02-24 10:59 | W.PN.PUL3 ---
Today's Communication / Plan
-
CT chest today without IV contrast
Continue IV steroids at the current dose-depending on CAT scan results may consider increasing dosing.
Continue Imuran for now
Hold antibiotics and observe
Follow cultures
Continue oxygen supplementation
High risk situation
Assessment
-
Assessment: 73-year-old female with a past medical history of ANCA positive vasculitis/microscopic polyangiitis, ILD, chronic hypoxic respiratory failure on home O2, EMERSON on auto CPAP, history of breast cancer s/p lumpectomy/XRT (2001),
steroid-induced diabetes, morbid obesity and restrictive lung disease who presents with worsening shortness of breath. She was recently hospitalized here and was discharged home on 02/05/2024 with 50 mg prednisone. She had apparently been on 60 mg
prednisone daily since that hospital discharge and was told to wean down the dose as she improves but she never wean down the dose as she never felt like she was improving. She was saturating 67% while on CPAP via EMS. In the ER she was febrile to
102.7 �F, tachycardic to 125, breathing at 20 breaths minute, BP 177/71 and saturating 68% on CPAP. She was changed to BiPAP with sats improving to 77%, and eventually able to be transition to mid flow nasal cannula at 15 L/min with saturations at
98%. Labs showed leukocytosis of 24.5, anemia to 9.5, lactate 3.4, troponin WNL at 0.029, proBNP 371, and COVID-19 antigen negative. Blood cultures were collected, and flu A/B swab was negative. CXR showed acute pneumonitis on chronic parenchymal
disease, and CTA chest showed no evidence of acute PE with worsening bilateral parenchymal opacities with increasing groundglass opacities bilaterally. In the ER she was given 40 mg IV Lasix, DuoNebs, Ativan, Ofirmev and Zofran. She was admitted
to the IMU and now pulmonary consulted for additional management/recommendations.
Chronic medical conditions SWITCHER: Interstitial lung disease, ANCA-positive vasculitis/microscopic polyangiitis, chronic hypoxic respiratory failure on home O2 at 8 L/min, EMERSON on CPAP, degenerative disc disease, incisional hernia s/p repair with mesh,
hypercholesterolemia, thyroid disease, history of breast cancer s/p lumpectomy + XRT (2001), steroid-induced diabetes, hypertension, history of diverticulosis, hearing loss, restrictive lung disease, iron deficiency anemia, history of COVID-19
(December 30, 2023) s/p Paxlovid, GERD, history of mild pulmonary hypertension, steroid-induced osteoporosis
Impression:
#Acute on chronic respiratory failure with hypoxia due to suspected ILD exacerbation; DDx also includes progressive ILD
#Leukocytosis, likely steroid-induced
#Anemia (baseline Hb 9.5�11g/dL)
#Lactic acidosis � resolved
#Febrile illness � patient is nontoxic-appearing with negative procalcitonin (<0.05)
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
#Moderate restrictive lung disease (T%, VC: 85% with moderate gas exchange capacity defect via PFT from June 2021)
#EMERSON on auto-CPAP 5-20 cmH2O (average pressure: 7.8cmH2O with residual AHI: 1.6 for 30-day period of 12/13 - 01/12/2024)
#Morbid obesity
#Recent history of COVID-19 (12/30/2023) recently on baricitinib, now off
#Former tobacco use (quit in 01/2003 with 60-PY Hx)
Plan/recommendations
Continues to require 15 L with nonrebreather as needed. Initially patient was on high flow on admission.
Maintain pulse ox above 88% as able.
-
Low-grade fever twice.
Does not appear toxic
No new symptoms. Denies any chills.
No significant phlegm production.
Oxygenation has not worsened.
-
Incentive spirometry encourage
Nebulizers as needed
BiPAP 15/8 cm at night-tolerating well-has AutoPap at home
Antitussives as needed
Continue methylprednisolone 40 mg every 12 hours. This is equivalent to 100 mg of prednisone
Eventual transition to oral prednisone 60 mg at time of discharge
Dr. Blake has discussed the case with Dr. Latha Mendez ILD clinic from [facility], as well as Dr. Daley patient's compress machine operator.
-
Given low-grade fevers, discussed with Dr. Rausch primary manager proposal this morning, will obtain a CT of the chest without IV contrast.
If groundglass opacities are improved compared to prior continue with current care.
If groundglass opacities have not changed or worse, then will increase corticosteroids and discontinue Imuran given low-grade fevers and risk of infection with heavy immunosuppression.
-
For now continue Imuran, 100 mg twice a day
CRP elevated but lower than prior admission at 88(02/17/2024). It was 163 on 01/28/2024
- Continue bactrim 1 DS tab TIW for prophylaxis.
-
Monitor blood sugar
Insulin supplementation as needed
Maintain euglycemia with goal BG >100 and <180
Fever curve improved/persistent leukocytosis may be driven by steroids. Fever may be driven by autoimmune process. All cultures negative, Legionella, strep pneumo antibodies negative.- UA negative for UTI. Continue to follow given low-grade fever
Chest x-ray essentially unchanged. To my view perhaps slightly better.
Obtain CT chest Without IV contrast today 02/24/2024
Lower extremity Dopplers negative
CT scan during this admission negative for pulmonary embolism.
Given that her procal is <0.5 and she is non-toxic appearing-low suspicion for infection.
Status post antibiotics-received cefepime and doxycycline-hold for now.
Observe off antibiotics
Negative influenza
Negative COVID
Blood cultures pending
Patient not producing significant amount of sputum.
-
Low threshold to consult infectious disease depending on fever curve.
Patient will not tolerate bronchoscopy
-
No current signs of volume overload so hold off on diuresis; if patient's O2 requirements do not improve despite imuran then diuresis could be attempted.
Echo (02/16/2024) showing preserved LVEF at 55 to 60% with mild MR, mild aortic stenosis and mild�moderate TR with moderate pulmonary hypertension with PASP 47 mmHg
Monitor hemoglobin-stable, has not required transfusion. No evidence for bleeding.
Transfuse as needed
DVT prophylaxis-low molecular weight heparin
-
Physical therapy/Occupational Therapy as tolerated.
Dr. Snider discussed plan with patient and daughter at the bedside 02/24/2024. Daughter feels that patient overall has improved since admission.
Also discussed the case with Dr. Rausch primary manager proposal for years.
-
Patient does have 3 concentrators at home. Has the ability to increase to 15 to 20 L at home
We will have case management help coordinate with [facility], to confirm adequate oxygen at home prior to discharge
Continue with every other day physical therapy and assess oxygen needs. On 02/20 required 15 L with 13 L nonrebreather, recovered within 1 minute with 15 L/nonrebreather after standing
Continue follow-up with Dr. Rausch as well as ILD-pulmonary at [facility], Dr. Latha Mendez

Data:
CTA Chest 02/15/2024:
Respiratory motion limits evaluation of the segmental and subsegmental pulmonary arteries, basically nondiagnostic for these arteries. There is no evidence for central pulmonary embolism.
Comparing to CT examination of April 28, 2024, interval increase in bilateral parenchymal opacities, with increase in groundglass opacities predominantly. Findings would suggest acute pneumonitis superimposed on chronic parenchymal changes.
Table honeycombing in both lung bases.
There is mild to moderate elevation right hemidiaphragm.
CXR 02/15/2024: Radiographic findings are suggestive of acute pneumonitis superimposed on chronic parenchymal disease.
Subjective Data
-
Date of Service:
Date of Service: February 24, 2024
Chief Complaint: Pulmonary Follow Up (Acute hypoxemic respiratory failure/acute ILD exacerbation) and Dyspnea Follow Up
Subjective:
She offers no new complaints.
Minimal coughing.
No significant phlegm production
Denies hemoptysis
Denies abdominal pain
Denies chest pain
Denies significant acid reflux
Review of Systems
HEENT: Oral/Throat Pain
Cardiopulmonary: Dyspnea on Exertion, Cough and Sputum Production (Minimal)
Objective Data
Data Reviewed
Vital Signs / I&O / Oxygen:
Vital Signs
Temp Pulse Resp BP Pulse Ox
97.7 F 81 15 154/67 94
02/24/24 08:12 02/24/24 09:02 02/24/24 08:00 02/24/24 09:02 02/24/24 09:15
Intake and Output
02/23/24 02/24/24 02/25/24
06:59 06:59 06:59
Intake Total 240 / 240
Output Total 525 / 525 1400 / 1400
Balance -525 / -525 -1160 / -1160
SaO2 94
Nasal Cannula flow liters per 15
minute
Physical Exam
General: Comfortable
HEENT: Normocephalic and Anicteric
Cardiovascular: Regular Rhythm, Murmur (n) and Peripheral Edema (negative)
Respiratory: Wheeze (negative), Crackles (Bilateral, basilar), Rhonchi (negative), Non-Labored Respirations and Stridor (n)
GI: Soft, Distended (Abdominal obesity), Non Tender and Normal Bowel Sounds
Neurology: Awake, Alert and No Motor Deficits
Skin: Warm, Good Color, Cyanosis (negative), Jaundice (negative) and Rash (Mild facial flushing)
Labs/Micro/Reports
Lab Data
02/23/24 11:57
02/24/24 04:15
Microbiology
02/23/24 09:49 Nasal Swab Influenza Types A & B (MÓNICA) - Final
Negative for Influenza A & B, NAAT
Negative results must be combined with clinical observations
and patient history.
Nucleic Acid Amplification test (NAAT)performed on the
[employer] platform.
[2024-02-24 12:32] LABS: Glucose - Point of Care 172 mg/dl (70-99)
[2024-02-24] MEDS: NOVOLOG FLEXPEN-MODERATE RESISTANCE 1 UNITS SC ×2 (12:50→17:25)
[2024-02-24] MEDS: DUONEB INH (14:17)
--- NOTE | 2024-02-24 16:41 | W.PN.UPDATE ---
Update Note
Progress Note Update
CT chest reviewed.
Persistent areas of groundglass opacities.
Significant increased reticular markings/honeycombing and bibasilarly-progressive fibrosis as well.
In view of above, hold Imuran.
Increase IV corticosteroids and maintain until improvement for now.
Continue with close observation for possible infectious process, no further fevers at this point hold antibiotics for now.
[2024-02-24] MEDS: LOVENOX 40 MG SC (17:22)
[2024-02-24 17:24] LABS: Glucose - Point of Care 178 mg/dl (70-99)
--- NOTE | 2024-02-24 17:30 | PTCARENOTE ---
Pt remains on 15L MF/ NRB Pox: 90-93%. SR/ST on monitor. Patient denies pain. Accu check 178. Call slater within reach. Family at bedside. Plan of care ongoing.
[2024-02-24] MEDS: SENOKOT-S 2 TABLET PO (19:24)
[2024-02-24] MEDS: MIRALAX PO (19:25)
[2024-02-24] MEDS: LIPITOR 40 MG PO (22:01)
[2024-02-24] MEDS: MELATONIN 5 MG PO (22:01)
[2024-02-24] MEDS: ATIVAN 0.5 MG IV (22:02)
[2024-02-24 22:06] LABS: Glucose - Point of Care 294 mg/dl (70-99)
--- NOTE | 2024-02-24 22:41 | PTCARENOTE ---
Pt AAOx3, cooperative and pleasant. O2 90-96% on 15L MF with NRB. Pt requested medication for anxiety, medicated per JUL. Pt rings appropriately. Call slater within reach.
[2024-02-25] VITALS (13 sets, daily range): BP systolic 127–185; BP diastolic 51–72; PULSE 3–88; O2SAT 91; BMI 46.3
[2024-02-25 05:22] LABS: Blood Urea Nitrogen 34 mg/dl (7-17); Calcium 9.5 mg/dl (8.4-10.2); Carbon Dioxide 29 mmol/L (22-30); Chloride 97 mmol/L (98-107); Estimated Creatinine Clearance 109 ml/min; Glucose 194 mg/dl (70-99); Potassium 5.2 mmol/L (3.5-5.1); Sodium 136 mmol/L (135-145); eGFR > 60.00
[2024-02-25] MEDS: SYNTHROID 150 MCG PO (06:00)
[2024-02-25] MEDS: DUONEB 3 ML INH ×3 (07:26→19:57)
[2024-02-25 07:45] LABS: Glucose - Point of Care 157 mg/dl (70-99)
[2024-02-25] MEDS: ORAJEL 10% GEL TOPICAL ×4 (08:00→16:42)
[2024-02-25] MEDS: NOVOLOG FLEXPEN-MODERATE RESISTANCE 1 UNITS SC ×3 (08:06→17:08)
[2024-02-25] MEDS: MIRALAX 17 GRAMS PO (08:09)
[2024-02-25] MEDS: BACTROBAN 2% OINTMENT 1 APPLIC TOPICAL ×3 (08:09→21:53)
[2024-02-25] MEDS: NORVASC 5 MG PO (08:10)
[2024-02-25] MEDS: COLACE 100 MG PO (08:10)
[2024-02-25] MEDS: LOW STRENGTH ASPIRIN 81 MG PO (08:10)
[2024-02-25] MEDS: BUSPAR 10 MG PO ×2 (08:10→19:38)
[2024-02-25] MEDS: LASIX 20 MG PO (08:10)
[2024-02-25] MEDS: ZYRTEC 10 MG PO (08:10)
[2024-02-25] MEDS: PROTONIX 40 MG PO (08:10)
[2024-02-25] MEDS: SENOKOT-S 2 TABLET PO ×2 (08:10→19:38)
[2024-02-25] MEDS: SOLU-MEDROL PF 40 MG IV ×3 (08:11→23:01)
[2024-02-25] MEDS: ZOLOFT 75 MG PO (08:11)
[2024-02-25] MEDS: ZOLOFT 100 MG PO (08:11)
[2024-02-25] MEDS: OCUVITE SOFTGEL 1 CAP PO ×2 (08:11→19:38)
[2024-02-25] MEDS: BACTRIM DS 800 MG/160 MG 1 TABLET PO (08:14)
--- NOTE | 2024-02-25 09:11 | W.PN.HOSP.TC ---
Today's Communication/Plan
-
see bold
Assessment / Plan
Assessment / Plan
HPI: 73 yo F with PMH significant for pulm fibrosis / ILD on chronic Rituxan and on home O2 at 8 LPM, chronic CHF, morbid obesity, was discharged 10 days ago and returned for worsening SOB likely due to pulmonary fibrosis exacerbation. Of note, she
was seen by radial drill press operator and was started with Olumiant for presumed chronic COVID lung disease (took for 5 days).
Patient was found to be in severe respiratory distress with initial pulse ox in the 50s by EMS. Patient was given nebulizer treatment, Solu-Medrol 125 mg IV, and placed on CPAP, with improvement en route to the hospital.
In the ED, she was noted to be febrile at 38.[address] Chest on admission:
Respiratory motion limits evaluation of the segmental and subsegmental pulmonary arteries, basically nondiagnostic for these arteries. There is no evidence for central pulmonary embolism.
Comparing to CT examination of April 28, 2024, interval increase in bilateral parenchymal opacities, with increase in groundglass opacities predominantly. Findings would suggest acute pneumonitis superimposed on chronic parenchymal changes.
Table honeycombing in both lung bases.
A/P:
# Acute on Chronic Hypoxic Respiratory Failure
# Interstitial Lung Disease / Pulmonary Fibrosis exacerbation
# Dyspnea with activity
02/[address] shows persistent pulmonary fibrosis
Appreciate pulmonology input
Hold further DRILL SERGEANT Olumiant, 02/23 Hold Imuran
02/23 IV methylprednisolone increased to 40 mg every 8 hours
02/24 Back on 50% high flow, was on 15 L, baseline at 8-10 LPM
Continue supportive care with Duonebs ATC
# Fever DOA/ SIRS
Blood culture negative, procal negative, COVID/flu negative, urine Legionella/Strep Ag negative
S/p empiric Abx cefepime and doxycycline for 3 days
02/22�patient reports subjective fever/chills, Tmax 100.2
COVID/flu negative, blood culture pending
Procalcitonin negative, observe off antibiotics
# Benign Hypertension
Continue Norvasc with hold parameter
Holding lisinopril for mild hyperkalemia
#Steroid-induced hyperglycemia
#Steroid-induced diabetes
Hemoglobin A1c 7.4, changed to carb controlled diet, sliding scale insulin
# Hyperkalemia
Holding lisinopril
Cont DRILL SERGEANT Bactrim for now
Back on low potassium diet
Monitor K level
#Oral ulcer
Benzocaine oral gel for oral ulcers
# Facial wound
Suspect impetigo
No improvement on topical acyclovir
Started topical Bactroban TID 02/20
# Mild transaminitis likely reactive, resolved
# ANCA Positive Vasculitis
# immune compromised state
Cont DRILL SERGEANT Bactrim
# Hyponatremia
Mild, monitor
# Chronic HFpEF
recent with EF of 55-60%
cont DRILL SERGEANT Lasix
# Hypothyroidism
Continue with Synthroid
# Anemia of Chronic Disease
# Hyperlipidemia
Continue with Lipitor
# Morbid Obesity
# Ambulatory dysfunction
# Sleep apnea
BMI 37
DRILL SERGEANT CPAP at bedtime
# History of left breast cancer with lumpectomy and radiation in 2001
# Anxiety and depression
Continue with Zoloft and BuSpar
# GERD
PPI continued
# Mild anxiety
Low dose IV Ativan added
DVT ppx: Lovenox SQ
FC
Total time spent to see the patient on the floor, examine the patient, review data and lab results, discuss treatment plan with patient, nursing staff around 50 minutes.
Physical Exam
General: Morbidly obese, no acute distress
HEENT: Normocephalic, Atraumatic, EOMI, MMM
Respiratory: Bibasilar crackles
Cardiac: Normal S1/S2, Regular Rate and Rhythm
GI: Soft, Nontender, Nondistended, Normal Bowel Sounds
Extremities: No Clubbing, Cyanosis, or Edema
Neuro: Nonfocal/Grossly Intact
Psych: Calm, Cooperative
Derm: Circular scabbed wound with honeycomb appearance above right lip
Anticipated Discharge: > 48 hours
Subjective/Interval History
-
Date of Service: February 25, 2024
Patient reports her breathing is worse today. Fever and chills resolved. She has not had a bowel movement yet. No vomiting.
Objective Data
-
Labs:
Laboratory Results
02/25/24
04:38
Sodium 136
Potassium 5.2 H
Chloride 97 L
Carbon Dioxide 29
BUN 34 H
Creatinine 0.6
Glucose 194 H
Calcium 9.5
Vital Signs:
Vital Signs
Temp Pulse Resp BP Pulse Ox
97.8 F 78 20 182/65 89
02/25/24 07:09 02/25/24 08:10 02/25/24 08:07 02/25/24 08:10 02/25/24 08:07
I&O
02/24/24 02/25/24 02/26/24
06:59 06:59 06:59
Intake Total 240 / 240 240 / 240
Output Total 1400 / 1400
Balance -1160 / -1160 240 / 240
--- NOTE | 2024-02-25 10:15 | W.PN.PUL3 ---
Today's Communication / Plan
-
IV methylprednisolone
Hold Imuran
Monitor for fevers
Observe off antibiotics
Blood sugar control
Continue oxygen supplementation
Assessment
-
Assessment: 73-year-old female with a past medical history of ANCA positive vasculitis/microscopic polyangiitis, ILD, chronic hypoxic respiratory failure on home O2, EMERSON on auto CPAP, history of breast cancer s/p lumpectomy/XRT (2001),
steroid-induced diabetes, morbid obesity and restrictive lung disease who presents with worsening shortness of breath. She was recently hospitalized here and was discharged home on 02/05/2024 with 50 mg prednisone. She had apparently been on 60 mg
prednisone daily since that hospital discharge and was told to wean down the dose as she improves but she never wean down the dose as she never felt like she was improving. She was saturating 67% while on CPAP via EMS. In the ER she was febrile to
102.7 �F, tachycardic to 125, breathing at 20 breaths minute, BP 177/71 and saturating 68% on CPAP. She was changed to BiPAP with sats improving to 77%, and eventually able to be transition to mid flow nasal cannula at 15 L/min with saturations at
98%. Labs showed leukocytosis of 24.5, anemia to 9.5, lactate 3.4, troponin WNL at 0.029, proBNP 371, and COVID-19 antigen negative. Blood cultures were collected, and flu A/B swab was negative. CXR showed acute pneumonitis on chronic parenchymal
disease, and CTA chest showed no evidence of acute PE with worsening bilateral parenchymal opacities with increasing groundglass opacities bilaterally. In the ER she was given 40 mg IV Lasix, DuoNebs, Ativan, Ofirmev and Zofran. She was admitted
to the IMU and now pulmonary consulted for additional management/recommendations.
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
hypercholesterolemia, thyroid disease, history of breast cancer s/p lumpectomy + XRT (2001), steroid-induced diabetes, hypertension, history of diverticulosis, hearing loss, restrictive lung disease, iron deficiency anemia, history of COVID-19
(December 30, 2023) s/p Paxlovid, GERD, history of mild pulmonary hypertension, steroid-induced osteoporosis
Impression:
#Acute on chronic respiratory failure with hypoxia due to suspected ILD exacerbation; DDx also includes progressive ILD
#Leukocytosis, likely steroid-induced
#Anemia (baseline Hb 9.5�11g/dL)
#Lactic acidosis � resolved
#Febrile illness � patient is nontoxic-appearing with negative procalcitonin (<0.05)
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
#Moderate restrictive lung disease (T%, VC: 85% with moderate gas exchange capacity defect via PFT from June 2021)
#EMERSON on auto-CPAP 5-20 cmH2O (average pressure: 7.8cmH2O with residual AHI: 1.6 for 30-day period of 12/13 - 01/12/2024)
#Morbid obesity
#Recent history of COVID-19 (12/30/2023) recently on baricitinib, now off
#Former tobacco use (quit in 01/2003 with 60-PY Hx)
Plan/recommendations
Continues to require 15 L with nonrebreather as needed. Initially patient was on high flow on admission. Borderline saturations were
Will use high flow oxygen intermittently as well. Maintain pulse ox above 89%.
-
No further low-grade fevers since yesterday.
Hemodynamically stable, does not appear toxic
No new symptoms. Denies any chills.
No significant phlegm production.
Oxygenation has not worsened.
-
Incentive spirometry encourage
Nebulizers as needed
BiPAP 15/8 cm at night-tolerating well-has AutoPap at home
Continue antitussives as needed
CT chest noted: Groundglass opacities still present. Some areas better some other areas more prominent. Honeycombing with bibasilar fibrosis.
02/24/2024, reviewed.
I have reviewed images with patient and family member at the bedside.
CRP elevated but lower than prior admission at 88(02/17/2024). It was 163 on 01/28/2024
- Continue bactrim 1 DS tab TIW for prophylaxis.
Methylprednisolone increased to 40 mg IV every 8 hours. 02/24/2024
Imuran held 02/24/2024 in the setting of increasing methylprednisolone. High risk for infection.
Eventual transition to oral prednisone 60 mg at time of discharge
During this hospital stay, Dr. Blake has discussed the case with Dr. Latha Mendez ILD clinic from [facility], as well as Dr. Daley patient's senior support analyst.
-
Continue to monitor for fevers per
Hold antibiotics
-
Monitor blood sugar
Insulin supplementation as needed
Maintain euglycemia with goal BG >100 and <180
Low-grade fevers improved. Without antibiotics 02/25/2024.
Infectious workup negative.
Lower extremity Dopplers negative
CT scan during this admission negative for pulmonary embolism.
procal is <0.5 and she is non-toxic appearing-low suspicion for infection.
Status post antibiotics-received cefepime and doxycycline-hold for now.
Continue to observe off antibiotics
Negative influenza
Negative COVID
Blood cultures pending
Patient not producing significant amount of sputum.
-
Low threshold to consult infectious disease depending on fever curve. Hold for now
Patient will not tolerate bronchoscopy
-
No current signs of volume overload so hold off on diuresis; if patient's O2 requirements do not improve despite imuran then diuresis could be attempted.
Echo (02/16/2024) showing preserved LVEF at 55 to 60% with mild MR, mild aortic stenosis and mild�moderate TR with moderate pulmonary hypertension with PASP 47 mmHg
Monitor hemoglobin-stable, has not required transfusion. No evidence for bleeding.
Transfuse as needed
DVT prophylaxis-low molecular weight heparin
-
Physical therapy/Occupational Therapy as tolerated.

Dr. Snider discussed plan with patient and daughter at the bedside 02/24/2024. Daughter feels that patient overall has improved since admission.
Also discussed the case with Dr. Rausch primary spice miller for years.
-
Patient does have 3 concentrators at home. Has the ability to increase to 15 to 20 L at home
We will have case management help coordinate with [facility], to confirm adequate oxygen at home prior to discharge
Continue with every other day physical therapy and assess oxygen needs. On 02/20 required 15 L with 13 L nonrebreather, recovered within 1 minute with 15 L/nonrebreather after standing
Continue follow-up with Dr. Rausch as well as ILD-pulmonary at [facility], Dr. Latha Mendez

Data:
CTA Chest 02/15/2024:
Respiratory motion limits evaluation of the segmental and subsegmental pulmonary arteries, basically nondiagnostic for these arteries. There is no evidence for central pulmonary embolism.
Comparing to CT examination of April 28, 2024, interval increase in bilateral parenchymal opacities, with increase in groundglass opacities predominantly. Findings would suggest acute pneumonitis superimposed on chronic parenchymal changes.
Table honeycombing in both lung bases.
There is mild to moderate elevation right hemidiaphragm.
CXR 02/15/2024: Radiographic findings are suggestive of acute pneumonitis superimposed on chronic parenchymal disease.
Subjective Data
-
Date of Service:
Date of Service: February 25, 2024
Chief Complaint: Pulmonary Follow Up (Acute hypoxemic respiratory failure/acute ILD exacerbation) and Dyspnea Follow Up
Subjective:
No overnight events
Remains afebrile
Remains on mid flow oxygen
No significant phlegm production or hemoptysis
Review of Systems
General: Fever (n)
Cardiopulmonary: Dyspnea, Dyspnea on Exertion, Cough and Sputum Production (n)
GI: Abdominal Pain (n) and Nausea (n)
Objective Data
Data Reviewed
Vital Signs / I&O / Oxygen:
Vital Signs
Temp Pulse Resp BP Pulse Ox
97.8 F 78 20 182/65 89
02/25/24 07:09 02/25/24 08:10 02/25/24 08:07 02/25/24 08:10 02/25/24 08:07
Intake and Output
02/24/24 02/25/24 02/26/24
06:59 06:59 06:59
Intake Total 240 / 240 240 / 240
Output Total 1400 / 1400 200 / 200
Balance -1160 / -1160 240 / 240 -200 / -200
SaO2 89
Nasal Cannula flow liters per 15
minute
Physical Exam
General: Comfortable
HEENT: Normocephalic and Anicteric
Cardiovascular: Regular Rhythm, Murmur (n) and Peripheral Edema (negative)
Respiratory: Wheeze (negative), Crackles (Bilateral, basilar), Rhonchi (negative), Non-Labored Respirations and Stridor (n)
GI: Soft, Distended (Abdominal obesity), Non Tender and Normal Bowel Sounds
Neurology: Awake, Alert, AO x 3 and No Motor Deficits
Skin: Warm, Good Color, Cyanosis (negative), Jaundice (negative) and Rash (Mild facial flushing)
Labs/Micro/Reports
Lab Data
02/23/24 11:57
02/25/24 04:38
Microbiology
02/23/24 11:57 Blood/Venous Blood Culture - Preliminary
No Growth in 24 hours- Final report to follow
02/23/24 09:49 Nasal Swab Influenza Types A & B (MÓNICA) - Final
Negative for Influenza A & B, NAAT
Negative results must be combined with clinical observations
and patient history.
Nucleic Acid Amplification test (NAAT)performed on the
[employer] platform.
--- NOTE | 2024-02-25 11:02 | PTCARENOTE ---
Respiratory at bedside setting up high flow O2 delivery. pt reports that her SOB has increased overnight into this AM. MD Ellis and md Giana Ely made aware and have both reassessed pt at bedside and implemented changes accordingly. pt reports
improvement in respiratory effort s/p implementation of high flow NC.
[2024-02-25 11:49] LABS: Glucose - Point of Care 197 mg/dl (70-99)
[2024-02-25] MEDS: LOVENOX 40 MG SC (17:09)
--- NOTE | 2024-02-25 17:13 | CM ---
Patient with Dx Acute Hypoxic Respiratory Failure, ILD flare / Pulmonary Fibrosis exacerbation , SIRS. High flow O2. Receiving IV Steroids. PT held today. OT recommends home vs skilled. Seen by wound care nurse.
CM continues to follow.
Plan TBD.
[2024-02-25 17:16] LABS: Glucose - Point of Care 177 mg/dl (70-99)
[2024-02-25] MEDS: MIRALAX PO (19:42)
[2024-02-25 21:40] LABS: Glucose - Point of Care 265 mg/dl (70-99)
[2024-02-25] MEDS: LIPITOR 40 MG PO (21:53)
[2024-02-25] MEDS: MELATONIN 5 MG PO (21:53)
[2024-02-25] MEDS: ATIVAN 0.5 MG IV (22:54)
[2024-02-25] MEDS: NSS (PRESERVATIVE FREE) 0.25 ML IV (22:57)
--- NOTE | 2024-02-25 23:26 | PTCARENOTE ---
Pt denies SOB, states she feels 'fine', but SaO2 has decreased to 78-83% since RT transitioned pt to BiPAP. Pt tachypneic, ativan given for anxiety per JUL. RT at bedside transitioned pt back to high flow with NRB with improvement to 91%. AGILE SCRUM MASTER
notified of pt condition.
[2024-02-26] VITALS (11 sets, daily range): BP systolic 128–160; BP diastolic 53–66; BMI 45.9
[2024-02-26] MEDS: SYNTHROID 150 MCG PO (05:00)
[2024-02-26 05:39] LABS: Blood Urea Nitrogen 35 mg/dl (7-17); Calcium 9.6 mg/dl (8.4-10.2); Carbon Dioxide 26 mmol/L (22-30); Chloride 98 mmol/L (98-107); Estimated Creatinine Clearance 109 ml/min; Glucose 174 mg/dl (70-99); Potassium 5.5 mmol/L (3.5-5.1); Sodium 135 mmol/L (135-145); eGFR > 60.00
[2024-02-26] MEDS: DUONEB 3 ML INH ×3 (07:28→20:28)
[2024-02-26 07:35] LABS: Glucose - Point of Care 159 mg/dl (70-99)
[2024-02-26] MEDS: NOVOLOG FLEXPEN-MODERATE RESISTANCE 1 UNITS SC ×2 (09:19→11:48)
[2024-02-26] MEDS: SOLU-MEDROL PF 40 MG IV ×2 (09:20→15:37)
[2024-02-26] MEDS: ORAJEL 10% GEL TOPICAL ×3 (09:20→16:07)
[2024-02-26] MEDS: SENOKOT-S 2 TABLET PO ×2 (09:21→19:42)
[2024-02-26] MEDS: BACTROBAN 2% OINTMENT 1 APPLIC TOPICAL ×3 (09:21→22:52)
[2024-02-26] MEDS: LOW STRENGTH ASPIRIN 81 MG PO (09:21)
[2024-02-26] MEDS: COLACE 100 MG PO (09:21)
[2024-02-26] MEDS: BUSPAR 10 MG PO ×2 (09:21→19:42)
[2024-02-26] MEDS: LASIX 20 MG PO (09:21)
[2024-02-26] MEDS: ZOLOFT 75 MG PO (09:22)
[2024-02-26] MEDS: PROTONIX 40 MG PO (09:22)
[2024-02-26] MEDS: NORVASC 5 MG PO (09:22)
[2024-02-26] MEDS: ZYRTEC 10 MG PO (09:23)
[2024-02-26] MEDS: MIRALAX PO (09:23)
[2024-02-26] MEDS: ZOLOFT 100 MG PO (09:23)
[2024-02-26] MEDS: OCUVITE SOFTGEL 1 CAP PO ×2 (09:23→19:42)
--- NOTE | 2024-02-26 09:31 | W.PN.PUL3 ---
Today's Communication / Plan
-
Start pulse dose steroid dosing
Resume Imuran
prn benadryl to allow her to sleep given pulse dosing
Check Ig levels
Bedside US performed showing RV<LV size with no pericardial effusion, hence no concern for acute PE; she is non-toxic appearing, recent procal negative
Monitor for fevers
Observe off antibiotics
Blood sugar control with goal BG >100 and <180
Continue oxygen supplementation with HFNC and NRB, trial of BiPAP overnight; may need NIV
Pulmonary service will continue to follow along
Assessment
-
Assessment: 73-year-old female with a past medical history of ANCA positive vasculitis/microscopic polyangiitis, ILD, chronic hypoxic respiratory failure on home O2, EMERSON on auto CPAP, history of breast cancer s/p lumpectomy/XRT (2001),
steroid-induced diabetes, morbid obesity and restrictive lung disease who presents with worsening shortness of breath. She was recently hospitalized here and was discharged home on 02/05/2024 with 50 mg prednisone. She had apparently been on 60 mg
prednisone daily since that hospital discharge and was told to wean down the dose as she improves but she never wean down the dose as she never felt like she was improving. She was saturating 67% while on CPAP via EMS. In the ER she was febrile to
102.7 �F, tachycardic to 125, breathing at 20 breaths minute, BP 177/71 and saturating 68% on CPAP. She was changed to BiPAP with sats improving to 77%, and eventually able to be transition to mid flow nasal cannula at 15 L/min with saturations at
98%. Labs showed leukocytosis of 24.5, anemia to 9.5, lactate 3.4, troponin WNL at 0.029, proBNP 371, and COVID-19 antigen negative. Blood cultures were collected, and flu A/B swab was negative. CXR showed acute pneumonitis on chronic parenchymal
disease, and CTA chest showed no evidence of acute PE with worsening bilateral parenchymal opacities with increasing groundglass opacities bilaterally. In the ER she was given 40 mg IV Lasix, DuoNebs, Ativan, Ofirmev and Zofran. She was admitted
to the IMU and now pulmonary consulted for additional management/recommendations.
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
hypercholesterolemia, thyroid disease, history of breast cancer s/p lumpectomy + XRT (2001), steroid-induced diabetes, hypertension, history of diverticulosis, hearing loss, restrictive lung disease, iron deficiency anemia, history of COVID-19
(December 30, 2023) s/p Paxlovid, GERD, history of mild pulmonary hypertension, steroid-induced osteoporosis
Impression:
#Acute on chronic respiratory failure with hypoxia due to suspected ILD exacerbation; DDx also includes progressive ILD
#Leukocytosis, likely steroid-induced
#Anemia (baseline Hb 9.5�11g/dL)
#Lactic acidosis � resolved as of 02/15/2024
#Febrile illness � patient is nontoxic-appearing with negative procalcitonin (<0.05) - afebrile since 02/23/2024
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
#Moderate restrictive lung disease (T%, VC: 85% with moderate gas exchange capacity defect via PFT from June 2021)
#EMERSON on auto-CPAP 5-20 cmH2O (average pressure: 7.8cmH2O with residual AHI: 1.6 for 30-day period of 12/13 - 01/12/2024)
#Morbid obesity
#Recent history of COVID-19 (12/30/2023) recently on baricitinib, now off
#Former tobacco use (quit in 01/2003 with 60-PY Hx)
Plan/recommendations
Continues to require high flow nasal cannula + NRB @ 15 L/min with saturations in low 90s.
We are attempting BiPAP with sleep but are having issues maintaining oxygenation, and she may need to be moved to ICU for NIV
Maintain pulse ox above 89%
-
No further low-grade fevers since 02/23/2024
Doubt there is an infectious process going on as an etiology of her Sx
Hemodynamically stable, does not appear toxic
Denies any chills.
No significant phlegm
Oxygenation has not improved
-
Encouraged incentive spirometry use
DuoNebs TID
BiPAP 15/8 cm at night bled with 15L/min, but she is too hypoxic ---> did not tolerate last night (02/24) so was on high flow NC overnight-has AutoPap at home
Continue antitussives as needed
CT chest noted: Groundglass opacities still present. Some areas better some other areas more prominent. Honeycombing with bibasilar fibrosis.
02/24/2024, reviewed, showing persistent GGO bilaterally with areas of improvement, but also some areas with more fibrotic appearing changes than GGO
I have reviewed images with patient and family member at the bedside.
CRP elevated but lower than prior admission at 88(02/17/2024). It was 163 on 01/28/2024
- Continue to trend CRP and ESR
- Continue bactrim 1 DS tab TIW for prophylaxis.
Methylprednisolone increased to 40 mg IV every 8 hours. 02/24/2024 --> believe that she needs higher dosing of steroids given there is no concern for infection or an acute PE. I spoke with Dr. Daley with rheumatology and I will start pulse dose
steroids with 1g daily x 3 days, then taper from there down to 500mg daily x 3 days, then 125mg q6hr afterwards with continued slow wean. Continue PPI. 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 Also will
resume Imuran at 200mg daily (to start on 02/27/2024).
Imuran held 02/24/2024 in the setting of increasing methylprednisolone. High risk for infection ---> imuran will now resumed as of 02/26
Eventual transition to oral prednisone 60 mg at time of discharge
During this hospital stay, Dr. Blake has discussed the case with Dr. Latha Mendez ILD clinic from [facility], as well as Dr. 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
-
Continue to monitor fever curve and trend WBC
Hold antibiotics
-
Monitor blood sugar
Insulin supplementation as needed
Maintain euglycemia with goal BG >100 and <180
Previous infectious workup negative with last BCx on 02/23/2024 showing NGTD
Lower extremity Dopplers negative on 02/23/2024
CTA scan during this admission (on 02/15/2024) negative for pulmonary embolism.
procal is <0.5 (02/24/2024) and she is non-toxic appearing-low suspicion for infection.
Status post antibiotics-received cefepime and doxycycline-hold for now.
Continue to observe off antibiotics
Negative influenza
Negative COVID
Blood cultures show NGTD
Patient not producing significant amount of sputum.
-
Low threshold to consult infectious disease depending on fever curve. Hold for now
Patient will not tolerate bronchoscopy and would end up on ventilator
-
No current signs of volume overload so hold off on diuresis; if patient's O2 requirements do not improve despite high dose steroids then diuresis could be attempted.
- Echo (02/16/2024) showing preserved LVEF at 55 to 60% with mild MR, mild aortic stenosis and mild�moderate TR with moderate pulmonary hypertension with PASP 47 mmHg
- Bedside PocUS performed by Dr. Blake on 02/26/2024, showing bilateral B-lines with preserved LVEF, RV <LV with no evidence of D sign or severe RV enlargement. No pericardial effusion. IVC is highly collapsible
Monitor hemoglobin-stable, has not required transfusion. No evidence for bleeding.
Transfuse as needed
DVT prophylaxis-low molecular weight heparin
-
Physical therapy/Occupational Therapy as tolerated.

Dr. Snider discussed plan with patient and daughter at the bedside 02/24/2024.
Also discussed the case with Dr. Rausch primary president sales and marketing for years.
-
Patient does have 3 concentrators at home. Has the ability to increase to 15 to 20 L at home
We will have case management help coordinate with [facility], to confirm adequate oxygen at home prior to discharge
Continue with every other day physical therapy and assess oxygen needs. On 02/20 required 15 L with 13 L nonrebreather, recovered within 1 minute with 15 L/nonrebreather after standing
Continue follow-up with Dr. Rausch as well as ILD-pulmonary at [facility], Dr. Latha Mendez
Dr. Blake discussed case in detail on 02/26/2024 with patient and 2 daughters, and Dr. Daley.
Pulmonary service will continue to follow along

Data:
CTA Chest 02/15/2024:
Respiratory motion limits evaluation of the segmental and subsegmental pulmonary arteries, basically nondiagnostic for these arteries. There is no evidence for central pulmonary embolism.
Comparing to CT examination of April 28, 2024, interval increase in bilateral parenchymal opacities, with increase in groundglass opacities predominantly. Findings would suggest acute pneumonitis superimposed on chronic parenchymal changes.
Table honeycombing in both lung bases.
There is mild to moderate elevation right hemidiaphragm.
CXR 02/15/2024: Radiographic findings are suggestive of acute pneumonitis superimposed on chronic parenchymal disease.
Total time spent today was 52 minutes for this encounter. Time includes reviewing laboratory test/imaging results, reviewing pertinent medical records, obtaining and reviewing medical history, performing an appropriate exam, ordering medications,
tests and procedures. Time also includes documentation of this encounter, coordinating patient care and communicating with other healthcare professionals. Total time does not include separately billed tests performed on this date of service.
Subjective Data
-
Date of Service:
Date of Service: February 26, 2024
Chief Complaint: Pulmonary Follow Up (Acute hypoxemic respiratory failure/acute ILD exacerbation) and Dyspnea Follow Up
Subjective:
Pt seen this AM. She remains SOB with activity. She feels like she is not improving. No chest pain. No cough, fevers or chills. No abd pain, diarrhea or nausea. Afebrile overnight. Patient's sister, Marina, at bedside. I answered all her
questions. I also spoke to the sister, Caryl, over the phone and also answered all of her questions.
Review of Systems
General: Other (Negative unless mentioned above)
Objective Data
Data Reviewed
Vital Signs / I&O / Oxygen:
Vital Signs
Temp Pulse Resp BP Pulse Ox
97.6 F 92 22 152/59 93
02/26/24 07:00 02/26/24 09:22 02/26/24 08:00 02/26/24 09:22 02/26/24 09:59
Intake and Output
02/25/24 02/26/24 02/27/24
06:59 06:59 06:59
Intake Total 240 / 240 850 / 850
Output Total 625 / 625
Balance 240 / 240 225 / 225
SaO2 93
Nasal Cannula flow liters per 50
minute
Physical Exam
General: Respiratory Distress (with exertion), Comfortable, Chills (negative) and Sweats (negative)
HEENT: Normocephalic and Anicteric
Cardiovascular: S1-S2, Murmur (n) and Peripheral Edema (negative)
Respiratory: Wheeze (negative), Crackles (Bilateral, basilar), Rhonchi (negative), Non-Labored Respirations and Stridor (n)
GI: Soft, Distended (Abdominal obesity), Non Tender and Normal Bowel Sounds
Neurology: Alert, AO x 3 and Tremors (negative)
Skin: Warm, Dry, Good Color, Cyanosis (negative), Jaundice (negative) and Rash (Mild facial flushing)
Labs/Micro/Reports
Lab Data
02/23/24 11:57
02/26/24 04:58
Microbiology
02/23/24 11:57 Blood/Venous Blood Culture - Preliminary
No Growth in 48 hours- Final report to follow
02/23/24 09:49 Nasal Swab Influenza Types A & B (MÓNICA) - Final
Negative for Influenza A & B, NAAT
Negative results must be combined with clinical observations
and patient history.
Nucleic Acid Amplification test (NAAT)performed on the
[employer] platform.
--- NOTE | 2024-02-26 09:55 | W.PN.HOSP.TC ---
Today's Communication/Plan
-
see bold
Assessment / Plan
Assessment / Plan
HPI: 73 yo F with PMH significant for pulm fibrosis / ILD on chronic Rituxan and on home O2 at 8 LPM, chronic CHF, morbid obesity, was discharged 10 days ago and returned for worsening SOB likely due to pulmonary fibrosis exacerbation. Of note, she
was seen by cement paver and was started with Olumiant for presumed chronic COVID lung disease (took for 5 days).
Patient was found to be in severe respiratory distress with initial pulse ox in the 50s by EMS. Patient was given nebulizer treatment, Solu-Medrol 125 mg IV, and placed on CPAP, with improvement en route to the hospital.
In the ED, she was noted to be febrile at 38.[address] Chest on admission:
Respiratory motion limits evaluation of the segmental and subsegmental pulmonary arteries, basically nondiagnostic for these arteries. There is no evidence for central pulmonary embolism.
Comparing to CT examination of April 28, 2024, interval increase in bilateral parenchymal opacities, with increase in groundglass opacities predominantly. Findings would suggest acute pneumonitis superimposed on chronic parenchymal changes.
Table honeycombing in both lung bases.
A/P:
# Acute on Chronic Hypoxic Respiratory Failure
# Interstitial Lung Disease / Pulmonary Fibrosis exacerbation
# Dyspnea with activity
02/[address] shows persistent pulmonary fibrosis
Appreciate pulmonology input
Hold further PRISM MEASURER Olumiant, 02/23 Hold Imuran
02/23 IV methylprednisolone increased to 40 mg every 8 hours
02/24 Back on 50% high flow, was on 15 L, baseline at 8-10 LPM
Continue supportive care with Duonebs ATC
# Fever DOA/ SIRS
Blood culture negative, procal negative, COVID/flu negative, urine Legionella/Strep Ag negative
S/p empiric Abx cefepime and doxycycline for 3 days
02/22�patient reports subjective fever/chills, Tmax 100.2
COVID/flu negative, blood culture pending
Procalcitonin negative, observe off antibiotics
# Benign Hypertension
Continue Norvasc with hold parameter
Holding lisinopril for mild hyperkalemia
#Steroid-induced hyperglycemia
#Steroid-induced diabetes
Hemoglobin A1c 7.4, changed to carb controlled diet, sliding scale insulin
# Hyperkalemia
Holding lisinopril
Cont PRISM MEASURER Bactrim for now
Back on low potassium diet, add lokelma today
Monitor K level
#Oral ulcer
Benzocaine oral gel for oral ulcers
# Facial wound
Suspect impetigo
No improvement on topical acyclovir
Started topical Bactroban TID 02/20
# Mild transaminitis likely reactive, resolved
# ANCA Positive Vasculitis
# immune compromised state
Cont PRISM MEASURER Bactrim
# Hyponatremia
Mild, monitor
# Chronic HFpEF
recent with EF of 55-60%
cont PRISM MEASURER Lasix
# Hypothyroidism
Continue with Synthroid
# Anemia of Chronic Disease
# Hyperlipidemia
Continue with Lipitor
# Morbid Obesity
# Ambulatory dysfunction
# Sleep apnea
BMI 37
PRISM MEASURER CPAP at bedtime
# History of left breast cancer with lumpectomy and radiation in 2001
# Anxiety and depression
Continue with Zoloft and BuSpar
# GERD
PPI continued
# Mild anxiety
Low dose IV Ativan added
DVT ppx: Lovenox SQ
FC
Total time spent to see the patient on the floor, examine the patient, review data and lab results, discuss treatment plan with patient, nursing staff around 40 minutes.
Physical Exam
General: Morbidly obese, no acute distress
HEENT: Normocephalic, Atraumatic, EOMI, MMM
Respiratory: Bibasilar crackles
Cardiac: Normal S1/S2, Regular Rate and Rhythm
GI: Soft, Nontender, Nondistended, Normal Bowel Sounds
Extremities: No Clubbing, Cyanosis, or Edema
Neuro: Nonfocal/Grossly Intact
Psych: Calm, Cooperative
Derm: Circular scabbed wound with honeycomb appearance above right lip
Anticipated Discharge: > 48 hours
Subjective/Interval History
-
Date of Service: February 26, 2024
Patient reports her breathing is worse today. She has had a bowel movement. No chest pain. No fever, no vomiting.
Objective Data
-
Labs:
Laboratory Results
02/26/24
04:58
Sodium 135
Potassium 5.5 H
Chloride 98
Carbon Dioxide 26
BUN 35 H
Creatinine 0.6
Glucose 174 H
Calcium 9.6
Vital Signs:
Vital Signs
Temp Pulse Resp BP Pulse Ox
97.6 F 92 18 152/59 90
02/26/24 07:00 02/26/24 09:22 02/26/24 07:36 02/26/24 09:22 02/26/24 07:36
I&O
02/25/24 02/26/24 02/27/24
06:59 06:59 06:59
Intake Total 240 / 240 850 / 850
Output Total 625 / 625
Balance 240 / 240 225 / 225
--- NOTE | 2024-02-26 10:40 | PTCARENOTE ---
Assumed care of patient this morning. During breakfast & speaking on phone with family - pt's SPO2 dropping into 80's with max HFNC + NRB mask. Pt taking her time to recover between bites. She reports feeling discouraged & anxious as she thought she
was getting better but has not got worse over the last day. Pt had some questions about next steps if she does not start to feel better. Pt provided emotional support and questions answered to RN ability but also advised we will speak with
pulmonology. Pt's niece in the room during breakfast and also provided some emotional support. Following breakfast pt's spo2 improved to 93-94%. Assessment, care and VS as charted.
[2024-02-26 11:21] LABS: Glucose - Point of Care 192 mg/dl (70-99)
[2024-02-26] MEDS: LOKELMA 10 GRAM PO ×3 (11:48→17:33)
[2024-02-26 16:22] LABS: Glucose - Point of Care 229 mg/dl (70-99)
[2024-02-26] MEDS: NOVOLOG FLEXPEN-MODERATE RESISTANCE 3 UNITS SC (17:32)
[2024-02-26] MEDS: LOVENOX 40 MG SC (17:33)
[2024-02-26] MEDS: SOLU-MEDROL 258 MG IV (19:41)
[2024-02-26] MEDS: MIRALAX 17 GRAMS PO (19:43)
[2024-02-26] MEDS: TYLENOL 500 MG PO (21:48)
[2024-02-26] MEDS: BENADRYL 50 MG PO (21:48)
--- NOTE | 2024-02-26 22:32 | PTCARENOTE ---
Started 1000mg bag of Solu-Medrol on Pt at 1941; Checked on IV progress ~ 2029 and IV site appeared fine. Pt rang call slater to report a 'wet feeling' at her IV site. IV had completed and small amount of fluid noted at site. RFA line infiltrated
with raised area ~ 15cm. Area marked and arm elevated. Notified VAT and new line was placed. Instructed to put cold pack on area. Will continue to monitor and assess.
[2024-02-26 22:39] LABS: Glucose - Point of Care 258 mg/dl (70-99)
[2024-02-26] MEDS: NSS 500 IV (22:43)
--- NOTE | 2024-02-26 22:43 | VATNOTE ---
Call from nursing staffing coordinator, pt. rt. forearm solumedrol 17cm x 13cm infiltrate. No palpable cord, + cap. refill 1-2 sec. Call to pharmacy for antedote, there isn't any. Arm elevated and cold compress applied. New IV restarted. assembler hydraulic backhoe aware. Will follow.
[2024-02-26] MEDS: MELATONIN PO (22:44)
[2024-02-26] MEDS: LIPITOR 40 MG PO (22:44)
[2024-02-26] MEDS: ATIVAN 0.5 MG IV (22:47)
[2024-02-27] VITALS (26 sets, daily range): BP systolic 142–177; BP diastolic 59–77; BMI 45.4
[2024-02-27] MEDS: ATIVAN 0.5 MG IV ×2 (03:53→21:59)
[2024-02-27 04:14] LABS: Venous Blood Gas B.E. 4.2 mmol/L (-4 to +4); Venous Blood Gas HCO3 28.4 mmol/L (22-27); Venous Blood Gas O2 Sat % 98.4 %; Venous Blood Gas pCO2 40 mmHg (35-48); Venous Blood Gas pH 7.46 (7.32-7.43); Venous Blood Gas pO2 199 mmHg (30-50)
[2024-02-27 04:43] LABS: Blood Urea Nitrogen 35 mg/dl (7-17); Calcium 9.2 mg/dl (8.4-10.2); Carbon Dioxide 28 mmol/L (22-30); Chloride 97 mmol/L (98-107); Estimated Creatinine Clearance 93 ml/min; Glucose 226 mg/dl (70-99); Magnesium 2.2 mg/dl (1.6-2.3); Phosphorus 4.2 mg/dl (2.5-4.5); Potassium 4.4 mmol/L (3.5-5.1); Sodium 138 mmol/L (135-145); eGFR > 60.00
[2024-02-27 05:04] LABS: Hematocrit 20.1 % (37.0-47.0); Hemoglobin 6.6 g/dL (12.0-16.0); Mean Corp Hgb Conc. 32.8 g/dL (33.0-37.0); Mean Corpuscular Hgb 28.1 pg (27.0-31.0); Mean Corpuscular Volume 85.5 fL (81.0-99.0); Mean Platelet Volume 11.2 fL (7.4-10.4); Platelet Count 322 10^3/uL (130-400); Red Blood Cell Count 2.35 10^6/uL (4.20-5.40); Red Cell Dist. Width 15.7 % (11.5-14.5); White Blood Cell Count 17.3 10^3/uL (4.8-10.8)
[2024-02-27 05:15] LABS: B.E. 5.2 mmol/L; HCO3 29.9 mmol/L (21-28); PCO2 44 mmHg (32-35); pH 7.44 (7.35-7.45)
[2024-02-27 05:19] LABS: PO2 59 mmHg (83-108)
[2024-02-27 05:42] LABS: Hematocrit 21.1 % (37.0-47.0); Mean Corp Hgb Conc. 33.2 g/dL (33.0-37.0); Mean Corpuscular Hgb 27.5 pg (27.0-31.0); Mean Corpuscular Volume 82.7 fL (81.0-99.0); Mean Platelet Volume 10.9 fL (7.4-10.4); Platelet Count 305 10^3/uL (130-400); Red Blood Cell Count 2.55 10^6/uL (4.20-5.40); Red Cell Dist. Width 15.5 % (11.5-14.5); White Blood Cell Count 15.1 10^3/uL (4.8-10.8)
--- NOTE | 2024-02-27 05:54 | PTCARENOTE ---
Labs drawn ~ 0400; VBG results questionable, reviewed with NIGHT CLERK AUDITOR. CBC results recieved with questionable hemoglobin (6.6) compared to trend over the past week (~8). Labs requested to be redrawn - Hemoglobin = 7.0; House NIGHT CLERK AUDITOR made aware - ordered
repeat H&H and T&S for later. Will continue to monitor and assess.
[2024-02-27 06:00] LABS: Blood Urea Nitrogen 32 mg/dl (7-17); Calcium 9.2 mg/dl (8.4-10.2); Carbon Dioxide 31 mmol/L (22-30); Chloride 98 mmol/L (98-107); Estimated Creatinine Clearance 93 ml/min; Glucose 227 mg/dl (70-99); Magnesium 2.2 mg/dl (1.6-2.3); Phosphorus 3.9 mg/dl (2.5-4.5); Potassium 4.4 mmol/L (3.5-5.1); Sodium 138 mmol/L (135-145); eGFR > 60.00
[2024-02-27 06:04] LABS: Erythrocyte Sed Rate 128 mm/hour (0-20)
[2024-02-27] MEDS: LOKELMA 10 GRAM PO (07:13)
[2024-02-27] MEDS: SYNTHROID 150 MCG PO (07:13)
[2024-02-27] MEDS: DUONEB 3 ML INH ×3 (07:38→20:34)
[2024-02-27 07:49] LABS: Glucose - Point of Care 241 mg/dl (70-99)
[2024-02-27] MEDS: ORAJEL 10% GEL TOPICAL ×3 (07:55→17:07)
--- NOTE | 2024-02-27 08:17 | W.PN.HOSP.TC ---
Today's Communication/Plan
-
Transferred to ICU for NIV
Maintain saturations greater than 89%
Solu-Medrol dose increased as per pulm
Assessment / Plan
Assessment / Plan
HPI: 73 yo F with PMH significant for pulm fibrosis / ILD on chronic Rituxan and on home O2 at 8 LPM, chronic CHF, morbid obesity, was discharged 10 days ago and returned for worsening SOB likely due to pulmonary fibrosis exacerbation. Of note, she
was seen by light cleaner and was started with Olumiant for presumed chronic COVID lung disease (took for 5 days).
Patient was found to be in severe respiratory distress with initial pulse ox in the 50s by EMS. Patient was given nebulizer treatment, Solu-Medrol 125 mg IV, and placed on CPAP, with improvement en route to the hospital.
In the ED, she was noted to be febrile at 38.[address] Chest on admission:
Respiratory motion limits evaluation of the segmental and subsegmental pulmonary arteries, basically nondiagnostic for these arteries. There is no evidence for central pulmonary embolism.
Comparing to CT examination of April 28, 2024, interval increase in bilateral parenchymal opacities, with increase in groundglass opacities predominantly. Findings would suggest acute pneumonitis superimposed on chronic parenchymal changes.
Table honeycombing in both lung bases.
A/P:
# Acute on Chronic Hypoxic Respiratory Failure
# Interstitial Lung Disease / Pulmonary Fibrosis exacerbation
# Dyspnea with activity
02/[address] shows persistent pulmonary fibrosis
Appreciate pulmonology input
Hold further AIRCRAFT ELECTRICAL SYSTEM[employer] SPECIALIST Olumiant, 02/23 Hold Imuran
02/23 IV methylprednisolone increased to 40 mg every 8 hours
02/24 Back on 50% high flow, was on 15 L, baseline at 8-10 LPM
02/26 Transferred to ICU for NIV as pulse ox <86% on Hi flow plus NRB
Solu-Medrol dose increased as per pulm, maintain saturations greater than 89%
Continue supportive care with Duonebs ATC
# Fever DOA/ SIRS
Blood culture negative, procal negative, COVID/flu negative, urine Legionella/Strep Ag negative
S/p empiric Abx cefepime and doxycycline for 3 days
02/22�patient reports subjective fever/chills, Tmax 100.2
COVID/flu negative, blood culture pending
Procalcitonin negative, observe off antibiotics
# Benign Hypertension
Continue Norvasc with hold parameter
Holding lisinopril for mild hyperkalemia
#Steroid-induced hyperglycemia
#Steroid-induced diabetes
Hemoglobin A1c 7.4, changed to carb controlled diet, sliding scale insulin
# Hyperkalemia
Holding lisinopril
Cont AIRCRAFT ELECTRICAL SYSTEMS SPECIALIST Bactrim for now
Resolved status post Lokelma, continue low potassium diet
Monitor K level
#Oral ulcer
Benzocaine oral gel for oral ulcers
# Facial wound
Suspect impetigo
No improvement on topical acyclovir
Started topical Bactroban TID 02/20
# Mild transaminitis likely reactive, resolved
# ANCA Positive Vasculitis
# immune compromised state
Cont AIRCRAFT ELECTRICAL SYSTEMS SPECIALIST Bactrim
# Hyponatremia
Mild, monitor
# Chronic HFpEF
recent with EF of 55-60%
cont AIRCRAFT ELECTRICAL SYSTEMS SPECIALIST Lasix
# Hypothyroidism
Continue with Synthroid
# Anemia of Chronic Disease
# Hyperlipidemia
Continue with Lipitor
# Morbid Obesity
# Ambulatory dysfunction
# Sleep apnea
BMI 37
AIRCRAFT ELECTRICAL SYSTEMS SPECIALIST CPAP at bedtime
# History of left breast cancer with lumpectomy and radiation in 2001
# Anxiety and depression
Continue with Zoloft and BuSpar
# GERD
PPI continued
# Mild anxiety
Low dose IV Ativan added
DVT ppx: Lovenox SQ
FC
Total time spent to see the patient on the floor, examine the patient, review data and lab results, discuss treatment plan with patient, nursing staff around 50 minutes.
Physical Exam
General: Morbidly obese, no acute distress
HEENT: Normocephalic, Atraumatic, EOMI, MMM
Respiratory: Bibasilar crackles
Cardiac: Normal S1/S2, Regular Rate and Rhythm
GI: Soft, Nontender, Nondistended, Normal Bowel Sounds
Extremities: No Clubbing, Cyanosis, or Edema
Neuro: Nonfocal/Grossly Intact
Psych: Calm, Cooperative
Derm: Circular scabbed wound with honeycomb appearance above right lip
Anticipated Discharge: > 48 hours
Subjective/Interval History
-
Date of Service: February 27, 2024
Notified by respiratory therapist, patient's oxygenation is less than 86% despite being on high flow with 100% nonrebreather. Patient reports feeling more short of breath. No fever, no vomiting.
Objective Data
-
Labs:
Laboratory Results
02/27/24 02/27/24 02/27/24
04:06 05:00 05:16
WBC 17.3 H 15.1 H
Hgb 6.6 L* 7.0 L
Hct 20.1 L* 21.1 L
Plt Count 322 305
HCO3 29.9 H
Sodium 138 138
Potassium 4.4 4.4
Chloride 97 L 98
Carbon Dioxide 28 31 H
BUN 35 H 32 H
Creatinine 0.7 0.7
Glucose 226 H 227 H
Calcium 9.2 9.2
02/27/24
09:00
WBC
Hgb Pending
Hct Pending
Plt Count
HCO3
Sodium
Potassium
Chloride
Carbon Dioxide
BUN
Creatinine
Glucose
Calcium
Vital Signs:
Vital Signs
Temp Pulse Resp BP Pulse Ox
97.8 F 86 28 144/63 87
02/27/24 03:00 02/27/24 06:00 02/27/24 06:00 02/27/24 06:00 02/27/24 06:00
I&O
02/26/24 02/27/24 02/28/24
06:59 06:59 06:59
Intake Total 850 / 850 8 / 1718
Output Total 625 / 625
Balance 225 / 225 1718 / 1718
--- NOTE | 2024-02-27 08:18 | W.PN.INTV ---
Today's Communication / Plan
Recommendations
Continue noninvasive ventilation and titrate FiO2 to keep SpO2 >89%
Continue pulse dose steroids + imuran
prn benadryl to allow her to sleep given pulse dosing
Follow up Ig levels
Bedside US on 02/25 showed RV<LV size with no pericardial effusion, hence no concern for acute PE; she is non-toxic appearing, recent procal negative; IVC highly collapsible, indicating low intravascular volume status
Transfuse 1 U PRBC today to improve O2 carrying capacity
Monitor fevers curve and trend WBC
Observe off antibiotics
Blood sugar control with goal BG >100 and <180
Low threshold to intubate (high risk intubation given degree of hypoxia)
Continue ICU level care for this critically ill patient.
Assessment
-
Assessment: 73-year-old morbidly obese female with a past medical history of ANCA positive vasculitis/microscopic polyangiitis, ILD, chronic hypoxic respiratory failure on home O2, EMERSON on auto CPAP, history of breast cancer s/p lumpectomy/XRT
(2001), steroid-induced diabetes, and restrictive lung disease who presents with worsening shortness of breath. She was recently hospitalized here and was discharged home on 02/05/2024 with 50 mg prednisone. She had apparently been on 60 mg
prednisone daily since that hospital discharge and was told to wean down the dose as she improves but she never wean down the dose as she never felt like she was improving. She was saturating 67% while on CPAP via EMS. In the ER she was febrile to
102.7 �F, tachycardic to 125, breathing at 20 breaths minute, BP 177/71 and saturating 68% on CPAP. She was changed to BiPAP with sats improving to 77%, and eventually able to be transition to mid flow nasal cannula at 15 L/min with saturations at
98%. Labs showed leukocytosis of 24.5, anemia to 9.5, lactate 3.4, troponin WNL at 0.029, proBNP 371, and COVID-19 antigen negative. Blood cultures were collected, and flu A/B swab was negative. CXR showed acute pneumonitis on chronic parenchymal
disease, and CTA chest showed no evidence of acute PE with worsening bilateral parenchymal opacities with increasing groundglass opacities bilaterally. In the ER she was given 40 mg IV Lasix, DuoNebs, Ativan, Ofirmev and Zofran. She was admitted
to the IMU and now pulmonary consulted for additional management/recommendations. She has been managed in the IMU since admission and on the morning of 02/26 her oxygen requirements worsened and she was transferred to the ICU for noninvasive
ventilation.
Chronic medical conditions MANAGER UNDERWRITING: Interstitial lung disease, ANCA-positive vasculitis/microscopic polyangiitis, chronic hypoxic respiratory failure on home O2 at 8 L/min, EMERSON on CPAP, degenerative disc disease, incisional hernia s/p repair with mesh,
hypercholesterolemia, thyroid disease, history of breast cancer s/p lumpectomy + XRT (2001), steroid-induced diabetes, hypertension, history of diverticulosis, hearing loss, restrictive lung disease, iron deficiency anemia, history of COVID-19
(December 30, 2023) s/p Paxlovid, GERD, history of mild pulmonary hypertension, steroid-induced osteoporosis
Impression:
#Acute on chronic respiratory failure with hypoxia due to suspected ILD exacerbation; DDx also includes progressive ILD, possibly related to recent bout of COVID-19 in December 2023
#Leukocytosis, likely steroid-induced
#Anemia (baseline Hb 9.5�11g/dL)
#Lactic acidosis � resolved as of 02/15/2024
#Febrile illness � patient is nontoxic-appearing with negative procalcitonin (<0.05) - afebrile since 02/23/2024
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
#Moderate restrictive lung disease (T%, VC: 85% with moderate gas exchange capacity defect via PFT from June 2021)
#EMERSON on auto-CPAP 5-20 cmH2O (average pressure: 7.8cmH2O with residual AHI: 1.6 for 30-day period of 12/13 - 01/12/2024)
#Morbid obesity
#Recent history of COVID-19 (12/30/2023) recently on baricitinib, now off
#Former tobacco use (quit in 01/2003 with 60-PY Hx)
Plan/recommendations
On morning of 02/27/2024, she desaturated into the low 80s while on HFNC + NRB, and was transferred to the ICU for further care on the noninvasive ventilation requiring 100% FiO2
She now feels better on the V60 on 18/8cmH2O
Titrate FiO2 to maintain SpO2 >89%
If possible, could take a break from an IV and placed back onto high flow nasal cannula + NRB to see if she can take PO meds and eat, however she is at high risk for further hypoxia and she may need to remain on NIV continuously for now
She is at high risk of requiring TPN due to her severe hypoxia with inability to eat right now
Maintain pulse ox above 89%
-
No further low-grade fevers since 02/23/2024
Doubt there is an infectious process going on as an etiology of her Sx
Hemodynamically stable, does not appear toxic
Denies any chills
No significant phlegm
-
DuoNebs TID
Continuous NIV for now ---> of note, she uses auto-CPAP at home
Continue antitussives as needed
CT chest noted: Groundglass opacities still present. Some areas better some other areas more prominent. Honeycombing with bibasilar fibrosis.
02/24/2024, reviewed, showing persistent GGO bilaterally with areas of improvement, but also some areas with more fibrotic appearing changes than GGO
I have reviewed images with patient and family member at the bedside.
CRP was 88 on admission on 02/17/2024, and I rechecked again on 02/26 and is now the highest its ever been at 180 - of note, CRP was 163 on 01/28/2024
- ESR is also the highest its ever been, now at 128
- Continue to trend CRP and ESR
- Continue bactrim 1 DS tab TIW for prophylaxis.
Methylprednisolone increased to 40 mg IV every 8 hours. 02/24/2024 --> believe that she needs higher dosing of steroids given there is no concern for infection or an acute PE. I spoke with Dr. Daley with rheumatology on 02/26/2024, and I will
start pulse dose steroids with 1g daily x 3 days, then taper from there down to 500mg daily x 3 days, then 125mg q6hr afterwards with continued slow wean. Continue PPI.
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 I also resumed Imuran at 200mg daily
Imuran held 02/24/2024 in the setting of increasing methylprednisolone. High risk for infection ---> imuran now resumed as of 02/26
Eventual transition to prolonged oral prednisone taper on discharge
During this hospital stay, Dr. Blake has discussed the case with Dr. 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
-
Continue to monitor fever curve and trend WBC
Hold antibiotics
-
Monitor blood sugar
Insulin supplementation as needed
Maintain euglycemia with goal BG >100 and <180
Previous infectious workup negative with last BCx on 02/23/2024 showing NGTD
Lower extremity Dopplers negative on 02/23/2024
CTA scan during this admission (on 02/15/2024) negative for pulmonary embolism.
procal is <0.5 (02/24/2024) and she is non-toxic appearing-low suspicion for infection.
Status post antibiotics-received cefepime and doxycycline-hold for now.
Continue to observe off antibiotics
Negative influenza
Negative COVID
Blood cultures show NGTD
Patient not producing significant amount of sputum.
-
Low threshold to consult infectious disease depending on fever curve. Hold for now
Patient will not tolerate bronchoscopy and would end up on ventilator
-
No current signs of volume overload so hold off on IV diuresis; if patient's O2 requirements do not improve despite high dose steroids then diuresis could be attempted.
- Echo (02/16/2024) showing preserved LVEF at 55 to 60% with mild MR, mild aortic stenosis and mild�moderate TR with moderate pulmonary hypertension with PASP 47 mmHg
- Bedside PocUS performed by Dr. Blake on 02/26/2024, showing bilateral B-lines with preserved LVEF, RV <LV with no evidence of D sign or severe RV enlargement. No pericardial effusion. IVC was highly collapsible --> indicating that her
intravascular volume status is low
Monitor hemoglobin-stable, has not required transfusion. No evidence for bleeding.
Transfuse as needed --> given that her Hb is 7.4, this could be contributing to her hypoxia and SOB. I will transfuse her 1 U PRBC today and then re-assess for response; she may need additional transfusions
DVT prophylaxis-low molecular weight heparin
-
Physical therapy/Occupational Therapy when O2 requirements improve - she is too unstable for now

Dr. Snider discussed plan with patient and daughter at the bedside 02/24/2024.
Also discussed the case with Dr. 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
-
Patient does have 3 concentrators at home. Has the ability to increase to 15 to 20 L at home
We will have case management help coordinate with [facility], to confirm adequate oxygen at home prior to discharge
Continue with every other day physical therapy and assess oxygen needs. On 02/20 required 15 L with 13 L nonrebreather, recovered within 1 minute with 15 L/nonrebreather after standing
Continue follow-up with Dr. Rausch as well as ILD-pulmonary at [facility], Dr. Latha Mendez
Dr. Blake discussed case in detail on 02/26/2024 with patient and 2 daughters, and Dr. Daley. I also updated the patient and sister Marina today (02/26)
Continue with ICU level care for this critically ill patient with low threshold to intubate.

Data:
CTA Chest 02/15/2024:
Respiratory motion limits evaluation of the segmental and subsegmental pulmonary arteries, basically nondiagnostic for these arteries. There is no evidence for central pulmonary embolism.
Comparing to CT examination of April 28, 2024, interval increase in bilateral parenchymal opacities, with increase in groundglass opacities predominantly. Findings would suggest acute pneumonitis superimposed on chronic parenchymal changes.
Table honeycombing in both lung bases.
There is mild to moderate elevation right hemidiaphragm.
CT chest 02/24/2024:
Persistent pulmonary parenchymal disease process, as described. There is slight improved aeration at the lung bases. Subtle progressive low-level groundglass opacity suggested in the left upper lobe.
Possible considerations include pneumonia superimposed on COPD, interstitial and alveolar edema related to congestive heart failure or volume overload (though no cardiomegaly or pleural effusion), or idiopathic interstitial pneumonia.
CXR 02/15/2024: Radiographic findings are suggestive of acute pneumonitis superimposed on chronic parenchymal disease.
CXR 02/27/2024: Widespread bilateral predominantly interstitial opacities with minimal accompanying alveolar component, essentially stable in comparison to recent prior study including stable differential diagnostic possibilities. No pneumothorax.
Critical care statement: A total of 47 minutes of critical care time was provided for this patient today. This includes management of unstable vital signs, evaluation of the patient at bedside, reviewing the patient's pertinent medical records
including radiographs, microbiology, laboratory evaluations, and discussion with primary team, consultants, pharmacy, nutrition, physical therapy, case management, charge nurse, critical care nursing, and respiratory therapy.
Subjective Dataa
Subjective Data
Date of Service:
Date of Service: February 27, 2024
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
Subjective:
Patient was seen and evaluated today at bedside. Last night her IV infiltrated when Solu-Medrol was going through, and it is unclear how much medication infiltrated. She does not have any pain although there is some swelling at her right forearm.
She was hypoxic this morning down to low 80s while on high flow nasal cannula 100% + nonrebreather @ 15L/min and was transferred to the ICU for NIV.
This morning she was saturating 90% on 18/8 cmH2O on FiO2 100%. Heart rate 100 and BP 156/72. She reports that she actually feels better today and denies SOB at rest or chest pain. Also denies ARRIAGA, abdominal pain, nausea, fevers or chills.
Review of Systems
General: Other (Negative unless mentioned above)
Objective Data
Data Reviewed
Vital Signs / I&O / Oxygen:
Vital Signs
Temp Pulse Resp BP Pulse Ox
98.7 F 94 26 152/76 91
02/27/24 10:22 02/27/24 10:22 02/27/24 10:22 02/27/24 10:22 02/27/24 10:22
Intake and Output
02/26/24 02/27/24 02/28/24
06:59 06:59 06:59
Intake Total 850 / 850 1717 / 171
Output Total 625 / 625
Balance 225 / 225 1717 / 171 30 / 30
SaO2 91
Nasal Cannula flow liters per 50
minute
Physical Exam
General: Respiratory Distress (negative), Comfortable, Chills (negative) and Sweats (negative)
HEENT: Normocephalic, Anicteric and Other (thick neck)
Cardiovascular: S1-S2, Rub (negative) and Peripheral Edema (negative)
Respiratory: Wheeze (negative), Crackles (Bilaterally), Rhonchi (Bilaterally) and Accessory Resp Muscle Use (mild with exertion)
GI: Soft, Distended (Abdominal obesity), Non Tender and Normal Bowel Sounds
Neurology: AO x 3 and Tremors (negative)
Skin: Warm, Dry, Cyanosis (negative) and Jaundice (negative)
Labs/Micro/Reports
Lab Data
02/27/24 05:16
Laboratory Results
02/27/24
05:00
pH 7.44
pCO2 44 H
pO2 59 L*
HCO3 29.9 H
O2 Delivery Level
Microbiology
02/23/24 11:57 Blood/Venous Blood Culture - Preliminary
No Growth in 72 hours- Final report to follow
--- NOTE | 2024-02-27 08:45 | PTCARENOTE ---
PT WITH RA INFILTRATE, MARKED. LESS THAN +1 EDEMA NOTED, REDNESS AT INSERTION SITE OF PREVIOUS IV OTHERWISE WARM TO TOUCH. PER PT, FEELS BETTER, STATED SHE DID NOT NEED ICE. ARM WAS ELEVATED AT TIME OF RA ASSESSMENT
[2024-02-27] MEDS: NOVOLOG FLEXPEN-MODERATE RESISTANCE 3 UNITS SC (08:47)
--- NOTE | 2024-02-27 09:00 | STATUS ---
SITUATION:
Patient with spo2 in 80s since arrival on shift and assuming care of patient. RT to bedside. Donner text sent by RT to care team about patient's status. Order for transfer to ICU.
BACKGROUND:
Pt on max HFNC +NRB mask over top.
ASSESSMENT:
Lungs diffusely diminished. Pt tachypneic and dypneic.
RT to bedside. Donner text sent by RT to care team about patient's status.
RECOMMENDATION:
transfer to ICU
[2024-02-27] MEDS: MIRALAX 17 GRAMS PO ×2 (10:43→20:11)
[2024-02-27] MEDS: BUSPAR 10 MG PO ×2 (10:43→20:11)
[2024-02-27] MEDS: ZYRTEC 10 MG PO (10:44)
[2024-02-27] MEDS: SENOKOT-S 2 TABLET PO ×2 (10:44→20:11)
[2024-02-27] MEDS: LOW STRENGTH ASPIRIN 81 MG PO (10:44)
[2024-02-27] MEDS: LASIX 20 MG PO (10:44)
[2024-02-27] MEDS: ZOLOFT 75 MG PO (10:44)
[2024-02-27] MEDS: PROTONIX 40 MG PO (10:44)
[2024-02-27] MEDS: COLACE 100 MG PO (10:45)
[2024-02-27] MEDS: BACTROBAN 2% OINTMENT 1 APPLIC TOPICAL ×2 (10:45→21:59)
[2024-02-27] MEDS: OCUVITE SOFTGEL 1 CAP PO ×2 (10:45→20:11)
[2024-02-27] MEDS: ZOLOFT 100 MG PO (10:46)
[2024-02-27] MEDS: NORVASC 5 MG PO (10:49)
[2024-02-27] MEDS: IMURAN 200 MG PO (10:49)
--- NOTE | 2024-02-27 11:02 | PTCARENOTE ---
Updated assessment, vital signs ongoing and as documented. Follow up chest xray, ecg and labs as ordered. Continue ongoing plan of cares. Patient placed on V60 NIV ventilation. Follow up abg as ordered. Continue follow up bedside with Hospitalist
team. Updated transfer with hims clerk at bedside. Continue with follow up pulmonary mangement and assessment trends. Family updated, family oriented to Icu surrounds and plan of cares.
[2024-02-27 11:38] LABS: Venous Blood Gas HCO3 31.9 mmol/L (22-27); Venous Blood Gas O2 Sat % 98.8 %; Venous Blood Gas pCO2 47 mmHg (35-48); Venous Blood Gas pH 7.44 (7.32-7.43); Venous Blood Gas pO2 127 mmHg (30-50)
[2024-02-27 11:44] LABS: Hematocrit 21.9 % (37.0-47.0); Hemoglobin 7.4 g/dL (12.0-16.0)
[2024-02-27 11:48] LABS: INR 1.35; PT 16.5 Sec (11.4-14.6)
[2024-02-27 11:49] LABS: Glucose - Point of Care 162 mg/dl (70-99)
[2024-02-27 11:49] LABS: APTT 25.7 Sec (23.4-35.0)
[2024-02-27] MEDS: NOVOLOG FLEXPEN-MODERATE RESISTANCE SC ×2 (12:08→17:22)
--- NOTE | 2024-02-27 12:50 | PTCARENOTE ---
PICC ORDER PER DESHAUN JUNIOR FOR MIDLINE PER CORRINA DILLON. RA MIDLINE PLACED WITHOUT DIFFICULTY. PT RESTING
--- NOTE | 2024-02-27 14:54 | PTCARENOTE ---
Continue slow improvement of respiratory/pulmonary status. Recovery times are quicker than earlier during transfer. Tolerates skin cares and turns. Presently remains on 100% fio2 saturation during rest 95%, Turns will desaturate into 80's mask off
for nourishment saturation quickly into the 60's. Recover now within 15minutes. Continue supportive cares. Complete bed bath oral cares and linen change. Update with family at bedsdie. Supportive cares ongoing.
[2024-02-27] MEDS: BACTROBAN 2% OINTMENT TOPICAL (17:06)
[2024-02-27] MEDS: LOVENOX 40 MG SC (17:22)
[2024-02-27 17:32] LABS: Glucose - Point of Care 148 mg/dl (70-99)
--- NOTE | 2024-02-27 17:38 | PTCARENOTE ---
Updates with Manager Battery team at bedside. PRBC as ordered await availability from blood bank. Follow up labs, follow up pulmonary status and follow transfusion protocols. Patient overall settled. Desaturates easily with mask off turns and with any
exertion. Await respiratory team to trial HiFlo/NRBM to allow for nutrition intake. Will update trial and review with Manager Battery and pulmonary team.
[2024-02-27] MEDS: SOLU-MEDROL 258 MG IV (17:50)
[2024-02-27] MEDS: TYLENOL 500 MG PO (18:07)
[2024-02-27] MEDS: BENADRYL 50 MG PO (18:10)
--- NOTE | 2024-02-27 19:00 | PTCARENOTE ---
Patient able to tolerate short period on HiFlo/NRBM to eat 75% dinner with assist. PRBC infusing, with transfusion protocols in place. Continue to follow pulmonary status with critical care nursing at bedside. Continue with VS trends. Presently
returned to NIV with respiratory cares team. Updated Business Coordinator.
--- NOTE | 2024-02-27 19:30 | PTCARENOTE ---
received report from RN, pt AAOx3 follows commands WALTER, NSR on the monitor, +2 anasarca, + radials and pedals, lungs diminished coarse throughout, NIV 15/8 100% SATs 90%, occasionally switched to HF 55L 100% when pt taking meds, DSATs to 70's-80's
with NIV off, round obese BSx4 hypoactive, PW collecting beulah urine, R cheek above lip skin tear covered with Tegaderm, R midline, 22G R wrist, unit of blood finishing through midline, pt able to make needs known, call slater within reach, otherwise
refer to documentation.
[2024-02-27] MEDS: MELATONIN 5 MG PO (21:59)
[2024-02-27] MEDS: LIPITOR 40 MG PO (21:59)
[2024-02-27 23:27] LABS: Glucose - Point of Care 237 mg/dl (70-99)
[2024-02-27] MEDS: NOVOLOG FLEXPEN 5 UNITS SC (23:36)
[2024-02-27 23:39] LABS: IgG 280 mg/dl (700-1600)
[2024-02-28] VITALS (34 sets, daily range): BP systolic 90–177; BP diastolic 59–87; BMI 45.8
--- NOTE | 2024-02-28 00:28 | PTCARENOTE ---
systems reviewed, blood sugar 237 SUPERVISING PRODUCER notified, treated per MAR, RT added humidifier to NIV, otherwise refer to documentation
[2024-02-28 01:38] LABS: IgA < 50 mg/dl (70-400); IgM < 25 mg/dl (40-230)
[2024-02-28] MEDS: ATIVAN 0.5 MG IV ×4 (03:01→21:08)
[2024-02-28 03:55] LABS: Hematocrit 24.5 % (37.0-47.0); Hemoglobin 8.3 g/dL (12.0-16.0); Mean Corp Hgb Conc. 33.9 g/dL (33.0-37.0); Mean Corpuscular Hgb 28.8 pg (27.0-31.0); Mean Corpuscular Volume 85.1 fL (81.0-99.0); Platelet Count 272 10^3/uL (130-400); Red Blood Cell Count 2.88 10^6/uL (4.20-5.40); Red Cell Dist. Width 15.3 % (11.5-14.5); White Blood Cell Count 19.8 10^3/uL (4.8-10.8)
[2024-02-28 04:12] LABS: Blood Urea Nitrogen 36 mg/dl (7-17); Calcium 9.5 mg/dl (8.4-10.2); Carbon Dioxide 31 mmol/L (22-30); Chloride 99 mmol/L (98-107); Estimated Creatinine Clearance 93 ml/min; Glucose 179 mg/dl (70-99); Potassium 4.4 mmol/L (3.5-5.1); Sodium 141 mmol/L (135-145); eGFR > 60.00
--- NOTE | 2024-02-28 04:40 | PTCARENOTE ---
systems reviewed, labs drawn, bladder scanned for 601, straight cath for 550 beulah output, PW back in place, call slater within reach otherwise refer to documentation
--- NOTE | 2024-02-28 05:03 | PTCARENOTE ---
pt SOB after straight cath during procedure SATs 80 30 min after SATs 84-85 taking a longer time to recover SUMMER NANNY notified
--- NOTE | 2024-02-28 05:30 | PTCARENOTE ---
RT changed NIV to 16/02 100% rate 10, RETIREMENT PLAN COUNSELOR notified
[2024-02-28] MEDS: SYNTHROID PO (05:48)
[2024-02-28 07:22] LABS: Glucose - Point of Care 170 mg/dl (70-99)
--- NOTE | 2024-02-28 07:27 | W.PN.INTV ---
Today's Communication / Plan
Recommendations
Continue pulse dose steroids
Maintain a high flow/nonrebreather
Reattempt NIV once more comfortable
Anxiolytic, morphine as needed low-dose
Family aware of high risk for intubation/mechanical ventilation tenuous respiratory status
Assessment
-
Assessment: 73-year-old morbidly obese female with a past medical history of ANCA positive vasculitis/microscopic polyangiitis, ILD, chronic hypoxic respiratory failure on home O2, EMERSON on auto CPAP, history of breast cancer s/p lumpectomy/XRT
(2001), steroid-induced diabetes, and restrictive lung disease who presents with worsening shortness of breath. She was recently hospitalized here and was discharged home on 02/05/2024 with 50 mg prednisone. She had apparently been on 60 mg
prednisone daily since that hospital discharge and was told to wean down the dose as she improves but she never wean down the dose as she never felt like she was improving. She was saturating 67% while on CPAP via EMS. In the ER she was febrile to
102.7 �F, tachycardic to 125, breathing at 20 breaths minute, BP 177/71 and saturating 68% on CPAP. She was changed to BiPAP with sats improving to 77%, and eventually able to be transition to mid flow nasal cannula at 15 L/min with saturations at
98%. Labs showed leukocytosis of 24.5, anemia to 9.5, lactate 3.4, troponin WNL at 0.029, proBNP 371, and COVID-19 antigen negative. Blood cultures were collected, and flu A/B swab was negative. CXR showed acute pneumonitis on chronic parenchymal
disease, and CTA chest showed no evidence of acute PE with worsening bilateral parenchymal opacities with increasing groundglass opacities bilaterally. In the ER she was given 40 mg IV Lasix, DuoNebs, Ativan, Ofirmev and Zofran. She was admitted
to the IMU and now pulmonary consulted for additional management/recommendations. She has been managed in the IMU since admission and on the morning of 02/26 her oxygen requirements worsened and she was transferred to the ICU for noninvasive
ventilation.
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
hypercholesterolemia, thyroid disease, history of breast cancer s/p lumpectomy + XRT (2001), steroid-induced diabetes, hypertension, history of diverticulosis, hearing loss, restrictive lung disease, iron deficiency anemia, history of COVID-19
(December 30, 2023) s/p Paxlovid, GERD, history of mild pulmonary hypertension, steroid-induced osteoporosis
Impression:
#Acute on chronic respiratory failure with hypoxia due to suspected ILD exacerbation; DDx also includes progressive ILD, possibly related to recent bout of COVID-19 in December 2023
#Leukocytosis, likely steroid-induced
#Anemia (baseline Hb 9.5�11g/dL)
#Lactic acidosis � resolved as of 02/15/2024
#Febrile illness � patient is nontoxic-appearing with negative procalcitonin (<0.05) - afebrile since 02/23/2024
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
#Moderate restrictive lung disease (T%, VC: 85% with moderate gas exchange capacity defect via PFT from June 2021)
#EMERSON on auto-CPAP 5-20 cmH2O (average pressure: 7.8cmH2O with residual AHI: 1.6 for 30-day period of 12/13 - 01/12/2024)
#Morbid obesity
#Recent history of COVID-19 (12/02
01/2024) recently on baricitinib, now off
#Former tobacco use (quit in 01/2003 with 60-PY Hx)
Plan/recommendations
Unfortunately, patient remains critically ill, tenuous respiratory status
Patient was stable, saturation 85 to 89% this morning
Upon transitioning up to commode, during attempted bowel movement, heart rate in the 130s, desaturated down to 65% despite NIV placement
Patient dyssynchronous with NIV, fullface mask
Placed back on nonrebreather/high flow, saturation remained around 68%
Given Ativan, low-dose morphine
Once off commode, respiratory rate Improved, saturation slowly increasing up to 75%
Remains difficult situation. Patient had similar episode 02/26 prompting transfer to ICU
Moving forward
We will continue with high flow/nonrebreather for now. Await for slow recovery
Prior to placing on NIV, will need to confirm adequate treatment for anxiety. May require Ativan
In the interim, will increase dosing of BuSpar to 10 mg 3 times daily
May need Xanax throughout the day. Continue with Ativan as needed
Minimize movement for now
Patient high risk for requiring mechanical ventilation, intubation
Chest x-ray 02/26 with persistent bilateral interstitial changes
Reviewed CT imaging at length. She is now developing some reticular thickening, mild honeycomb changes at the base
Continue with pulse steroids
Given possibly of infiltration 02/25, will give additional dose of 1 g 02/28 and then decrease to 500 mg thereafter for 2 days
Dosing thereafter will be determined
Unfortunately, if she does not show improvement in the next 48 to 96 hours, I suspect she will be at high risk for intubation and mechanical ventilation
Doubt fluid overload is playing a role
Recent echocardiogram noted
She received 1 unit of blood 02/26. Will try to minimize blood products at this time given potential risk for worsening lung injury
Bedside PocUS performed by Dr. Blake on 02/26/2024, showing bilateral B-lines with preserved LVEF, RV <LV with no evidence of D sign or severe RV enlargement. No pericardial effusion. IVC was highly collapsible --> indicating that her
intravascular volume status is low
Continue with daily Lasix, 20 mg
Echo (02/16/2024) showing preserved LVEF at 55 to 60% with mild MR, mild aortic stenosis and mild�moderate TR with moderate pulmonary hypertension with PASP 47 mmHg
No further low-grade fevers since 02/23/2024
Doubt there is an infectious process going on as an etiology of her Sx
CRP on admission 88. Increased to 180.6 on 02/26, decreased to 156 today
Continue with pulse dose steroids
Remains on Imuran 200 mg a day
Continue PPI, follow blood sugars
Immunoglobulin levels pending
Monitor blood sugar
Insulin supplementation as needed
Maintain euglycemia with goal BG >100 and <180
Previous infectious workup negative with last BCx on 02/23/2024 showing NGTD
Lower extremity Dopplers negative on 02/23/2024
CTA scan during this admission (on 02/15/2024) negative for pulmonary embolism.
procal is <0.5 (02/24/2024) and she is non-toxic appearing-low suspicion for infection.
Status post antibiotics-received cefepime and doxycycline-hold for now.
Continue to observe off antibiotics
Negative influenza
Negative COVID
Blood cultures show NGTD
Patient not producing significant amount of sputum.
Patient tolerating small bites of breakfast earlier this morning
Discussed possible need for Dobbhoff tube. For now she will continue with oral intake
DVT prophylaxis-low molecular weight heparin. She is at high risk for thromboembolic disease
Will repeat lower extremity Dopplers
Physical therapy/Occupational Therapy when O2 requirements improve - she is too unstable for now
I did review clinical course briefly with pulmonary at [facility] (Andrea)
Given baseline underlying interstitial disease, vasculitis, therapeutic options are lacking at this time outside of what we are doing
Updated niece, sister at bedside and sister by phone
I am concerned about her respiratory status over the past 24 hours given 2 episodes of significant desaturation with prolonged recovery
If she were to require intubation and mechanical ventilation, and does not show any evidence of stability/improvement, I relayed that she may be unable to be liberated from mechanical ventilation, and can possibly . They are aware of her
clinical situation
All questions answered
Critical care statement: A total of 76 minutes of critical care time was provided for this patient today. This includes management of unstable vital signs, evaluation of the patient at bedside, reviewing the patient's pertinent medical records
including radiographs, microbiology, laboratory evaluations, and discussion with primary team, consultants, pharmacy, nutrition, physical therapy, case management, charge nurse, critical care nursing, and respiratory therapy.

Dr. Snider discussed plan with patient and daughter at the bedside 02/24/2024.
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
-
Patient does have 3 concentrators at home. Has the ability to increase to 15 to 20 L at home
We will have case management help [facility], to confirm adequate oxygen at home prior to discharge
Continue with every other day physical therapy and assess oxygen needs. On 02/20 required 15 L with 13 L nonrebreather, recovered within 1 minute with 15 L/nonrebreather after standing
Continue follow-up with Dr. Rausch as well as ILD-pulmonary at [facility], Dr. Latha Mendez
Dr. Blake discussed case in detail on 02/26/2024 with patient and 2 daughters, and Dr. Daley. I also updated the patient and sister Marina today (02/26)
Continue with ICU level care for this critically ill patient with low threshold to intubate.

Data:
CTA Chest 02/15/2024:
Respiratory motion limits evaluation of the segmental and subsegmental pulmonary arteries, basically nondiagnostic for these arteries. There is no evidence for central pulmonary embolism.
Comparing to CT examination of April 28, 2024, interval increase in bilateral parenchymal opacities, with increase in groundglass opacities predominantly. Findings would suggest acute pneumonitis superimposed on chronic parenchymal changes.
Table honeycombing in both lung bases.
There is mild to moderate elevation right hemidiaphragm.
CT chest 02/24/2024:
Persistent pulmonary parenchymal disease process, as described. There is slight improved aeration at the lung bases. Subtle progressive low-level groundglass opacity suggested in the left upper lobe.
Possible considerations include pneumonia superimposed on COPD, interstitial and alveolar edema related to congestive heart failure or volume overload (though no cardiomegaly or pleural effusion), or idiopathic interstitial pneumonia.
CXR 02/15/2024: Radiographic findings are suggestive of acute pneumonitis superimposed on chronic parenchymal disease.
CXR 02/27/2024: Widespread bilateral predominantly interstitial opacities with minimal accompanying alveolar component, essentially stable in comparison to recent prior study including stable differential diagnostic possibilities. No pneumothorax.
Subjective Dataa
Subjective Data
Date of Service:
Date of Service: February 28, 2024
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
Subjective:
Patient remains critically ill, respiratory status remains tenuous. Tolerating noninvasive ventilation overnight, 16/02, 100%, tidal volumes around 500. Unfortunately, later in the morning placed on the commode for bowel movement, heart rate up in
the 130s, desaturated into the 60s. Placed on NIV, patient dyssynchronous with NIV. Taken off and IV placed back on high flow/100%, given Ativan and low-dose morphine.
Objective Data
Data Reviewed
Vital Signs / I&O / Oxygen:
Vital Signs
Temp Pulse Resp BP Pulse Ox
98.6 F 84 24 143/61 84
02/28/24 03:29 02/28/24 06:00 02/28/24 06:00 02/28/24 06:00 02/28/24 06:00
Intake and Output
02/27/24 02/28/24 02/29/24
06:59 06:59 06:59
Intake Total 1718 / 1718 1070 / 1070
Output Total 1650 / 1650
Balance 1718 / 1718 -580 / -580
SaO2 [NIV (Non Invasive 84
Ventilation)]
SaO2 84
Nasal Cannula flow liters per 60
minute
Physical Exam
General: Respiratory Distress (Tachypnea while on the commode) and Other (Right upper extremity midline)
HEENT: Normocephalic, Anicteric and Other (thick neck)
Cardiovascular: S1-S2, Regular Rhythm (Tachycardic), Rub (negative) and Peripheral Edema (negative)
Respiratory: Wheeze (negative), Crackles (Bilaterally, anterior), Rhonchi (Bilaterally), Accessory Resp Muscle Use (Mild to moderate while on the commode) and Stridor (n)
GI: Soft, Distended (Abdominal obesity), Non Tender and Normal Bowel Sounds
Neurology: AO x 3 and No Motor Deficits (Moves extremities)
Skin: Warm, Cyanosis (negative), Jaundice (negative) and Other (No visible oral ulcers)
Labs/Micro/Reports
Lab Data
02/28/24 03:06
02/28/24 03:06
Laboratory Results
02/27/24 02/27/24
11:25 11:25
PT 16.5 H
INR 1.35
APTT Cancelled 25.7
Microbiology
02/23/24 11:57 Blood/Venous Blood Culture - Preliminary
No Growth in 4 days- Final report to follow
[2024-02-28] MEDS: DUONEB 3 ML INH ×2 (07:39→13:55)
[2024-02-28] MEDS: NOVOLOG FLEXPEN-MODERATE RESISTANCE 1 UNITS SC ×2 (08:02→11:39)
[2024-02-28 08:05] LABS: Erythrocyte Sed Rate 92 mm/hour (0-20)
--- NOTE | 2024-02-28 08:06 | W.PN.HOSP.TC ---
Today's Communication/Plan
-
see A/P
Assessment / Plan
Assessment / Plan
HPI: 73 yo F with PMH significant for pulm fibrosis / ILD on chronic Rituxan and on home O2 at 8 LPM, chronic CHF, morbid obesity, was discharged 10 days ago and returned for worsening SOB likely due to pulmonary fibrosis exacerbation. Of note, she
was seen by assistant media buyer and was started with Olumiant for presumed chronic COVID lung disease (took for 5 days).
Patient was found to be in severe respiratory distress with initial pulse ox in the 50s by EMS. Patient was given nebulizer treatment, Solu-Medrol 125 mg IV, and placed on CPAP, with improvement en route to the hospital.
In the ED, she was noted to be febrile at 38.7 deg C
A/P:
# Acute on Chronic Hypoxic Respiratory Failure
# Interstitial Lung Disease / Pulmonary Fibrosis exacerbation
# Dyspnea with activity
02/[address] shows persistent pulmonary fibrosis
Appreciate pulmonology input
Hold SLATE HANDLER Olumiant
Imuran continued
baseline O2 at 8-10 LPM, now at 100% high flow with NRB mask, continue ICU level of care
Solu-Medrol dose increased as per pulm, maintain saturations greater than 89%
Continue supportive care with Duonebs ATC
# Fever DOA/ SIRS
Blood culture negative, procal negative, COVID/flu negative, urine Legionella/Strep Ag negative
S/p empiric Abx cefepime and doxycycline for 3 days
Procalcitonin negative, observe off antibiotic
# Benign Hypertension
Continue Norvasc with hold parameter
Holding lisinopril for mild hyperkalemia
# Steroid-induced hyperglycemia
# Steroid-induced diabetes
Hemoglobin A1c 7.4, changed to carb controlled diet, sliding scale insulin
# Hyperkalemia
Holding lisinopril
Cont SLATE HANDLER Bactrim for now
Resolved status post Lokelma, continue low potassium diet
Monitor K level
# Oral ulcer
Benzocaine oral gel for oral ulcers
# Facial wound
Suspect impetigo
No improvement on topical acyclovir
Started topical Bactroban TID 02/20
# Mild transaminitis likely reactive, resolved
# ANCA Positive Vasculitis
# immune compromised state
Cont SLATE HANDLER Bactrim
# Hyponatremia
Mild, monitor
# Chronic HFpEF
recent with EF of 55-60%
cont SLATE HANDLER Lasix
# Hypothyroidism
Continue with Synthroid
# Anemia of Chronic Disease
# Hyperlipidemia
Continue with Lipitor
# Morbid Obesity
# Ambulatory dysfunction
# Sleep apnea
BMI 37
SLATE HANDLER CPAP at bedtime
# History of left breast cancer with lumpectomy and radiation in 2001
# Anxiety and depression
Continue with Zoloft and BuSpar
# GERD
PPI continued
# Mild anxiety
Low dose IV Ativan added
DVT ppx: Lovenox SQ
FC
DW Nature Photographer
DW niece at bedside
CC time 40 min
Anticipated Discharge: > 48 hours
Subjective/Interval History
-
Date of Service: February 28, 2024
Objective Data
-
Labs:
Laboratory Results
02/28/24
03:06
WBC 19.8 H
Hgb 8.3 L
Hct 24.5 L
Plt Count 272
Sodium 141
Potassium 4.4
Chloride 99
Carbon Dioxide 31 H
BUN 36 H
Creatinine 0.7
Glucose 179 H
Calcium 9.5
Vital Signs:
Vital Signs
Temp Pulse Resp BP Pulse Ox
36.9 C 86 23 143/61 91
02/28/24 07:56 02/28/24 07:44 02/28/24 07:44 02/28/24 06:00 02/28/24 07:44
I&O
02/27/24 02/28/24 02/29/24
06:59 06:59 06:59
Intake Total 1717 / 1717 1070 / 1070
Output Total 1649 / 1649
Balance 1718 / 1718 -580 / -580
Review of Systems
-
Respiratory: Reports Trouble Breathing
Physical Exam
-
General: Well Developed, Well Nourished, Comfortable, Respiratory Distress (acute on chronic), Conversant and Morbidly Obese
HEENT: Normocephalic, Atraumatic, Nose Appears Normal, Ears Appear Normal and Oxygen (high flow NC with NRB mask)
Respiratory: Clear to Auscultation, Wheezes and Crackles (fine crackles at bases); Negative Accessory Resp Muscle Use
Cardiac: Regular Rhythm and S1/S2
GI: Soft, Nontender, Nondistended and Normal Bowel Sounds
Skin: Warm and Dry
Neuro: Awake, Alert, Oriented and AO x 3
Psych: Calm and Intact Judgement/Insight
Data Reviewed
-
CT Scan: Report Reviewed by me
Labs: Labs Reviewed by me
[2024-02-28] MEDS: BACTROBAN 2% OINTMENT 1 APPLIC TOPICAL (08:07)
[2024-02-28] MEDS: IMURAN 200 MG PO (08:08)
[2024-02-28] MEDS: COLACE 100 MG PO (08:08)
[2024-02-28] MEDS: BUSPAR 10 MG PO ×3 (08:08→17:15)
[2024-02-28] MEDS: LASIX 20 MG PO (08:08)
[2024-02-28] MEDS: PROTONIX 40 MG PO (08:09)
[2024-02-28] MEDS: SENOKOT-S 2 TABLET PO ×2 (08:09→20:37)
[2024-02-28] MEDS: OCUVITE SOFTGEL 1 CAP PO ×2 (08:09→20:37)
[2024-02-28] MEDS: NORVASC 5 MG PO (08:09)
[2024-02-28] MEDS: MIRALAX 17 GRAMS PO ×2 (08:09→21:10)
[2024-02-28] MEDS: LOW STRENGTH ASPIRIN 81 MG PO (08:09)
[2024-02-28] MEDS: ZOLOFT 100 MG PO (08:10)
[2024-02-28] MEDS: ZOLOFT 75 MG PO (08:10)
[2024-02-28] MEDS: ZYRTEC 10 MG PO (08:10)
[2024-02-28] MEDS: BACTRIM DS 800 MG/160 MG 1 TABLET PO (08:15)
[2024-02-28] MEDS: SYNTHROID 150 MCG PO (08:17)
[2024-02-28] MEDS: ORAJEL 10% GEL TOPICAL ×3 (08:44→17:02)
--- NOTE | 2024-02-28 09:46 | CM ---
CM reviewed chart- ADC>48 hours
Pt in ICU with increased oxygen needs, 50L
PT/OT continues to follow as medically appropriate
Initial plan was home with VN, they arranged for standard commode already
Will need to watch for higher level needs given medical status
CM will continue to follow
Discharge Disposition- TBD
[2024-02-28] MEDS: DULCOLAX 10 MG RECTAL (10:14)
[2024-02-28] MEDS: MORPHINE SULFATE 1 MG IV (10:25)
[2024-02-28] MEDS: BENADRYL 50 MG PO (11:38)
[2024-02-28] MEDS: TYLENOL 500 MG PO (11:38)
[2024-02-28] MEDS: SOLU-MEDROL 258 MG IV (11:39)
[2024-02-28 11:48] LABS: Glucose - Point of Care 180 mg/dl (70-99)
--- NOTE | 2024-02-28 12:16 | PTCARENOTE ---
Pt has been hypoxic and tachypneic t/o shift. Was not tachycardiac until placed on bedpan after breakfast. Pt also placed back on niv where sats continued to drop with increased wob. Dr Rausch in to see pt, gave iv ativan and morphine with
little improvement. Per Dr Rausch, pt returned to high flow with nrb and sats have now been intermittently reaching mid 70s. Pt with less wob after large bm, with some manual disimpaction. Pt felt greatly improved once off bedpain. Continues to
be tachycardiac and tachypneic, but less wob. Fan in place. Pulse dose steroids infusing as ordered. Pt medicated with tylenol and benadryl at her request with infusion. Otherwise no changes.
[2024-02-28] MEDS: FIRST-MOUTHWASH BLM SUSPENSION 5 ML PO (13:16)
[2024-02-28] MEDS: PRECEDEX 100 IV ×2 (14:26→20:49)
--- NOTE | 2024-02-28 14:53 | PTCARENOTE ---
pt has remained hypoxic t/o afternoon, pt admits to being anxious. Dr Rausch in to see pt and precedex ordered and initiated in attempts to place pt back on NIV
[2024-02-28] MEDS: BACTROBAN 2% OINTMENT TOPICAL ×2 (15:29→21:50)
--- NOTE | 2024-02-28 16:03 | PTCARENOTE ---
Systems reviewed. Pt reports much less anxiety since precedex initiated. Dozing intermittently. Otherwise no changes.
[2024-02-28 17:12] LABS: Glucose - Point of Care 224 mg/dl (70-99)
[2024-02-28] MEDS: NOVOLOG FLEXPEN-MODERATE RESISTANCE 3 UNITS SC (17:16)
[2024-02-28] MEDS: LOVENOX 40 MG SC (17:17)
--- NOTE | 2024-02-28 17:51 | PTCARENOTE ---
Pt bladder scan for 545ml, voided small amount prior to st cath for 500ml and with cath in place voided moderate amount around cath, def increased wob. Sats that had been 82% prior to dropped as low as 75% after repositioning in bed. Fan remains
in place. Family at bedside.
--- NOTE | 2024-02-28 19:30 | PTCARENOTE ---
received report from RN, dual RN med rec @ bedside, pt Ox3, restless and anxious, follows commands and WALTER, NSR on the monitor borderline tachy in the 90's, +2 anasarca, + pulses, B/L SCDs, BP R calf pt has R and L UE restrictions, coarse diminished
with scattered crackles, NIV humidified, 15/10 BPM 14 100%, tachypneic 30's SATs 83%, round obese BSx4 hypoactive, PW pt due to void though straight cath was required, bruising on abd, skin tear above R upper lip on cheek, R midline, 22G R wrist,
Precedex 0.4/12.1 ml, pt instructed to not have dinner tonight b/c cannot tolerate mask being off, family @ bedside and updated, call slater within reach, pt able to make needs known, otherwise refer to documentation.
[2024-02-28] MEDS: MELATONIN 5 MG PO (20:37)
[2024-02-28] MEDS: LIPITOR 40 MG PO (20:37)
--- NOTE | 2024-02-28 20:45 | PTCARENOTE ---
clustered meds and care with unstable resp. status, RT @ bedside to assist, mask off for 20 secs to take po meds and pt SATs dropped in the 70's, tachycardic, WOB increased and extremely restless, Ativan given per order, precedex gtt titrated per
worklist, SATs didn't recover, ADVERTISING CLERK notified another Ativan ordered and given, Precedex gtt @ 0.9mcg, family @ bedside and codes status was discussed, ADVERTISING CLERK notifed updated Dr. Rausch
[2024-02-28] MEDS: XOPENEX 1.25 MG INHALANT SOLUTION INH (20:56)
[2024-02-28] MEDS: ATROVENT NEBULES 0.5 MG INH (20:56)
[2024-02-28 21:08] LABS: Glucose - Point of Care 234 mg/dl (70-99)
[2024-02-28] MEDS: NSS (PRESERVATIVE FREE) 0.25 ML IV (21:10)
[2024-02-28] MEDS: NOVOLOG FLEXPEN-HIGH RESISTANCE 4 UNITS SC (23:29)
[2024-02-28 23:42] LABS: Glucose - Point of Care 233 mg/dl (70-99)
[2024-02-29] VITALS (11 sets, daily range): BP systolic 97–153; BP diastolic 54–94; BMI 44.3
[2024-02-29] MEDS: PRECEDEX 100 IV ×3 (00:26→05:03)
[2024-02-29] MEDS: ATIVAN 0.5 MG IV ×2 (00:30→01:05)
--- NOTE | 2024-02-29 00:41 | PTCARENOTE ---
systems reviewed, dex titrated per worklist, pt DSATs whenever the mask doesn't have a complete seal, pt restless, WOB increasing Ativan per order given, pt states she wants the mask off but educated on the importance of it, RT called to adjust
mask, family @ bedside otherwise refer to documentation.
[2024-02-29] MEDS: NSS (PRESERVATIVE FREE) 0.25 ML IV (01:04)
[2024-02-29] MEDS: MORPHINE SULFATE 1 MG IV (02:01)
--- NOTE | 2024-02-29 02:30 | PTCARENOTE ---
pt remains restless with increasing WOB, tachycardic MILLWRIGHT SUPERVISOR notified seen pt @ bedside, multiple doses of Ativan and morphine given per order, dex gtt maxed, no improvement from meds, family called in due to worsening condition
--- NOTE | 2024-02-29 03:30 | CHAP ---
Emotional and spiritual support provided to Conchis and family gathered at bedside. Prayer blanket given, prayers shared.
[2024-02-29] MEDS: MORPHINE SULFATE 2 MG IV ×6 (03:45→05:48)
--- NOTE | 2024-02-29 03:57 | W.PN.UPDATE ---
Update Note
Progress Note Update
Patient having increased respiratory distress throughout the night, 02 stats (78 to 82% at best), RR (30 to 40), and dyssynchronous with NIV.� Multiple doses of Ativan given and maxed on precedex drip with minimal improvements in distress. Multiple
discussion with family throughout the night over declining situation, concern for need to intubate, risks with intubation, and possibility not being able to liberate from the ventilator. After multiple discussions and witnessing the patient's
distress, family decided to make patient a DNR and comfort care.
[2024-02-29] MEDS: ATIVAN 1 MG IV ×2 (04:01→05:29)
--- NOTE | 2024-02-29 04:40 | PTCARENOTE ---
family spoke with TRUCK RENTAL CLERK and decided to make pt a DNR, bracelet applied, and proceed with comfort care, pastoral care contacted brought prayer blanket and prayed with family @ bedside, emotional support provided, morphine gtt and bolus started per
order, family @ bedside
[2024-02-29] MEDS: MORPHINE 100 IV (04:50)
[2024-02-29] MEDS: MORPHINE SULFATE IV (04:59)
[2024-02-29] MEDS: NSS (PRESERVATIVE FREE) 0.5 ML IV (05:30)
--- NOTE | 2024-02-29 06:03 | W.PN.DEATH ---
Pronouncement of
-
Called to see patient to pronounce.
No spontaneous heart tones or respirations noted.
Patient not responsive to verbal stimuli.
Patient is pronounced .
Time of : 06:00
Date of : 02/29/24
Cause of : Acute respiratory failure due to interstitial Lung Disease Exacerbation
Family Notified: Yes
--- NOTE | 2024-02-29 06:27 | PTCARENOTE ---
pt passed 599, BOLIVAR notified, family @ bedside emotional support provided, belongings sent home with family, post mortem care
--- NOTE | 2024-02-29 06:59 | PTCARENOTE ---
pt taken down to trisha
--- NOTE | 2024-02-29 13:33 | W.DCSUMMARY ---
Discharge Summary
Discharge Data
Date of Admission: 02/15/24
Date of Discharge: 02/29/24
-
Pending Results: No
Hospital Course
Principal Diagnosis:
Acute on Chronic Hypoxic Respiratory Failure due to Interstitial Lung Disease / Pulmonary Fibrosis exacerbation
Fever on admission due to systemic inflammatory response syndrome
Chronic Diagnoses:�
Benign Hypertension
ANCA Positive Vasculitis
Immune compromised state
Chronic Heart failure with preserved ejection fraction
Hypothyroidism on Synthroid
Anemia of Chronic Disease
Hyperlipidemia
Morbid Obesity, BMI 44
Sleep apnea
History of left breast cancer with lumpectomy and radiation in 2001
Anxiety and depression, on Zoloft and BuSpar
Gastroesophageal reflux disease
Mild anxiety
Consultations:�
Aviation Ordnance Officer/pulmonology
Procedures:�
None
Clinical course:�
This is a 73 yo F with past medical history as stated above, who presented with shortness of breath and hypoxia.
Problem 1:
Acute on Chronic Hypoxic Respiratory Failure due to Interstitial Lung Disease / Pulmonary Fibrosis exacerbation.
Her CT chest this admission showed persistent pulmonary fibrosis without Pulmonary embolism.
She received IV steroid while in the hospital, and IV steroid was changed to high-dose pulse steroid due to her clinical deterioration.
Despite increased oxygen support (at 100% high flow nasal cannula with nonrebreather mask), she continued to desaturate.
Goals of care was discussed with her family, and it was agreed to transition the patient to comfort measures without intubation due to her poor clinical prognosis.
The patient peacefully on 02/29/2024 and the time of was at 6 AM.
Discharge Plan
-
Patient Disposition:
Date/Time
Date/Time: 02/29/24 06:00
Discharge Date and Time
Discharge Date/Time: 02/29/24 06:00
Print Language: UPPER SORBIAN
[2024-03-01 01:12] LABS: IgG Subclass 1 164 mg/dL (240-1118); IgG Subclass 2 68 mg/dL (124-549); IgG Subclass 3 12 mg/dL (21-134); IgG Subclass 4 2 mg/dL (1-123)
== END 2024-02-29 06:00 | disposition expired | DRG 196 ==
LOC: ICU 12:09
PROVIDERS: Family Medicine; Nurse Practitioner Family; Nurse Practitioner Primary Care; Registered Nurse; ADMITTING PHYSICIAN Internal Medicine; CONSULT PHYSICIAN Internal Medicine Critical Care Medicine; EMERGENCY PHYSICIAN Emergency Medicine
PROC: 5A0945A Assistance with Respiratory Ventilation, 24-96 Consecutive Hours, High Flow/Velocity Cannula (ICD-10-PCS; 2024-02-15)
PROC: 5A09357 Assistance with Respiratory Ventilation, Less than 24 Consecutive Hours, Continuous Positive Airway Pressure (ICD-10-PCS; 2024-02-15)
DX: J84.10 Pulmonary fibrosis, unspecified (principal); J96.21 Acute and chronic respiratory failure with hypoxia; D84.821 Immunodeficiency due to drugs; Z68.41 Body mass index [BMI] 40.0-44.9, adult; E87.20 Acidosis, unspecified; I50.32 Chronic diastolic (congestive) heart failure; M31.7 Microscopic polyangiitis; R65.10 Systemic inflammatory response syndrome (SIRS) of non-infectious origin without acute organ dysfunction; Z51.5 Encounter for palliative care; Z66 Do not resuscitate; E87.1 Hypo-osmolality and hyponatremia; D63.8 Anemia in other chronic diseases classified elsewhere; I11.0 Hypertensive heart disease with heart failure; I27.20 Pulmonary hypertension, unspecified; E03.9 Hypothyroidism, unspecified; E05.90 Thyrotoxicosis, unspecified without thyrotoxic crisis or storm; E09.9 Drug or chemical induced diabetes mellitus without complications; E66.01 Morbid (severe) obesity due to excess calories; F32.A Depression, unspecified; I77.82 Antineutrophilic cytoplasmic antibody [ANCA] vasculitis; Z99.81 Dependence on supplemental oxygen; K21.9 Gastro-esophageal reflux disease without esophagitis; E78.00 Pure hypercholesterolemia, unspecified; F41.9 Anxiety disorder, unspecified; G47.33 Obstructive sleep apnea (adult) (pediatric); H91.90 Unspecified hearing loss, unspecified ear; I25.10 Atherosclerotic heart disease of native coronary artery without angina pectoris; M81.8 Other osteoporosis without current pathological fracture; T38.0X5A Adverse effect of glucocorticoids and synthetic analogues, initial encounter; L01.09 Other impetigo; R74.01 Elevation of levels of liver transaminase levels; E87.5 Hyperkalemia; K12.1 Other forms of stomatitis; Z79.52 Long term (current) use of systemic steroids; Z79.620 Long term (current) use of immunosuppressive biologic; Z79.899 Other long term (current) drug therapy; Z86.16 Personal history of COVID-19; Z87.19 Personal history of other diseases of the digestive system; Z85.3 Personal history of malignant neoplasm of breast; Z92.3 Personal history of irradiation; Z87.891 Personal history of nicotine dependence; Z82.49 Family history of ischemic heart disease and other diseases of the circulatory system
CPT/HCPCS: 36600; 71045; 71250; 71275; 80048; 80053; 81003; 81015; 82248; 82784; 82787; 82805; 82962; 83036; 83605; 83735; 83880; 84100; 84145; 84484; 85014; 85018; 85025; 85027; 85610; 85652; 85730; 86140; 86803; 86850; 86900; 86901; 86920; 87040; 87449; 87502; 87811; 87899; 93005; 93306; 93970; 94640; 94660; 96374; 96375; 97116; 97163; 97167; 97530; 97535; 99291; J7500; P9016; Q9967